=== PATIENT | female | born 1985 | race Caucasian/White ===

== ENCOUNTER 2016-10-20 22:43 | Observation (INO) ==
[2016-10-20] MEDS ORDERED: Nitroglycerin 0.4 MG TAB.SUBL SL PRN (22:59)
[2016-10-20 23:03] LABS: Basophils # 0.1 K/mcL (0.0-0.2); Basophils % 0.8 %; Eosinophils # 0.3 K/mcL (0.0-0.6); Eosinophils % 2.8 %; Hematocrit 41.7 % (35.3-44.9); Hemoglobin 14.5 g/dL (11.5-15.4); Immature Granulocytes % 0.3 % (0-4); Lymphocytes # 4.4 K/mcL (0.6-4.6); Lymphocytes % 36.9 %; Mean Corpuscular HGB Conc 34.8 g/dL (31.6-35.5); Mean Corpuscular Hemoglobin 31.5 pg (28.0-33.3); Mean Corpuscular Volume 90.5 fL (83.0-100.0); Mean Platelet Volume 9.8 fL (9.4-12.4); Monocytes # 0.8 K/mcL (0.0-1.3); Monocytes % 6.4 %; Neutrophils # 6.3 K/mcL (1.6-8.9); Platelet Count 283 K/mcL (140-400); Red Blood Count 4.61 M/mcL (3.82-4.97); Red Cell Distribution Width 12.5 % (11.5-14.5); Segmented Neutrophils % 52.8 %
[2016-10-20 23:10] LABS: Prothrombin Time 10.3 Seconds (9.4-12.1)
[2016-10-20 23:12] LABS: Activated Partial Thrombo Time 26.5 Seconds (26.0-36.0)
[2016-10-20 23:16] LABS: BUN/Creatinine Ratio 10 (6-26); Blood Urea Nitrogen 12 mg/dL (7-20); Calcium 9.6 mg/dL (8.6-10.8); Carbon Dioxide 21 mEq/L (19-29); Chloride 107 mEq/L (98-109); Glucose 234 mg/dL (70-99); Osmolality,Calculated 293 (280-300); Potassium 3.6 mEq/L (3.5-4.5); Sodium 138 mEq/L (136-145); eGFR For African Americans > 60 (> 60); eGFR For Non-African Americans 56 (> 60)
[2016-10-20 23:19] LABS: D-Dimer < 215 ng/mLFEU (0-500)
--- NOTE | 2016-10-20 23:51 | Emergency Department Note ---
Disposition Clinical Impression: Chest pain Qualifiers: Chest pain type: unspecified Qualified Code(s): R07.9 - Chest pain, unspecified Disposition: Admitted As Inpatient Condition: Fair Time of Disposition: 02:30 Chest Pain HPI - General Chief Complaint: ED Chest Pain Stated Complaint: CP Time Seen by Provider: 10/20/16 22:55 Source: patient, EMS Limitations: other Vital Signs Reviewed: Yes Nursing Notes Reviewed: Yes - History of Present Illness HPI Narrative: Patient is a 31-year-old female who presents to [facility] ED with a chief complaint of central chest pain. States the pain is a 10 out of 10 pressure that radiates into her right arm. States she feels nauseous. No vomiting. Chest pain started approximately 50 minutes prior to arrival. Past medical history significant for CAD with [address] 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 He has also seen Dr. Polk. Most recent stent was placed in Jun [address] Polk. No recent upper respiratory type symptoms. No abdominal pain. No problems with urination or bowel movements. Patient states she was told her cardiac disease came from her diabetes. Pt complaint: chest pain Onset (ago): minute(s) Duration: constant Onset: during rest Pain Location: substernal Severity: severe Severity scale (1-10): 10 Quality: aching, heaviness Pain Radiation: RUE Improves with: nothing Worsens with: nothing Associated symptoms: Reports: nausea. Denies: vomiting, dyspnea, fever, cough Treatments prior to arrival chest pain: aspirin (4 baby ASA) - Related Data On Oral Contraceptives: Yes (plavix) Home Medications Medication Instructions Recorded Confirmed Metformin [Glucophage] 1,000 mg PO HS 04/05/15 10/21/16 Metformin [Glucophage] 1,000 mg PO QAM 04/05/15 10/21/16 Topiramate [Topamax] 50 mg PO BID 04/05/15 10/21/16 Temazepam [Restoril] 15 mg PO HS #0 06/29/15 10/21/16 Aspirin 81 mg PO QAM 07/13/15 10/21/16 Atorvastatin [Lipitor] 80 mg PO QPM 07/13/15 10/21/16 Clopidogrel [Plavix] 75 mg PO QAM 07/13/15 10/21/16 TraZODone 25 mg PO HS 09/27/15 10/21/16 Diazepam [Valium] 5 mg PO TID 04/01/16 10/21/16 Lurasidone HCl [Latuda] 30 mg PO QPM 04/01/16 10/21/16 Liraglutide [Victoza 2-Bill] 1.2 mg SQ QAM 10/21/16 10/21/16 Previous Rx's Medication Instructions Recorded Metoprolol XL (24 HR) Succ [Toprol 12.5 mg PO DAILY #30 tab.er.24h 04/03/16 Xl] Ondansetron [Zofran] 4 mg PO Q8HR PRN #30 tablet 04/03/16 Allergies Allergy/AdvReac Type Severity Reaction Status Date / Time naproxen AdvReac Gastrointestinal Verified 05/02/16 17:04 Upset All systems ED: reviewed and negative except as stated. 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 - Social History Smoking Status: Never smoker Alcohol use: Reports: occasionally Drug use: Reports: none Physical Exam - General Limitations: other General appearance: alert, anxious - Head Head exam: atraumatic, normocephalic, normal inspection - Eye Eye exam: Present: normal appearance, PERRL, EOMI - ENT ENT exam: normal exam, normal oropharynx, mucous membranes moist - Neck Neck exam: Present: normal inspection, full ROM, trachea midline - Chest Chest inspection: Present: normal inspection, symmetric chest wall rise - Respiratory Respiratory exam: Present: normal lung sounds bilaterally - Cardiovascular Cardiovascular exam: Present: regular rate, normal rhythm, normal heart sounds - Abdominal Exam Abdominal exam: Present: soft, Non-Tender. Absent: tenderness, distention, guarding, rebound, rigidity - Extremities Exam Extremities exam: Present: normal inspection, full ROM. Absent: tenderness, pedal edema - Back Exam Back exam: Present: normal inspection, full ROM. Absent: tenderness - Neurological Exam Neurological exam: Present: alert, oriented X3 - Psychiatric Psychiatric exam: Present: normal affect, normal mood - Skin Skin exam: Present: warm, dry, intact, normal color Course Course Narrative: Patient seen and examined. Chest pain with history of ACS. Due to her history of ACS with stents, persistent chest pain despite nitroglycerin and morphine, we will admit for further observation. I spoke with hospitalist Dr. Craig who accept patient for admission. Vital Signs Temperature 97.8 F 10/20/16 22:44 Pulse Rate 94 10/20/16 22:44 Respiratory Rate 22 10/20/16 22:44 Blood Pressure 0/0 10/20/16 22:44 O2 Sat by Pulse Oximetry 98 10/20/16 22:44 Temperature 97.5 F L 10/21/16 06:43 Pulse Rate 74 10/21/16 06:43 Respiratory Rate 16 10/21/16 06:43 Blood Pressure 100/69 10/21/16 06:43 O2 Sat by Pulse Oximetry 97 10/21/16 06:43 Oxygen Delivery Oxygen Delivery Room Air Chest Pain - Medical Records Medical records reviewed: Yes I reviewed the patient's medical records. - Lab Data Lab results reviewed: Yes I reviewed the patient's lab results. Result diagrams: 10/21/16 01:43 10/21/16 01:43 Lab Results 10/20/16 10/20/16 10/20/16 Range/Units 22:53 22:53 22:53 WBC 12.0 H (4.3-11.1) K/mcL RBC 4.61 (3.82-4.97) M/mcL Hgb 14.5 (11.5-15.4) g/dL Hct 41.7 (35.3-44.9) % MCV 90.5 (83.0-100.0) fL MCH 31.5 (28.0-33.3) pg MCHC 34.8 (31.6-35.5) g/dL RDW 12.5 (11.5-14.5) % Plt Count 283 (140-400) K/mcL MPV 9.8 (9.4-12.4) fL Immature Gran % 0.3 (0-4) % Seg Neutrophils % 52.8 % Lymphocytes % 36.9 % Monocytes % 6.4 % Eosinophils % 2.8 % Basophils % 0.8 % Neutrophils # 6.3 (1.6-8.9) K/mcL Lymphocytes # 4.4 (0.6-4.6) K/mcL Monocytes # 0.8 (0.0-1.3) K/mcL Eosinophils # 0.3 (0.0-0.6) K/mcL Basophils # 0.1 (0.0-0.2) K/mcL PT 10.3 (9.4-12.1) Seconds INR 1.0 APTT 26.5 (26.0-36.0) Seconds D-Dimer < 215 (0-500) ng/mLFEU Sodium 138 (136-145) mEq/L Potassium 3.6 (3.5-4.5) mEq/L Chloride 107 (98-109) mEq/L Carbon Dioxide 21 (19-29) mEq/L BUN 12 (7-20) mg/dL Creatinine 1.15 H (0.57-1.11) mg/dL Est GFR ( Amer) > 60 (> 60) Est GFR (Non-Af Amer) 56 L (> 60) BUN/Creatinine Ratio 10 (6-26) Glucose 234 H (70-99) mg/dL Calculated Osmolality 293 (280-300) Calcium 9.6 (8.6-10.8) mg/dL Troponin I (0-0.03) ng/mL 10/20/16 Range/Units 22:53 WBC (4.3-11.1) K/mcL RBC (3.82-4.97) M/mcL Hgb (11.5-15.4) g/dL Hct (35.3-44.9) % MCV (83.0-100.0) fL MCH (28.0-33.3) pg MCHC (31.6-35.5) g/dL RDW (11.5-14.5) % Plt Count (140-400) K/mcL MPV (9.4-12.4) fL Immature Gran % (0-4) % Seg Neutrophils % % Lymphocytes % % Monocytes % % Eosinophils % % Basophils % % Neutrophils # (1.6-8.9) K/mcL Lymphocytes # (0.6-4.6) K/mcL Monocytes # (0.0-1.3) K/mcL Eosinophils # (0.0-0.6) K/mcL Basophils # (0.0-0.2) K/mcL PT (9.4-12.1) Seconds INR APTT (26.0-36.0) Seconds D-Dimer (0-500) ng/mLFEU Sodium (136-145) mEq/L Potassium (3.5-4.5) mEq/L Chloride (98-109) mEq/L Carbon Dioxide (19-29) mEq/L BUN (7-20) mg/dL Creatinine (0.57-1.11) mg/dL Est GFR ( Amer) (> 60) Est GFR (Non-Af Amer) (> 60) BUN/Creatinine Ratio (6-26) Glucose (70-99) mg/dL Calculated Osmolality (280-300) Calcium (8.6-10.8) mg/dL Troponin I 0.01 (0-0.03) ng/mL - Radiology Data Radiology results reviewed: Yes I reviewed the patient's radiology results. Chest X-Ray 10/20/16 22:57 IMPRESSION: No acute process. D/ / Estevan Hemphill MD / Estevan Hemphill MD Interpreting Provider: Estevan Hemphill MD - EKG Data EKG attestation: Yes I reviewed and interpreted this EKG. EKG shows normal: sinus rhythm Rate: normal Q waves: II, III, aVF When compared to previous EKG there are: no significant changes Interpretation: no acute changes Heart Score - Score History: Moderately Suspicious EKG: Normal Age: Less than 45 Risk Factors: Equal/Greater than 3 risk factor or history of atherosclerotic disease Troponin: Less than normal limit HEART Score Total: 3 Attestation Statement - Attestation Attestation: I, Murali Sellers MD, personally performed a history and physical exam of the patient and discussed their management with the resident. I reviewed the resident's note and agree with the documented findings, medical decision making , and plan of care. 31-year-old female presents to the emergency department with a complaint of severe chest pain which started in the right chest and radiated down the right arm then moved on to the left breast and then through to the back. Patient has a prior history of coronary artery disease with [place] and coronary artery stents. On examination patient is a well-developed obese female in no acute distress but appears to be in moderate discomfort. She is alert and oriented 3. There is no cyanosis or diaphoresis. Chest is nontender to palpation. Breath sounds are clear and equal bilaterally. Heart regular rate and rhythm. Nontender with normal bowel sounds. No acute changes on EKG. Chest x-ray negative. Labs reviewed. Troponin normal. The hospitalist, Dr. Craig, was consulted and accepted admission of the patient.
[2016-10-20] MEDS ORDERED: Ondansetron 4 MG/2 ML VIAL IVP ONE (23:52)
[2016-10-20] MEDS ORDERED: *HR* Morphine 2 MG/ML SYRINGE IVP ONE (23:52)
--- NOTE | 2016-10-21 01:20 | Internal Med History&Physical ---
Date of Encounter: 10/21/16 Time of Encounter: 01:14 Assessment and Plan (1) Chest pain Current visit: No Status: Acute Right-sided chest pain did not improve with nitrates in patient with History of coronary artery disease status post drug-eluting stent last year, currently taking both aspirin and Plavix. 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 U-Toxicology requested Will request a consultation with cardiology for assistance. Discussed with the patient. She expressed understanding. Qualifiers: Chest pain type: other chest pain Qualified Code(s): R07.89 - Other chest pain; R07.8 - Other chest pain (2) CAD (coronary artery disease) Current visit: No Status: Chronic Qualifiers: Coronary Disease-Associated Artery/Lesion type: [place] artery [place] vs. transplanted heart: [place] heart Associated angina: without angina Qualified Code(s): I25.10 - Atherosclerotic heart disease of [place] coronary artery without angina pectoris (3) Anxiety and depression Current visit: No Status: Chronic (4) DVT prophylaxis Current visit: No Status: Acute Heparin (5) Diabetes Current visit: No Status: Chronic Patient currently on metformin and Victoza. We will hold both medications for now. Check A1c levels. Monitor fingerstick. Insulin sliding scale. 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 Gamboa is a 31 year old female with past medical history of coronary artery disease status post drug-eluting stent in March 2016 ([facility] follow up with [facility] in [place], she has been seen by multiple cardiologists, including here by Dr. Polk in the past). Type 2 diabetes, obesity, anxiety depression, bipolar disorder, hypertension, fatty liver disease. She takes both aspirin and Plavix on a regular basis. The patient used to be a smoker, she quit last year. She presented to the emergency department complaining of chest pain which is located in the right side, pressure-like. Patient states the pain started around 4 PM however it was mild, intermittent. At around 10 PM pain was 10 out of 10, pressure-like, right-sided, radiating to the right upper extremity, associated with shortness of breath. Patient was playing cards with her friends, she took the dose of aspirin at home, a her friend called the squad and she was transported to our emergency department. Upon arrival to the ED her blood pressure was 118/87, heart rate was 94, temperature was 97.8, oxygen saturation was 98%. Initial WBC hemoglobin of 14.5, platelet count 283, WBC count 12.0. Sodium 138, potassium 3.6, chloride 107, bicarbonate 21, WN pleasant, creatinine 1.15, glucose 254. Troponin was 0.01. Chest x-ray did not reveal acute process. In the emergency department she received a dose of nitroglycerin sublingual which did not relieve the pain and gave her headache along with a dose of IV morphine 4 mg. EKG did not reveal acute changes, the patient was admitted for further management and workup. Past Med Surg Social Fam HX - Past Medical History Medical history: CHF, coronary artery disease, diabetes, GERD, hyperlipidemia, hypertension, kidney stones, migraine, myocardial infarction Psychiatric history: anxiety, ADHD, bipolar, depression - Past Surgical History Surgical History: angioplasty/stent - Social History Smoking Status: Never smoker Smokeless Tobacco Status: No Alcohol use: occasionally Drug use: none - Family History Father Living Status: Still Living Hx Family Cardiac Disorders: Yes (HTN) Hx Family Respiratory Disorders: No Hx Family Cancer: No Hx Family GI Disorders: No Hx Family Endocrine Disorder: Yes (Dm) Hx Family Neuromuscular Disorders: No Hx Family Neurologic Disorders: No Hx Family HEENT Disorders: No Hx Family Autoimmune Disorders: No Grandmother Adopted: No Family Member Ethnicity: Non- Living Status: Hx Family Cardiac Disorders: Yes (CHF) Hx Family Respiratory Disorders: No Hx Family Cancer: No Hx Family GI Disorders: No Hx Family Endocrine Disorder: No Hx Family Neuromuscular Disorders: No Hx Family Neurologic Disorders: No Hx Family HEENT Disorders: No Hx Family Autoimmune Disorders: No Mother Family Member Ethnicity: Non- Living Status: Still Living Hx Family Cardiac Disorders: No Hx Family Respiratory Disorders: No Hx Family Cancer: No Hx Family GI Disorders: No Hx Family Endocrine Disorder: No Hx Family Neuromuscular Disorders: No Hx Family Neurologic Disorders: No Hx Family HEENT Disorders: No Hx Family Autoimmune Disorders: No Internal Medicine - H&P: Meds Duloxetine [Cymbalta] 20 mg PO DAILY 04/05/15 [History] Metformin [Glucophage] 1,000 mg PO QAM 04/05/15 [History] Metformin [Glucophage] 500 mg PO HS 04/05/15 [History] Topiramate [Topamax] 50 mg PO BID 04/05/15 [History] Temazepam [Restoril] 15 mg PO HS #0 06/29/15 [History] Aspirin 81 mg PO QAM 07/13/15 [History] Atorvastatin [Lipitor] 80 mg PO QPM 07/13/15 [History] Clopidogrel [Plavix] 75 mg PO QAM 07/13/15 [History] TraZODone 25 mg PO HS 09/27/15 [History] Diazepam [Valium] 5 mg PO BID 04/01/16 [History] Lurasidone HCl [Latuda] 40 mg PO QPM 04/01/16 [History] Mexiletine [Mexitil] 200 mg PO BID 04/01/16 [History] Metoprolol XL (24 HR) Succ [Toprol Xl] 12.5 mg PO DAILY #30 tab.er.24h 04/03/16 [Rx] Ondansetron [Zofran] 4 mg PO Q8HR PRN #30 tablet 04/03/16 [Rx] Nitroglycerin 0.5 inch TP Q12H PRN 10 Days 05/05/16 [Rx] Benzonatate [Tessalon] 200 mg PO TID PRN #30 capsule 08/05/16 [Rx] Cephalexin [Keflex] 500 mg PO QID #40 capsule 08/05/16 [Rx] GuaiFENesin ER [Mucinex] 1,200 mg PO BID #20 tbbp.12hr 08/05/16 [Rx] Azithromycin [Zithromax] 250 mg PO DAILY #6 tablet 08/08/16 [Rx] GuaiFENesin/Codeine [Robitussin w/Codeine] 10 ml PO Q6HR PRN #120 liquid [Rx] PredniSONE 60 mg PO ONCE #5 tablet 08/08/16 [Rx] Allergies naproxen Adverse Reaction (Verified 05/02/16 17:04) Gastrointestinal Upset All Systems PM: A 10-system review of systems was performed and is negative for pertinent findings except as documented above in the HPI. - Constitutional Constitutional: no chills, no fever(s), no night sweats - EENT Eyes: no change in vision, no discharge, no pain, no photophobia Ears: no ear discharge, no ear pain, no tinnitus Nose, mouth and throat: no dysphagia, no nasal discharge, no neck pain, no sore throat - Cardiovascular Cardiovascular ROS IM: no chest pain, no diaphoresis, no dyspnea, no lightheadedness, no palpitations, no syncope - Respiratory Respiratory: no cough, no dyspnea, no wheezing, no excessive phlegm production - Gastrointestinal Gastrointestinal: no abdominal pain, no diarrhea, no hematemesis, no hematochezia, no melena, no nausea, no vomiting - Genitourinary Genitourinary: no change in urinary stream, no dysuria, no flank pain, no hematuria - Musculoskeletal Musculoskeletal ROS IM: no numbness, no tingling - Integumentary Integumentary IM: no rash, no unusual bruising - Neurological Neurological ROS: no confusion, no convulsions, no focal weakness, no numbness, no tingling, no tremor(s) - Hematologic/Lymphatic Hematologic/Lymphatic: no easy bruising - Constitutional Vitals: Temp Pulse Resp BP Pulse Ox 97.8 F 96 18 111/83 96 10/20/16 22:44 10/20/16 23:33 10/21/16 00:41 10/21/16 00:41 10/20/16 23:33 General appearance: Present: cooperative, A&O X 3, pleasant, obese - Head Head exam: Present: atraumatic, normocephalic - Eye Eye exam: Present: PERRL, conjuntiva pink, sclera anicteric Pupils: Present: PERRL - Neck Neck exam general surgery: Present: supple, trachea midline. Absent: lymphadenopathy - Respiratory Respiratory exam: Present: CTAB. Absent: accessory muscle use, rales, rhonchi, wheezes - Cardiovascular Cardiovascular exam: Present: RRR, +S1, +S2. Absent: diastolic murmur, gallop, rubs, systolic murmur - GI/Abdominal GI/Abdominal exam: Present: normal bowel sounds, soft, no peritoneal signs. Absent: distended, tenderness - Extremities Exam Extremities exam: Present: warm, radial pulses palpable and symetrical. Absent : calf tenderness, cyanotic, pedal edema - Neurological Exam Neurological exam: Present: CN II-XII intact, oriented X3, no focal deficits. Absent: pronater drift, facial droop, speech deficit - Skin Skin exam: Present: dry, intact Internal Med - H&P Results - Labs CBC & Chem 7: 10/20/16 22:53 10/20/16 22:53
[2016-10-21] MEDS ORDERED: *HR* Dextrose 50 % in Water (Syg) 50 ML SYRINGE IVP PRN (01:28)
[2016-10-21] MEDS ORDERED: Naloxone 0.4 MG/ML INJ IVP PRN (01:28)
[2016-10-21] MEDS ORDERED: Acetaminophen 325 MG TABLET PO PRN (01:28)
[2016-10-21] MEDS ORDERED: D5% in Water 1,000 ML IVC PRN (01:28)
[2016-10-21] MEDS ORDERED: Nitroglycerin 0.4 MG TAB.SUBL SL PRN (01:28)
[2016-10-21] MEDS ORDERED: *HR* Morphine 2 MG/ML SYRINGE IVP PRN (01:28)
[2016-10-21] MEDS ORDERED: Dextrose Gel 15 GM PO PRN ×2 (01:28)
[2016-10-21 01:57] LABS: Basophils # 0.1 K/mcL (0.0-0.2); Basophils % 0.6 %; Eosinophils # 0.3 K/mcL (0.0-0.6); Eosinophils % 2.5 %; Hematocrit 40.3 % (35.3-44.9); Hemoglobin 13.9 g/dL (11.5-15.4); Immature Granulocytes % 0.2 % (0-4); Lymphocytes # 4.8 K/mcL (0.6-4.6); Lymphocytes % 42.5 %; Mean Corpuscular HGB Conc 34.5 g/dL (31.6-35.5); Mean Corpuscular Hemoglobin 31.5 pg (28.0-33.3); Mean Corpuscular Volume 91.4 fL (83.0-100.0); Monocytes # 0.7 K/mcL (0.0-1.3); Monocytes % 5.8 %; Neutrophils # 5.5 K/mcL (1.6-8.9); Platelet Count 265 K/mcL (140-400); Red Blood Count 4.41 M/mcL (3.82-4.97); Red Cell Distribution Width 12.7 % (11.5-14.5); Segmented Neutrophils % 48.4 %
[2016-10-21 02:13] LABS: BUN/Creatinine Ratio 11 (6-26); Blood Urea Nitrogen 13 mg/dL (7-20); Calcium 9.4 mg/dL (8.6-10.8); Carbon Dioxide 24 mEq/L (19-29); Chloride 107 mEq/L (98-109); Chol/HDL Ratio 2.6 (0-4.9); Cholesterol 84 mg/dL (< 200); Glucose 224 mg/dL (70-99); HDL Cholesterol 32 mg/dL (40-59); LDL Cholesterol,Calculated 21 mg/dL (0-99); Magnesium 1.8 mg/dL (1.6-2.6); Osmolality,Calculated 295 (280-300); Potassium 3.7 mEq/L (3.5-4.5); Sodium 139 mEq/L (136-145); Triglycerides 155 mg/dL (< 150); eGFR For African Americans > 60 (> 60); eGFR For Non-African Americans 56 (> 60)
[2016-10-21] MEDS: *HR* HYDROcodone/Acet 5/325 mg TABLET PO PRN ×2 (02:45→08:13)
[2016-10-21 02:50] LABS: Hemoglobin A1C 7.6 %
[2016-10-21] MEDS: Ondansetron 4 MG/2 ML VIAL IVP PRN ×2 (06:07→11:05)
[2016-10-21 07:04] LABS: Amphetamine Screen,Urine Negative ng/mL (Cutoff=1000); Barbiturate Screen,Urine Negative ng/mL (Cutoff=200); Benzodiazepines Screen,Urine Positive ng/mL (Cutoff=200); Cannabinoid Screen,Urine Negative ng/mL (Cutoff = 50); Cocaine Screen,Urine Negative ng/mL (Cutoff= 300); Opiate Screen,Urine Positive ng/mL (Cutoff=300); Phencyclidine Screen,Urine Negative ng/mL (Cutoff=25)
[2016-10-21] MEDS ORDERED: Aspirin 81 MG TAB.CHEW PO SCH (09:00)
--- NOTE | 2016-10-21 09:13 | Cardiology Consult Note ---
<Nick August - Last Filed: 10/21/16 10:58> Date of Encounter: 10/21/16 Time of Encounter: 09:30 Assessment and Plan (1) Chest pain Status: Acute Per Cardiology: Trops negative x 3. Atypical CP that occurred at rest. Currently chest pain- free. ECG comparable to baseline ECG. Qualifiers: Chest pain type: other chest pain Qualified Code(s): R07.89 - Other chest pain; R07.8 - Other chest pain (2) CAD (coronary artery disease) Status: Chronic Per Cardiology: Hx of CAD. Patient with inferior STEMI June 2015 at that time underwent drug -eluting stent placement to proximal RCA 100% stenosis. Patient had subsequent repeat heart catheterization September 2015 for recurrent chest pain admissions which showed patent stent and distal RCA 80% stenosis with FFR 0.85 and 0.84. Patient again had a third heart catheterization April 2016 and underwent drug- eluting stent placement to right PDA 70-80% stenosis with patent proximal RCA stent. Patient had otherwise nonobstructive CAD with mid LAD 20%, mid circumflex 20%, and 20% in-stent restenosis of proximal RCA. On aspirin, Plavix , statin. I'll discuss with patient regarding outpatient follow-up with her primary rn telephone triage versus further ischemic evaluation. At this point patient' s agreeable for follow-up in outpatient setting. Discussed with primary service. Anticipate discharge home today. Will discuss with Dr. Vela. Cardiology will sign off, re-consult as needed, patient desires to follow-up with her primary rn telephone triage. Qualifiers: Coronary Disease-Associated Artery/Lesion type: [place] artery [place] vs. transplanted heart: [place] heart Associated angina: without angina Qualified Code(s): I25.10 - Atherosclerotic heart disease of [place] coronary artery without angina pectoris Discussion w patient/family: The assessment and plan as outlined above was discussed with the patient who expressed understanding and agreement. All questions were answered. Thank you for involving us in the care of your patient. Please call with any questions. History of Present Illness Consult date: 10/21/16 Requesting physician: Yovani Dick Consult reason: CP Chief complaint: Right sided CP History of present illness: Ms. Gamboa is a 31 year old female with a relevant past medical history of diabetes mellitus type 2, hypertension, hyperlipidemia, past history of nicotine abuse-- reports quit at time of her [place] June 2015, history of inferior STEMI with CAD, and anxiety. Cardiology consult today for chest pain evaluation. Patient reports since her last catheterization and stenting in April 2016 she has "felt great". She reports yesterday throughout the day showed intermittent right upper chest wall stabbing sensations that lasted for a few seconds and subsided. Yesterday evening while playing cards with friends she developed the same right-sided chest discomfort and left-sided breast area discomfort with radiation to her back the laceration about 30 minutes that she describes as a dull aching sensation. She denies any other accompanying symptoms. She reports the time of her heart attack symptoms were diaphoresis, nausea, and jaw pain with left arm pain. She also complains of right-sided arm numbness. Symptoms relieved with morphine and Percocet. Reports follows with rn telephone triage in [place]. Past Med Surg Social Fam HX - Past Medical History Attestation: Yes The following information was validated with the patient. Source: patient, old records reviewed Medical history: CHF, coronary artery disease, diabetes, GERD, hyperlipidemia, hypertension, kidney stones, migraine, myocardial infarction Psychiatric history: anxiety, ADHD, bipolar, depression - Past Surgical History Surgical History: angioplasty/stent - Social History Smoking Status: Never smoker Smokeless Tobacco Status: No Alcohol use: occasionally Drug use: none - Family History Father Living Status: Still Living Hx Family Cardiac Disorders: Yes (HTN) Hx Family Respiratory Disorders: No Hx Family Cancer: No Hx Family GI Disorders: No Hx Family Endocrine Disorder: Yes (Dm) Hx Family Neuromuscular Disorders: No Hx Family Neurologic Disorders: No Hx Family HEENT Disorders: No Hx Family Autoimmune Disorders: No Grandmother Adopted: No Family Member Ethnicity: Non- Living Status: Hx Family Cardiac Disorders: Yes (CHF) Hx Family Respiratory Disorders: No Hx Family Cancer: No Hx Family GI Disorders: No Hx Family Endocrine Disorder: No Hx Family Neuromuscular Disorders: No Hx Family Neurologic Disorders: No Hx Family HEENT Disorders: No Hx Family Autoimmune Disorders: No Mother Family Member Ethnicity: Non- Living Status: Still Living Hx Family Cardiac Disorders: No Hx Family Respiratory Disorders: No Hx Family Cancer: No Hx Family GI Disorders: No Hx Family Endocrine Disorder: No Hx Family Neuromuscular Disorders: No Hx Family Neurologic Disorders: No Hx Family HEENT Disorders: No Hx Family Autoimmune Disorders: No Medications and Allergies Metformin [Glucophage] 1,000 mg PO BID 04/05/15 [History] Topiramate [Topamax] 50 mg PO BID 04/05/15 [History] Temazepam [Restoril] 15 mg PO HS #0 06/29/15 [History] Aspirin 81 mg PO QAM 07/13/15 [History] Atorvastatin [Lipitor] 80 mg PO QPM 07/13/15 [History] Clopidogrel [Plavix] 75 mg PO QAM 07/13/15 [History] TraZODone 25 - 50 mg PO HS PRN 09/27/15 [History] Diazepam [Valium] 5 mg PO TID 04/01/16 [History] Lurasidone HCl [Latuda] 30 mg PO QPM 04/01/16 [History] Ondansetron [Zofran] 4 mg PO Q8HR PRN #30 tablet 04/03/16 [Rx] Liraglutide [Victoza 2-Bill] 1.2 mg SQ QAM 10/21/16 [History] Metoprolol XL (24 HR) Succ [Toprol Xl] 50 mg PO DAILY 10/21/16 [History] Allergies naproxen Adverse Reaction (Verified 05/02/16 17:04) Gastrointestinal Upset All Systems Review: A 10-system review of systems was performed and is negative for pertinent findings except as documented above in the HPI. - Cardiovascular Cardiovascular: as per HPI, chest pain at rest Physical Examination Vital Signs, Last 4 Hours Temp Pulse Resp BP Pulse Ox 10/21/16 06:43 97.5 F L 74 16 100/69 97 General: Conversant, No Apparent Distress HEENT: Atraumatic, Normocephaly, Mucus Membranes Moist Neck: No JVD, Normal carotid pulses Cardiac: Reg Rate and Rhythm, Normal S1 and S2, No Murmur Lungs: Normal Breath Sounds, No Wheeze, Rales, Rhonchi Neuro: Alert and responsive, No focal deficits noted Abdomen: Soft, Non-Tender Skin: No rashes noted on visualized skin Musculoskeletal: No Chest Wall Tenderness Extremities: No Clubbing, No Cyanosis, No Edema, Normal Pulses Results 10/21/16 01:43 10/21/16 01:43 Lab Results Laboratory Tests 10/20/16 10/21/16 10/21/16 22:53 01:43 01:43 INR 1.0 D-Dimer < 215 Creatinine 1.15 H Est GFR (Non-Af Amer) 56 L Glucose 224 H Hemoglobin A1c 7.6 H Urine Opiates Screen U Benzodiazepines Scrn 10/21/16 06:48 INR D-Dimer Creatinine Est GFR (Non-Af Amer) Glucose Hemoglobin A1c Urine Opiates Screen Positive H U Benzodiazepines Scrn Positive H ITS Impressions Chest X-Ray 10/20/16 22:57 IMPRESSION: No acute process. D/ / Estevan Hemphill MD / Estevan Hemphill MD Interpreting Provider: Estevan Hemphill MD Active Medications Acetaminophen (Tylenol) 650 mg PO Q6HR PRN PRN Reason: Mild Pain (1-3) Stop: 04/22/17 01:29 Acetaminophen/Hydrocodone Bitart ([place] 5-325 Mg) 1 tab PO Q4HR PRN PRN Reason: Moderate Pain (4-6) Stop: 04/22/17 01:29 Last Admin: 10/21/16 08:13 Dose: 1 tab Aspirin (Aspirin) 81 mg PO DAILY GINGER Stop: 04/22/17 09:01 Last Admin: 10/21/16 08:13 Dose: 81 mg Atorvastatin Calcium (Lipitor) 80 mg PO HS GINGER Stop: 04/22/17 21:01 Clopidogrel Bisulfate (Plavix) 75 mg PO DAILY [facility] Stop: 04/22/17 09:01 Last Admin: 10/21/16 08:14 Dose: 75 mg Dextrose/Water (Dextrose 50% (Syg)) 25 ml IVP AD PRN PRN Reason: Hypoglycemia Stop: 04/22/17 01:29 Glucagon (Glucagen) 1 mg IM ONCE PRN PRN Reason: Hypoglycemia Stop: 04/22/17 01:29 Glucose (Gluctose) 15 gm PO ONCE PRN PRN Reason: Hypoglycemia Stop: 04/22/17 01:29 Glucose (Gluctose) 30 gm PO ONCE PRN PRN Reason: Hypoglycemia Stop: 04/22/17 01:29 Dextrose (Dextrose 5%) 1,000 mls @ 100 mls/hr IVC .Q10H PRN PRN Reason: HYPOGLYCEMIA Stop: 04/22/17 01:29 Morphine Sulfate (Morphine Sulfate) 2 mg IVP Q4HR PRN PRN Reason: Severe Pain (7-10) Stop: 04/22/17 01:29 Last Admin: 10/21/16 05:39 Dose: 2 mg Naloxone HCl (Narcan) 0.4 mg IVP Q2MIN PRN PRN Reason: Opioid Reversal Stop: 04/22/17 01:29 Nitroglycerin (Nitroglycerin) 0.4 mg SL Q5MIN PRN PRN Reason: Chest Pain Stop: 04/21/17 23:00 Last Admin: 10/20/16 23:06 Dose: 0.4 mg Nitroglycerin (Nitroglycerin) 0.4 mg SL Q5MIN PRN PRN Reason: Chest Pain Stop: 04/22/17 01:29 Ondansetron HCl (Zofran) 4 mg IVP Q8HR PRN PRN Reason: Nausea And Vomiting Stop: 04/22/17 01:29 Last Admin: 10/21/16 06:07 Dose: 4 mg - Imaging and Cardiology Echo: report reviewed Cardiac cath: report reviewed - EKG Interpretation EKG results cardiology: personally reviewed (Comparable to baseline ECG), normal ECG, sinus rhythm Consult Discharge Plan - Plan Instructions: Myocardial Infarction (DC), Chest Pain (DC) Additional Instructions: Please follow up with your primary care provider in the next week or so for a follow up visit after your admission. Please follow up with your primary rn telephone triage for a follow up or for any other concerns. Return to the ED for any other problems or concerns or if your pain returns or changes. Referrals: Glory Funes CNP [Primary Care Provider] - <Kristi Vela - Last Filed: 10/21/16 13:54> Date of Encounter: 10/21/16 Assessment and Plan Discussion w patient/family: The assessment and plan as outlined above was discussed with the patient and/or family members who expressed understanding and agreement. All questions were answered. Thank you for involving us in the care of your patient. Please call with any questions. History of Present Illness History of present illness: Ms. Gamboa is a 31 year old female All Systems Review: A 10-system review of systems was performed and is negative for pertinent findings except as documented above in the HPI. Physical Examination Vital Signs, Last 4 Hours Temp Pulse Resp BP Pulse Ox 10/21/16 11:41 97.5 F L 63 16 110/73 96 Results 10/21/16 01:43 10/21/16 01:43 Lab Results 10/21/16 10/21/16 10/21/16 01:43 01:43 01:43 WBC 11.4 H Hgb 13.9 Hct 40.3 Plt Count 265 Sodium 139 Potassium 3.7 Chloride 107 Carbon Dioxide 24 BUN 13 Creatinine 1.15 H Glucose 224 H Calcium 9.4 Magnesium 1.8 Troponin I 0.01 10/21/16 07:58 WBC Hgb Hct Plt Count Sodium Potassium Chloride Carbon Dioxide BUN Creatinine Glucose Calcium Magnesium Troponin I 0.01 - Attending Attestation Patient was discharge prior to me being able to see her. I did review the case with Nick August CNP and reviewed the note. She presented with atypical chest pain, negative troponins and no new ECG changes. We do not recommend further workup at this time. Continue medical therapy. She will follow up with her primary rn telephone triage as an outpatient.
[2016-10-21] MEDS ORDERED: Ibuprofen 600 MG TABLET PO ONE (10:44)
[2016-10-21 11:46] VITALS: BP 110/73
--- NOTE | 2016-10-21 12:28 | Discharge Summary ---
Date of Encounter: 10/21/16 Time of Encounter: 09:15 - Discharge Diagnosis (1) Chest pain Priority: Primary Status: Chronic Comments: Pt reports onset of atypical chest pain last night at 2200 while she was playing cards with her friends. She states that she has sharp R upper chest pain with radiation of dull pain into R arm, and sharp L ant chest pain, under breast, with radiation of dull pain straight through to her back. She denies any recent illness or exposures or new cough, rhinorrhea, fever. Pt states that pain is constant and is relieved by pain medication. She states that nothing makes the pain worse, it is constant. She also denies vomiting, however, reports some nausea and diaphoresis with chest pain while in the ED. The pain is not reproduceable with movement, inspiration, or palpation. EKG was NSR and her trops are negative x 3. She rates the pain 8/10. Pt has a long history of chest pain starting in June of 2015 when she had an NH. She has had several heart caths and DELFINO placement x 2, most recently in April of 2016. Cardiology assessed the pt today and she declined an echo today. Pt has a intermediate project manager in [place]. Qualifiers: Chest pain type: other chest pain Qualified Code(s): R07.89 - Other chest pain; R07.8 - Other chest pain (2) CAD (coronary artery disease) Priority: Secondary Status: Chronic Comments: Pt has had several heart caths and DELFINO placed X2. Pt states that her last stress test and cath were in Apr, 2016. She is on ASA, Plavix, and a statin, which she will continue after discharge. Pt has a intermediate project manager in [place] with whom she may follow up for further evaluation. Qualifiers: Coronary Disease-Associated Artery/Lesion type: [place] artery [place] vs. transplanted heart: [place] heart Associated angina: without angina Qualified Code(s): I25.10 - Atherosclerotic heart disease of [place] coronary artery without angina pectoris (3) Diabetes Priority: Secondary Status: Chronic Comments: A1c is 7.6% today and she has been hyperglycemic since admission. She states that he glucose has been well controlled at home. Continue home medications. Follow up with PCP as needed. Qualifiers: Diabetes mellitus type: type 2 Diabetes mellitus complication status: with unspecified complications Diabetes mellitus senior living insulin use: without intermediate project manager use Qualified Code(s): E11.8 - Type 2 diabetes mellitus with unspecified complications (4) Hypertension Priority: Secondary Status: Chronic Comments: Pt reports HTN since age 11. She takes a BB which she will continue at home after discharge. She has been normotensive. Qualifiers: Hypertension type: essential hypertension Qualified Code(s): I10 - Essential (primary) hypertension (5) DVT prophylaxis Priority: Secondary Status: Acute Comments: Pt is already on ASA and Plavix and is ambulatory, does not require additional pharmacological anticoagulation therapy. - Discharge Medications Home Medications: Metformin [Glucophage] 1,000 mg PO HS 04/05/15 [History] Metformin [Glucophage] 1,000 mg PO QAM 04/05/15 [History] Topiramate [Topamax] 50 mg PO BID 04/05/15 [History] Temazepam [Restoril] 15 mg PO HS #0 06/29/15 [History] Aspirin 81 mg PO QAM 07/13/15 [History] Atorvastatin [Lipitor] 80 mg PO QPM 07/13/15 [History] Clopidogrel [Plavix] 75 mg PO QAM 07/13/15 [History] TraZODone 25 mg PO HS 09/27/15 [History] Diazepam [Valium] 5 mg PO TID 04/01/16 [History] Lurasidone HCl [Latuda] 30 mg PO QPM 04/01/16 [History] Metoprolol XL (24 HR) Succ [Toprol Xl] 12.5 mg PO DAILY #30 tab.er.24h 04/03/16 [Rx] Ondansetron [Zofran] 4 mg PO Q8HR PRN #30 tablet 04/03/16 [Rx] Liraglutide [Victoza 2-Bill] 1.2 mg SQ QAM 10/21/16 [History] Allergies/Adverse Reactions: Allergies naproxen Adverse Reaction (Verified 05/02/16 17:04) Gastrointestinal Upset Procedures/tests Complete & Pending: Procedures Performed prior 72 hours Category Date Time Status ECG 12 lead ECG [ECG] Routine Y 10/22/16 07:00 Ordered ECG 12 lead ECG [ECG] Stat Y 10/21/16 01:29 Ordered Date of admission: 10/21/16 00:07 Primary care physician: Glory Funes CNP Consults: 10/21/16 01:29 Consult to Nurse Navigator [CONS] Routine Comment: 10/21/16 07:00 Consult to Cardiology [CONS] Routine Comment: Consulting Provider: Deborah Gonzales Reason for Consult: right sided chest pain. h/o CAD S/P DELFINO R PDA 03/2016 Call Completed: No Discharging clinician: Lynnette Cazares Anticipated date of discharge: 10/21/16 - Patient Status Disposition: Home, Self-Care Condition: Good Functional capacity at discharge: independent ambulation Overall status at discharge: patient is progressing back to baseline - Discharge Instructions Follow Up With: Glory Funes CNP [Primary Care Provider] - Additional Instructions: Please follow up with your primary care provider in the next week or so for a follow up visit after your admission. Please follow up with your primary intermediate project manager for a follow up or for any other concerns. Return to the ED for any other problems or concerns or if your pain returns or changes. - Diet and Activity Activity: resume usual activities as tolerated Diet: advance to your usual diet Hospital course: Ms. Gamboa is a 31 year old female with a lengthy history of hypertension since age 11, diabetes, NH in 2014, and multiple cardiac catheters and drug-eluting stents. Patient had a heart catheter in September and April 2016. She had stent placement both times. She reports uncontrolled diabetes and hypertension are what caused her NH initially. She began having chest pain about 4:00 yesterday afternoon, it became worse at 10 PM last night while she was playing cards with her friends. She came to the emergency department by squad and was admitted for evaluation. Her troponins were negative 3, her EKG was normal sinus, and she was seen by cardiology this morning. He did discuss an echocardiogram today , but she declined. She describes constant 8 out of 10 right upper chest pain with radiation of dull pain down her right arm, and sharp chest pain on her left side under her left breast with radiation of dull pain straight through to her back. She states that nothing makes it worse, pain medication makes it better. She states that neither of her parents have any cardiac history nor does she have siblings with cardiac history. She does not smoke and has never smoked. Her continued risk factors are hypertension diabetes and obesity. She is already on a statin, beta phyllis, aspirin, and Plavix, which she will continue at home. She is remaining normal sinus rhythm throughout her visit. She is stable for discharge at this time. - Time Spent with Patient Total time spent providing and/or coordinating discharge services: Less than 30 minutes - Constitutional Vitals: Temp Pulse Resp BP Pulse Ox 97.5 F L 63 16 110/73 96 10/21/16 11:41 10/21/16 11:41 10/21/16 11:41 10/21/16 11:41 10/21/16 11:41 General appearance: Present: cooperative, A&O X 3, pleasant, obese - Head Head exam: Present: normal inspection - Eye Eye exam: Present: normal appearance, conjuntiva pink - ENT ENT exam: Present: mucous membranes moist, normal exam, normal external ear exam - Neck Neck exam general surgery: Present: normal inspection. Absent: lymphadenopathy , tenderness - Respiratory Respiratory exam: Present: CTAB. Absent: rales, respiratory distress, rhonchi, wheezes - Cardiovascular Cardiovascular exam: Present: RRR, +S1, +S2. Absent: diastolic murmur, systolic murmur - GI/Abdominal GI/Abdominal exam: Present: distended, hyperactive bowel sounds, soft. Absent: tenderness - Extremities Exam Extremities exam: Present: normal capillary refill, normal inspection, warm, radial pulses palpable and symetrical. Absent: mottling, pedal edema, tenderness - Neurological Exam Neurological exam: Present: alert, oriented X3, no focal deficits, strengths equal and symetr throughout
--- NOTE | 2016-10-22 10:53 | Electrocardiograph Report ---
[address] [place], [place] [address] Test Date: 2016-10-20 Pat Name: Deb Gamboa Department: 104 Room: 3B38 Gender: F [employer] Customer Service: ROSAS : 1985 Requested By: Cecily Prieto Order Number: [id number] Reading MD: Barrie Polk MD Measurements Intervals Accident Rate: 93 P: 24 IA: 152 QRS: -15 QRSD: 101 T: -20 QT: 334 QTc: 385 Interpretive Statements SINUS RHYTHM WITH SINUS ARRHYTHMIA LOW QRS VOLTAGE IN PRECORDIAL LEADS INFERIOR MYOCARDIAL INFARCTION, OF INDETERMINATE AGE ANTEROLATERAL MYOCARDIAL INFARCTION, OF INDETERMINATE AGE Electronically Signed On 10-22-2016 10:51:03 EDT by Barrie Polk MD
--- NOTE | 2016-10-22 13:47 | Electrocardiograph Report ---
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
== END 2016-10-21 13:30 | disposition home or self-care (01) ==
LOC: EMEROO 22:43 → 3BNU 22:43
PROVIDERS: ADMIT Internal Medicine; ATTEND Registered Nurse

== ENCOUNTER 2017-01-11 19:08 | Observation (INO) ==
--- NOTE | 2017-01-11 19:37 | Emergency Department Note ---
Disposition Clinical Impression: Chest pain Qualifiers: Chest pain type: unspecified Qualified Code(s): R07.9 - Chest pain, unspecified Disposition: Admitted As Inpatient Condition: Good Referrals: NO,PCP [Non-Partnered Physician] - Forms: ED Satisfaction Letter Chest Pain HPI - General Chief Complaint: ED Chest Pain Stated Complaint: CP Time Seen by Provider: 01/11/17 19:16 Source: patient Mode of arrival: EMS Limitations: no limitations Vital Signs Reviewed: Yes Nursing Notes Reviewed: Yes - History of Present Illness HPI Narrative: 31-year-old female history of CAD with 2 cardiac stents, hypertension, hyperlipidemia, diabetes who presents to the ER via EMS due to chest pain. Patient reports symptoms began around 5:40 PM today. She states she was sitting down whatever she had left-sided chest pain with radiation into her arm as well as nausea. She took aspirin prior to arrival as well as 3 sublingual nitroglycerin without any improvement of her symptoms. She states that she has had 5 heart catheterizations in the past most recently 6 months ago. She states that they told her she is having heart attacks because of her diabetes. She currently states that her pain is still there. She feels nauseated but no vomiting. No recent illnesses. No other complaints. 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 Denies: vomiting, diaphoresis, dyspnea Treatments prior to arrival chest pain: aspirin, nitroglycerin - Related Data Home Medications Medication Instructions Recorded Confirmed Topiramate [Topamax] 50 mg PO BID 04/05/15 01/11/17 Temazepam [Restoril] 15 mg PO HS #0 06/29/15 01/11/17 Aspirin 81 mg PO QAM 07/13/15 01/11/17 Atorvastatin [Lipitor] 80 mg PO QPM 07/13/15 01/11/17 Clopidogrel [Plavix] 75 mg PO QAM 07/13/15 01/11/17 traZODone [TraZODone] 50 mg PO HS PRN 09/27/15 01/11/17 Lurasidone HCl [Latuda] 30 mg PO QPM 04/01/16 01/11/17 diazePAM [Valium] 5 mg PO TID 04/01/16 01/11/17 Liraglutide [Victoza 2-Bill] 1.2 mg SQ QAM 10/21/16 01/11/17 Metoprolol XL (24 HR) Succ [Toprol 12.5 mg PO BID 10/21/16 01/11/17 Xl] Diltiazem CD (24hr) [Cardizem CD] 180 mg PO DAILY 01/11/17 01/11/17 Metformin HCl [Metformin HCl ER] 1,000 mg PO BID 01/11/17 01/11/17 Allergies Allergy/AdvReac Type Severity Reaction Status Date / Time naproxen AdvReac Gastrointestinal Verified 05/02/16 17:04 Upset All systems ED: reviewed and negative except as stated. Constitutional: Denies: fever Cardiovascular: Reports: chest pain Respiratory: Denies: cough, dyspnea Gastrointestinal: Reports: nausea. Denies: abdominal pain, vomiting, diarrhea Musculoskeletal: Denies: neck pain Chest Pain PMH - Past Medical History Medical history: Reports: CHF, coronary artery disease, diabetes, GERD, hyperlipidemia, hypertension, kidney stones, migraine, myocardial infarction Surgical history: Reports: angioplasty/stent Psychiatric history: Reports: anxiety, ADHD, bipolar, depression METAL CASTER history: Reports: non-contributory - Social History Smoking Status: Never smoker Alcohol use: Reports: occasionally Drug use: Reports: none Physical Exam - General Limitations: no limitations General appearance: alert, in no apparent distress - Head Head exam: atraumatic, normocephalic, normal inspection - Eye Eye exam: Present: normal appearance, EOMI - ENT ENT exam: normal exam - Neck Neck exam: Present: normal inspection - Chest Chest inspection: Present: normal inspection, symmetric chest wall rise. Absent : tenderness - Respiratory Respiratory exam: Present: normal lung sounds bilaterally - Cardiovascular Cardiovascular exam: Present: regular rate, normal rhythm, normal heart sounds - Abdominal Exam Abdominal exam: Present: soft, Non-Tender. Absent: tenderness - Extremities Exam Extremities exam: Present: normal inspection, full ROM - Expanded Upper Extremity Exam Shoulder exam: Present: normal inspection, full ROM Arm exam: Present: normal inspection, full ROM Elbow exam: Present: normal inspection, full ROM Forearm/Wrist exam: Present: normal inspection, full ROM Hand exam: Present: normal inspection, full ROM - Expanded Lower Extremity Exam Hip/Pelvis exam: Present: normal inspection, full ROM Upper leg exam: Present: normal inspection, full ROM Knee exam: Present: normal inspection, full ROM Lower leg exam: Present: normal inspection, full ROM Ankle exam: Present: normal inspection, full ROM Foot/toe exam: Present: normal inspection, full ROM - Neurological Exam Neurological exam: Present: alert - Psychiatric Psychiatric exam: Present: normal affect, normal mood - Skin Skin exam: Present: warm, dry, intact, normal color Course Course Narrative: Patient seen and examined at time of arrival. Vitals reviewed. We will get an EKG, chest x-ray as well as labs including troponin. Patient continues to have persistence of her pain despite sublingual nitroglycerin. We will start a nitroglycerin drip. I will also review her previous admissions. - Reevaluation(s) Reevaluation #1: Discussed results of imaging and lab work with the patient. She states she still having pain and will get some morphine. Patient agreeable with getting admitted to the hospital - Consultations Consultation #1: I spoke with the on-call shop and alteration tailor Dr. Mittal at the request of the hospitalist. Discussed patient's history EKG troponin and interventions today. He is agreeable with admission, repeat EKGs and troponins. Vital Signs Temperature 98.4 F 01/11/17 19:16 Pulse Rate 84 01/11/17 19:16 Respiratory Rate 16 01/11/17 19:16 Blood Pressure 114/85 01/11/17 19:16 O2 Sat by Pulse Oximetry 98 01/11/17 19:16 Temperature 98.4 F 01/11/17 19:16 Pulse Rate 70 01/11/17 22:12 Respiratory Rate 16 01/11/17 22:12 Blood Pressure 124/89 01/11/17 22:12 O2 Sat by Pulse Oximetry 98 01/11/17 22:12 Oxygen Delivery Oxygen Delivery Room Air Chest Pain - MDM Narrative Medical decision making narrative: 31-year-old female history of CAD with 2 stents who presents to the ER with a chief complaint of chest pain. Started around 540 today. Left-sided with radiation into her arm. Has felt nauseated as well. Her EKG is nonischemic. First troponin is negative. Chest x-ray unremarkable. Patient given nitroglycerin and morphine here. She will be admitted to the hospitalist service for further management. - Lab Data Lab results reviewed: Yes I reviewed the patient's lab results. Result diagrams: 01/11/17 19:34 01/11/17 19:34 Lab Results 01/11/17 01/11/17 01/11/17 Range/Units 19:34 19:34 19:34 WBC 14.1 H (4.3-11.1) K/mcL RBC 4.82 (3.82-4.97) M/mcL Hgb 15.1 (11.5-15.4) g/dL Hct 43.5 (35.3-44.9) % MCV 90.2 (83.0-100.0) fL MCH 31.3 (28.0-33.3) pg MCHC 34.7 (31.6-35.5) g/dL RDW 12.8 (11.5-14.5) % Plt Count 271 (140-400) K/mcL MPV 9.8 (9.4-12.4) fL Immature Gran % 0.2 (0-4) % Seg Neutrophils % 63.9 % Lymphocytes % 28.1 % Monocytes % 3.9 % Eosinophils % 3.3 % Basophils % 0.6 % Neutrophils # 9.0 H (1.6-8.9) K/mcL Lymphocytes # 4.0 (0.6-4.6) K/mcL Monocytes # 0.6 (0.0-1.3) K/mcL Eosinophils # 0.5 (0.0-0.6) K/mcL Basophils # 0.1 (0.0-0.2) K/mcL PT 10.4 (9.4-12.1) Seconds INR 1.0 APTT 29.1 (26.0-36.0) Seconds Sodium 138 (136-145) mEq/L Potassium 3.7 (3.5-4.5) mEq/L Chloride 111 H (98-109) mEq/L Carbon Dioxide 16 L (19-29) mEq/L BUN 6 L (7-20) mg/dL Creatinine 0.67 (0.57-1.11) mg/dL Est GFR ( Amer) > 60 (> 60) Est GFR (Non-Af Amer) > 60 (> 60) BUN/Creatinine Ratio 9 (6-26) Glucose 132 H (70-99) mg/dL Calculated Osmolality 285 (280-300) Calcium 9.3 (8.6-10.8) mg/dL Troponin I (0-0.03) ng/mL 01/11/17 Range/Units 19:34 WBC (4.3-11.1) K/mcL RBC (3.82-4.97) M/mcL Hgb (11.5-15.4) g/dL Hct (35.3-44.9) % MCV (83.0-100.0) fL MCH (28.0-33.3) pg MCHC (31.6-35.5) g/dL RDW (11.5-14.5) % Plt Count (140-400) K/mcL MPV (9.4-12.4) fL Immature Gran % (0-4) % Seg Neutrophils % % Lymphocytes % % Monocytes % % Eosinophils % % Basophils % % Neutrophils # (1.6-8.9) K/mcL Lymphocytes # (0.6-4.6) K/mcL Monocytes # (0.0-1.3) K/mcL Eosinophils # (0.0-0.6) K/mcL Basophils # (0.0-0.2) K/mcL PT (9.4-12.1) Seconds INR APTT (26.0-36.0) Seconds Sodium (136-145) mEq/L Potassium (3.5-4.5) mEq/L Chloride (98-109) mEq/L Carbon Dioxide (19-29) mEq/L BUN (7-20) mg/dL Creatinine (0.57-1.11) mg/dL Est GFR ( Amer) (> 60) Est GFR (Non-Af Amer) (> 60) BUN/Creatinine Ratio (6-26) Glucose (70-99) mg/dL Calculated Osmolality (280-300) Calcium (8.6-10.8) mg/dL Troponin I 0.01 (0-0.03) ng/mL - Radiology Data Radiology results reviewed: Yes I reviewed the patient's radiology results. Chest X-Ray 01/11/17 19:16 IMPRESSION: No acute cardiopulmonary abnormality D/ / García Mckeon / García Mckeon Interpreting Provider: García Mckeon - EKG Data EKG attestation: Yes I reviewed and interpreted this EKG. EKG results narrative: EKG demonstrates sinus rhythm with a rate of 82 bpm. Normal axis. KS interval 152 QRS duration 94 QTc 403 T-wave inversion in lead 3. No ST elevations or depressions. No acute ischemic findings. Changes from previous EKG include T- wave inversion in lead 3. Heart Score - Score History: Moderately Suspicious EKG: Normal Age: Less than 45 Risk Factors: Equal/Greater than 3 risk factor or history of atherosclerotic disease Troponin: Less than normal limit HEART Score Total: 3 S.B.A.R. - S.B.A.R. Situation: Demographics, MOA Background: Presenting Complaint, Relevant PMH, Meds, & Allergies Assessment: Vital Signs, Course and respsone to treatment, Exam Concerns, Patient/Family Expectation, Pertinant Lab Results, Outstanding Labs Recommendation: Barrier(s) to disposition, Recommendation based on pending studies, treatments, or consults S.B.A.R. Report Given to: Dr. Dudley WalshBEmmaANgoc Repor Time: 22:15 (Request I consulted the shop and alteration tailor) Attestation Statement - Attestation Attestation: I examined this patient and my medical decision-making was reviewed with the MANUAL PLATE FILLER/PA/Advanced Practice Nurse/Resident Physician. I agree with the documented findings, disposition and treatment plan as described except to the extent set forth below. Patiently waiting a chest pain. Left-sided on her arm. Patient states she has a history 2 cardiac stents. Multiple admissions for the same. States she tried her home nitroglycerin with no relief. Patient calm cooperative in no distress on evaluation. Plan. Cardiac workup. No changes on EKG.
[2017-01-11 19:43] LABS: Basophils # 0.1 K/mcL (0.0-0.2); Basophils % 0.6 %; Eosinophils # 0.5 K/mcL (0.0-0.6); Eosinophils % 3.3 %; Hematocrit 43.5 % (35.3-44.9); Hemoglobin 15.1 g/dL (11.5-15.4); Immature Granulocytes % 0.2 % (0-4); Lymphocytes % 28.1 %; Mean Corpuscular HGB Conc 34.7 g/dL (31.6-35.5); Mean Corpuscular Hemoglobin 31.3 pg (28.0-33.3); Mean Corpuscular Volume 90.2 fL (83.0-100.0); Mean Platelet Volume 9.8 fL (9.4-12.4); Monocytes # 0.6 K/mcL (0.0-1.3); Monocytes % 3.9 %; Platelet Count 271 K/mcL (140-400); Red Blood Count 4.82 M/mcL (3.82-4.97); Red Cell Distribution Width 12.8 % (11.5-14.5); Segmented Neutrophils % 63.9 %
[2017-01-11] MEDS ORDERED: Nitroglycerin 25 MG/250 ML INFUS..BTL IVC SCH (19:45)
[2017-01-11 19:46] LABS: Prothrombin Time 10.4 Seconds (9.4-12.1)
[2017-01-11 19:49] LABS: Activated Partial Thrombo Time 29.1 Seconds (26.0-36.0)
[2017-01-11 19:54] LABS: BUN/Creatinine Ratio 9 (6-26); Blood Urea Nitrogen 6 mg/dL (7-20); Calcium 9.3 mg/dL (8.6-10.8); Carbon Dioxide 16 mEq/L (19-29); Chloride 111 mEq/L (98-109); Glucose 132 mg/dL (70-99); Osmolality,Calculated 285 (280-300); Potassium 3.7 mEq/L (3.5-4.5); Sodium 138 mEq/L (136-145); eGFR For African Americans > 60 (> 60); eGFR For Non-African Americans > 60 (> 60)
[2017-01-11] MEDS ORDERED: *HR* Morphine 2 MG/ML SYRINGE IVP ONE (21:04)
[2017-01-11] MEDS ORDERED: Acetaminophen 325 MG TABLET PO PRN (22:40)
[2017-01-11] MEDS ORDERED: Ondansetron 4 MG/2 ML VIAL IVP PRN (22:40)
[2017-01-11] MEDS ORDERED: *HR* Morphine 2 MG/ML SYRINGE IVP PRN (22:40)
[2017-01-11] MEDS ORDERED: Naloxone 0.4 MG/ML INJ IVP PRN (22:40)
[2017-01-11] MEDS ORDERED: traZODone 50 MG TABLET PO PRN (22:53)
--- NOTE | 2017-01-11 23:18 | Internal Med History&Physical ---
Date of Encounter: 01/11/17 Time of Encounter: 23:15 Assessment and Plan (1) Chest pain Current visit: No Status: Chronic We will rule out ACS, history of coronary artery disease status post stents Continue aspirin, Plavix and statin Troponin negative, will trend troponins EKG normal sinus rhythm, repeat EKG in a.m. IV morphine as needed for pain, continue all home medications Cardiology consult Qualifiers: Chest pain type: other chest pain Qualified Code(s): R07.89 - Other chest pain; R07.8 - Other chest pain (2) CAD (coronary artery disease) Current visit: No Status: Chronic Status post left heart catheter with stents Continue aspirin and statin and Plavix Qualifiers: Coronary Disease-Associated Artery/Lesion type: [place] artery [place] vs. transplanted heart: [place] heart Associated angina: without angina Qualified Code(s): I25.10 - Atherosclerotic heart disease of [place] coronary artery without angina pectoris (3) Hypertension Current visit: No Status: Chronic Controlled, continue home medications, monitor Qualifiers: Hypertension type: essential hypertension Qualified Code(s): I10 - Essential (primary) hypertension (4) Diabetes Current visit: No Status: Chronic Type 2 diabetes, hyperglycemia, [id number] Insulin sliding scale, glucose checks Qualifiers: Diabetes mellitus type: type 2 Diabetes mellitus complication status: with unspecified complications Diabetes mellitus mcc insulin use: without long term care social worker use Qualified Code(s): E11.8 - Type 2 diabetes mellitus with unspecified complications (5) Tobacco use Current visit: No Status: Chronic Counseled about cessation, smokes about half pack cigarettes a day, nicotine patch Internal Medicine - H&P: HPI Admitted From: Emergency Dept History of present illness: Ms. Mccoy is a 31 year old female with past medical history of hyperlipidemia, hypertension, diabetes, coronary artery disease status post stents, CHF, depression, anxiety and ADHD. She presents to the ED with complaints of chest pain that started about 1 day ago. Pain was initially on the left side of chest and is now on the right side of chest radiating to right arm. Patient states it is a adult pressure type of pain. Rates it about 5 out of 10 in intensity. No aggravating factors. Alleviated with pain medications. Patient states symptoms got worse this evening and decided to come to the ED. No other associated symptoms. Patient denies palpitations denies shortness of breath denies lightheadedness or dizziness. No nausea or vomiting. Patient has had heart stents in the past and is on aspirin and Plavix and statin. Patient did take an aspirin and also 3 sublingual nitroglycerin before she came to the ED today. On examination patient is awake and alert. Not in any distress. Able to provide all history. Her mother is at bedside. Patient states she currently has right-sided pain of her chest radiating to the right on left- sided chest pain. initially the workup revealed negative troponin and ekg is normal sinus rhythm. ed physician has discussed with the fishing tool supervisor, was advised she will troponin and repeat ekg. Patient and her mother about explained about her condition and plan of care. They understood and agreed. No unanswered questions. CODE STATUS full code Past Med Surg Social Fam HX - Past Medical History Medical history: CHF, coronary artery disease, diabetes, GERD, hyperlipidemia, hypertension, kidney stones, migraine, myocardial infarction Psychiatric history: anxiety, ADHD, bipolar, depression - Past Surgical History Surgical History: angioplasty/stent - Social History Smoking Status: Never smoker Smokeless Tobacco Status: No Alcohol use: occasionally Drug use: none - Family History Father Living Status: Still Living Hx Family Cardiac Disorders: Yes (HTN) Hx Family Respiratory Disorders: No Hx Family Cancer: No Hx Family GI Disorders: No Hx Family Endocrine Disorder: Yes (Dm) Hx Family Neuromuscular Disorders: No Hx Family Neurologic Disorders: No Hx Family HEENT Disorders: No Hx Family Autoimmune Disorders: No Grandmother Adopted: No Family Member Ethnicity: Non- Living Status: Hx Family Cardiac Disorders: Yes (CHF) Hx Family Respiratory Disorders: No Hx Family Cancer: No Hx Family GI Disorders: No Hx Family Endocrine Disorder: No Hx Family Neuromuscular Disorders: No Hx Family Neurologic Disorders: No Hx Family HEENT Disorders: No Hx Family Autoimmune Disorders: No Mother Family Member Ethnicity: Non- Living Status: Still Living Hx Family Cardiac Disorders: No Hx Family Respiratory Disorders: No Hx Family Cancer: No Hx Family GI Disorders: No Hx Family Endocrine Disorder: No Hx Family Neuromuscular Disorders: No Hx Family Neurologic Disorders: No Hx Family HEENT Disorders: No Hx Family Autoimmune Disorders: No Internal Medicine - H&P: Meds Topiramate [Topamax] 50 mg PO BID 04/05/15 [History] Temazepam [Restoril] 15 mg PO HS #0 06/29/15 [History] Aspirin 81 mg PO QAM 12/22/15 [History] Atorvastatin [Lipitor] 80 mg PO QPM 07/13/15 [History] Clopidogrel [Plavix] 75 mg PO QAM 07/13/15 [History] traZODone [TraZODone] 50 mg PO HS PRN 09/27/15 [History] Lurasidone HCl [Latuda] 30 mg PO QPM 04/01/16 [History] diazePAM [Valium] 5 mg PO TID 04/01/16 [History] Liraglutide [Victoza 2-Bill] 1.2 mg SQ QAM 10/21/16 [History] Metoprolol XL (24 HR) Succ [Toprol Xl] 12.5 mg PO BID 10/21/16 [History] Diltiazem CD (24hr) [Cardizem CD] 180 mg PO DAILY 01/11/17 [History] Metformin HCl [Metformin HCl ER] 1,000 mg PO BID 01/11/17 [History] Allergies naproxen Adverse Reaction (Verified 05/02/16 17:04) Gastrointestinal Upset All Systems PM: A 10-system review of systems was performed and is negative for pertinent findings except as documented above in the HPI. - Constitutional Constitutional: as per HPI, weakness - Cardiovascular Cardiovascular ROS IM: chest pain, no diaphoresis, no dyspnea, no dyspnea on exertion, no lightheadedness, no orthopnea - Respiratory Respiratory: no cough, no dyspnea, no dyspnea on exertion, no wheezing - Gastrointestinal Gastrointestinal: nausea, no abdominal pain, no cramping, no diarrhea, no vomiting - Neurological Neurological ROS: no abnormal gait, no abnormal speech, no dizziness, no focal weakness, no loss of vision - Constitutional Vitals: Temp Pulse Resp BP Pulse Ox 98.4 F 70 16 111/82 98 01/11/17 19:16 01/11/17 22:12 01/11/17 22:47 01/11/17 22:47 01/11/17 22:12 General appearance: Present: A&O X 3, no acute distress, answers questions appropriately - Head Head exam: Present: atraumatic - Neck Neck exam general surgery: Present: supple - Respiratory Respiratory exam: Present: CTAB. Absent: rales, rhonchi, wheezes - Cardiovascular Cardiovascular exam: Present: RRR, +S1, +S2 - GI/Abdominal GI/Abdominal exam: Present: soft. Absent: distended, guarding, tenderness - Extremities Exam Extremities exam: Present: radial pulses palpable and symetrical. Absent: cyanotic, pedal edema - Neurological Exam Neurological exam: Present: alert, oriented X3, no focal deficits Internal Med - H&P Results - Labs CBC & Chem 7: 01/11/17 19:34 01/11/17 19:34
[2017-01-11] MEDS ORDERED: *HR* Dextrose 50 % in Water (Syg) 50 ML SYRINGE IVP PRN (23:52)
[2017-01-11] MEDS ORDERED: Dextrose Gel 15 GM PO PRN ×2 (23:52)
[2017-01-11] MEDS ORDERED: D5% in Water 1,000 ML IVC PRN (23:52)
[2017-01-11] MEDS: Aspirin 81 MG TAB.CHEW PO SCH (23:55)
[2017-01-12] MEDS: Insulin LISPRO 300 UNITS/3 ML VIAL SQ SCH ×3 (00:19→11:43)
[2017-01-12] MEDS ORDERED: *HR* OxyCODONE/APAP 5/325 TABLET PO ONE (00:25)
[2017-01-12 02:18] LABS: Hematocrit 40.4 % (35.3-44.9); Hemoglobin 13.7 g/dL (11.5-15.4); Mean Corpuscular HGB Conc 33.9 g/dL (31.6-35.5); Mean Corpuscular Hemoglobin 31.1 pg (28.0-33.3); Mean Corpuscular Volume 91.6 fL (83.0-100.0); Mean Platelet Volume 10.1 fL (9.4-12.4); Platelet Count 236 K/mcL (140-400); Red Blood Count 4.41 M/mcL (3.82-4.97); Red Cell Distribution Width 12.9 % (11.5-14.5)
[2017-01-12 02:33] LABS: BUN/Creatinine Ratio 9 (6-26); Blood Urea Nitrogen 6 mg/dL (7-20); Calcium 8.7 mg/dL (8.6-10.8); Carbon Dioxide 16 mEq/L (19-29); Chloride 112 mEq/L (98-109); Glucose 116 mg/dL (70-99); Osmolality,Calculated 285 (280-300); Potassium 3.5 mEq/L (3.5-4.5); Sodium 138 mEq/L (136-145); eGFR For African Americans > 60 (> 60); eGFR For Non-African Americans > 60 (> 60)
[2017-01-12] MEDS ORDERED: Topiramate 25 MG TABLET PO SCH (09:00)
[2017-01-12] MEDS ORDERED: Famotidine 20 MG TABLET PO SCH (09:00)
[2017-01-12] MEDS ORDERED: Diltiazem CD (24hr) 180 MG CAPSULE PO SCH (09:00)
[2017-01-12] MEDS ORDERED: Metoprolol XL (24 HR) Succ 25 MG TAB.ER.24H PO SCH (09:00)
[2017-01-12] MEDS ORDERED: Nicotine 21 MG PATCH.TD24 TD SCH (09:00)
[2017-01-12] MEDS ORDERED: (Liraglutide [Victoza 2-Pak] 1.2 MG) SQ SCH (09:00)
[2017-01-12] MEDS: Aspirin 81 MG TAB.CHEW PO SCH (09:36)
--- NOTE | 2017-01-12 09:50 | Cardiology Consult Note ---
<Nick August - Last Filed: 01/12/17 10:15> Date of Encounter: 01/12/17 Time of Encounter: 09:50 Assessment and Plan (1) Chest pain Current Visit: Yes Status: Acute Per Cardiology: Atypical chest pain occurring at rest. Troponins negative 3. ECG comparable to baseline. I had a lengthy discussion with patient regarding further ischemic evaluation, however patient prefers to continue to monitor and observe. I suggested limited echo, however patient declined at this time. We discussed the addition of long-acting nitrate, however patient also declined at this time. Of note, having no relief with SL nitroglycerin pills. Needs refills for NTG. Recommend evaluate non-cardiac causes. Cardiology will sign off, reconsult as needed, follow-up scheduled. Discussed and reviewed with Dr. Vela. Patient verbalized understanding and agreed with plan. Qualifiers: Chest pain type: other chest pain Qualified Code(s): R07.89 - Other chest pain; R07.8 - Other chest pain (2) CAD (coronary artery disease) Current Visit: No Status: Chronic Per Cardiology: Known history of CAD with inferior STEMI June 2015 with drug-eluting stent to proximal RCA 100% stenosis. Repeat heart catheterization September 2015 for recurrent chest pain admissions showed patent stent and distal RCA 80% lesion with FFR 0.85 and 0.84. Third heart catheterization April 2016 with drug- eluting stent to right PDA 70-80% lesion with patent proximal RCA stent, otherwise nonobstructive CAD with mid LAD 20%, mid circumflex complex 20%, and 20% in-stent restenosis of proximal RCA. Remains on aspirin, Plavix, statin, beta phyllis. Qualifiers: Coronary Disease-Associated Artery/Lesion type: [place] artery [place] vs. transplanted heart: [place] heart Associated angina: without angina Qualified Code(s): I25.10 - Atherosclerotic heart disease of [place] coronary artery without angina pectoris Discussion w patient/family: The assessment and plan as outlined above was discussed with the patient who expressed understanding and agreement. All questions were answered. Thank you for involving us in the care of your patient. Please call with any questions. History of Present Illness Consult date: 01/12/17 Consult reason: CP Chief complaint: CP History of present illness: Ms. Mccoy is a 31 year old female with a relevant past medical history diabetes mellitus type 2, hypertension, hyperlipidemia, past history of nicotine abuse-- quit smoking June 2015, history of STEMI in June 2015, CAD, and anxiety. Cardiology consult for chest pain evaluation. Patient reports she never followed up with cardiology after last hospitalization October 2016. She reports she continued to remain chest pain-free up until yesterday evening. She reports while laying in bed she developed right sided chest aching that was continuous with no other accompanying symptoms. She reports eventually developed left-sided discomfort as well. She reports taking 3 nitroglycerin glycerin pills with no relief. She denied any short of breath, nausea, palpitations. She reports compliance with medications. She denies any active bleeding or blood loss. Reports currently experiencing right-sided aching and left shoulder discomfort about a 7 out of 10. Past Med Surg Social Fam HX - Past Medical History Attestation: Yes The following information was validated with the patient. Source: patient, old records reviewed Medical history: CHF, coronary artery disease, diabetes, GERD, hyperlipidemia, hypertension, kidney stones, migraine, myocardial infarction Psychiatric history: anxiety, ADHD, bipolar, depression - Past Surgical History Surgical History: angioplasty/stent - Social History Smoking Status: Never smoker Packs per day: 0.5 Smokeless Tobacco Status: No Alcohol use: occasionally Drug use: none - Family History Father Living Status: Still Living Hx Family Cardiac Disorders: Yes (HTN) Hx Family Respiratory Disorders: No Hx Family Cancer: No Hx Family GI Disorders: No Hx Family Endocrine Disorder: Yes (Dm) Hx Family Neuromuscular Disorders: No Hx Family Neurologic Disorders: No Hx Family HEENT Disorders: No Hx Family Autoimmune Disorders: No Grandmother Adopted: No Family Member Ethnicity: Non- Living Status: Hx Family Cardiac Disorders: Yes (CHF) Hx Family Respiratory Disorders: No Hx Family Cancer: No Hx Family GI Disorders: No Hx Family Endocrine Disorder: No Hx Family Neuromuscular Disorders: No Hx Family Neurologic Disorders: No Hx Family HEENT Disorders: No Hx Family Autoimmune Disorders: No Mother Family Member Ethnicity: Non- Living Status: Still Living Hx Family Cardiac Disorders: No Hx Family Respiratory Disorders: No Hx Family Cancer: No Hx Family GI Disorders: No Hx Family Endocrine Disorder: No Hx Family Neuromuscular Disorders: No Hx Family Neurologic Disorders: No Hx Family HEENT Disorders: No Hx Family Autoimmune Disorders: No Medications and Allergies Topiramate [Topamax] 50 mg PO BID 04/05/15 [History] Temazepam [Restoril] 15 mg PO HS #0 06/29/15 [History] Aspirin 81 mg PO QAM 07/13/15 [History] Atorvastatin [Lipitor] 80 mg PO QPM 07/13/15 [History] Clopidogrel [Plavix] 75 mg PO QAM 07/13/15 [History] traZODone [TraZODone] 50 mg PO HS PRN 09/27/15 [History] Lurasidone HCl [Latuda] 30 mg PO QPM 04/01/16 [History] diazePAM [Valium] 5 mg PO TID 04/01/16 [History] Liraglutide [Victoza 2-Bill] 1.2 mg SQ QAM 10/21/16 [History] Metoprolol XL (24 HR) Succ [Toprol Xl] 12.5 mg PO BID 10/21/16 [History] Diltiazem CD (24hr) [Cardizem CD] 180 mg PO DAILY 01/11/17 [History] Metformin HCl [Metformin HCl ER] 1,000 mg PO BID 01/11/17 [History] Allergies naproxen Adverse Reaction (Verified 05/02/16 17:04) Gastrointestinal Upset All Systems Review: A 10-system review of systems was performed and is negative for pertinent findings except as documented above in the HPI. - Cardiovascular Cardiovascular: as per HPI, chest pain at rest Physical Examination Vital Signs, Last 4 Hours Temp Pulse Resp BP Pulse Ox 01/12/17 07:40 97.6 F 58 16 93/62 95 General: Conversant, No Apparent Distress HEENT: Atraumatic, Normocephaly, Mucus Membranes Moist Neck: No JVD, Normal carotid pulses Cardiac: Reg Rate and Rhythm, Normal S1 and S2, No Murmur Lungs: Normal Breath Sounds, No Wheeze, Rales, Rhonchi Neuro: Alert and responsive, No focal deficits noted Abdomen: Soft, Non-Tender Skin: No rashes noted on visualized skin Musculoskeletal: No Chest Wall Tenderness, Other (Right-sided chest pain and left shoulder pain unchanged with position changes, deep respiration, or palpation) Extremities: No Clubbing, No Cyanosis, No Edema, Normal Pulses Results 01/12/17 01:37 01/12/17 01:37 Lab Results Laboratory Tests 01/11/17 01/11/17 01/12/17 19:34 19:34 01:37 INR 1.0 Troponin I 0.01 0.02 01/12/17 08:24 INR Troponin I 0.00 ITS Impressions Chest X-Ray 01/11/17 19:16 IMPRESSION: No acute cardiopulmonary abnormality D/ / García Mckeon / García Mckeon Interpreting Provider: García Mckeon Active Medications Acetaminophen (Tylenol) 650 mg PO Q6HR PRN PRN Reason: Mild Pain (1-3) Stop: 07/13/17 22:41 Last Admin: 01/12/17 09:42 Dose: 650 mg Aspirin (Aspirin) 81 mg PO QAM ON LICENSE OF [facility] Stop: 07/13/17 23:01 Last Admin: 01/12/17 09:36 Dose: 81 mg Atorvastatin Calcium (Lipitor) 80 mg PO QPM ON LICENSE OF [facility] Stop: 07/13/17 23:01 Last Admin: 01/11/17 23:55 Dose: 80 mg Clopidogrel Bisulfate (Plavix) 75 mg PO QAM ON LICENSE OF [facility] Stop: 07/14/17 09:01 Last Admin: 01/12/17 09:36 Dose: 75 mg Dextrose/Water (Dextrose 50% (Syg)) 25 ml IVP AD PRN PRN Reason: Hypoglycemia Stop: 07/13/17 23:53 Diltiazem HCl (Cardizem Cd) 180 mg PO DAILY ON LICENSE OF [facility] Stop: 07/14/17 09:01 Last Admin: 01/12/17 09:36 Dose: 180 mg Famotidine (Pepcid) 20 mg PO BID ON LICENSE OF [facility] Stop: 07/14/17 09:01 Last Admin: 01/12/17 09:36 Dose: 20 mg Glucagon (Glucagen) 1 mg IM ONCE PRN PRN Reason: Hypoglycemia Stop: 07/13/17 23:53 Glucose (Gluctose) 15 gm PO ONCE PRN PRN Reason: Hypoglycemia Stop: 07/13/17 23:53 Glucose (Gluctose) 30 gm PO ONCE PRN PRN Reason: Hypoglycemia Stop: 07/13/17 23:53 Dextrose (Dextrose 5%) 1,000 mls @ 100 mls/hr IVC .Q10H PRN PRN Reason: HYPOGLYCEMIA Stop: 07/13/17 23:53 Insulin Human Lispro (Humalog) 0 units SQ Q6HR GINGER PRN Reason: Protocol Stop: 07/14/17 00:01 Last Admin: 01/12/17 06:09 Dose: Not Given Lurasidone HCl (Latuda) 30 mg PO QPM GINGER Stop: 07/14/17 18:01 Metoprolol Succinate (Toprol Xl) 12.5 mg PO BID GINGER Stop: 07/14/17 09:01 Last Admin: 01/12/17 09:36 Dose: 12.5 mg Naloxone HCl (Narcan) 0.4 mg IVP Q2MIN PRN PRN Reason: Opioid Reversal Stop: 07/13/17 22:41 Nicotine (Nicoderm) 21 mg TD DAILY GINGER PRN Reason: Protocol Stop: 07/14/17 09:01 Last Admin: 01/12/17 09:37 Dose: Not Given Ondansetron HCl (Zofran) 4 mg IVP Q8HR PRN PRN Reason: Nausea And Vomiting Stop: 07/13/17 22:41 Last Admin: 01/12/17 00:38 Dose: 4 mg Pharmacy Profile Note (Patient Taking Own Medication) 1.2 each SQ QAM GINGER Stop: 07/14/17 09:01 Last Admin: 01/12/17 09:37 Dose: Not Given Topiramate (Topamax) 50 mg PO BID GINGER Stop: 07/14/17 09:01 Last Admin: 01/12/17 09:36 Dose: 50 mg Trazodone HCl (Trazodone) 50 mg PO HS PRN PRN Reason: Sleep Stop: 07/13/17 22:54 - Imaging and Cardiology Chest Xray: report reviewed Cardiac cath: report reviewed - EKG Interpretation EKG results cardiology: personally reviewed (Comparable to previous ECG, sinus bradycardia 50's), normal ECG, sinus rhythm Consult Discharge Plan - Plan Referrals: Glory Funes, SUSTAINABLE COMMUNITIES DESIGNER [Primary Care Provider] - <Kristi Vela - Last Filed: 01/12/17 10:53> Date of Encounter: 01/12/17 Assessment and Plan Discussion w patient/family: The assessment and plan as outlined above was discussed with the patient and/or family members who expressed understanding and agreement. All questions were answered. Thank you for involving us in the care of your patient. Please call with any questions. History of Present Illness History of present illness: Ms. cMcoy is a 31 year old female All Systems Review: A 10-system review of systems was performed and is negative for pertinent findings except as documented above in the HPI. Physical Examination Vital Signs, Last 4 Hours Temp Pulse Resp BP Pulse Ox 01/12/17 07:40 97.6 F 58 16 93/62 95 Results 01/12/17 01:37 01/12/17 01:37 Lab Results 01/12/17 01/12/17 01/12/17 01:37 01:37 01:37 WBC 14.3 H Hgb 13.7 Hct 40.4 Plt Count 236 Sodium 138 Potassium 3.5 Chloride 112 H Carbon Dioxide 16 L BUN 6 L Creatinine 0.66 Glucose 116 H Calcium 8.7 Troponin I 0.02 01/12/17 08:24 WBC Hgb Hct Plt Count Sodium Potassium Chloride Carbon Dioxide BUN Creatinine Glucose Calcium Troponin I 0.00 - Attending Attestation I examined this patient and my medical decision-making was reviewed with the MANAGER [employer]/PA/Advanced Practice Nurse/Resident Physician. I agree with the documented findings, disposition and treatment plan. Ms. Mccoy presents with atypical chest pain, negative troponins and no concerning ECG findings. Recommend workup for non-cardiac chest pain. Will continue cardiac medications. Strongly encouraged Cardiology follow up. Will sign off. Please call with questions.
[2017-01-12 11:11] VITALS: BP 99/67
--- NOTE | 2017-01-12 15:34 | Electrocardiograph Report ---
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
--- NOTE | 2017-01-12 15:44 | Electrocardiograph Report ---
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
--- NOTE | 2017-01-12 16:12 | Internal Med Progress Note ---
Date of Encounter: 01/12/17 Time of Encounter: 09:15 - Assessment and plan (1) Chest pain Status: Acute Assessment and plan: Patient with lengthy cardiac history. She is status post IL with coronary artery disease and stents. She does take aspirin, Plavix, and statin. She was seen by cardiology and she declined to have a nitrate and to have a limited echo. Her troponins were negative. EKG was normal sinus rhythm. Chest x-ray was negative. Cardiology has signed off. She will be following up outpatient in the office for further evaluation. Patient still reported chest pain when I was assessing her. She said that it was right-sided chest pain with radiation to her right shoulder. At this time she denied shortness of breath, nausea, vomiting, diaphoresis, or shortness of breath. She did request morphine and Phenergan prior to discharge. Qualifiers: Chest pain type: unspecified Qualified Code(s): R07.9 - Chest pain, unspecified (2) CAD (coronary artery disease) Status: Chronic Assessment and plan: Patient has known history of IL with stents and coronary artery disease. She had STEMI in June 2015 with drug-eluting stent placement to RCA due to 100% stenosis. She had a repeat heart catheter in September,, another heart catheter in April, with another drug-eluting stent placement to right PDA. She remains on aspirin, Plavix, statin, beta phyllis. Qualifiers: Coronary Disease-Associated Artery/Lesion type: [place] artery [place] vs. transplanted heart: [place] heart Associated angina: without angina Qualified Code(s): I25.10 - Atherosclerotic heart disease of [place] coronary artery without angina pectoris (3) Hypertension Status: Chronic Assessment and plan: Controlled, continue home medication. Continue to monitor labs. Qualifiers: Hypertension type: essential hypertension Qualified Code(s): I10 - Essential (primary) hypertension (4) Diabetes Status: Chronic Assessment and plan: Continue home medications at home. Qualifiers: Diabetes mellitus type: type 2 Diabetes mellitus complication status: with unspecified complications Diabetes mellitus chcf insulin use: without chcf use Qualified Code(s): E11.8 - Type 2 diabetes mellitus with unspecified complications - Time Spent With Patient less than 15 minutes - Subjective Interval history: Short seen and assessed at about 9:30 AM. She reports atypical chest pain recurring at rest. Her troponins were negative times. EKG was unchanged from baseline. She has recently stented and is status post IL. Continue aspirin, Plavix, statin at home. Patient was last seen by cardiology in October. She has had 3 LHC, she also follows with cardiology in [place]. Patient was reporting chest pain that was continuing, she requested pain medication and Phenergan prior to being discharged. I told her I would be more than willing to give her Tylenol and Zofran. She said while my nurse that I have morphine ordered. I told her that since she was not having cardiac chest pain, morphine was not an appropriate treatment. Cardiology suggested a limited echo, however patient declined at this time. She also declined adding Imdur to her medication regimen. I told patient that cardiology had signed off and that they would be calling her for an appointment outpatient. We did discuss smoking cessation. Patient's physical exam was unremarkable. I was notified by primary nurse later that patient was leaving AMA because her paperwork was not ready immediately. - Constitutional Vitals: Temp Pulse Resp BP Pulse Ox 97.9 F 98 16 99/67 95 01/12/17 11:10 01/12/17 11:10 01/12/17 11:10 01/12/17 11:10 01/12/17 11:10 General appearance: Present: A&O X 3, pleasant, no acute distress, answers questions appropriately - Head Head exam: Present: normal inspection - Eye Eye exam: Present: normal appearance, conjuntiva pink - ENT ENT exam: Present: mucous membranes moist, normal exam - Respiratory Respiratory exam: Present: CTAB. Absent: chest wall tenderness, decreased breath sounds, rales, respiratory distress, rhonchi, wheezes - Cardiovascular Cardiovascular exam: Present: RRR, +S1, +S2. Absent: diastolic murmur, systolic murmur - GI/Abdominal GI/Abdominal exam: Present: normal bowel sounds, soft. Absent: distended, hepatomegaly, tenderness - Extremities Exam Extremities exam: Present: normal capillary refill, warm, radial pulses palpable and symetrical. Absent: tenderness - Neurological Exam Neurological exam: Present: alert, oriented X3, no focal deficits. Absent: facial droop, speech deficit - Skin Skin exam: Present: dry, normal color, warm. Absent: rash Internal Medicine: Result - Labs CBC & Chem 7: 01/12/17 01:37 01/12/17 01:37 Labs: Short CBC 01/12/17 Range/Units 01:37 WBC 14.3 H (4.3-11.1) K/mcL Hgb 13.7 (11.5-15.4) g/dL Hct 40.4 (35.3-44.9) % Plt Count 236 (140-400) K/mcL BMP 01/12/17 01:37 Sodium 138 Potassium 3.5 Chloride 112 H Carbon Dioxide 16 L BUN 6 L Creatinine 0.66 Glucose 116 H Calcium 8.7 Cardiac Enzymes 01/12/17 01/12/17 Range/Units 01:37 08:24 Troponin I 0.02 0.00 (0-0.03) ng/mL - ABG Interpretation ABG results: PT/INR, D-dimer PT 10.4 Seconds (9.4-12.1) 01/11/17 19:34 Consult Discharge Plan - Plan Instructions: Chest Pain (DC) Referrals: Glory Funes, DIET THERAPIST [Primary Care Provider] -
[2017-01-12] MEDS ORDERED: Lurasidone 20 MG TABLET PO SCH (18:00)
== END 2017-01-12 13:30 | disposition left against medical advice (07) ==
LOC: EMEROO 19:08 → 3BNU 19:08
PROVIDERS: ADMIT Family Medicine; ATTEND Nurse Practitioner Family

== ENCOUNTER 2017-05-24 18:22 | Observation (INO) ==
[2017-05-24] MEDS ORDERED: 0.9 % Sodium Chloride 1,000 ML IVC ONE (18:39)
[2017-05-24] MEDS ORDERED: Metoclopramide 10 MG/2 ML VIAL IVP ONE (18:39)
[2017-05-24 19:10] LABS: Basophils # 0.1 K/mcL (0.0-0.2); Basophils % 0.7 %; Eosinophils # 0.7 K/mcL (0.0-0.6); Eosinophils % 3.8 %; Hematocrit 41.2 % (35.3-44.9); Hemoglobin 14.1 g/dL (11.5-15.4); Immature Granulocytes % 0.4 % (0-4); Lymphocytes # 5.2 K/mcL (0.6-4.6); Mean Corpuscular HGB Conc 34.2 g/dL (31.6-35.5); Mean Corpuscular Hemoglobin 31.4 pg (28.0-33.3); Mean Corpuscular Volume 91.8 fL (83.0-100.0); Mean Platelet Volume 9.7 fL (9.4-12.4); Monocytes # 0.8 K/mcL (0.0-1.3); Monocytes % 3.9 %; Neutrophils # 12.5 K/mcL (1.6-8.9); Platelet Count 319 K/mcL (140-400); Red Blood Count 4.49 M/mcL (3.82-4.97); Red Cell Distribution Width 12.8 % (11.5-14.5); Segmented Neutrophils % 64.2 %
[2017-05-24 19:21] LABS: BUN/Creatinine Ratio 11 (6-26); Blood Urea Nitrogen 8 mg/dL (7-20); Carbon Dioxide 23 mEq/L (19-29); Chloride 107 mEq/L (98-109); Glucose 96 mg/dL (70-99); Osmolality,Calculated 288 (280-300); Potassium 3.7 mEq/L (3.5-4.5); Sodium 140 mEq/L (136-145); eGFR For African Americans > 60 (> 60); eGFR For Non-African Americans > 60 (> 60)
[2017-05-24] MEDS ORDERED: Nitroglycerin 25 MG/250 ML INFUS..BTL IVC SCH (20:00)
[2017-05-24] MEDS ORDERED: Metoclopramide 10 MG/2 ML VIAL IVP STA (20:05)
--- NOTE | 2017-05-24 20:31 | Emergency Department Note ---
Disposition Clinical Impression: Chest pain Qualifiers: Chest pain type: other chest pain Qualified Code(s): R07.9 - Chest pain, unspecified Disposition: Admitted As Inpatient Condition: Fair Time of Disposition: 21:09 Chest Pain HPI - General Chief Complaint: ED Chest Pain Time Seen by Provider: 05/24/17 18:34 Source: patient Limitations: no limitations Vital Signs Reviewed: Yes Nursing Notes Reviewed: Yes - History of Present Illness HPI Narrative: Patient is a 31-year-old female who presents to [facility] ED with a chief complaint of central chest pain that radiates into the right shoulder and right arm. States onset was approximately one hour prior to arrival. States it has been constant and not exacerbated or relieved by anything. Admits to some nausea and breaking out in a sweat at the time. States she took 3 sublingual nitroglycerin without much improvement. Squad gave her full dose aspirin upon transfer. Patient still having some persistent chest pain at this time. Past medical history significant for coronary artery disease for which she has 2 stents. Pt complaint: chest pain Onset (ago): hour(s) Duration: constant Pain Location: substernal Severity: moderate Severity scale (1-10): 6 Quality: heaviness Pain Radiation: RUE Improves with: nothing Worsens with: nothing Associated symptoms: Reports: nausea, diaphoresis. Denies: vomiting, dyspnea, fever, cough Treatments prior to arrival chest pain: aspirin, nitroglycerin - Related Data Home Medications Medication Instructions Recorded Confirmed Topiramate [Topamax] 25 mg PO BID 04/05/15 05/24/17 Temazepam [Restoril] 15 mg PO HS #0 06/29/15 05/24/17 Atorvastatin [Lipitor] 40 mg PO QPM 07/13/15 05/24/17 Clopidogrel [Plavix] 75 mg PO QAM 07/13/15 05/24/17 traZODone [TraZODone] 50 mg PO HS PRN 09/27/15 05/24/17 diazePAM [Valium] 5 mg PO TID 04/01/16 05/24/17 Liraglutide [Victoza 2-Bill] 1.2 mg SQ QAM 10/21/16 05/24/17 Metoprolol XL (24 HR) Succ [Toprol 12.5 mg PO BID 10/21/16 05/24/17 Xl] Diltiazem CD (24hr) [Cardizem CD] 180 mg PO DAILY 01/11/17 05/24/17 Aspirin Enteric Coated [Aspirin EC] 81 mg PO DAILY 05/24/17 05/24/17 Butalb/Acetaminophen/Caffeine 1 each PO BID PRN 05/24/17 05/24/17 [Fioricet 50-300-40 mg Capsule] Diclofenac Sodium [Voltaren] 1 appl TP QID PRN 05/24/17 05/24/17 Lurasidone [Latuda] 40 mg PO QPM 05/24/17 05/24/17 Ondansetron HCl [Zofran] 4 mg PO Q8H PRN 05/24/17 05/24/17 metFORMIN [Glucophage] 1,000 mg PO QAM 05/24/17 05/24/17 metFORMIN [Glucophage] 500 mg PO QPM 05/24/17 05/24/17 Previous Rx's Medication Instructions Recorded Nitroglycerin 0.4 mg SL Q5MIN PRN #30 tab.subl 05/26/17 Allergies Allergy/AdvReac Type Severity Reaction Status Date / Time naproxen AdvReac Gastrointestinal Verified 05/02/16 17:04 Upset All systems ED: reviewed and negative except as stated. Chest Pain PMH - Past Medical History Medical history: Reports: CHF, coronary artery disease, diabetes, GERD, hyperlipidemia, hypertension, kidney stones, migraine, myocardial infarction Surgical history: Reports: angioplasty/stent Psychiatric history: Reports: anxiety, ADHD, bipolar, depression [employer] history: Reports: non-contributory - Social History Smoking Status: Current every day smoker Alcohol use: Reports: occasionally Drug use: Reports: none Physical Exam - General Limitations: no limitations General appearance: alert - Head Head exam: atraumatic, normocephalic, normal inspection - Eye Eye exam: Present: normal appearance, EOMI - ENT ENT exam: normal exam, normal oropharynx, mucous membranes moist - Neck Neck exam: Present: normal inspection, full ROM, trachea midline - Chest Chest inspection: Present: normal inspection, symmetric chest wall rise - Respiratory Respiratory exam: Present: normal lung sounds bilaterally - Cardiovascular Cardiovascular exam: Present: regular rate, normal rhythm, normal heart sounds - Abdominal Exam Abdominal exam: Present: soft, Non-Tender. Absent: tenderness, distention, guarding, rebound, rigidity - Extremities Exam Extremities exam: Present: normal inspection, full ROM. Absent: tenderness, pedal edema - Back Exam Back exam: Present: normal inspection, full ROM. Absent: tenderness - Neurological Exam Neurological exam: Present: alert, oriented X3 - Psychiatric Psychiatric exam: Present: normal affect, normal mood - Skin Skin exam: Present: warm, dry, intact, normal color Course Course Narrative: Patient seen and examined. Chest pain with history of prior CAD and 2 stents. We will do cardiopulmonary workup. - Reevaluation(s) Reevaluation #1: Patient having persistent chest pain. Patient placed on a nitroglycerin drip. We will go ahead and admit for chest pain, ACS workup. Lab work otherwise unremarkable. She does have leukocytosis though she has had this many times in the past. Discussed with hospitalist Dr. Gilmore who has accepted patient for admission. Time: 21:08 Vital Signs Temperature 98.2 F 05/24/17 18:25 Pulse Rate 85 05/24/17 18:25 Respiratory Rate 12 05/24/17 18:25 Blood Pressure 110/78 05/24/17 18:25 O2 Sat by Pulse Oximetry 98 05/24/17 18:25 Temperature 98.3 F 05/26/17 11:02 Pulse Rate 60 05/26/17 11:02 Respiratory Rate 12 05/26/17 11:02 Blood Pressure 87/55 05/26/17 11:02 O2 Sat by Pulse Oximetry 97 05/26/17 11:02 Oxygen Delivery Oxygen Delivery Room Air Chest Pain - Medical Records Medical records reviewed: Yes I reviewed the patient's medical records. - Lab Data Lab results reviewed: Yes I reviewed the patient's lab results. Result diagrams: 05/26/17 05:55 05/26/17 05:55 Lab Results 05/24/17 05/24/17 05/24/17 Range/Units 19:01 19:01 19:01 WBC 19.4 H (4.3-11.1) K/mcL RBC 4.49 (3.82-4.97) M/mcL Hgb 14.1 (11.5-15.4) g/dL Hct 41.2 (35.3-44.9) % MCV 91.8 (83.0-100.0) fL MCH 31.4 (28.0-33.3) pg MCHC 34.2 (31.6-35.5) g/dL RDW 12.8 (11.5-14.5) % Plt Count 319 (140-400) K/mcL MPV 9.7 (9.4-12.4) fL Immature Gran % 0.4 (0-4) % Seg Neutrophils % 64.2 % Lymphocytes % 27.0 % Monocytes % 3.9 % Eosinophils % 3.8 % Basophils % 0.7 % Neutrophils # 12.5 H (1.6-8.9) K/mcL Lymphocytes # 5.2 H (0.6-4.6) K/mcL Monocytes # 0.8 (0.0-1.3) K/mcL Eosinophils # 0.7 H (0.0-0.6) K/mcL Basophils # 0.1 (0.0-0.2) K/mcL Sodium 140 (136-145) mEq/L Potassium 3.7 (3.5-4.5) mEq/L Chloride 107 (98-109) mEq/L Carbon Dioxide 23 (19-29) mEq/L BUN 8 (7-20) mg/dL Creatinine 0.70 (0.57-1.11) mg/dL Est GFR ( Amer) > 60 (> 60) Est GFR (Non-Af Amer) > 60 (> 60) BUN/Creatinine Ratio 11 (6-26) Glucose 96 (70-99) mg/dL Calculated Osmolality 288 (280-300) Calcium 10.0 (8.6-10.8) mg/dL Troponin I 0.00 (0-0.03) ng/mL - Radiology Data Radiology results reviewed: Yes I reviewed the patient's radiology results. Chest X-Ray 05/24/17 18:36 IMPRESSION: No acute cardiopulmonary disease. D/ / Andrew Nolen MD / Andrew Nolen MD Interpreting Provider: Andrew Nolen MD - EKG Data EKG attestation: Yes I reviewed and interpreted this EKG. EKG results narrative: EKG done at 1903 shows normal sinus rhythm with a rate of [address] elevation or depression. Normal axis. Prominent Q waves in leads 3 and aVF. Also inverted T waves. Findings appear unchanged from prior EKG done 2016. Heart Score - Score History: Moderately Suspicious EKG: Non Specific repolarisation Disturbance Age: Less than 45 Risk Factors: Equal/Greater than 3 risk factor or history of atherosclerotic disease Troponin: Less than normal limit HEART Score Total: 4
--- NOTE | 2017-05-24 20:46 | Emergency Department Note ---
START Narrative - START START: I examined this patient and my medical decision-making was reviewed with the Resident Physician. I agree with the documented findings, disposition and treatment plan as described except to the extent set forth below. Patient immediately had chest pain. Left-sided chest pressure rated to the right shoulder and arm. Patient has a history of coronary disease with last stents placed in September. She states she got some relief with the nitroglycerin that she took a home. Examination she is in no acute distress. Lungs clear. Heart regular. Plan. Cardiac workup is unremarkable. EKG is unchanged. Patient currently on a nitroglycerin drip. Will admit. 30 minutes of critical care exclusive of separately normal procedures.
[2017-05-24] MEDS: *HR* Morphine 2 MG/ML SYRINGE IVP PRN (22:53)
[2017-05-24] MEDS: Nicotine 21 MG PATCH.TD24 TD SCH (23:45)
[2017-05-24] MEDS: Topiramate 25 MG TABLET PO SCH (23:45)
[2017-05-24] MEDS ORDERED: Naloxone 0.4 MG/ML INJ IVP PRN (23:51)
--- NOTE | 2017-05-24 23:51 | Internal Med History&Physical ---
Date of Encounter: 05/25/17 Time of Encounter: 11:00 Assessment and Plan (1) Chest pain Current visit: Yes Status: Acute Pt. presents with acute chest pain that began today at 5:30 sharp and stabbing in the central chest and radiating to the right neck and shoulder. Pt. describes as constant w/no alleviating or aggravating factors. Took 3 doses of nitroglycerin w/minimal change. Pt. reports chest pain, nausea, SOB, and diaphoresis. Pt. reports hx of previous FL in 2015 w/stent placement x2. Nitro drip started in ED and will be continued. Continuous cardiac telemetry. Initial troponin 0.00. Will trend x2. Echocardiogram ordered. Cardiology consult ordered. Will continue patient's Plavix, Cardizem, metoprolol, aspirin therapy, and Lipitor. Pt. is at high risk for further cardiac event based on current sx, hx, and risk factors. Inpatient. Qualifiers: Chest pain type: other chest pain Qualified Code(s): R07.9 - Chest pain, unspecified (2) Leukocytosis Current visit: Yes Status: Acute Acute leukocytosis with WBC of 19.4. Unknown source. Blood cultures x2. Sputum culture. U/A w/reflex culture ordered. IVPB ceftriaxone 2,000 mg daily for infection coverage. Will adjust abx coverage based on culture results. Patient does not currently meet sepsis criteria. Monitor f/u labs. Qualifiers: Leukocytosis type: unspecified Qualified Code(s): D72.829 - Elevated white blood cell count, unspecified (3) Tobacco abuse Current visit: Yes Status: Acute Hx of chronic tobacco abuse. Pt. reports smoking 10 cigarettes daily. Pt. does not express interest in quitting at the present time. Nicotine patch 21 mg ordered. (4) GERD (gastroesophageal reflux disease) Current visit: Yes Status: Chronic Pt. presents w/chronic GERD. IVP Zofran Q6 PRN. IVP Protonix 40 mg daily. Qualifiers: Esophagitis presence: esophagitis presence not specified Qualified Code(s) : K21.9 - Gastro-esophageal reflux disease without esophagitis (5) Hx of migraines Current visit: Yes Status: Chronic Hx of chronic migraines. Continue Fioricet and Topamax. (6) Anxiety and depression Current visit: Yes Status: Chronic Hx of chronic anxiety and depression. Continue pts. Latuda, Valium, and trazodone. (7) CAD (coronary artery disease) Current visit: Yes Status: Chronic Hx of CAD and previous FL in 2015 w/stent placement x2. Continuous cardiac telemetry. Initial troponin 0.00. Will trend 2. Continue patient's metoprolol, Cardizem, Lipitor, Plavix, and aspirin therapy. Qualifiers: Coronary Disease-Associated Artery/Lesion type: [place] artery [place] vs. transplanted heart: [place] heart Associated angina: angina presence unspecified Qualified Code(s): I25.10 - Atherosclerotic heart disease of [place] coronary artery without angina pectoris (8) Diabetes Current visit: Yes Status: Chronic Hx of chronic diabetes controlled with Glucophage and Victoza. Will hold patient 's meds and administer low-dose correction insulin sliding scale and hypoglycemia protocol. BG checks ACHS. A1c drawn by PCP 2 weeks ago and pt. reports it is 6.5. ADA/cardiac diet. Qualifiers: Diabetes mellitus type: type 2 Diabetes mellitus complication status: with unspecified complications Diabetes mellitus intermediate insulin use: without intermediate use Qualified Code(s): E11.8 - Type 2 diabetes mellitus with unspecified complications (9) HTN (hypertension) Current visit: Yes Status: Chronic Hx of chronic HTN. Monitor pt. and VS. continue patient's metoprolol and Cardizem. Qualifiers: Hypertension type: essential hypertension Qualified Code(s): I10 - Essential (primary) hypertension (10) HLD (hyperlipidemia) Current visit: Yes Status: Chronic Hx of chronic HLD. Lipid panel was drawn 2 weeks ago by PCP. Continue Lipitor. Qualifiers: Hyperlipidemia type: pure hypercholesterolemia Qualified Code(s): E78.00 - Pure hypercholesterolemia, unspecified; E78.0 - Pure hypercholesterolemia (11) DVT prophylaxis Current visit: Yes Status: Acute Lovenox 40 mg SQ 0600 for DVT prophylaxis. Internal Medicine - H&P: HPI Chief complaint: Chest pain Admitted From: Emergency Dept Plans for Post Hospital Care: Home History of present illness: Ms. Mccoy is a 31 year old female with medical hx of CHF, CAD, diabetes controlled with oral anti-hyperglycemics and Tosa, GERD, HLD, HTN, kidney stones , migraines, previous myocardial infarction in 2014 with stent placement 2 presents from the ED with chief complaint of chest pain that began today at 5: 30 sharp and stabbing in the central chest and radiating to the right neck and shoulder. Pt. describes as constant w/no alleviating or aggravating factors. Took 3 doses of nitroglycerin w/minimal change. Pt. reports chest pain, nausea, SOB, and diaphoresis but denies recent illness, fever, chills, vomiting, changes in vision, unusual bleeding, lightheadedness, dizziness, abdominal pain , diarrhea, constipation, pre-syncope, or syncope. Past Med Surg Social Fam HX - Past Medical History Source: patient, old records reviewed, obtained from family Medical history: CHF, coronary artery disease, diabetes, GERD, hyperlipidemia, hypertension, kidney stones, migraine, myocardial infarction (2014 w/placement of stents x2) Psychiatric history: anxiety, ADHD, bipolar, depression - Past Surgical History Surgical History: angioplasty/stent (x2) - Social History Smoking Status: Current every day smoker Packs per day: 10 cigarettes per day Smokeless Tobacco Status: No Alcohol use: occasionally Drug use: none Occupational status: employed Current living situation: Home, With Family Activity Level: Independent ambulation Recent Out of Country Travel Within the Last 8 Weeks: No Exposure or Possible Exposure to Illness During Travel: No - Family History Father Race: Family Member Ethnicity: Non- Living Status: Still Living Hx Family Medical Disorders: No Grandmother Adopted: No Race: Family Member Ethnicity: Non- Living Status: Hx Family Cardiac Disorders: Yes (CHF) Hx Family Respiratory Disorders: No Hx Family Cancer: No Hx Family GI Disorders: No Hx Family Endocrine Disorder: No Hx Family Neuromuscular Disorders: No Hx Family Neurologic Disorders: No Hx Family HEENT Disorders: No Hx Family Autoimmune Disorders: No Mother Race: Family Member Ethnicity: Non- Living Status: Still Living Hx Family Medical Disorders: No Brother Race: Family Member Ethnicity: Non- Living Status: Still Living Hx Family Medical Disorders: No Internal Medicine - H&P: Meds Topiramate [Topamax] 25 mg PO BID 04/05/15 [History] Temazepam [Restoril] 15 mg PO HS #0 06/29/15 [History] Atorvastatin [Lipitor] 40 mg PO QPM 07/13/15 [History] Clopidogrel [Plavix] 75 mg PO QAM 07/13/15 [History] traZODone [TraZODone] 50 mg PO HS PRN 09/27/15 [History] diazePAM [Valium] 5 mg PO TID 04/01/16 [History] Liraglutide [Victoza 2-Bill] 1.2 mg SQ QAM 10/21/16 [History] Metoprolol XL (24 HR) Succ [Toprol Xl] 12.5 mg PO BID 10/21/16 [History] Diltiazem CD (24hr) [Cardizem CD] 180 mg PO DAILY 01/11/17 [History] Aspirin Enteric Coated [Aspirin EC] 81 mg PO DAILY 05/24/17 [History] Butalb/Acetaminophen/Caffeine [Fioricet 50-300-40 mg Capsule] 1 each PO BID PRN 05/24/17 [History] Diclofenac Sodium [Voltaren] 1 appl TP QID PRN 05/24/17 [History] Lurasidone [Latuda] 40 mg PO QPM 05/24/17 [History] Ondansetron HCl [Zofran] 4 mg PO Q8H PRN 05/24/17 [History] metFORMIN [Glucophage] 1,000 mg PO QAM 05/24/17 [History] metFORMIN [Glucophage] 500 mg PO QPM 05/24/17 [History] 3 Allergy/AdvReac Type Severity Reaction Status Date / Time naproxen AdvReac Gastrointestinal Verified 05/02/16 17:04 Upset All Systems PM: A 10-system review of systems was performed and is negative for pertinent findings except as documented above in the HPI. - Constitutional Constitutional: no chills, no fever(s), no night sweats - EENT Eyes: no change in vision, no discharge, no pain, no photophobia Ears: no ear discharge, no ear pain, no tinnitus Nose, mouth and throat: no dysphagia, no nasal discharge, no neck pain, no sore throat - Breasts Breasts: as per HPI - Cardiovascular Cardiovascular ROS IM: as per HPI, chest pain, diaphoresis, dyspnea, dyspnea on exertion - Respiratory Respiratory: as per HPI, cough, dyspnea, dyspnea on exertion - Gastrointestinal Gastrointestinal: no abdominal pain, no diarrhea, no hematemesis, no hematochezia, no melena, no nausea, no vomiting - Genitourinary Genitourinary: no change in urinary stream, no dysuria, no flank pain, no hematuria Menstruation: as per HPI - Musculoskeletal Musculoskeletal ROS IM: no numbness, no tingling - Integumentary Integumentary IM: no rash, no unusual bruising - Neurological Neurological ROS: no confusion, no convulsions, no focal weakness, no numbness, no tingling, no tremor(s) - Psychiatric Psychiatric: as per HPI - Endocrine Endocrine IM: as per HPI - Hematologic/Lymphatic Hematologic/Lymphatic: no easy bruising - Allergic/Immunologic Allergic/Immunologic: as per HPI - Constitutional Vitals: Temp Pulse Resp BP Pulse Ox 97.7 F 83 16 107/72 94 05/24/17 22:36 05/24/17 22:36 05/24/17 22:36 05/24/17 22:36 05/24/17 22:36 General appearance: Present: cooperative, mild distress, A&O X 3, pleasant, obese, answers questions appropriately - Head Head exam: Present: atraumatic, normocephalic - Eye Eye exam: Present: PERRL, conjuntiva pink, sclera anicteric Pupils: Present: PERRL - ENT ENT exam: Present: normal exam, normal external ear exam - Neck Neck exam general surgery: Present: normal inspection, supple, trachea midline. Absent: lymphadenopathy - Respiratory Respiratory exam: Present: wheezes (Right upper lobe). Absent: accessory muscle use, rales, rhonchi - Cardiovascular Cardiovascular exam: Present: RRR, +S1, +S2. Absent: diastolic murmur, gallop, rubs, systolic murmur - GI/Abdominal GI/Abdominal exam: Present: normal bowel sounds, soft, no peritoneal signs. Absent: distended, tenderness - Rectal Rectal exam: Present: deferred - Additional comments: exam deferred. - Extremities Exam Extremities exam: Present: warm, radial pulses palpable and symmetrical. Absent : calf tenderness, cyanotic, pedal edema - Back Exam Back exam: Present: normal inspection - Neurological Exam Neurological exam: Present: CN II-XII intact, oriented X3, no focal deficits. Absent: pronater drift, facial droop, speech deficit - Psychiatric Psychiatric exam: Present: normal affect, normal mood - Skin Skin exam: Present: dry, intact Internal Med - H&P Results - Labs CBC & Chem 7: 05/24/17 19:01 05/24/17 19:01 - EKG Data EKG shows normal: sinus rhythm - EKG Data Prior EKG available for review: yes EKG comments: 05/25/17 01:01 EKG dated 01/12/17 shows sinus bradycardia with low QRS voltage in precordial leads. Inferior myocardial infarction of indeterminate age. EKG dated 05/24/17 shows sinus rhythm with occasional ventricular premature complexes, low QRS voltage in precordial leads, minimal voltage criteria for LVH (consider normal variant), possible anterior myocardial infarction of indeterminate age, inferior myocardial infarction of indeterminate age. - Diagnostic Studies Chest x-ray Additional comments: Impressions Chest X-Ray 05/24/17 18:36 IMPRESSION: No acute cardiopulmonary disease. D/ / Andrew Nolen MD / Andrew Nolen MD Interpreting Provider: Andrew Nolen MD
[2017-05-24] MEDS ORDERED: traZODone 50 MG TABLET PO PRN (23:57)
[2017-05-25] MEDS ORDERED: D5% in Water 1,000 ML IVC PRN (00:04)
[2017-05-25] MEDS ORDERED: *HR* Dextrose 50 % in Water (Syg) 50 ML SYRINGE IVP PRN (00:04)
[2017-05-25] MEDS ORDERED: Dextrose Gel 15 GM PO PRN ×2 (00:04)
[2017-05-25 01:30] LABS: Basophils # 0.1 K/mcL (0.0-0.2); Basophils % 0.6 %; Eosinophils # 0.7 K/mcL (0.0-0.6); Eosinophils % 5.1 %; Hematocrit 36.4 % (35.3-44.9); Hemoglobin 12.7 g/dL (11.5-15.4); Immature Granulocytes % 0.3 % (0-4); Lymphocytes # 5.5 K/mcL (0.6-4.6); Lymphocytes % 39.1 %; Mean Corpuscular HGB Conc 34.9 g/dL (31.6-35.5); Mean Corpuscular Hemoglobin 32.2 pg (28.0-33.3); Mean Corpuscular Volume 92.2 fL (83.0-100.0); Mean Platelet Volume 9.7 fL (9.4-12.4); Monocytes # 0.6 K/mcL (0.0-1.3); Neutrophils # 7.2 K/mcL (1.6-8.9); Nucleated Red Blood Cells 0.1 /100 WBC (0); Platelet Count 270 K/mcL (140-400); Red Blood Count 3.95 M/mcL (3.82-4.97); Red Cell Distribution Width 12.9 % (11.5-14.5); Segmented Neutrophils % 50.9 %
[2017-05-25 01:34] LABS: Prothrombin Time 10.5 Seconds (9.4-12.1)
[2017-05-25 01:37] LABS: Activated Partial Thrombo Time 26.9 Seconds (26.0-36.0)
[2017-05-25 01:42] LABS: Alanine Aminotransferase 15 Units/L (0-55); Albumin 3.4 g/dL (3.5-5.0); Albumin/Globulin Ratio 1.7 (1.1-2.2); Alkaline Phosphatase 82 Units/L (38-126); Aspartate Amino Transferase 12 Units/L (5-34); BUN/Creatinine Ratio 10 (6-26); Bilirubin,Total 0.4 mg/dL (0.2-1.2); Blood Urea Nitrogen 7 mg/dL (7-20); Calcium 8.9 mg/dL (8.6-10.8); Carbon Dioxide 21 mEq/L (19-29); Chloride 108 mEq/L (98-109); Glucose 149 mg/dL (70-99); Magnesium 1.5 mg/dL (1.6-2.6); Osmolality,Calculated 287 (280-300); Potassium 3.3 mEq/L (3.5-4.5); Sodium 138 mEq/L (136-145); Total Protein 5.4 g/dL (6.0-8.3); eGFR For African Americans > 60 (> 60); eGFR For Non-African Americans > 60 (> 60)
[2017-05-25] MEDS: Pantoprazole 40 MG VIAL IVP SCH ×2 (02:40→06:29)
[2017-05-25] MEDS: cefTRIAXone 2,000 MG in Water for inj. (sterile) 20 ML IVP SCH (02:49)
[2017-05-25] MEDS ORDERED: Nitroglycerin 0.4 MG TAB.SUBL SL PRN (03:18)
[2017-05-25] MEDS ORDERED: 0.9 % Sodium Chloride 1,000 ML ONE (03:23)
[2017-05-25] MEDS: 0.9 % Sodium Chloride 1,000 ML IVC SCH ×2 (03:30→20:09)
[2017-05-25] MEDS: *HR* Enoxaparin 40 MG/0.4 ML SYRINGE SQ SCH (06:28)
[2017-05-25] MEDS: Nicotine 21 MG PATCH.TD24 TD SCH (07:52)
[2017-05-25] MEDS: Diltiazem CD (24hr) 180 MG CAPSULE PO SCH (07:53)
[2017-05-25] MEDS: Topiramate 25 MG TABLET PO SCH ×2 (07:53→20:02)
[2017-05-25] MEDS: Metoprolol XL (24 HR) Succ 25 MG TAB.ER.24H PO SCH ×2 (07:54→20:03)
[2017-05-25] MEDS: Insulin LISPRO 300 UNITS/3 ML VIAL SQ SCH ×3 (07:55→16:51)
[2017-05-25] MEDS: diazePAM 5 MG TABLET PO SCH ×3 (07:55→20:02)
[2017-05-25] MEDS: Aspirin Enteric Coated 81 MG Tablet PO SCH (07:55)
[2017-05-25] MEDS: *HR* Morphine 2 MG/ML SYRINGE IVP PRN ×2 (07:55→21:20)
[2017-05-25] MEDS ORDERED: Topiramate 25 MG TABLET PO SCH (09:00)
--- NOTE | 2017-05-25 11:31 | Cardiology Consult Note ---
Date of Encounter: 05/25/17 Time of Encounter: 11:29 Assessment and Plan (1) Chest pain Current Visit: Yes Status: Acute Sx's similar to previous [facility] chest pain and patient also has associated symtpoms of radation of pain to right chest, and diaphoresis. Hx of 2 previous stents last in 2015 DELFINO to PDA. Patient has risks of T2DM, HTN, HLD, and current smoker. EKG shows no ischemia. CXR shows no cardiomegaly. Echo LVEF 55%, and normal wall motion. - will undergo nuclear stress test. - NPO - continue home tropolol XL, dilt 180, plavix 75, ASA81, an atrovastatin 40 - test is pending Qualifiers: Chest pain type: other chest pain Qualified Code(s): R07.9 - Chest pain, unspecified Discussion w patient/family: The assessment and plan as outlined above was discussed with the patient and/or family members who expressed understanding and agreement. All questions were answered. Thank you for involving us in the care of your patient. Please call with any questions. History of Present Illness Consult date: 05/25/17 Requesting physician: Agus Negron Consult reason: cardiac hx Chief complaint: Severe chest pain History of present illness: Ms. Mccoy is a 31 year old female [facility], Stent placement in 2014, and DELFINO to PDA in 04/2016, T2DM HTN, HLD, anxiety , and current 1/2 pack day smoking presented to ED with Severe Chest pain. Chest pain is at rest and described as sharp and non-localized that radiates to her right side of her chest pain. She states this chest pain when it started was identical to her previous [facility]. She took 3 nitro at time of onset w/o response. She has associated shortness of breath, sweating, and nausea. denies orthopnea, PND or positional change of pain. Patient states she is diligent in taking her home medications. She recently started abx for an increase in WBC, but unknown source of infection. Patient goes to [facility] for PCOS. Patient is actively trying to get . LMP 05/09/2017. Past Med Surg Social Fam HX - Past Medical History Medical history: CHF, coronary artery disease, diabetes, GERD, hyperlipidemia, hypertension, kidney stones, migraine, myocardial infarction (2014 w/placement of stents x2) Psychiatric history: anxiety, ADHD, bipolar, depression - Past Surgical History Surgical History: angioplasty/stent (x2) - Social History Smoking Status: Current every day smoker Packs per day: 10 cigarettes per day Smokeless Tobacco Status: No Alcohol use: occasionally Drug use: none - Family History Brother Race: Family Member Ethnicity: Non- Living Status: Still Living Hx Family Medical Disorders: No Father Race: Family Member Ethnicity: Non- Living Status: Still Living Hx Family Cardiac Disorders: Yes (HTN) Hx Family Respiratory Disorders: No Hx Family Cancer: No Hx Family GI Disorders: No Hx Family Endocrine Disorder: Yes (Dm) Hx Family Neuromuscular Disorders: No Hx Family Neurologic Disorders: No Hx Family HEENT Disorders: No Hx Family Autoimmune Disorders: No Hx Family Medical Disorders: No Grandmother Adopted: No Race: Family Member Ethnicity: Non- Living Status: Hx Family Cardiac Disorders: Yes (CHF) Hx Family Respiratory Disorders: No Hx Family Cancer: No Hx Family GI Disorders: No Hx Family Endocrine Disorder: No Hx Family Neuromuscular Disorders: No Hx Family Neurologic Disorders: No Hx Family HEENT Disorders: No Hx Family Autoimmune Disorders: No Mother Race: Family Member Ethnicity: Non- Living Status: Still Living Hx Family Cardiac Disorders: No Hx Family Respiratory Disorders: No Hx Family Cancer: No Hx Family GI Disorders: No Hx Family Endocrine Disorder: No Hx Family Neuromuscular Disorders: No Hx Family Neurologic Disorders: No Hx Family HEENT Disorders: No Hx Family Autoimmune Disorders: No Hx Family Medical Disorders: No Medications and Allergies Topiramate [Topamax] 25 mg PO BID 04/05/15 [History] Temazepam [Restoril] 15 mg PO HS #0 06/29/15 [History] Atorvastatin [Lipitor] 40 mg PO QPM 07/13/15 [History] Clopidogrel [Plavix] 75 mg PO QAM 07/13/15 [History] traZODone [TraZODone] 50 mg PO HS PRN 09/27/15 [History] diazePAM [Valium] 5 mg PO TID 04/01/16 [History] Liraglutide [Victoza 2-Blil] 1.2 mg SQ QAM 10/21/16 [History] Metoprolol XL (24 HR) Succ [Toprol Xl] 12.5 mg PO BID 10/21/16 [History] Diltiazem CD (24hr) [Cardizem CD] 180 mg PO DAILY 01/11/17 [History] Aspirin Enteric Coated [Aspirin EC] 81 mg PO DAILY 05/24/17 [History] Butalb/Acetaminophen/Caffeine [Fioricet 50-300-40 mg Capsule] 1 each PO BID PRN 05/24/17 [History] Diclofenac Sodium [Voltaren] 1 appl TP QID PRN 05/24/17 [History] Lurasidone [Latuda] 40 mg PO QPM 05/24/17 [History] Ondansetron HCl [Zofran] 4 mg PO Q8H PRN 05/24/17 [History] metFORMIN [Glucophage] 1,000 mg PO QAM 05/24/17 [History] metFORMIN [Glucophage] 500 mg PO QPM 05/24/17 [History] 3 Allergy/AdvReac Type Severity Reaction Status Date / Time naproxen AdvReac Gastrointestinal Verified 05/02/16 17:04 Upset All Systems Review: A 10-system review of systems was performed and is negative for pertinent findings except as documented above in the HPI. - Constitutional Constitutional: fatigue, no fever(s), no frequent falls - EENT Eyes: no blurred vision, no loss of vision - Cardiovascular Cardiovascular: as per HPI - Respiratory Respiratory: dyspnea, no cough, no hemoptysis, no wheezing - Gastrointestinal Gastrointestinal: nausea, no abdominal pain, no coffee ground emesis, no constipation, no diarrhea, no dysphagia, no hematemesis, no hematochezia, no melena - Integumentary Integumentary: no erythema, no rash - Neurological Neurological: no abnormal speech, no dizziness, no focal weakness, no loss of vision, no memory loss, no numbness, no tingling - Psychiatric Psychiatric: anxiety, no depression, no hallucinations, no panic attacks Physical Examination Vital Signs, Last 4 Hours Temp Pulse Resp BP Pulse Ox 05/25/17 11:19 97.5 F L 79 15 103/71 98 General: Conversant, No Apparent Distress HEENT: Atraumatic, Normocephaly, Mucus Membranes Moist Neck: No JVD, Normal carotid pulses Cardiac: Reg Rate and Rhythm, Normal S1 and S2, No Murmur Lungs: Normal Breath Sounds, No Wheeze, Rales, Rhonchi Neuro: Alert and responsive, No focal deficits noted Abdomen: Soft, Non-Tender Skin: No rashes noted on visualized skin Musculoskeletal: No Chest Wall Tenderness Extremities: No Clubbing, No Cyanosis, No Edema, Normal Pulses Results 05/25/17 01:20 05/25/17 01:20 Lab Results 05/25/17 05/25/17 05/25/17 01:20 01:20 01:20 WBC 14.1 H Hgb 12.7 Hct 36.4 Plt Count 270 INR 1.0 APTT 26.9 Sodium Potassium Chloride Carbon Dioxide BUN Creatinine Glucose Calcium Magnesium Total Bilirubin AST ALT Alkaline Phosphatase Troponin I 0.00 05/25/17 05/25/17 01:20 07:29 WBC Hgb Hct Plt Count INR APTT Sodium 138 Potassium 3.3 L Chloride 108 Carbon Dioxide 21 BUN 7 Creatinine 0.67 Glucose 149 H Calcium 8.9 Magnesium 1.5 L Total Bilirubin 0.4 AST 12 ALT 15 Alkaline Phosphatase 82 Troponin I 0.01 Consult Discharge Plan - Plan Referrals: Glory Funes, ROBERT [Primary Care Provider] -
[2017-05-25 12:06] LABS: Bilirubin,Urine Negative (Negative); Blood,Urine Negative (Negative); Clarity,Urine Cloudy (Clear); Color,Urine Yellow (Yellow); Glucose,Urine (UA) Normal (Normal); Ketones,Urine Negative (Negative); Leukocyte Esterase,Urine Negative (Negative); Nitrite,Urine Negative (Negative); Protein,Urine Negative (Neg-Trace); Specific Gravity,Urine 1.011 (1.010-1.025); Urobilinogen,Urine Normal (Normal)
[2017-05-25 12:07] LABS: Bacteria,Urine None Seen per hpf (None-Few); Hyaline Casts,Urine None Seen per lpf (None-Few); RBC,Urine 0-3 per hpf (0-3); Squamous Epithelial Cell,Urine Many per lpf (None-Few); WBC,Urine 0-3 per hpf (0-3)
[2017-05-25] MEDS: Acetaminophen/Butalbital/CaffeineTABLET PO PRN ×2 (12:28→20:09)
[2017-05-25] MEDS: Ondansetron 4 MG/2 ML VIAL IVP PRN ×2 (12:29→20:39)
[2017-05-25] MEDS: Magnesium Oxide 400 MG TABLET PO SCH ×2 (12:29→20:02)
--- NOTE | 2017-05-25 16:08 | Internal Med Progress Note ---
Addendum entered and electronically signed by Bairon Sumner DO 05/25/17 16: 48: Not LHC - nucelar stress test Original Note: <Bairon Sumner - Last Filed: 05/25/17 16:44> Date of Encounter: 05/25/17 Time of Encounter: 16:05 - Assessment and plan (1) Chest pain Current Visit: No Status: Acute Assessment and plan: Presented with stabbing central chest pain associated with nausea and diaphoresis Hx CAD with 2 stents in the past Denies chest pain at this time Became hypotensive with nitro drip - switched to nitro sublingual PRN Echo: LVEF 55%, normal diastolic function Troponins negative x3. 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 transplanted heart: [place] heart Associated angina: angina presence unspecified Qualified Code(s): I25.10 - Atherosclerotic heart disease of [place] coronary artery without angina pectoris (3) Leukocytosis Current Visit: Yes Status: Acute Assessment and plan: Pt had been on Amoxicillin for 2 weeks after elevated WBC and some sinus symptoms WBC of 19.4 with unknown source - Blood, sputum, and urine cultures pending Afebrile, normotensive - no cough, diarrhea, or other symptoms concerning for infection CXR shows no acute abnormality UA shows no signs of infection Discontinue ceftriaxone as infection is unlikely - continue to follow cultures Obtain peripheral smear Qualifiers: Leukocytosis type: unspecified Qualified Code(s): D72.829 - Elevated white blood cell count, unspecified (4) Diabetes Current Visit: Yes Status: Chronic Assessment and plan: Hold home meds. Low-dose SSI Qualifiers: Diabetes mellitus type: type 2 Diabetes mellitus complication status: with unspecified complications Diabetes mellitus long-term insulin use: without long-term use Qualified Code(s): E11.8 - Type 2 diabetes mellitus with unspecified complications (5) Tobacco abuse Current Visit: Yes Status: Acute Assessment and plan: Had quit previously. Recently started smoking again. Pt encouraged to quit. Nicotine patch (6) Hypertension Current Visit: No Status: Chronic Assessment and plan: Normotensive. Continue meds. Qualifiers: Hypertension type: essential hypertension Qualified Code(s): I10 - Essential (primary) hypertension (7) HLD (hyperlipidemia) Current Visit: Yes Status: Chronic Assessment and plan: Continue statin Qualifiers: Hyperlipidemia type: pure hypercholesterolemia Qualified Code(s): E78.00 - Pure hypercholesterolemia, unspecified (8) DVT prophylaxis Current Visit: Yes Status: Acute Assessment and plan: Lovenox - Subjective Interval history: Pt doing well with no complaints. Reports she was having some chest pain and headache overnight, but that has resolved. Her pain was associated with nausea and diaphoresis. Denies syncope, light-headedness, dyspnea, diarrhea, constipation, dysuria, or leg pain/edema. - Constitutional Vitals: Temp Pulse Resp BP Pulse Ox 98.0 F 71 15 102/68 97 05/25/17 15:44 05/25/17 15:44 05/25/17 15:44 05/25/17 15:44 05/25/17 15:44 General appearance: Present: cooperative, A&O X 3, pleasant, no acute distress, obese, answers questions appropriately - Head Head exam: Present: atraumatic, normocephalic - Eye Eye exam: Present: conjuntiva pink, sclera anicteric - Neck Neck exam general surgery: Present: supple, trachea midline. Absent: lymphadenopathy - Respiratory Respiratory exam: Present: wheezes. Absent: accessory muscle use, rales, rhonchi - Cardiovascular Cardiovascular exam: Present: RRR, +S1, +S2. Absent: diastolic murmur, systolic murmur - GI/Abdominal GI/Abdominal exam: Present: normal bowel sounds, soft, no peritoneal signs. Absent: distended, tenderness - Extremities Exam Extremities exam: Present: warm, radial pulses palpable and symmetrical. Absent : calf tenderness, cyanotic, pedal edema - Neurological Exam Neurological exam: Present: CN II-XII intact, oriented X3, no focal deficits. Absent: facial droop, speech deficit - Skin Skin exam: Present: dry, intact Internal Medicine: Result - Labs CBC & Chem 7: 05/25/17 01:20 05/25/17 01:20 Labs: Short CBC 05/25/17 Range/Units 01:20 WBC 14.1 H (4.3-11.1) K/mcL Hgb 12.7 (11.5-15.4) g/dL Hct 36.4 (35.3-44.9) % Plt Count 270 (140-400) K/mcL Neutrophils # 7.2 (1.6-8.9) K/mcL BMP 05/25/17 01:20 Sodium 138 Potassium 3.3 L Chloride 108 Carbon Dioxide 21 BUN 7 Creatinine 0.67 Glucose 149 H Calcium 8.9 Cardiac Enzymes 05/25/17 05/25/17 Range/Units 01:20 07:29 Troponin I 0.00 0.01 (0-0.03) ng/mL Liver Function 05/25/17 Range/Units 01:20 Total Bilirubin 0.4 (0.2-1.2) mg/dL AST 12 (5-34) Units/L ALT 15 (0-55) Units/L Alkaline Phosphatase 82 (38-126) Units/L Albumin 3.4 L (3.5-5.0) g/dL Urine 05/25/17 Range/Units 11:35 Urine Color Yellow (Yellow) Urine Clarity Cloudy A (Clear) Urine pH 6.0 (5.0-8.0) pH Units Ur Specific [place] 1.011 (1.010-1.025) Urine Protein Negative (Neg-Trace) mg/dL Urine Glucose (UA) Normal (Normal) mg/dL - ABG Interpretation ABG results: PT/INR, D-dimer PT 10.5 Seconds (9.4-12.1) 05/25/17 01:20 - Impressions Impressions Echocardiogram 05/25/17 00:05 Impressions: LVEF 55%. Normal diastolic function of the left ventricle. Normal right ventricular structure and function. Mild tricuspid regurgitation. No pulmonary hypertension. Left Ventricular Wall Motion: Rest Echo Findings All wall segments showed normal motion. Findings: Study Quality * Technically adequate exam. ECG Findings * Sinus rhythm with BBB. Left Ventricle * LVEF 55%. * Normal LV chamber size, wall thickness and function. * Normal left ventricular diastolic function. Right Ventricle * Normal right ventricular structure and function. Left Atrium * Normal left atrial size. Right Atrium * Normal right atrial size. Aortic Valve * No aortic regurgitation. * Trileaflet aortic valve. * Normal aortic valve structure. * No aortic stenosis. Mitral Valve * Normal mitral valve structure. * No mitral stenosis. * No mitral regurgitation. Tricuspid Valve * Normal tricuspid valve structure. * Mild tricuspid regurgitation. * Estimated RA pressure is 3 mmHg. * Estimated RVSP is 27 mmHg. * No pulmonary hypertension. Pulmonary Artery * Pulmonary artery not well visualized. Pulmonic Valve * Pulmonic valve is not well visualized. * No pulmonic stenosis. * No pulmonic regurgitation. Aorta * Normally sized aortic root. Pericardium * There is no pericardial effusion present. Interatrial Septum * No evidence of PFO by color Doppler. IVC * Normal IVC dimensions and inspiratory collapse. Consult Discharge Plan - Plan Instructions: Myocardial Infarction (DC), Chest Pain (DC), Diabetes Mellitus Type 2 in Adults (DC), Chronic Hypertension (DC), Cigarette Smoking and Your Health, [place] (GEN) Referrals: Glory Funes CNP [Primary Care Provider] - <Fernando Morales - Last Filed: 05/25/17 18:08> Date of Encounter: 05/25/17 - Assessment and plan (1) Chest pain Current Visit: Yes Status: Acute Qualifiers: Chest pain type: other chest pain Qualified Code(s): R07.9 - Chest pain, unspecified (2) Leukocytosis Current Visit: Yes Status: Acute Qualifiers: Leukocytosis type: unspecified Qualified Code(s): D72.829 - Elevated white blood cell count, unspecified (3) CAD (coronary artery disease) Current Visit: Yes Status: Chronic Qualifiers: Coronary Disease-Associated Artery/Lesion type: [place] artery [place] vs. transplanted heart: [place] heart Associated angina: angina presence unspecified Qualified Code(s): I25.10 - Atherosclerotic heart disease of [place] coronary artery without angina pectoris (4) Diabetes Current Visit: Yes Status: Chronic Qualifiers: Diabetes mellitus type: type 2 Diabetes mellitus complication status: with circulatory complication Diabetes mellitus complication detail: with other circulatory complications Diabetes mellitus long-term insulin use: without supervisor intermediates use Qualified Code(s): E11.59 - Type 2 diabetes mellitus with other circulatory complications (5) Tobacco use Current Visit: No Status: Chronic (6) Hypertension Current Visit: No Status: Chronic Qualifiers: Hypertension type: essential hypertension Qualified Code(s): I10 - Essential (primary) hypertension (7) HLD (hyperlipidemia) Current Visit: Yes Status: Chronic Qualifiers: Hyperlipidemia type: mixed hyperlipidemia Qualified Code(s): E78.2 - Mixed hyperlipidemia (8) GERD (gastroesophageal reflux disease) Current Visit: Yes Status: Chronic Qualifiers: Esophagitis presence: esophagitis presence not specified Qualified Code(s) : K21.9 - Gastro-esophageal reflux disease without esophagitis - Constitutional Vitals: Temp Pulse Resp BP Pulse Ox 98.0 F 71 15 102/68 97 05/25/17 15:44 05/25/17 15:44 05/25/17 15:44 05/25/17 15:44 05/25/17 15:44 Internal Medicine: Result - Labs CBC & Chem 7: 05/25/17 01:20 05/25/17 01:20 Labs: Short CBC 05/25/17 Range/Units 01:20 WBC 14.1 H (4.3-11.1) K/mcL Hgb 12.7 (11.5-15.4) g/dL Hct 36.4 (35.3-44.9) % Plt Count 270 (140-400) K/mcL Neutrophils # 7.2 (1.6-8.9) K/mcL BMP 05/25/17 01:20 Sodium 138 Potassium 3.3 L Chloride 108 Carbon Dioxide 21 BUN 7 Creatinine 0.67 Glucose 149 H Calcium 8.9 Cardiac Enzymes 05/25/17 05/25/17 Range/Units 01:20 07:29 Troponin I 0.00 0.01 (0-0.03) ng/mL Liver Function 05/25/17 Range/Units 01:20 Total Bilirubin 0.4 (0.2-1.2) mg/dL AST 12 (5-34) Units/L ALT 15 (0-55) Units/L Alkaline Phosphatase 82 (38-126) Units/L Albumin 3.4 L (3.5-5.0) g/dL Urine 05/25/17 Range/Units 11:35 Urine Color Yellow (Yellow) Urine Clarity Cloudy A (Clear) Urine pH 6.0 (5.0-8.0) pH Units Ur Specific [place] 1.011 (1.010-1.025) Urine Protein Negative (Neg-Trace) mg/dL Urine Glucose (UA) Normal (Normal) mg/dL - ABG Interpretation ABG results: PT/INR, D-dimer PT 10.5 Seconds (9.4-12.1) 05/25/17 01:20 - Impressions Impressions Echocardiogram 05/25/17 00:05 Impressions: LVEF 55%. Normal diastolic function of the left ventricle. Normal right ventricular structure and function. Mild tricuspid regurgitation. No pulmonary hypertension. Left Ventricular Wall Motion: Rest Echo Findings All wall segments showed normal motion. Findings: Study Quality * Technically adequate exam. ECG Findings * Sinus rhythm with BBB. Left Ventricle * LVEF 55%. * Normal LV chamber size, wall thickness and function. * Normal left ventricular diastolic function. Right Ventricle * Normal right ventricular structure and function. Left Atrium * Normal left atrial size. Right Atrium * Normal right atrial size. Aortic Valve * No aortic regurgitation. * Trileaflet aortic valve. * Normal aortic valve structure. * No aortic stenosis. Mitral Valve * Normal mitral valve structure. * No mitral stenosis. * No mitral regurgitation. Tricuspid Valve * Normal tricuspid valve structure. * Mild tricuspid regurgitation. * Estimated RA pressure is 3 mmHg. * Estimated RVSP is 27 mmHg. * No pulmonary hypertension. Pulmonary Artery * Pulmonary artery not well visualized. Pulmonic Valve * Pulmonic valve is not well visualized. * No pulmonic stenosis. * No pulmonic regurgitation. Aorta * Normally sized aortic root. Pericardium * There is no pericardial effusion present. Interatrial Septum * No evidence of PFO by color Doppler. IVC * Normal IVC dimensions and inspiratory collapse. - Attending Attestation I examined this patient and my medical decision-making was reviewed with the Resident Physician on 05/25/17. I agree with the documented findings, disposition and treatment plan as described except to the extent set forth below. Ms Mccoy is currently hospitalized for chest pain. She has significant hx of cardiac disease. Ms Mccoy feels OK at this time. No further CP. No SOB. No fever or chills. Exam Alert. Comfortable Mucus membranes dry Heart reg No wheeze I/P 1. Chest pain - stress test tomorrow 2. CAD s/p stent Further diagnoses and plan as above.
[2017-05-25] MEDS ORDERED: Insulin LISPRO 300 UNITS/3 ML VIAL SQ SCH (21:00)
[2017-05-25] MEDS ORDERED: Temazepam 15 MG CAPSULE PO SCH (21:00)
[2017-05-25] MEDS: *HR* HYDROcodone/Acet 5/325 mg TABLET PO PRN (23:47)
[2017-05-26] MEDS: *HR* Morphine 2 MG/ML SYRINGE IVP PRN ×2 (00:46→09:29)
[2017-05-26] MEDS: cefTRIAXone 2,000 MG in Water for inj. (sterile) 20 ML IVP SCH (00:48)
[2017-05-26] MEDS: *HR* HYDROcodone/Acet 5/325 mg TABLET PO PRN ×2 (04:19→11:35)
[2017-05-26] MEDS: Ondansetron 4 MG/2 ML VIAL IVP PRN (05:24)
[2017-05-26] MEDS: *HR* Enoxaparin 40 MG/0.4 ML SYRINGE SQ SCH (05:25)
[2017-05-26] MEDS: Pantoprazole 40 MG VIAL IVP SCH (05:29)
[2017-05-26 06:25] LABS: Basophils # 0.1 K/mcL (0.0-0.2); Basophils % 0.7 %; Eosinophils # 0.6 K/mcL (0.0-0.6); Eosinophils % 5.1 %; Hematocrit 35.2 % (35.3-44.9); Hemoglobin 11.9 g/dL (11.5-15.4); Immature Granulocytes % 0.4 % (0-4); Lymphocytes # 4.7 K/mcL (0.6-4.6); Mean Corpuscular HGB Conc 33.8 g/dL (31.6-35.5); Mean Corpuscular Hemoglobin 31.4 pg (28.0-33.3); Mean Corpuscular Volume 92.9 fL (83.0-100.0); Monocytes # 0.6 K/mcL (0.0-1.3); Monocytes % 4.6 %; Neutrophils # 6.3 K/mcL (1.6-8.9); Platelet Count 255 K/mcL (140-400); Red Blood Count 3.79 M/mcL (3.82-4.97); Red Cell Distribution Width 12.8 % (11.5-14.5); Segmented Neutrophils % 51.2 %
[2017-05-26 06:37] LABS: Alanine Aminotransferase 17 Units/L (0-55); Albumin 3.1 g/dL (3.5-5.0); Albumin/Globulin Ratio 1.3 (1.1-2.2); Alkaline Phosphatase 72 Units/L (38-126); Aspartate Amino Transferase 13 Units/L (5-34); BUN/Creatinine Ratio 11 (6-26); Bilirubin,Total 0.7 mg/dL (0.2-1.2); Blood Urea Nitrogen 8 mg/dL (7-20); Calcium 8.3 mg/dL (8.6-10.8); Carbon Dioxide 21 mEq/L (19-29); Chloride 111 mEq/L (98-109); Globulin 2.3 g/dL (2.4-3.5); Glucose 105 mg/dL (70-99); Osmolality,Calculated 289 (280-300); Potassium 3.8 mEq/L (3.5-4.5); Sodium 140 mEq/L (136-145); Total Protein 5.4 g/dL (6.0-8.3); eGFR For African Americans > 60 (> 60); eGFR For Non-African Americans > 60 (> 60)
[2017-05-26] MEDS: Insulin LISPRO 300 UNITS/3 ML VIAL SQ SCH ×2 (09:04→11:36)
--- NOTE | 2017-05-26 09:19 | Cardiology Progress Note ---
Date of Encounter: 05/26/17 Time of Encounter: 09:15 Assessment and Plan (1) Chest pain Current Visit: No Status: Chronic Chest discomfort upon arrival. Symptoms improved since admission. ECGs demonstrate sinus rhythm, no acute changes. Troponins negative. TTE demonstrates normal LV function. Plan was to perform a Lexiscan nuclear stress test. Unfortunately, stress test had to be canceled secondary to caffeine containing Fioricet. Findings since admission discussed with patient. I asked patient to consider staying for inpatient stress test tomorrow, but she declined. She would like to go home with outpatient follow-up. No further inpatient cardiology recommendations. Please schedule for cardiology follow-up in one to 2 weeks. Qualifiers: Chest pain type: other chest pain Qualified Code(s): R07.89 - Other chest pain; R07.8 - Other chest pain (2) CAD (coronary artery disease) Current Visit: Yes Status: Chronic [place] CAD, prior ND, prior PCI to the RCA and RPDA. Recommend continue aspirin, statin, Plavix, beta phyllis therapy. Risk factor modification was emphasized, especially complete tobacco cessation. Patient to follow-up as outpatient. Qualifiers: Coronary Disease-Associated Artery/Lesion type: [place] artery [place] vs. transplanted heart: [place] heart Associated angina: angina presence unspecified Qualified Code(s): I25.10 - Atherosclerotic heart disease of [place] coronary artery without angina pectoris Discussion w patient/family: The assessment and plan as outlined above was discussed with the patient and/or family members who expressed understanding and agreement. All questions were answered. Thank you for involving us in the care of your patient. Please call with any questions. Subjective Principal diagnosis: Chest discomfort Interval history: Overall, patient feels better from a cardiovascular standpoint. Denies any further chest pain since admission. Reports development of a migraine overnight. She was given Fioricet, which contains caffeine. Stress test subsequent canceled due to caffeine. Objective Vital Signs, Last 4 Hours Temp Pulse Resp BP Pulse Ox 05/26/17 07:11 90/60 05/26/17 06:53 98.1 F 55 18 88/57 97 General: Conversant, No Apparent Distress HEENT: Atraumatic, Normocephaly, Mucus Membranes Moist Neck: No JVD, Normal carotid pulses Cardiac: Reg Rate and Rhythm, Normal S1 and S2, No Murmur Lungs: Normal Breath Sounds, No Wheeze, Rales, Rhonchi Neuro: Alert and responsive, No focal deficits noted, Other Abdomen: Soft, Non-Tender, Other (Obese) Skin: No rashes noted on visualized skin Musculoskeletal: No Chest Wall Tenderness Extremities: No Clubbing, No Cyanosis, No Edema Results 05/26/17 05:55 05/26/17 05:55 Lab Results 05/26/17 05/26/17 05:55 05:55 WBC 12.3 H Hgb 11.9 Hct 35.2 L Plt Count 255 Sodium 140 Potassium 3.8 Chloride 111 H Carbon Dioxide 21 BUN 8 Creatinine 0.70 Glucose 105 H Calcium 8.3 L Total Bilirubin 0.7 AST 13 ALT 17 Alkaline Phosphatase 72 - Imaging and Cardiology Echo: report reviewed Cardiac cath: report reviewed - EKG Interpretation EKG results cardiology: personally reviewed Consult Discharge Plan - Plan Instructions: Myocardial Infarction (DC), Chest Pain (DC), Diabetes Mellitus Type 2 in Adults (DC), Chronic Hypertension (DC), Cigarette Smoking and Your Health, [employer] Supervisor (GEN) Referrals: Glory Funes ARCHEOLOGY PROFESSOR [Primary Care Provider] -
[2017-05-26] MEDS: 0.9 % Sodium Chloride 1,000 ML IVC SCH (09:29)
[2017-05-26] MEDS: Topiramate 25 MG TABLET PO SCH (09:30)
[2017-05-26] MEDS: diazePAM 5 MG TABLET PO SCH (09:30)
[2017-05-26] MEDS: Aspirin Enteric Coated 81 MG Tablet PO SCH (09:30)
[2017-05-26] MEDS: Metoprolol XL (24 HR) Succ 25 MG TAB.ER.24H PO SCH (09:30)
[2017-05-26] MEDS: Magnesium Oxide 400 MG TABLET PO SCH (09:30)
[2017-05-26] MEDS: Nicotine 21 MG PATCH.TD24 TD SCH (09:31)
[2017-05-26] MEDS: Diltiazem CD (24hr) 180 MG CAPSULE PO SCH (09:31)
--- NOTE | 2017-05-26 10:53 | Discharge Summary ---
<Feliberto Khan - Last Filed: 05/26/17 13:48> Date of Encounter: 05/26/17 Time of Encounter: 10:00 - Discharge Diagnosis (1) Chest pain Priority: Primary Status: Acute Qualifiers: Chest pain type: other chest pain Qualified Code(s): R07.89 - Other chest pain; R07.8 - Other chest pain (2) Leukocytosis Priority: Secondary Status: Acute Qualifiers: Leukocytosis type: unspecified Qualified Code(s): D72.829 - Elevated white blood cell count, unspecified (3) CAD (coronary artery disease) Priority: Secondary Status: Chronic Qualifiers: Coronary Disease-Associated Artery/Lesion type: [place] artery [place] vs. transplanted heart: [place] heart Associated angina: angina presence unspecified Qualified Code(s): I25.10 - Atherosclerotic heart disease of [place] coronary artery without angina pectoris (4) Diabetes mellitus Priority: Secondary Status: Chronic Qualifiers: Diabetes mellitus type: type 2 Diabetes mellitus complication status: with circulatory complication Diabetes mellitus complication detail: with other circulatory complications Diabetes mellitus shelter insulin use: without termite control technician use Qualified Code(s): E11.59 - Type 2 diabetes mellitus with other circulatory complications (5) HLD (hyperlipidemia) Priority: Secondary Status: Chronic Qualifiers: Hyperlipidemia type: mixed hyperlipidemia Qualified Code(s): E78.2 - Mixed hyperlipidemia (6) Hypertension Priority: Secondary Status: Chronic Qualifiers: Hypertension type: essential hypertension Qualified Code(s): I10 - Essential (primary) hypertension (7) Tobacco use Priority: Secondary Status: Chronic - Discharge Medications Prescriptions: Nitroglycerin 0.4 mg SL Q5MIN PRN #30 tab.subl PRN Reason: Chest Pain Home Medications: Topiramate [Topamax] 25 mg PO BID 04/05/15 [History] Temazepam [Restoril] 15 mg PO HS #0 06/29/15 [History] Atorvastatin [Lipitor] 40 mg PO QPM 07/13/15 [History] Clopidogrel [Plavix] 75 mg PO QAM 07/13/15 [History] traZODone [TraZODone] 50 mg PO HS PRN 09/27/15 [History] diazePAM [Valium] 5 mg PO TID 04/01/16 [History] Liraglutide [Victoza 2-Bill] 1.2 mg SQ QAM 10/21/16 [History] Metoprolol XL (24 HR) Succ [Toprol Xl] 12.5 mg PO BID 10/21/16 [History] Diltiazem CD (24hr) [Cardizem CD] 180 mg PO DAILY 01/11/17 [History] Aspirin Enteric Coated [Aspirin EC] 81 mg PO DAILY 05/24/17 [History] Butalb/Acetaminophen/Caffeine [Fioricet 50-300-40 mg Capsule] 1 each PO BID PRN 05/24/17 [History] Diclofenac Sodium [Voltaren] 1 appl TP QID PRN 05/24/17 [History] Lurasidone [Latuda] 40 mg PO QPM 05/24/17 [History] Ondansetron HCl [Zofran] 4 mg PO Q8H PRN 05/24/17 [History] metFORMIN [Glucophage] 1,000 mg PO QAM 05/24/17 [History] metFORMIN [Glucophage] 500 mg PO QPM 05/24/17 [History] Nitroglycerin 0.4 mg SL Q5MIN PRN #30 tab.subl 05/26/17 [Rx] Allergies/Adverse Reactions: 3 Allergy/AdvReac Type Severity Reaction Status Date / Time naproxen AdvReac Gastrointestinal Verified 05/02/16 17:04 Upset Procedures/tests Complete & Pending: Procedures Performed prior 72 hours Category Date Time Status NM joy perf SPECT multi [NM] Routine Exams 05/27/17 07:00 Ordered EV echocardiogram Routine Y 05/25/17 00:05 Completed SP pharm nuclear stress Routine Y 05/27/17 07:00 Ordered Date of admission: 05/24/17 21:08 Primary care physician: Glory Funes CNP Consults: 05/25/17 00:44 Consult to Cardiology [CONS] Routine Comment: Consulting Provider: [facility] Reason for Consult: Patient has hx of WI in 2015 w/stents x2. CP today that was sharp and stabbing to central chest then radiated to right neck, arm, and shoulder. Risk factors include CHF, CAD, diabetes, HLD, HTN, and previous WI. Initial troponin 0.00. Echocardiogram ordered. Pt. also has leukocytosis of unknown source. Ceftriaxone 2, 000 mg daily. Call Completed: No Discharging clinician: Feliberto Khan Anticipated date of discharge: 05/26/17 - Patient Status Disposition: Home, Self-Care Condition: Fair Functional capacity at discharge: independent ambulation Overall status at discharge: patient is progressing back to baseline - Discharge Instructions Instructions: Myocardial Infarction (DC), Chest Pain (DC), Diabetes Mellitus Type 2 in Adults (DC), Chronic Hypertension (DC), Cigarette Smoking and Your Health, [employer] (GEN) Follow Up With: Glory Funes CNP [Primary Care Provider] - (Within a week) [facility] [Provider Group] (Within 1-2 weeks) Additional Instructions: Please follow up with [facility]ology within 1-2 weeks. Please follow up with your primary care provider within a week regarding your hospitalization, elevated white blood cells count and your plan to get & referral to OBGYN. You can use prescribed sublingual nitroglycerin as needed for chest pain. Please try to cut down or even quit smoking as you can. - Diet and Activity Activity: increase activity as tolerated Diet: diabetic diet, low fat, low cholesterol, low salt diet Hospital course: Ms. Mccoy is a 31 year old female with PMH of diabetes, hypertension, hyperlipidemia and CAD with history of prior inferior [place] s/p 2 stents with latest in 2015 (DELFINO to PDA). Patient presented to ED with complaint of chest pain. Initial troponin at 0.00 but WBC 19.4 was noted. EKGs showed sinus thythm without significant ischemic change. Nitroglycerin drip was started in ED and patient was admitted on 05/24/17 for chest pain work-up. Serial troponin remains negative (0.00, 0.00, 0.01). Echocardiogram on 05/25/17 found LVEF 55% with normal LV diastolic function. Cardiology was consulted and recommended nuclear stress test for further work-up. Planned stress test on 05/26/17 was cancelled due to Fiorciet use, which contains caffeine. Dr. Moya discussed the situation with patient and patient would like to go home with outpatient follow- up. Patient was also noted to have chronic leukocytosis prior to admission. Given no signs or symptoms suggestive infection, peripheral blood smear was collected and pathology result is pending. Patient is not on control and reports she is trying to get . HCG checked is negative. On the day of discharge, patient is chest pain-free and remains hemodynamicaly stable. Patient will be discharged home with continuation of her home medications. Patient will need follow-up with cardiology within 1-2 weeks and her PCP within a week. Patient is also instructed to talk with her PCP regarding her plan to get and referral to OBGYN. Patient shows her understanding and agreement with the discharge plan. All questions were answered. Time spent discussing smoking cessation with patient: 3 to 10 minutes - Time Spent with Patient Total time spent providing and/or coordinating discharge services: Greater than 30 minutes (49 minutes) - Constitutional Vitals: Temp Pulse Resp BP Pulse Ox 98.1 F 55 18 90/60 97 05/26/17 06:53 05/26/17 06:53 05/26/17 06:53 05/26/17 07:11 05/26/17 06:53 General appearance: Present: cooperative, A&O X 3, pleasant, no acute distress, obese, answers questions appropriately - Head Head exam: Present: atraumatic, normocephalic - Eye Eye exam: Present: EOMI, conjuntiva pink, sclera anicteric - Neck Neck exam general surgery: Present: supple, trachea midline. Absent: lymphadenopathy - Respiratory Respiratory exam: Present: CTAB. Absent: accessory muscle use, rales, rhonchi, wheezes - Cardiovascular Cardiovascular exam: Present: RRR, +S1, +S2. Absent: diastolic murmur, gallop, rubs, systolic murmur - GI/Abdominal GI/Abdominal exam: Present: normal bowel sounds, soft, no peritoneal signs. Absent: distended, tenderness - Extremities Exam Extremities exam: Present: warm. Absent: calf tenderness, cyanotic, pedal edema - Neurological Exam Neurological exam: Present: oriented X3, no focal deficits. Absent: facial droop, speech deficit - Skin Skin exam: Present: dry, intact, warm <Fernando Morales - Last Filed: 05/26/17 14:57> Date of Encounter: 05/26/17 - Discharge Diagnosis (1) GERD (gastroesophageal reflux disease) Priority: Secondary Status: Chronic Qualifiers: Esophagitis presence: esophagitis presence not specified Qualified Code(s) : K21.9 - Gastro-esophageal reflux disease without esophagitis (2) Chest pain Priority: Primary Status: Acute Qualifiers: Chest pain type: other chest pain Qualified Code(s): R07.9 - Chest pain, unspecified (3) Leukocytosis Status: Acute Qualifiers: Leukocytosis type: unspecified Qualified Code(s): D72.829 - Elevated white blood cell count, unspecified (4) CAD (coronary artery disease) Status: Chronic Qualifiers: Coronary Disease-Associated Artery/Lesion type: [place] artery [place] vs. transplanted heart: [place] heart Associated angina: without angina Qualified Code(s): I25.10 - Atherosclerotic heart disease of [place] coronary artery without angina pectoris (5) Diabetes Priority: Secondary Status: Chronic Qualifiers: Diabetes mellitus type: type 2 Diabetes mellitus complication status: with circulatory complication Diabetes mellitus complication detail: with other circulatory complications Diabetes mellitus termite control technician insulin use: without shelter use Qualified Code(s): E11.59 - Type 2 diabetes mellitus with other circulatory complications (6) Tobacco use Status: Chronic (7) Hypertension Status: Chronic Qualifiers: Hypertension type: essential hypertension Qualified Code(s): I10 - Essential (primary) hypertension (8) HLD (hyperlipidemia) Status: Chronic Qualifiers: Hyperlipidemia type: mixed hyperlipidemia Qualified Code(s): E78.2 - Mixed hyperlipidemia Procedures/tests Complete & Pending: Procedures Performed prior 72 hours Category Date Time Status EV echocardiogram Routine Y 05/25/17 00:05 Completed Date of admission: 05/24/17 21:08 Primary care physician: Glory Funes CNP Consults: 05/25/17 00:44 Consult to Cardiology [CONS] Routine Comment: Consulting Provider: [facility] Reason for Consult: Patient has hx of WI in 2014 w/stents x2. CP today that was sharp and stabbing to central chest then radiated to right neck, arm, and shoulder. Risk factors include CHF, CAD, diabetes, HLD, HTN, and previous WI. Initial troponin 0.00. Echocardiogram ordered. Pt. also has leukocytosis of unknown source. Ceftriaxone 2, 000 mg daily. Call Completed: No Hospital course: Ms. Mccoy is a 31 year old female - Time Spent with Patient Total time spent providing and/or coordinating discharge services: 37min - Constitutional Vitals: Temp Pulse Resp BP Pulse Ox 98.3 F 60 12 87/55 97 05/26/17 11:02 05/26/17 11:02 05/26/17 11:02 05/26/17 11:02 05/26/17 11:02 - Attending Attestation I examined this patient and my medical decision-making was reviewed with the Resident Physician on 05/26/17. I agree with the documented findings, disposition and treatment plan as described except to the extent set forth below. Ms Mccoy has been admitted for acute chest pain. She has been seen by cardiology due to her prior hx of WI and stents. At this time she is afebrile with stable vitals and felt ready for discharge home. She is now pain free. She was requiring oxygen but did not at the time of discharge. Exam Alert. Comfortable Mucus membranes dry Heart reg No wheeze No edema Plan D/C home today Follow up with PCP and cardiology. Blood pressure has been fluctuating during admission but she was ambulating with difficulty or symptoms. Encouraged PO fluids.
--- NOTE | 2017-05-26 10:58 | Electrocardiograph Report ---
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
[2017-05-26 11:04] VITALS: BP 87/55
[2017-05-26] MEDS: Acetaminophen/Butalbital/CaffeineTABLET PO PRN (13:37)
== END 2017-05-26 14:47 | disposition home or self-care (01) ==
LOC: EMEROO 18:22 → 2NENU 18:22
PROVIDERS: ADMIT Internal Medicine; ATTEND Internal Medicine

== ENCOUNTER 2017-06-08 20:22 | Observation (INO) ==
--- NOTE | 2017-06-08 20:34 | Emergency Department Note ---
Disposition Clinical Impression: Chest pain Qualifiers: Chest pain type: unspecified Qualified Code(s): R07.9 - Chest pain, unspecified Disposition: Admitted As Inpatient Condition: Undetermined Time of Disposition: 21:46 Chest Pain HPI - General Chief Complaint: ED Chest Pain Stated Complaint: Chest Pain Time Seen by Provider: 06/08/17 20:25 Source: patient Mode of arrival: EMS Limitations: no limitations Vital Signs Reviewed: Yes Nursing Notes Reviewed: Yes - History of Present Illness HPI Narrative: 31-year-old female with history of hypertension, hyperlipidemia, diabetes, smoking, previous UT with 2 cardiac stents, arrives [facility] emergency department complaining of bilateral chest pain that started roughly 7 PM this evening. The patient states she has associated shortness of breath with this without any nausea, vomiting, radiation to the neck or head. The patient took 3 nitroglycerin without relief. She took 8 baby aspirin prior to arrival. EMS placed a left 18-gauge IV. Patient denies any other complaints at this time. The patient states this feels slightly different than her previous UT. Patient denies any other complaints at this time is resting comfortably in the room. Pt complaint: chest pain Onset (ago): hour(s) (1.5) Duration: constant Onset: during rest Pain Location: substernal, left chest, right chest Severity: mild Severity scale (1-10): 2 Quality: tightness, aching Pain Radiation: none Improves with: nothing Worsens with: nothing Associated symptoms: Reports: dyspnea Treatments prior to arrival chest pain: aspirin, nitroglycerin (x3) - Related Data On Oral Contraceptives: No Home Medications Medication Instructions Recorded Confirmed Topiramate [Topamax] 25 mg PO BID 04/05/15 06/08/17 Temazepam [Restoril] 15 mg PO HS #0 06/29/15 06/08/17 Atorvastatin [Lipitor] 40 mg PO QPM 07/13/15 06/08/17 Clopidogrel [Plavix] 75 mg PO QAM 07/13/15 06/08/17 traZODone [TraZODone] 50 mg PO HS PRN 09/27/15 06/08/17 diazePAM [Valium] 5 mg PO QID 04/01/16 06/08/17 Liraglutide [Victoza 2-Bill] 1.2 mg SQ QAM 10/21/16 06/08/17 Metoprolol XL (24 HR) Succ [Toprol 12.5 mg PO BID 10/21/16 06/08/17 Xl] Diltiazem CD (24hr) [Cardizem CD] 180 mg PO DAILY 01/11/17 06/08/17 Aspirin Enteric Coated [Aspirin EC] 81 mg PO DAILY 05/24/17 06/08/17 Butalb/Acetaminophen/Caffeine 1 each PO BID PRN 05/24/17 06/08/17 [Fioricet 50-300-40 mg Capsule] Diclofenac Sodium [Voltaren] 1 appl TP QID PRN 05/24/17 06/08/17 Lurasidone [Latuda] 40 mg PO QPM 05/24/17 06/08/17 Ondansetron HCl [Zofran] 4 mg PO Q8H PRN 05/24/17 06/08/17 metFORMIN [Glucophage] 1,000 mg PO QAM 05/24/17 06/08/17 metFORMIN [Glucophage] 500 mg PO QPM 05/24/17 06/08/17 Previous Rx's Medication Instructions Recorded Nitroglycerin 0.4 mg SL Q5MIN PRN #30 tab.subl 05/26/17 Allergies Allergy/AdvReac Type Severity Reaction Status Date / Time naproxen AdvReac Gastrointestinal Verified 06/08/17 20:23 Upset All systems ED: reviewed and negative except as stated. Constitutional: Denies: fever, chills, weakness ENT ED: Denies: congestion Cardiovascular: Reports: chest pain, dyspnea on exertion. Denies: edema Respiratory: Reports: dyspnea. Denies: cough, wheezes Gastrointestinal: Denies: abdominal pain, nausea, vomiting, diarrhea Musculoskeletal: Denies: back pain Neurological: Denies: headache, confusion Chest Pain PMH - Past Medical History Medical history: Reports: CHF, coronary artery disease, diabetes, GERD, hyperlipidemia, hypertension, kidney stones, migraine, myocardial infarction Surgical history: Reports: angioplasty/stent Psychiatric history: Reports: anxiety, ADHD, bipolar, depression [employer] history: Reports: non-contributory - Social History Smoking Status: Current every day smoker Alcohol use: Reports: occasionally Drug use: Reports: none Physical Exam - General Limitations: no limitations General appearance: alert, in no apparent distress - Head Head exam: atraumatic, normocephalic, normal inspection - Eye Eye exam: Present: normal appearance, PERRL, EOMI - ENT ENT exam: normal exam, normal oropharynx, mucous membranes moist - Neck Neck exam: Present: normal inspection, full ROM, trachea midline - Chest Chest inspection: Present: normal inspection, symmetric chest wall rise - Respiratory Respiratory exam: Present: normal lung sounds bilaterally - Cardiovascular Cardiovascular exam: Present: regular rate, normal rhythm, normal heart sounds - Abdominal Exam Abdominal exam: Present: soft, Non-Tender. Absent: tenderness, distention, guarding, rebound, rigidity - Extremities Exam Extremities exam: Present: normal inspection, full ROM. Absent: tenderness, pedal edema Course Vital Signs Temperature 98.1 F 06/08/17 20:24 Pulse Rate 80 06/08/17 20:24 Respiratory Rate 20 06/08/17 20:24 Blood Pressure 126/87 06/08/17 20:24 O2 Sat by Pulse Oximetry 97 06/08/17 20:24 Temperature 97.5 F L 06/10/17 03:04 Pulse Rate 65 06/10/17 03:04 Respiratory Rate 17 06/10/17 03:04 Blood Pressure 99/67 06/10/17 03:04 O2 Sat by Pulse Oximetry 93 06/10/17 03:04 Oxygen Delivery Oxygen Delivery Room Air Chest Pain - MDM Narrative Medical decision making narrative: Patient's workup here in the emergency department demonstrates no acute process. Given the patient's extensive history of cardiac disease and the fact that she recently did not undergo a nuclear stress test, I am concerned about ACS with this patient. The patient is resting comfortably at this time after having a couple intermittent episodes of chest pain in the emergency department. Her troponin is negative, chest x-ray stable and her labs are otherwise normal. We will admit the patient to the hospitalist service, accepted by Dr. Saenz. - Medical Records Medical records reviewed: Yes I reviewed the patient's medical records. - Lab Data Lab results reviewed: Yes I reviewed the patient's lab results. Result diagrams: 06/09/17 18:30 06/09/17 05:51 Lab Results 06/08/17 06/08/17 06/08/17 Range/Units 00:00 20:35 20:35 WBC (4.3-11.1) K/mcL RBC (3.82-4.97) M/mcL Hgb (11.5-15.4) g/dL Hct (35.3-44.9) % MCV (83.0-100.0) fL MCH (28.0-33.3) pg MCHC (31.6-35.5) g/dL RDW (11.5-14.5) % Plt Count (140-400) K/mcL MPV (9.4-12.4) fL Immature Gran % (0-4) % Seg Neutrophils % % Lymphocytes % % Monocytes % % Eosinophils % % Basophils % % Neutrophils # (1.6-8.9) K/mcL Lymphocytes # (0.6-4.6) K/mcL Monocytes # (0.0-1.3) K/mcL Eosinophils # (0.0-0.6) K/mcL Basophils # (0.0-0.2) K/mcL Sodium (136-145) mEq/L Potassium (3.5-4.5) mEq/L Chloride (98-109) mEq/L Carbon Dioxide (19-29) mEq/L BUN (7-20) mg/dL Creatinine (0.57-1.11) mg/dL Est GFR ( Amer) (> 60) Est GFR (Non-Af Amer) (> 60) BUN/Creatinine Ratio (6-26) Glucose (70-99) mg/dL Calculated Osmolality (280-300) Calcium (8.6-10.8) mg/dL Troponin I 0.00 (0-0.03) ng/mL Urine Color Yellow (Yellow) Urine Clarity Cloudy A (Clear) Urine pH 6.5 (5.0-8.0) pH Units Ur Specific [place] 1.024 (1.010-1.025) Urine Protein Negative (Neg-Trace) mg/dL Urine Glucose (UA) Normal (Normal) mg/dL Urine Ketones Negative (Negative) mg/dL Urine Blood Negative (Negative) Urine Nitrite Negative (Negative) Urine Bilirubin Negative (Negative) Urine Urobilinogen Normal (Normal) mg/dL Ur Leukocyte Esterase Negative (Negative) Urine Microscopic RBC 0-3 (0-3) per hpf Urine Microscopic WBC 5-15 H (0-3) per hpf Ur Squamous Epith Cells Many H (None-Few) per lpf Urine Bacteria Many H (None-Few) per hpf Hyaline Casts Few (None-Few) per lpf Ur Culture Indicated? NO (NO) Urine Test Negative (Negative) 06/08/17 06/08/17 06/08/17 Range/Units 20:43 20:43 20:43 WBC 17.8 H (4.3-11.1) K/mcL RBC 4.82 (3.82-4.97) M/mcL Hgb 15.0 (11.5-15.4) g/dL Hct 44.9 (35.3-44.9) % MCV 93.2 (83.0-100.0) fL MCH 31.1 (28.0-33.3) pg MCHC 33.4 (31.6-35.5) g/dL RDW 13.2 (11.5-14.5) % Plt Count 347 (140-400) K/mcL MPV 9.7 (9.4-12.4) fL Immature Gran % 0.4 (0-4) % Seg Neutrophils % 60.4 % Lymphocytes % 30.6 % Monocytes % 4.6 % Eosinophils % 3.4 % Basophils % 0.6 % Neutrophils # 10.8 H (1.6-8.9) K/mcL Lymphocytes # 5.4 H (0.6-4.6) K/mcL Monocytes # 0.8 (0.0-1.3) K/mcL Eosinophils # 0.6 (0.0-0.6) K/mcL Basophils # 0.1 (0.0-0.2) K/mcL Sodium 141 (136-145) mEq/L Potassium 3.6 (3.5-4.5) mEq/L Chloride 108 (98-109) mEq/L Carbon Dioxide 22 (19-29) mEq/L BUN 10 (7-20) mg/dL Creatinine 0.79 (0.57-1.11) mg/dL Est GFR ( Amer) > 60 (> 60) Est GFR (Non-Af Amer) > 60 (> 60) BUN/Creatinine Ratio 13 (6-26) Glucose 129 H (70-99) mg/dL Calculated Osmolality 293 (280-300) Calcium 10.0 (8.6-10.8) mg/dL Troponin I 0.00 (0-0.03) ng/mL Urine Color (Yellow) Urine Clarity (Clear) Urine pH (5.0-8.0) pH Units Ur Specific [place] (1.010-1.025) Urine Protein (Neg-Trace) mg/dL Urine Glucose (UA) (Normal) mg/dL Urine Ketones (Negative) mg/dL Urine Blood (Negative) Urine Nitrite (Negative) Urine Bilirubin (Negative) Urine Urobilinogen (Normal) mg/dL Ur Leukocyte Esterase (Negative) Urine Microscopic RBC (0-3) per hpf Urine Microscopic WBC (0-3) per hpf Ur Squamous Epith Cells (None-Few) per lpf Urine Bacteria (None-Few) per hpf Hyaline Casts (None-Few) per lpf Ur Culture Indicated? (NO) Urine Test (Negative) - Radiology Data Radiology results reviewed: Yes I reviewed the patient's radiology results. - EKG Data EKG attestation: Yes I reviewed and interpreted this EKG. EKG results narrative: 81 bpm. [place] interval 147 ms. QTC 395 ms. Normal sinus rhythm. He was elevation or ST depression noted. EKG similar appearance to EKG from 2016. No acute changes noted. EKG #2 at 2115: Heart rate 79 bpm. [place] interval 160 ms. QTC 377 ms. Normal sinus rhythm. NO Elevation or ST depression noted. EKG identical to EKG performed at 2027. Heart Score - Score History: Moderately Suspicious EKG: Non Specific repolarisation Disturbance Age: Less than 45 Risk Factors: Equal/Greater than 3 risk factor or history of atherosclerotic disease Troponin: Less than normal limit HEART Score Total: 4 Attestation Statement - Attestation Attestation: I examined this patient and my medical decision-making was reviewed with the Resident Physician. I agree with the documented findings, disposition and treatment plan as described except to the extent set forth below. Patient bleeding of any chest pain. Sharp stabbing substernal. Started at 7 PM when she was sitting in a car. Still present. Patient has a history of having 2 cardiac stents placed in the past. Recent admission for the same but they were unable to stress test secondary to taking a Fioricet. She refused to stay any longer. She has not followed up for outpatient stress test. On examination she is in no acute distress. Her lungs are clear. Plan. Cardiac workup is unremarkable. She has had EKGs 2 that are unchanged from her baseline EKG. She has been given aspirin prior to arrival. Nitroglycerin did not affect the pain. Better with Fentanyl. Admitted to medicine.
[2017-06-08 20:57] LABS: Basophils # 0.1 K/mcL (0.0-0.2); Basophils % 0.6 %; Eosinophils # 0.6 K/mcL (0.0-0.6); Eosinophils % 3.4 %; Hematocrit 44.9 % (35.3-44.9); Immature Granulocytes % 0.4 % (0-4); Lymphocytes # 5.4 K/mcL (0.6-4.6); Lymphocytes % 30.6 %; Mean Corpuscular HGB Conc 33.4 g/dL (31.6-35.5); Mean Corpuscular Hemoglobin 31.1 pg (28.0-33.3); Mean Corpuscular Volume 93.2 fL (83.0-100.0); Mean Platelet Volume 9.7 fL (9.4-12.4); Monocytes # 0.8 K/mcL (0.0-1.3); Monocytes % 4.6 %; Neutrophils # 10.8 K/mcL (1.6-8.9); Platelet Count 347 K/mcL (140-400); Red Blood Count 4.82 M/mcL (3.82-4.97); Red Cell Distribution Width 13.2 % (11.5-14.5); Segmented Neutrophils % 60.4 %
[2017-06-08 20:59] LABS: Bilirubin,Urine Negative (Negative); Blood,Urine Negative (Negative); Clarity,Urine Cloudy (Clear); Color,Urine Yellow (Yellow); Glucose,Urine (UA) Normal (Normal); Ketones,Urine Negative (Negative); Leukocyte Esterase,Urine Negative (Negative); Nitrite,Urine Negative (Negative); PH,Urine 6.5 pH Units (5.0-8.0); Protein,Urine Negative (Neg-Trace); Specific Gravity,Urine 1.024 (1.010-1.025); Urobilinogen,Urine Normal (Normal)
[2017-06-08] MEDS ORDERED: *HR* FentaNYL (PF) 100 MCG/2 ML VIAL IVP ONE (21:07)
[2017-06-08 21:09] LABS: BUN/Creatinine Ratio 13 (6-26); Blood Urea Nitrogen 10 mg/dL (7-20); Carbon Dioxide 22 mEq/L (19-29); Chloride 108 mEq/L (98-109); Glucose 129 mg/dL (70-99); Osmolality,Calculated 293 (280-300); Potassium 3.6 mEq/L (3.5-4.5); Sodium 141 mEq/L (136-145); eGFR For African Americans > 60 (> 60); eGFR For Non-African Americans > 60 (> 60)
[2017-06-08 21:22] LABS: Bacteria,Urine Many per hpf (None-Few); Hyaline Casts,Urine Few per lpf (None-Few); RBC,Urine 0-3 per hpf (0-3); Squamous Epithelial Cell,Urine Many per lpf (None-Few)
[2017-06-08] MEDS ORDERED: *HR* Morphine 2 MG/ML SYRINGE IVP ONE (22:55)
[2017-06-08] MEDS ORDERED: Nitroglycerin 0.4 MG TAB.SUBL SL PRN (22:57)
[2017-06-08] MEDS ORDERED: Naloxone 0.4 MG/ML INJ IVP PRN (22:59)
[2017-06-08] MEDS ORDERED: Ondansetron 4 MG/2 ML VIAL IVP PRN (22:59)
[2017-06-08] MEDS ORDERED: D5% in Water 1,000 ML IVC PRN (23:06)
[2017-06-08] MEDS ORDERED: Dextrose Gel 15 GM PO PRN ×2 (23:06)
[2017-06-08] MEDS ORDERED: *HR* Dextrose 50 % in Water (Syg) 50 ML SYRINGE IVP PRN (23:06)
[2017-06-08] MEDS ORDERED: traZODone 50 MG TABLET PO PRN (23:10)
[2017-06-08] MEDS: Topiramate 25 MG TABLET PO SCH (23:54)
[2017-06-08] MEDS: Metoprolol XL (24 HR) Succ 25 MG TAB.ER.24H PO SCH (23:54)
[2017-06-08] MEDS: diazePAM 5 MG TABLET PO SCH (23:55)
[2017-06-08] MEDS: Temazepam 15 MG CAPSULE PO SCH (23:55)
--- NOTE | 2017-06-09 04:52 | Internal Med History&Physical ---
Date of Encounter: 06/09/17 Time of Encounter: 00:15 Assessment and Plan (1) Tobacco use Current visit: No Status: Chronic Smoking cessation education. May place a nicotine patch after stress test. (2) CAD (coronary artery disease) Current visit: No Status: Chronic Patient has history of CAD S/P stent. Continue home medication aspirin, Plavix , beta phyllis, and statin Qualifiers: Coronary Disease-Associated Artery/Lesion type: [place] artery [place] vs. transplanted heart: apache heart Associated angina: without angina Qualified Code(s): I25.10 - Atherosclerotic heart disease of [place] coronary artery without angina pectoris (3) Chest pain Current visit: No Status: Chronic Patient has chest pain. History of diabetes and hypertension and CAD. Need to rule out ACS - Continuous cardiac monitoring - 3 sets of troponin - Stress test in a.m. if troponin negative and patient has no chest pain. Qualifiers: Chest pain type: other chest pain Qualified Code(s): R07.89 - Other chest pain; R07.8 - Other chest pain (4) DVT prophylaxis Current visit: No Status: Acute Patient is young and ambulating well (5) Hypertension Current visit: No Status: Chronic Continue home medications. Qualifiers: Hypertension type: essential hypertension Qualified Code(s): I10 - Essential (primary) hypertension (6) Diabetes Current visit: No Status: Chronic Place patient on sliding scale coverage Qualifiers: Diabetes mellitus type: type 2 Diabetes mellitus complication status: with circulatory complication Diabetes mellitus complication detail: with other circulatory complications Diabetes mellitus fdc insulin use: without fdc use Qualified Code(s): E11.59 - Type 2 diabetes mellitus with other circulatory complications Internal Medicine - H&P: HPI Chief complaint: Chest pain Admitted From: Home Plans for Post Hospital Care: Home History of present illness: Ms. Mccoy is a 31 year old female with a history of CAD S/P stent, hypertension , presented to ER for chest pain. Patient said the pain started about 7 PM, located on the left chest, radiated to right chest and right arm. The pain is constant and lasted 3 hours and improved after treatment in the ER. When I saw patient, she is pain-free. Patient said the pain is a sharp, with shortness of breath and nausea. The patient denies vomiting or diaphoresis. She has no fever. Past Med Surg Social Fam HX - Past Medical History Medical history: CHF, coronary artery disease, diabetes, GERD, hyperlipidemia, hypertension, kidney stones, migraine, myocardial infarction Psychiatric history: anxiety, ADHD, bipolar, depression - Past Surgical History Surgical History: angioplasty/stent - Social History Smoking Status: Current every day smoker Packs per day: 1 Smokeless Tobacco Status: No Alcohol use: occasionally Drug use: none - Family History Brother Family Member Ethnicity: Non- Living Status: Still Living Father Family Member Ethnicity: Non- Living Status: Still Living Hx Family Cardiac Disorders: Yes (HTN) Hx Family Respiratory Disorders: No Hx Family Cancer: No Hx Family GI Disorders: No Hx Family Endocrine Disorder: Yes (Dm) Hx Family Neuromuscular Disorders: No Hx Family Neurologic Disorders: No Hx Family HEENT Disorders: No Hx Family Autoimmune Disorders: No Grandmother Adopted: No Family Member Ethnicity: Non- Living Status: Hx Family Cardiac Disorders: Yes (CHF) Hx Family Respiratory Disorders: No Hx Family Cancer: No Hx Family GI Disorders: No Hx Family Endocrine Disorder: No Hx Family Neuromuscular Disorders: No Hx Family Neurologic Disorders: No Hx Family HEENT Disorders: No Hx Family Autoimmune Disorders: No Mother Family Member Ethnicity: Non- Living Status: Still Living Hx Family Cardiac Disorders: No Hx Family Respiratory Disorders: No Hx Family Cancer: No Hx Family GI Disorders: No Hx Family Endocrine Disorder: No Hx Family Neuromuscular Disorders: No Hx Family Neurologic Disorders: No Hx Family HEENT Disorders: No Hx Family Autoimmune Disorders: No Internal Medicine - H&P: Meds Topiramate [Topamax] 25 mg PO BID 04/05/15 [History] Temazepam [Restoril] 15 mg PO HS #0 06/29/15 [History] Atorvastatin [Lipitor] 40 mg PO QPM 07/13/15 [History] Clopidogrel [Plavix] 75 mg PO QAM 07/13/15 [History] traZODone [TraZODone] 50 mg PO HS PRN 09/27/15 [History] diazePAM [Valium] 5 mg PO QID 04/01/16 [History] Liraglutide [Victoza 2-Bill] 1.2 mg SQ QAM 10/21/16 [History] Metoprolol XL (24 HR) Succ [Toprol Xl] 12.5 mg PO BID 10/21/16 [History] Diltiazem CD (24hr) [Cardizem CD] 180 mg PO DAILY 01/11/17 [History] Aspirin Enteric Coated [Aspirin EC] 81 mg PO DAILY 05/24/17 [History] Butalb/Acetaminophen/Caffeine [Fioricet 50-300-40 mg Capsule] 1 each PO BID PRN 05/24/17 [History] Diclofenac Sodium [Voltaren] 1 appl TP QID PRN 05/24/17 [History] Lurasidone [Latuda] 40 mg PO QPM 05/24/17 [History] Ondansetron HCl [Zofran] 4 mg PO Q8H PRN 05/24/17 [History] metFORMIN [Glucophage] 1,000 mg PO QAM 05/24/17 [History] metFORMIN [Glucophage] 500 mg PO QPM 05/24/17 [History] Nitroglycerin 0.4 mg SL Q5MIN PRN #30 tab.subl 05/26/17 [Rx] 3 Allergy/AdvReac Type Severity Reaction Status Date / Time naproxen AdvReac Gastrointestinal Verified 06/08/17 20:23 Upset All Systems PM: A 10-system review of systems was performed and is negative for pertinent findings except as documented above in the HPI. - Constitutional Vitals: Temp Pulse Resp BP Pulse Ox 98.0 F 79 16 99/65 93 06/09/17 03:29 06/09/17 03:29 06/09/17 03:29 06/09/17 03:29 06/09/17 03:29 General appearance: Present: A&O X 3, no acute distress, answers questions appropriately - Head Head exam: Present: atraumatic, normocephalic - Eye Eye exam: Present: PERRL, conjuntiva pink, sclera anicteric Pupils: Present: PERRL - Neck Neck exam general surgery: Present: supple, trachea midline. Absent: lymphadenopathy - Respiratory Respiratory exam: Present: CTAB. Absent: accessory muscle use, rales, rhonchi, wheezes - Cardiovascular Cardiovascular exam: Present: RRR, +S1, +S2. Absent: diastolic murmur, gallop, rubs, systolic murmur - GI/Abdominal GI/Abdominal exam: Present: normal bowel sounds, soft, no peritoneal signs. Absent: distended, tenderness - Extremities Exam Extremities exam: Present: warm, radial pulses palpable and symmetrical. Absent : calf tenderness, cyanotic, pedal edema - Neurological Exam Neurological exam: Present: CN II-XII intact, oriented X3, no focal deficits. Absent: pronater drift, facial droop, speech deficit - Skin Skin exam: Present: dry, intact Internal Med - H&P Results - Labs CBC & Chem 7: 06/08/17 20:43 06/08/17 20:43
[2017-06-09 06:26] LABS: Basophils # 0.1 K/mcL (0.0-0.2); Basophils % 0.7 %; Eosinophils # 0.5 K/mcL (0.0-0.6); Eosinophils % 3.7 %; Hematocrit 37.2 % (35.3-44.9); Immature Granulocytes % 0.4 % (0-4); Lymphocytes # 5.2 K/mcL (0.6-4.6); Mean Corpuscular HGB Conc 33.9 g/dL (31.6-35.5); Mean Corpuscular Hemoglobin 31.6 pg (28.0-33.3); Mean Corpuscular Volume 93.2 fL (83.0-100.0); Mean Platelet Volume 9.8 fL (9.4-12.4); Monocytes # 0.7 K/mcL (0.0-1.3); Monocytes % 5.4 %; Neutrophils # 6.7 K/mcL (1.6-8.9); Platelet Count 292 K/mcL (140-400); Red Blood Count 3.99 M/mcL (3.82-4.97); Red Cell Distribution Width 13.2 % (11.5-14.5); Segmented Neutrophils % 50.8 %
[2017-06-09 06:27] LABS: Hemoglobin 12.6 g/dL (11.5-15.4)
[2017-06-09 06:38] LABS: BUN/Creatinine Ratio 14 (6-26); Blood Urea Nitrogen 9 mg/dL (7-20); Calcium 8.7 mg/dL (8.6-10.8); Carbon Dioxide 20 mEq/L (19-29); Chloride 112 mEq/L (98-109); Glucose 121 mg/dL (70-99); Magnesium 1.7 mg/dL (1.6-2.6); Osmolality,Calculated 288 (280-300); Potassium 3.6 mEq/L (3.5-4.5); Sodium 139 mEq/L (136-145); eGFR For African Americans > 60 (> 60); eGFR For Non-African Americans > 60 (> 60)
[2017-06-09] MEDS ORDERED: Regadenoson 0.4 MG/5 ML SYRINGE IVP ONE (06:38)
[2017-06-09] MEDS: Insulin LISPRO 300 UNITS/3 ML VIAL SQ SCH ×4 (09:42→20:08)
[2017-06-09] MEDS: diazePAM 5 MG TABLET PO SCH ×4 (09:45→20:13)
[2017-06-09] MEDS: Topiramate 25 MG TABLET PO SCH ×2 (09:45→20:13)
[2017-06-09] MEDS: Aspirin Enteric Coated 81 MG Tablet PO SCH (09:45)
[2017-06-09] MEDS: Diltiazem CD (24hr) 180 MG CAPSULE PO SCH (09:45)
[2017-06-09] MEDS: *HR* Morphine 2 MG/ML SYRINGE IVP PRN ×2 (09:45→14:13)
[2017-06-09] MEDS: Metoprolol XL (24 HR) Succ 25 MG TAB.ER.24H PO SCH ×2 (09:46→20:13)
[2017-06-09] MEDS: Acetaminophen 325 MG TABLET PO PRN (12:24)
[2017-06-09] MEDS ORDERED: *HR* Morphine 2 MG/ML SYRINGE IVP PRN (17:47)
[2017-06-09] MEDS ORDERED: Heparin 25,000 UNIT/500 ML D5W 25,000 UNIT/500 ML MLS IVC SCH ×2 (18:00→18:15)
[2017-06-09] MEDS ORDERED: *HR* Heparin 5,000 UNIT/ML VIAL IVP PRN ×2 (18:08)
[2017-06-09] MEDS ORDERED: *HR* Heparin 5,000 UNIT/ML VIAL IVP ONE (18:08)
[2017-06-09 19:01] LABS: Hematocrit 37.7 % (35.3-44.9); Hemoglobin 12.7 g/dL (11.5-15.4); Immature Platelets 2.4 % (1.1-6.1); Mean Corpuscular HGB Conc 33.7 g/dL (31.6-35.5); Mean Corpuscular Hemoglobin 31.4 pg (28.0-33.3); Mean Corpuscular Volume 93.3 fL (83.0-100.0); Mean Platelet Volume 9.9 fL (9.4-12.4); Red Blood Count 4.04 M/mcL (3.82-4.97); Red Cell Distribution Width 13.3 % (11.5-14.5)
[2017-06-09 19:10] LABS: Prothrombin Time 11.1 Seconds (9.4-12.1)
[2017-06-09 19:12] LABS: Activated Partial Thrombo Time 25.2 Seconds (26.0-36.0)
[2017-06-09] MEDS: Ibuprofen 400 MG TABLET PO SCH (20:13)
[2017-06-09] MEDS: Temazepam 15 MG CAPSULE PO SCH (20:13)
[2017-06-10 04:05] LABS: Hematocrit 38.1 % (35.3-44.9); Hemoglobin 12.8 g/dL (11.5-15.4); Mean Corpuscular HGB Conc 33.6 g/dL (31.6-35.5); Mean Corpuscular Hemoglobin 31.4 pg (28.0-33.3); Mean Corpuscular Volume 93.4 fL (83.0-100.0); Mean Platelet Volume 10.1 fL (9.4-12.4); Platelet Count 277 K/mcL (140-400); Red Blood Count 4.08 M/mcL (3.82-4.97); Red Cell Distribution Width 13.3 % (11.5-14.5)
[2017-06-10 04:22] LABS: BUN/Creatinine Ratio 19 (6-26); Blood Urea Nitrogen 14 mg/dL (7-20); Calcium 8.6 mg/dL (8.6-10.8); Carbon Dioxide 20 mEq/L (19-29); Chloride 111 mEq/L (98-109); Glucose 115 mg/dL (70-99); Osmolality,Calculated 287 (280-300); Potassium 3.9 mEq/L (3.5-4.5); Sodium 138 mEq/L (136-145); eGFR For African Americans > 60 (> 60); eGFR For Non-African Americans > 60 (> 60)
[2017-06-10] MEDS: Acetaminophen 325 MG TABLET PO PRN (06:22)
[2017-06-10] MEDS: Insulin LISPRO 300 UNITS/3 ML VIAL SQ SCH ×4 (08:07→20:23)
[2017-06-10] MEDS: Metoprolol XL (24 HR) Succ 25 MG TAB.ER.24H PO SCH ×2 (08:16→20:47)
[2017-06-10] MEDS: Topiramate 25 MG TABLET PO SCH ×2 (08:16→20:46)
[2017-06-10] MEDS: Aspirin Enteric Coated 81 MG Tablet PO SCH (08:16)
[2017-06-10] MEDS: Diltiazem CD (24hr) 180 MG CAPSULE PO SCH (08:16)
[2017-06-10] MEDS: Ibuprofen 400 MG TABLET PO SCH ×2 (08:16→20:46)
[2017-06-10] MEDS: diazePAM 5 MG TABLET PO SCH ×4 (08:16→20:46)
--- NOTE | 2017-06-10 11:25 | Internal Med Progress Note ---
Date of Encounter: 06/13/17 Time of Encounter: 11:22 - Assessment and plan (1) CAD (coronary artery disease) Status: Chronic Qualifiers: Coronary Disease-Associated Artery/Lesion type: [place] artery [place] vs. transplanted heart: [place] heart Associated angina: without angina Qualified Code(s): I25.10 - Atherosclerotic heart disease of [place] coronary artery without angina pectoris (2) Leukocytosis Status: Acute Qualifiers: Leukocytosis type: unspecified Qualified Code(s): D72.829 - Elevated white blood cell count, unspecified (3) Anxiety and depression Status: Chronic - Constitutional Vitals: Temp Pulse Resp BP Pulse Ox 97.7 F 71 17 99/66 93 06/10/17 07:36 06/10/17 07:36 06/10/17 07:36 06/10/17 07:36 06/10/17 08:20 General appearance: Present: A&O X 3, no acute distress, answers questions appropriately Internal Medicine: Result - Labs CBC & Chem 7: 06/11/17 04:39 06/11/17 04:39 Labs: Short CBC 06/09/17 06/10/17 Range/Units 18:30 03:05 WBC 16.2 H 14.2 H (4.3-11.1) K/mcL Hgb 12.7 12.8 (11.5-15.4) g/dL Hct 37.7 38.1 (35.3-44.9) % Plt Count 304 277 (140-400) K/mcL BMP 06/10/17 03:05 Sodium 138 Potassium 3.9 Chloride 111 H Carbon Dioxide 20 BUN 14 Creatinine 0.72 Glucose 115 H Calcium 8.6 - ABG Interpretation ABG results: PT/INR, D-dimer PT 11.1 Seconds (9.4-12.1) 06/09/17 18:30 Consult Discharge Plan - Plan Instructions: Coronary Artery Disease (DC), Chest Pain (DC), Generalized Anxiety Disorder (DC) Referrals: Glory Funes CNP [Primary Care Provider] - 06/13/17 1:30 pm
--- NOTE | 2017-06-10 12:24 | Cardiology Consult Note ---
<Reddy Busch R - Last Filed: 06/10/17 12:44> Date of Encounter: 06/10/17 Time of Encounter: 12:22 Assessment and Plan (1) Chest pain Current Visit: No Status: Chronic Atypical chest pain that has been constant since Sunday evening only relieved by IV morphine. Not worsened by exertion, no improvement with nitro. Stress test completed yesterday negative for ischemia. Evidence of prior infarct , which is known. Continue ASA, Plavix, Statin, BB. Known CAD hx s/p PCI. Pt unfortunately continues to smoke. Echo 05/25 EF preserved without significant findings. Troponins negative. EKG with no ischemic changes. BP will not allow addition of Imdur or medication adjustments. Do not anticipate any further cardiac testing. Anticipate sign off once seen and evaluated by Dr. Vela. Qualifiers: Chest pain type: other chest pain Qualified Code(s): R07.89 - Other chest pain; R07.8 - Other chest pain (2) CAD (coronary artery disease) Current Visit: No Status: Chronic Known history of CAD with inferior STEMI June 2015 with drug-eluting stent to proximal RCA 100% stenosis. Repeat heart catheterization September 2015 for recurrent chest pain admissions showed patent stent and distal RCA 80% lesion with FFR 0.85 and 0.84. Third heart catheterization April 2016 with drug- eluting stent to right PDA 70-80% lesion with patent proximal RCA stent, otherwise nonobstructive CAD with mid LAD 20%, mid circumflex complex 20%, and 20% in-stent restenosis of proximal RCA. Remains on aspirin, Plavix, statin, beta phyllis. Lifestyle modification recommended. Qualifiers: Coronary Disease-Associated Artery/Lesion type: [place] artery [place] vs. transplanted heart: [place] heart Associated angina: without angina Qualified Code(s): I25.10 - Atherosclerotic heart disease of [place] coronary artery without angina pectoris Discussion w patient/family: The assessment and plan as outlined above was discussed with the patient and/or family members who expressed understanding and agreement. All questions were answered. Thank you for involving us in the care of your patient. Please call with any questions. I will discuss all the above with Dr. Vela and make changes as necessary. History of Present Illness Consult date: 06/10/17 Requesting physician: Briana Mills Consult reason: chest pain Chief complaint: chest pain History of present illness: Ms. Mccoy is a 31 year old female with a relevant past medical history of diabetes mellitus type 2, hypertension, hyperlipidemia, past history of nicotine abuse-- quit smoking June 2015, history of STEMI in June 2015, CAD, and anxiety. Pt presented to ED for chest pain, states it started about 7 PM, located on the left chest, radiated to right chest and right arm. The pain has been constant, only improving with IV morphine. Pt rates current chest pain 9/10, reports nitro does not help. She has had recently hospitalizations for chest pain, declined testing. However, this admission she underwent a pharmacologic nuclear stress test yesterday revealed prior infarct, which is known. Negative for ischemia, gated EF 70%. Consulted due to pt continuing to have chest pain, described as constant since Sunday. Past Med Surg Social Fam HX - Past Medical History Medical history: CHF, coronary artery disease, diabetes, GERD, hyperlipidemia, hypertension, kidney stones, migraine, myocardial infarction Psychiatric history: anxiety, ADHD, bipolar, depression - Past Surgical History Surgical History: angioplasty/stent - Social History Smoking Status: Current every day smoker Packs per day: 1 Smokeless Tobacco Status: No Alcohol use: occasionally Drug use: none - Family History Brother Family Member Ethnicity: Non- Living Status: Still Living Father Family Member Ethnicity: Non- Living Status: Still Living Hx Family Cardiac Disorders: Yes (HTN) Hx Family Respiratory Disorders: No Hx Family Cancer: No Hx Family GI Disorders: No Hx Family Endocrine Disorder: Yes (Dm) Hx Family Neuromuscular Disorders: No Hx Family Neurologic Disorders: No Hx Family HEENT Disorders: No Hx Family Autoimmune Disorders: No Grandmother Adopted: No Family Member Ethnicity: Non- Living Status: Hx Family Cardiac Disorders: Yes (CHF) Hx Family Respiratory Disorders: No Hx Family Cancer: No Hx Family GI Disorders: No Hx Family Endocrine Disorder: No Hx Family Neuromuscular Disorders: No Hx Family Neurologic Disorders: No Hx Family HEENT Disorders: No Hx Family Autoimmune Disorders: No Mother Family Member Ethnicity: Non- Living Status: Still Living Hx Family Cardiac Disorders: No Hx Family Respiratory Disorders: No Hx Family Cancer: No Hx Family GI Disorders: No Hx Family Endocrine Disorder: No Hx Family Neuromuscular Disorders: No Hx Family Neurologic Disorders: No Hx Family HEENT Disorders: No Hx Family Autoimmune Disorders: No Medications and Allergies Topiramate [Topamax] 25 mg PO BID 04/05/15 [History] Temazepam [Restoril] 15 mg PO HS #0 06/29/15 [History] Atorvastatin [Lipitor] 40 mg PO QPM 07/13/15 [History] Clopidogrel [Plavix] 75 mg PO QAM 07/13/15 [History] traZODone [TraZODone] 50 mg PO HS PRN 09/27/15 [History] diazePAM [Valium] 5 mg PO QID 04/01/16 [History] Liraglutide [Victoza 2-Bill] 1.2 mg SQ QAM 10/21/16 [History] Metoprolol XL (24 HR) Succ [Toprol Xl] 12.5 mg PO BID 10/21/16 [History] Diltiazem CD (24hr) [Cardizem CD] 180 mg PO DAILY 01/11/17 [History] Aspirin Enteric Coated [Aspirin EC] 81 mg PO DAILY 05/24/17 [History] Butalb/Acetaminophen/Caffeine [Fioricet 50-300-40 mg Capsule] 1 each PO BID PRN 05/24/17 [History] Diclofenac Sodium [Voltaren] 1 appl TP QID PRN 05/24/17 [History] Lurasidone [Latuda] 40 mg PO QPM 05/24/17 [History] Ondansetron HCl [Zofran] 4 mg PO Q8H PRN 05/24/17 [History] metFORMIN [Glucophage] 1,000 mg PO QAM 05/24/17 [History] metFORMIN [Glucophage] 500 mg PO QPM 05/24/17 [History] Nitroglycerin 0.4 mg SL Q5MIN PRN #30 tab.subl 05/26/17 [Rx] 3 Allergy/AdvReac Type Severity Reaction Status Date / Time naproxen AdvReac Gastrointestinal Verified 06/08/17 20:23 Upset All Systems Review: A 10-system review of systems was performed and is negative for pertinent findings except as documented above in the HPI. - Cardiovascular Cardiovascular: as per HPI, chest pain at rest, chest pain with exertion, dyspnea on exertion, radiating jaw, neck or arm pain - Gastrointestinal Gastrointestinal: nausea Physical Examination Vital Signs, Last 4 Hours Temp Pulse Resp BP Pulse Ox 06/10/17 11:34 97.6 F 65 16 106/72 96 Vital Signs Temp Pulse Resp BP Pulse Ox 06/10/17 11:34 97.6 F 65 16 106/72 96 06/10/17 08:20 93 06/10/17 07:36 97.7 F 71 17 99/66 93 06/10/17 03:04 97.5 F L 65 17 99/67 93 06/09/17 23:17 97.8 F 72 18 111/74 96 06/09/17 18:47 97.9 F 68 17 102/68 95 06/09/17 15:01 97.5 F L 61 17 98/61 93 Intake and Output 06/09/17 06/10/17 06/10/17 23:59 07:59 15:59 Intake Total 120 / 120 Balance 120 / 120 Intake: Oral 120 / 120 Other: Meal Dinner Breakfast Percent of Meal Consumed 100% 50% Weight 94.665 kg Blood Glucose* 152 133 191 Patient Weight 06/10/17 23:59 Weight 94.665 kg General: Conversant, No Apparent Distress HEENT: Atraumatic, Normocephaly, Mucus Membranes Moist Neck: No JVD, Normal carotid pulses Cardiac: Reg Rate and Rhythm Lungs: Normal Breath Sounds, No Wheeze, Rales, Rhonchi Neuro: Alert and responsive, No focal deficits noted Abdomen: Soft, Non-Tender Skin: No rashes noted on visualized skin Musculoskeletal: No Chest Wall Tenderness Extremities: No Clubbing, No Cyanosis, No Edema, Normal Pulses Results 06/10/17 03:05 06/10/17 03:05 Lab Results 06/09/17 06/09/17 06/10/17 18:30 18:30 03:05 WBC 16.2 H 14.2 H Hgb 12.7 12.8 Hct 37.7 38.1 Plt Count 304 277 INR 1.0 APTT 25.2 L Sodium Potassium Chloride Carbon Dioxide BUN Creatinine Glucose Calcium 06/10/17 03:05 WBC Hgb Hct Plt Count INR APTT Sodium 138 Potassium 3.9 Chloride 111 H Carbon Dioxide 20 BUN 14 Creatinine 0.72 Glucose 115 H Calcium 8.6 Short CBC 06/10/17 06/09/17 Range/Units 03:05 18:30 WBC 14.2 H 16.2 H (4.3-11.1) K/mcL Hgb 12.8 12.7 (11.5-15.4) g/dL Hct 38.1 37.7 (35.3-44.9) % Plt Count 277 304 (140-400) K/mcL BMP 06/10/17 Range/Units 03:05 Sodium 138 (136-145) mEq/L Potassium 3.9 (3.5-4.5) mEq/L Chloride 111 H (98-109) mEq/L Carbon Dioxide 20 (19-29) mEq/L BUN 14 (7-20) mg/dL Creatinine 0.72 (0.57-1.11) mg/dL Glucose 115 H (70-99) mg/dL Calcium 8.6 (8.6-10.8) mg/dL Active Medications Acetaminophen (Tylenol) 650 mg PO Q6HR PRN PRN Reason: Mild Pain (1-3) Stop: 12/08/17 23:00 Last Admin: 06/10/17 06:22 Dose: 650 mg Aspirin (Aspirin Ec) 81 mg PO DAILY [facility] Stop: 12/09/17 09:01 Last Admin: 06/10/17 08:16 Dose: 81 mg Atorvastatin Calcium (Lipitor) 40 mg PO QPM [facility]ING[facility] Stop: 12/09/17 18:01 Last Admin: 06/09/17 16:43 Dose: 40 mg Clopidogrel Bisulfate (Plavix) 75 mg PO QAM [facility] Stop: 12/09/17 09:01 Last Admin: 06/10/17 08:16 Dose: 75 mg Dextrose/Water (Dextrose 50% (Syg)) 25 ml IVP AD PRN PRN Reason: Hypoglycemia Stop: 12/08/17 23:07 Diazepam (Valium) 5 mg PO QID [facility] Stop: 12/08/17 23:46 Last Admin: 06/10/17 12:22 Dose: 5 mg Diltiazem HCl (Cardizem Cd) 180 mg PO DAILY [facility] Stop: 12/09/17 09:01 Last Admin: 06/10/17 08:16 Dose: 180 mg Glucagon (Glucagen) 1 mg IM ONCE PRN PRN Reason: Hypoglycemia Stop: 12/08/17 23:07 Glucose (Gluctose) 15 gm PO ONCE PRN PRN Reason: Hypoglycemia Stop: 12/08/17 23:07 Glucose (Gluctose) 30 gm PO ONCE PRN PRN Reason: Hypoglycemia Stop: 12/08/17 23:07 Dextrose (Dextrose 5%) 1,000 mls @ 100 mls/hr IVC .Q10H PRN PRN Reason: HYPOGLYCEMIA Stop: 12/08/17 23:07 Ibuprofen (Motrin) 400 mg PO BID [facility] Stop: 12/09/17 21:01 Last Admin: 06/10/17 08:16 Dose: 400 mg Insulin Human Lispro (Humalog) 0 units SQ TIDAC GINGER PRN Reason: Protocol Stop: 12/09/17 07:31 Last Admin: 06/10/17 12:21 Dose: 4 units Insulin Human Lispro (Humalog) 0 units SQ HS [facility] PRN Reason: Protocol Stop: 12/09/17 21:01 Last Admin: 06/09/17 20:08 Dose: Not Given Metoprolol Succinate (Toprol Xl) 12.5 mg PO BID [facility] Stop: 12/08/17 23:46 Last Admin: 06/10/17 08:16 Dose: 12.5 mg Morphine Sulfate (Morphine Sulfate) 2 mg IVP Q3HR PRN PRN Reason: Severe Pain (7-10) Stop: 12/08/17 23:00 Last Admin: 06/09/17 20:13 Dose: 2 mg Naloxone HCl (Narcan) 0.4 mg IVP Q2MIN PRN PRN Reason: Opioid Reversal Stop: 12/08/17 23:00 Nitroglycerin (Nitroglycerin) 0.4 mg SL Q5MIN PRN PRN Reason: Chest Pain Stop: 12/08/17 22:58 Last Admin: 06/08/17 23:11 Dose: 0.4 mg Omeprazole (Prilosec) 20 mg PO BIDAC [facility] PRN Reason: Protocol Stop: 12/10/17 07:31 Last Admin: 06/10/17 06:10 Dose: 20 mg Ondansetron HCl (Zofran) 4 mg IVP Q8HR PRN PRN Reason: Nausea And Vomiting Stop: 12/08/17 23:00 Last Admin: 06/09/17 12:24 Dose: 4 mg Temazepam (Restoril) 15 mg PO HS [facility] PRN Reason: Protocol Stop: 12/08/17 23:46 Last Admin: 06/09/17 20:13 Dose: 15 mg Topiramate (Topamax) 25 mg PO BID [facility] Stop: 12/08/17 23:46 Last Admin: 06/10/17 08:16 Dose: 25 mg Trazodone HCl (Trazodone) 50 mg PO HS PRN PRN Reason: Sleep Stop: 12/08/17 23:11 - Imaging and Cardiology Stress Test: report reviewed Echo: report reviewed Cardiac cath: report reviewed - EKG Interpretation EKG results cardiology: personally reviewed (SR, no change from baseline), other (12 hr tele AVG HR 64, SR, no significant pauses or arrhythmias.) Consult Discharge Plan - Plan Referrals: Glory Funes CNP [Primary Care Provider] - <Kristi Vela - Last Filed: 06/10/17 14:05> Date of Encounter: 06/10/17 - Attending Attestation I have personally performed a face to face evaluation on this patient. I have reviewed and agree with the care plan with TEAM DRIVER: Ms. Mccoy is a pleasant 31 year old female presenting with chest pain. She has a known history of CAD, prior inferior myocardial infarction and PCI x2. LHC performed in 2015 resulted in a stent to the RPDA. LV function remains normal. Workup this hospitalization includes negative troponins, no ECG changes and a stress test that was negative for ischemia. Unfortunately, she continues to have recurrent chest pain resulting in repeat hospitalizations. At the bedside, patient reports 9 out of 10 chest pain but appears comfortable and in no acute distress. She reports that only pain medicine and takes her symptoms away. She also does not feel her anxiety is well controlled. Her cardiac workup has been negative. Her symptoms do not appear to be related to a cardiac cause. We do strongly recommend smoking cessation. We will add low-dose Imdur to her medication regimen. Recommend outpatient cardiology follow-up. We will sign off. Please call with questions. Assessment and Plan Discussion w patient/family: The assessment and plan as outlined above was discussed with the patient and/or family members who expressed understanding and agreement. All questions were answered. Thank you for involving us in the care of your patient. Please call with any questions. History of Present Illness History of present illness: Ms. Mccoy is a 31 year old female All Systems Review: A 10-system review of systems was performed and is negative for pertinent findings except as documented above in the HPI. Physical Examination Vital Signs, Last 4 Hours Temp Pulse Resp BP Pulse Ox 06/10/17 11:34 97.6 F 65 16 106/72 96 Results 06/10/17 03:05 06/10/17 03:05 Lab Results 06/09/17 06/09/17 06/10/17 18:30 18:30 03:05 WBC 16.2 H 14.2 H Hgb 12.7 12.8 Hct 37.7 38.1 Plt Count 304 277 INR 1.0 APTT 25.2 L Sodium Potassium Chloride Carbon Dioxide BUN Creatinine Glucose Calcium 06/10/17 03:05 WBC Hgb Hct Plt Count INR APTT Sodium 138 Potassium 3.9 Chloride 111 H Carbon Dioxide 20 BUN 14 Creatinine 0.72 Glucose 115 H Calcium 8.6
[2017-06-10] MEDS: Isosorbide MONOnitrate (24 HR) 30 MG TAB.ER.24H PO SCH (14:19)
--- NOTE | 2017-06-10 15:47 | Internal Med Progress Note ---
Date of Encounter: 06/10/17 Time of Encounter: 08:30 - Assessment and plan (1) CAD (coronary artery disease) Current Visit: No Status: Chronic Assessment and plan: Deb Mccoy is a 31-year-old female with past medical history CAD, diabetes and hypertension who presented to [facility] on 06/09/2017 with complaints of chest pain. She was placed in observation status for ACS rule out. 1. Atypical chest pain: Presented with left upper and right lower chest pain that has been constant since 06/10. Not relieved with nitroglycerin. Only relieved with IV morphine. 06/10/17 stress test with evidence of prior infarct but negative for ischemia. Evaluated by cardiology who does not suspect cardiac etiology. Concern for possible malingering component as chest pain is only relieved with IV morphine. Anxiety could be contributing. Stop IV morphine. Trial NSAIDs. 2. CAD: hx STEMI 06/2015 and 2 DELFINO. 06/09/17 stress test negative for ischemia. Continue ASA, Plavix, statin, BB. 3. Anxiety: per hx. continue home Valium 4. DVT prophylaxis: Lovenox Qualifiers: Coronary Disease-Associated Artery/Lesion type: [place] artery [place] vs. transplanted heart: [place] heart Associated angina: without angina Qualified Code(s): I25.10 - Atherosclerotic heart disease of [place] coronary artery without angina pectoris (2) Leukocytosis Current Visit: No Status: Acute Qualifiers: Leukocytosis type: unspecified Qualified Code(s): D72.829 - Elevated white blood cell count, unspecified (3) Anxiety and depression Current Visit: No Status: Chronic - Subjective Interval history: Seen and examined at bedside. Patient still complaining of left upper chest pain and right lower chest pain. Pain described as sharp. Rates 9/10. When necessary morphine helps pain and nothing makes worse. No shortness of breath. - Constitutional Vitals: Temp Pulse Resp BP Pulse Ox 97.7 F 67 16 103/67 95 06/10/17 15:29 06/10/17 15:29 06/10/17 15:29 06/10/17 15:29 06/10/17 15:29 General appearance: Present: A&O X 3, no acute distress, answers questions appropriately - Head Head exam: Present: atraumatic, normocephalic - Eye Eye exam: Present: PERRL, conjuntiva pink, sclera anicteric Pupils: Present: PERRL - Neck Neck exam general surgery: Present: supple, trachea midline. Absent: lymphadenopathy - Respiratory Respiratory exam: Present: CTAB. Absent: accessory muscle use, rales, rhonchi, wheezes - Cardiovascular Cardiovascular exam: Present: RRR, +S1, +S2. Absent: diastolic murmur, gallop, rubs, systolic murmur - GI/Abdominal GI/Abdominal exam: Present: normal bowel sounds, soft, no peritoneal signs. Absent: distended, tenderness - Extremities Exam Extremities exam: Present: warm, radial pulses palpable and symmetrical. Absent : calf tenderness, cyanotic, pedal edema - Neurological Exam Neurological exam: Present: CN II-XII intact, oriented X3, no focal deficits. Absent: pronater drift, facial droop, speech deficit - Skin Skin exam: Present: dry, intact Internal Medicine: Result - Labs CBC & Chem 7: 06/10/17 03:05 06/10/17 03:05 Labs: Short CBC 06/09/17 06/10/17 Range/Units 18:30 03:05 WBC 16.2 H 14.2 H (4.3-11.1) K/mcL Hgb 12.7 12.8 (11.5-15.4) g/dL Hct 37.7 38.1 (35.3-44.9) % Plt Count 304 277 (140-400) K/mcL [facility] 06/10/17 03:05 Sodium 138 Potassium 3.9 Chloride 111 H Carbon Dioxide 20 BUN 14 Creatinine 0.72 Glucose 115 H Calcium 8.6 - ABG Interpretation ABG results: PT/INR, D-dimer PT 11.1 Seconds (9.4-12.1) 06/09/17 18:30 Consult Discharge Plan - Plan Referrals: Gloyr Funes, [employer] SUPER[employer]OR [Primary Care Provider] -
[2017-06-10] MEDS: *HR* Enoxaparin 40 MG/0.4 ML SYRINGE SQ SCH (16:57)
--- NOTE | 2017-06-10 19:36 | Electrocardiograph Report ---
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
--- NOTE | 2017-06-10 19:37 | Electrocardiograph Report ---
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
[2017-06-10] MEDS: Temazepam 15 MG CAPSULE PO SCH (20:46)
[2017-06-11 05:22] LABS: Hematocrit 37.8 % (35.3-44.9); Hemoglobin 12.8 g/dL (11.5-15.4); Mean Corpuscular HGB Conc 33.9 g/dL (31.6-35.5); Mean Corpuscular Hemoglobin 31.6 pg (28.0-33.3); Mean Corpuscular Volume 93.3 fL (83.0-100.0); Mean Platelet Volume 9.9 fL (9.4-12.4); Platelet Count 300 K/mcL (140-400); Red Blood Count 4.05 M/mcL (3.82-4.97); Red Cell Distribution Width 13.2 % (11.5-14.5)
[2017-06-11 05:34] LABS: BUN/Creatinine Ratio 19 (6-26); Blood Urea Nitrogen 13 mg/dL (7-20); Calcium 8.4 mg/dL (8.6-10.8); Carbon Dioxide 19 mEq/L (19-29); Chloride 112 mEq/L (98-109); Glucose 122 mg/dL (70-99); Osmolality,Calculated 289 (280-300); Potassium 3.7 mEq/L (3.5-4.5); Sodium 139 mEq/L (136-145); eGFR For African Americans > 60 (> 60); eGFR For Non-African Americans > 60 (> 60)
[2017-06-11] MEDS: *HR* Enoxaparin 40 MG/0.4 ML SYRINGE SQ SCH (05:39)
[2017-06-11 07:52] VITALS: BP 101/65
[2017-06-11] MEDS: Insulin LISPRO 300 UNITS/3 ML VIAL SQ SCH (08:36)
[2017-06-11] MEDS: Isosorbide MONOnitrate (24 HR) 30 MG TAB.ER.24H PO SCH (08:38)
[2017-06-11] MEDS: Aspirin Enteric Coated 81 MG Tablet PO SCH (08:38)
[2017-06-11] MEDS: Ibuprofen 400 MG TABLET PO SCH (08:39)
[2017-06-11] MEDS: Topiramate 25 MG TABLET PO SCH (08:40)
[2017-06-11] MEDS: diazePAM 5 MG TABLET PO SCH (08:40)
--- NOTE | 2017-06-11 11:12 | Discharge Summary ---
Date of Encounter: 06/11/17 Time of Encounter: 11:01 - Discharge Diagnosis (1) CAD (coronary artery disease) Priority: Primary Status: Chronic Comments: Deb Mccoy is a 31-year-old female with past medical history CAD, diabetes and hypertension who presented to [facility] on 06/09/2017 with complaints of chest pain. She was placed in observation status for ACS rule out. 1. Atypical chest pain: presented with constant left upper and right lower chest pain for 2 days prior to arrival. Not relieved with nitroglycerin. stress test with evidence of prior infarct but negative for ischemia. Evaluated by Cardiology who did not suspect cardiac etiology. Concern for possible malingering component as chest pain was only relieved with IV morphine. Anxiety could be contributing. Chest pain resolved at time of discharge. Follow-up with Cardiology as previously planned 2. CAD: known CAD with inferior STEMI 06/2015 with stents. Stress test this admission negative for ischemia. Cont ASA, Plavix, statin, BB 3. Anxiety: per hx. continue home Valium 4. Leukocyosis: WBC 17K on arrival. Secondary to right sacroiliac joint steroid injection. Afebrile, UA unremarkable, CXR non-acute. No evidence of infection. WBC 13K at discharge 5. Diabetes: per hx. Cont home medication regimen Qualifiers: Coronary Disease-Associated Artery/Lesion type: [place] artery [place] vs. transplanted heart: [place] heart Associated angina: without angina Qualified Code(s): I25.10 - Atherosclerotic heart disease of [place] coronary artery without angina pectoris (2) Anxiety and depression Priority: Primary Status: Chronic (3) Leukocytosis Priority: Primary Status: Acute Qualifiers: Leukocytosis type: unspecified Qualified Code(s): D72.829 - Elevated white blood cell count, unspecified - Discharge Medications Home Medications: Topiramate [Topamax] 25 mg PO BID 04/05/15 [History] Temazepam [Restoril] 15 mg PO HS #0 06/29/15 [History] Atorvastatin [Lipitor] 40 mg PO QPM 07/13/15 [History] Clopidogrel [Plavix] 75 mg PO QAM 07/13/15 [History] traZODone [TraZODone] 50 mg PO HS PRN 09/27/15 [History] diazePAM [Valium] 5 mg PO QID 04/01/16 [History] Liraglutide [Victoza 2-Bill] 1.2 mg SQ QAM 10/21/16 [History] Metoprolol XL (24 HR) Succ [Toprol Xl] 12.5 mg PO BID 10/21/16 [History] Diltiazem CD (24hr) [Cardizem CD] 180 mg PO DAILY 01/11/17 [History] Aspirin Enteric Coated [Aspirin EC] 81 mg PO DAILY 05/24/17 [History] Butalb/Acetaminophen/Caffeine [Fioricet 50-300-40 mg Capsule] 1 each PO BID PRN 05/24/17 [History] Diclofenac Sodium [Voltaren] 1 appl TP QID PRN 05/24/17 [History] Lurasidone [Latuda] 40 mg PO QPM 05/24/17 [History] Ondansetron HCl [Zofran] 4 mg PO Q8H PRN 05/24/17 [History] metFORMIN [Glucophage] 1,000 mg PO QAM 05/24/17 [History] metFORMIN [Glucophage] 500 mg PO QPM 05/24/17 [History] Nitroglycerin 0.4 mg SL Q5MIN PRN #30 tab.subl 05/26/17 [Rx] Allergies/Adverse Reactions: 3 Allergy/AdvReac Type Severity Reaction Status Date / Time naproxen AdvReac Gastrointestinal Verified 06/08/17 20:23 Upset Procedures/tests Complete & Pending: Procedures Performed prior 72 hours Category Date Time Status NM joy perf SPECT multi [NM] Routine Exams 06/08/17 23:10 Taken SP pharm nuclear stress Routine Y 06/09/17 07:45 Completed Date of admission: 06/08/17 21:51 Primary care physician: Glory Funes CNP Consults: 06/09/17 17:47 Consult to Cardiology [CONS] Routine Comment: Consulting Provider: Cardiology Janet Reason for Consult: 31 year old with previous [place] here with current chest pain Call Completed: Yes Discharging clinician: Briana Mills Anticipated date of discharge: 06/11/17 - Patient Status Disposition: Home, Self-Care Condition: Good Functional capacity at discharge: independent ambulation Overall status at discharge: patient is back to baseline - Discharge Instructions Instructions: Coronary Artery Disease (DC), Generalized Anxiety Disorder (DC) Follow Up With: Easterday,Glory L, CASH PERSON [Primary Care Provider] - - Diet and Activity Activity: increase activity as tolerated Diet: advance to your usual diet Interval History: Seen and examined at bedside, patient says she feels better and wants to go home today. No chest pain, no SOB Hospital course: Ms. Mccoy is a 31 year old female - Time Spent with Patient Total time spent providing and/or coordinating discharge services: - Constitutional Vitals: Temp Pulse Resp BP Pulse Ox 98.0 F 70 17 101/65 93 06/11/17 07:51 06/11/17 07:51 06/11/17 07:51 06/11/17 07:51 06/11/17 07:51 General appearance: Present: A&O X 3, no acute distress, answers questions appropriately - Head Head exam: Present: atraumatic, normocephalic - Eye Eye exam: Present: PERRL, conjuntiva pink, sclera anicteric Pupils: Present: PERRL - Neck Neck exam general surgery: Present: supple, trachea midline. Absent: lymphadenopathy - Respiratory Respiratory exam: Present: CTAB. Absent: accessory muscle use, rales, rhonchi, wheezes - Cardiovascular Cardiovascular exam: Present: RRR, +S1, +S2. Absent: diastolic murmur, gallop, rubs, systolic murmur - GI/Abdominal GI/Abdominal exam: Present: normal bowel sounds, soft, no peritoneal signs. Absent: distended, tenderness - Extremities Exam Extremities exam: Present: warm, radial pulses palpable and symmetrical. Absent : calf tenderness, cyanotic, pedal edema - Neurological Exam Neurological exam: Present: CN II-XII intact, oriented X3, no focal deficits. Absent: pronater drift, facial droop, speech deficit - Skin Skin exam: Present: dry, intact
== END 2017-06-11 12:30 | disposition home or self-care (01) ==
LOC: EMEROO 20:22 → 3BNU 20:22
PROVIDERS: ADMIT Internal Medicine; ATTEND Registered Nurse

== ENCOUNTER 2017-07-10 10:15 | Inpatient (IN) ==
[2017-07-10] MEDS ORDERED: Ipratropium/Albuterol Neb 3 ML IH ONE (10:27)
--- NOTE | 2017-07-10 10:29 | Emergency Department Note ---
Disposition Time of Disposition: 11:26 <Blaine Scott - Last Filed: 07/10/17 11:23> <Milena Rubio - Last Filed: 07/10/17 14:25> Clinical Impression: Left lower lobe pneumonia Qualifiers: Pneumonia type: due to unspecified organism Qualified Code(s): J18.1 - Lobar pneumonia, unspecified organism Disposition: Admitted As Inpatient Condition: Fair URI/Sore Throat HPI - General Source: patient, EMS Limitations: no limitations Nursing Notes Reviewed: Yes Vital Signs Reviewed: Yes - History of Present Illness Pt Subjective Complaint: fever, cough, other (Shortness of breath) Onset (ago): day(s) Duration: gradually worsening Severity: moderate Improves with: nothing Worsens with: nothing Associated symptoms: Reports: fever, chills, myalgias, cough, chest pain, shortness of breath, nausea. Denies: abdominal pain, vomiting, diarrhea Treatments prior to arrival: acetaminophen, antibiotics <Blaine Scott - Last Filed: 07/10/17 11:23> <Milena Rubio - Last Filed: 07/10/17 14:25> - General Chief Complaint: ED Shortness of Breath/Dyspnea Stated Complaint: "pneumonia" Time Seen by Provider: 07/10/17 10:17 - History of Present Illness HPI Narrative: 32-year-old female with a significant past medical history which includes CHF, MA with stents, and diabetes, presents for worsening shortness of breath, cough , and persistent chest pain. He the patient was seen at this facility on . She was diagnosed with a viral pneumonia, as she has tested positive for influenza on 07/05/17. She was discharged home on azithromycin. He she states no improvement in symptoms. She states ongoing and continuous substernal chest pressure, nonproductive cough, shortness of breath, and wheezing. She complains of being nauseated but denies any abdominal pain, vomiting, or diarrhea. She denies any hemoptysis. She states a fever up to 103 degrees Fahrenheit at home for which she has taken Tylenol and ibuprofen for, the most recent of which was just this morning prior to calling EMS. (Blaine Scott) - Related Data Home Medications Medication Instructions Recorded Confirmed Topiramate [Topamax] 25 mg PO BID 04/05/15 07/10/17 Temazepam [Restoril] 15 mg PO HS #0 06/29/15 07/10/17 Atorvastatin [Lipitor] 40 mg PO QPM 07/13/15 07/10/17 Clopidogrel [Plavix] 75 mg PO QAM 07/13/15 07/10/17 traZODone [TraZODone] 50 mg PO HS PRN 09/27/15 07/10/17 diazePAM [Valium] 5 mg PO QID 04/01/16 07/10/17 Liraglutide [Victoza 2-Bill] 1.2 mg SQ QAM 10/21/16 07/10/17 Metoprolol XL (24 HR) Succ [Toprol 12.5 mg PO BID 10/21/16 07/10/17 Xl] Diltiazem CD (24hr) [Cardizem CD] 180 mg PO DAILY 01/11/17 07/10/17 Aspirin Enteric Coated [Aspirin EC] 81 mg PO DAILY 05/24/17 07/10/17 Diclofenac Sodium [Voltaren] 1 appl TP QID PRN 05/24/17 07/10/17 Lurasidone [Latuda] 40 mg PO QPM 05/24/17 07/10/17 Ondansetron HCl [Zofran] 4 mg PO Q8H PRN 05/24/17 07/10/17 metFORMIN [Glucophage] 1,000 mg PO QAM 05/24/17 07/10/17 metFORMIN [Glucophage] 500 mg PO QPM 05/24/17 07/10/17 Doxycycline Hyclate [Vibramycin] 100 mg PO BID 07/10/17 07/10/17 FLUoxetine HCl [PROzac] 10 mg PO DAILY 07/10/17 07/10/17 Sertraline [Zoloft] 50 mg PO DAILY 07/10/17 07/10/17 Previous Rx's Medication Instructions Recorded Albuterol Sulfate [Albuterol 4 puff IH Q4HR #1 hfa.aer.ad 07/07/17 Inhaler] Allergies Allergy/AdvReac Type Severity Reaction Status Date / Time naproxen AdvReac Gastrointestinal Verified 06/08/17 20:23 Upset All systems ED: reviewed and negative except as stated. Constitutional: Reports: as per HPI, fever. Denies: chills, weakness, weight change Eyes: Denies: eye pain, eye discharge, vision change ENT ED: Denies: ear pain, throat pain, dental pain, hearing loss, epistaxis, congestion, dysphagia Cardiovascular: Reports: as per HPI, chest pain. Denies: palpitations, dyspnea on exertion, edema, syncope Respiratory: Reports: as per HPI, cough, dyspnea, wheezes. Denies: hemoptysis, stridor Gastrointestinal: Reports: as per HPI, nausea. Denies: abdominal pain, vomiting , diarrhea, constipation, hematemesis, melena, hematochezia Genitourinary: Denies: dysuria, frequency, hematuria, discharge Musculoskeletal: Denies: back pain, neck pain, arthralgia, myalgia Integumentary: Denies: rash, abrasion, lesions Neurological: Denies: headache, weakness, numbness, paresthesias, confusion, abnormal gait, vertigo Psychiatric: Denies: anxiety, depression, suicidal thoughts, homicidal thoughts , auditory hallucinations, visual hallucinations Endocrine: Denies: fatigue Hematological/Lymphatic: Denies: easy bleeding, easy bruising Allergic/Immunologic: Denies: facial swelling, urticaria <Blaine Scott R - Last Filed: 07/10/17 11:23> URI PMH - Past Medical History Medical history: Reports: CHF, coronary artery disease, diabetes, GERD, hyperlipidemia, hypertension, kidney stones, migraine, myocardial infarction Surgical history: Reports: angioplasty/stent Psychiatric history: Reports: anxiety, ADHD, bipolar, depression 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 Absent: nystagmus - ENT ENT exam: mucous membranes moist - Neck Neck exam: Present: normal inspection, full ROM, trachea midline. Absent: lymphadenopathy - Chest Chest inspection: Present: normal inspection, symmetric chest wall rise - Respiratory Respiratory exam: Present: wheezes (Bilateral inspiratory and expiratory wheezes noted). Absent: respiratory distress, stridor, accessory muscle use, prolonged expiratory phase - Expanded Respiratory Exam Location: rhonchi: Left, Right, Upper, Lower - Cardiovascular Cardiovascular exam: Present: normal rhythm, tachycardia, normal heart sounds - Abdominal Exam Abdominal exam: Present: soft, Non-Tender, normal bowel sounds - Extremities Exam Extremities exam: Present: normal inspection, full ROM. Absent: tenderness, pedal edema - Neurological Exam Neurological exam: Present: alert, oriented X3 - Psychiatric Psychiatric exam: Present: normal affect, normal mood - Skin Skin exam: Present: warm, dry, intact, normal color. Absent: rash <Blaine Scott R - Last Filed: 07/10/17 11:23> Course <Blaine Scott R - Last Filed: 07/10/17 11:23> <Milena Rubio - Last Filed: 07/10/17 14:25> Course Narrative: I have discussed this patient's case with Dr. Scott. Dr. Rubio has had a face-to- face evaluation with the patient and agrees with admission to the hospital service for further treatment of a presumed healthcare associated pneumonia. The patient will had been admitted in the month of May. She was discharged home on azithromycin which will not cover against healthcare associated pneumonia on its own. This coupled with the patient's worsening in symptoms. We will admit to the hospitalist service after initiating IV antibiotics here in the emergency department. The patient is agreeable to this plan. She has had delta change in her white blood cell count from her visit 3 days ago. Her lactate was slightly elevated at 2.3. I will administer 1 L of IV fluid cautiously due to her history of congestive heart failure even though her BNP is within normal limits today. 1120: I have spoken with Dr. Denny, hospitalist non destructive testing inspector who has accepted the patient for admission to his service. (Blaine Scott R) Vital Signs Temperature 97.5 F L 07/10/17 10:16 Pulse Rate 93 07/10/17 10:16 Respiratory Rate 16 07/10/17 10:16 Blood Pressure 120/80 07/10/17 10:16 O2 Sat by Pulse Oximetry 92 07/10/17 10:16 Temperature 98.0 F 07/10/17 13:54 Pulse Rate 86 07/10/17 13:54 Respiratory Rate 16 07/10/17 12:22 Blood Pressure 106/67 07/10/17 13:54 O2 Sat by Pulse Oximetry 96 07/10/17 13:54 Oxygen Delivery Oxygen Delivery Nasal Cannula Upper Respiratory Infection - Medical Records Medical records reviewed: Yes I reviewed the patient's medical records. - Lab Data Lab results reviewed: Yes I reviewed the patient's lab results. Result diagrams: 07/10/17 10:49 07/10/17 10:49 - Radiology Data Radiology results reviewed: Yes I reviewed the patient's radiology results. - EKG Data EKG attestation: Yes I reviewed and interpreted this EKG. <Blaine Scott R - Last Filed: 07/10/17 11:23> - Lab Data Result diagrams: 07/10/17 10:49 07/10/17 10:49 <Milena Rubio - Last Filed: 07/10/17 14:25> - Lab Data Lab results narrative: Laboratory Last Values WBC 16.9 K/mcL (4.3-11.1) H D 07/10/17 10:49 RBC 4.11 M/mcL (3.82-4.97) 07/10/17 10:49 Hgb 12.7 g/dL (11.5-15.4) 07/10/17 10:49 Hct 37.6 % (35.3-44.9) 07/10/17 10:49 MCV 91.5 fL (83.0-100.0) 07/10/17 10:49 MCH 30.9 pg (28.0-33.3) 07/10/17 10:49 MCHC 33.8 g/dL (31.6-35.5) 07/10/17 10:49 RDW 13.2 % (11.5-14.5) 07/10/17 10:49 Plt Count 297 K/mcL (140-400) 07/10/17 10:49 MPV 9.5 fL (9.4-12.4) 07/10/17 10:49 Immature Gran % 0.7 % (0-4) 07/10/17 10:49 Seg Neutrophils % 81.2 % 07/10/17 10:49 Lymphocytes % 14.1 % 07/10/17 10:49 Monocytes % 3.1 % 07/10/17 10:49 Eosinophils % 0.7 % 07/10/17 10:49 Basophils % 0.2 % 07/10/17 10:49 Neutrophils # 13.7 K/mcL (1.6-8.9) H 07/10/17 10:49 Lymphocytes # 2.4 K/mcL (0.6-4.6) 07/10/17 10:49 Monocytes # 0.5 K/mcL (0.0-1.3) 07/10/17 10:49 Eosinophils # 0.1 K/mcL (0.0-0.6) 07/10/17 10:49 Basophils # 0.0 K/mcL (0.0-0.2) 07/10/17 10:49 Nucleated RBCs/100 WBC 0.1 /100 WBC (0) H 07/10/17 10:49 Sodium 138 mEq/L (136-145) 07/10/17 10:49 Potassium 3.5 mEq/L (3.5-5.1) 07/10/17 10:49 Chloride 107 mEq/L (98-107) 07/10/17 10:49 Carbon Dioxide 22 mEq/L (23-29) L 07/10/17 10:49 BUN 10 mg/dL (6-20) 07/10/17 10:49 Creatinine 0.61 mg/dL (0.60-1.20) 07/10/17 10:49 Est GFR ( Amer) > 60 (> 60) 07/10/17 10:49 Est GFR (Non-Af Amer) > 60 (> 60) 07/10/17 10:49 BUN/Creatinine Ratio 16 (6-26) 07/10/17 10:49 Glucose 234 mg/dL (70-105) H 07/10/17 10:49 Calculated Osmolality 293 (280-300) 07/10/17 10:49 Lactic Acid 2.4 mmol/L (0.5-2.2) H 07/10/17 10:49 Calcium 8.7 mg/dL (8.6-10.3) 07/10/17 10:49 Troponin I < 0.03 ng/mL (< 0.04) 07/10/17 10:49 B-Natriuretic Peptide 64 pg/mL (Less than 100) 07/10/17 10:49 (Blaine Scott) Lab Results 07/10/17 07/10/17 07/10/17 Range/Units 10:49 10:49 10:49 WBC 16.9 H D (4.3-11.1) K/mcL RBC 4.11 (3.82-4.97) M/mcL Hgb 12.7 (11.5-15.4) g/dL Hct 37.6 (35.3-44.9) % MCV 91.5 (83.0-100.0) fL MCH 30.9 (28.0-33.3) pg MCHC 33.8 (31.6-35.5) g/dL RDW 13.2 (11.5-14.5) % Plt Count 297 (140-400) K/mcL MPV 9.5 (9.4-12.4) fL Immature Gran % 0.7 (0-4) % Seg Neutrophils % 81.2 % Lymphocytes % 14.1 % Monocytes % 3.1 % Eosinophils % 0.7 % Basophils % 0.2 % Neutrophils # 13.7 H (1.6-8.9) K/mcL Lymphocytes # 2.4 (0.6-4.6) K/mcL Monocytes # 0.5 (0.0-1.3) K/mcL Eosinophils # 0.1 (0.0-0.6) K/mcL Basophils # 0.0 (0.0-0.2) K/mcL Nucleated RBCs/100 WBC 0.1 H (0) /100 WBC Sodium 138 (136-145) mEq/L Potassium 3.5 (3.5-5.1) mEq/L Chloride 107 (98-107) mEq/L Carbon Dioxide 22 L (23-29) mEq/L BUN 10 (6-20) mg/dL Creatinine 0.61 (0.60-1.20) mg/dL Est GFR ( Amer) > 60 (> 60) Est GFR (Non-Af Amer) > 60 (> 60) BUN/Creatinine Ratio 16 (6-26) Glucose 234 H (70-105) mg/dL Calculated Osmolality 293 (280-300) Lactic Acid 2.4 H (0.5-2.2) mmol/L Calcium 8.7 (8.6-10.3) mg/dL Troponin I (< 0.04) ng/mL B-Natriuretic Peptide (Less than 100) pg/mL 07/10/17 07/10/17 Range/Units 10:49 10:49 WBC (4.3-11.1) K/mcL RBC (3.82-4.97) M/mcL Hgb (11.5-15.4) g/dL Hct (35.3-44.9) % MCV (83.0-100.0) fL MCH (28.0-33.3) pg MCHC (31.6-35.5) g/dL RDW (11.5-14.5) % Plt Count (140-400) K/mcL MPV (9.4-12.4) fL Immature Gran % (0-4) % Seg Neutrophils % % Lymphocytes % % Monocytes % % Eosinophils % % Basophils % % Neutrophils # (1.6-8.9) K/mcL Lymphocytes # (0.6-4.6) K/mcL Monocytes # (0.0-1.3) K/mcL Eosinophils # (0.0-0.6) K/mcL Basophils # (0.0-0.2) K/mcL Nucleated RBCs/100 WBC (0) /100 WBC Sodium (136-145) mEq/L Potassium (3.5-5.1) mEq/L Chloride (98-107) mEq/L Carbon Dioxide (23-29) mEq/L BUN (6-20) mg/dL Creatinine (0.60-1.20) mg/dL Est GFR ( Amer) (> 60) Est GFR (Non-Af Amer) (> 60) BUN/Creatinine Ratio (6-26) Glucose (70-105) mg/dL Calculated Osmolality (280-300) Lactic Acid (0.5-2.2) mmol/L Calcium (8.6-10.3) mg/dL Troponin I < 0.03 (< 0.04) ng/mL B-Natriuretic Peptide 64 (Less than 100) pg/mL - Radiology Data Chest X-Ray 07/10/17 10:27 IMPRESSION: Low lung volumes. Slightly increased linear opacities in left lung base, likely atelectasis. Questionable trace left pleural effusion. . Recommend dedicated two view chest x-ray for further evaluation. D/ / Cherry Leo MD / Cherry Leo MD Interpreting Provider: Cherry Leo MD (Blaine Scott) - EKG Data EKG results narrative: EKG reviewed by Dr. Mckenna Schroeder as well. EKG shows a sinus rhythm with probable anterior MA of indeterminate age as well as an inferior MA of indeterminate age at a ventricular rate of 87 beats per minute. OR interval 157 , QRS duration 92, QT/QTC intervals are 357/401. No ST elevation. No significant changes when compared to an EKG dated from 07/07/17. (Blaine Scott) Attestation Statement <Blaine Scott - Last Filed: 07/10/17 11:23> <Milena Rubio - Last Filed: 07/10/17 14:25> - Attestation Attestation: I examined this patient and my medical decision-making was reviewed with the Resident Physician. I agree with the documented findings, disposition and treatment plan as described except to the extent set forth below. Patient to the ED with a chief complaint of fever. Cough. Not feeling well. Patient recently seen and diagnosed with pneumonia and placed on antibiotic. States she is getting worse. On examination she has diffuse expiratory wheezing and rhonchi. She is in no acute respiratory distress. Plan. Patient getting worse. She is on antibiotics. She has had 2 hospital admissions in the past 3 months. She would meet criteria for hospital acquired pneumonia. Antibiotics started and admitted to medicine. 35 minutes of critical care exclusive of separately billable procedures. (SeeMilena)
[2017-07-10 11:01] LABS: Basophils % 0.2 %; Eosinophils # 0.1 K/mcL (0.0-0.6); Eosinophils % 0.7 %; Hematocrit 37.6 % (35.3-44.9); Hemoglobin 12.7 g/dL (11.5-15.4); Immature Granulocytes % 0.7 % (0-4); Lymphocytes # 2.4 K/mcL (0.6-4.6); Lymphocytes % 14.1 %; Mean Corpuscular HGB Conc 33.8 g/dL (31.6-35.5); Mean Corpuscular Hemoglobin 30.9 pg (28.0-33.3); Mean Corpuscular Volume 91.5 fL (83.0-100.0); Mean Platelet Volume 9.5 fL (9.4-12.4); Monocytes # 0.5 K/mcL (0.0-1.3); Monocytes % 3.1 %; Neutrophils # 13.7 K/mcL (1.6-8.9); Nucleated Red Blood Cells 0.1 /100 WBC (0); Platelet Count 297 K/mcL (140-400); Red Blood Count 4.11 M/mcL (3.82-4.97); Red Cell Distribution Width 13.2 % (11.5-14.5); Segmented Neutrophils % 81.2 %
[2017-07-10 11:11] LABS: BUN/Creatinine Ratio 16 (6-26); Blood Urea Nitrogen 10 mg/dL (6-20); Calcium 8.7 mg/dL (8.6-10.3); Carbon Dioxide 22 mEq/L (23-29); Chloride 107 mEq/L (98-107); Glucose 234 mg/dL (70-105); Osmolality,Calculated 293 (280-300); Potassium 3.5 mEq/L (3.5-5.1); Sodium 138 mEq/L (136-145); eGFR For African Americans > 60 (> 60); eGFR For Non-African Americans > 60 (> 60)
[2017-07-10] MEDS ORDERED: 0.9 % Sodium Chloride 1,000 ML IVC ONE (11:20)
[2017-07-10] MEDS ORDERED: Vancomycin 1,000 MG in D5% in Water 250 ML IVPB ONE (11:21)
[2017-07-10] MEDS ORDERED: Levofloxacin 750 MG/150 ML 750 MG/150 ML BAG IVPB ONE (11:21)
[2017-07-10] MEDS ORDERED: Piperacillin/Tazobactam 3.375 GM in Water for inj. (sterile) 20 ML IVP ONE (11:22)
[2017-07-10] MEDS ORDERED: traZODone 50 MG TABLET PO PRN (12:59)
[2017-07-10] MEDS ORDERED: (Diclofenac Sodium [Voltaren] 1 APPL) TP PRN (12:59)
[2017-07-10] MEDS ORDERED: diazePAM 5 MG TABLET PO SCH (13:00)
[2017-07-10] MEDS ORDERED: Naloxone 0.4 MG/ML INJ IVP PRN (13:40)
[2017-07-10] MEDS ORDERED: *HR* Morphine 2 MG/ML SYRINGE IVP PRN (13:40)
[2017-07-10] MEDS ORDERED: Acetaminophen 325 MG TABLET PO PRN (13:40)
[2017-07-10] MEDS ORDERED: *HR* Dextrose 50 % in Water (Syg) 50 ML SYRINGE IVP PRN (13:51)
[2017-07-10] MEDS ORDERED: D5% in Water 1,000 ML IVC PRN (13:51)
[2017-07-10] MEDS ORDERED: Dextrose Gel 15 GM PO PRN ×2 (13:51)
--- NOTE | 2017-07-10 14:30 | Event Note ---
Date of Encounter: 07/10/17 Time of Encounter: 14:27 32/female Multiple comorbid conditions as mentioned in the history and physical. Was recently evaluated by primary care physician. Noted patient has a upper respiratory tract symptoms which progressively worsened. Patient was given trial of oral antibiotics a few days ago by emergency room from this hospital. Patient came again today with the similar symptoms with worsening shortness of breath/cough with a mucopurulent expectoration. On examination. Patient has bilateral wheezing/crepitations. Assessment/plan. Radiological examination/clinical findings are consistent with the possibility of a pneumonia. Plan: Admit as inpatient. Intravenous antibiotics. Smoking cessation discussed at length. Proper control of blood sugar. I examined this patient in unit 3B along with HEAVY [employer]MENT REPAIRER Dr Goldsmith.
--- NOTE | 2017-07-10 14:30 | Internal Med History&Physical ---
<Agus Negron - Last Filed: 07/10/17 15:03> Date of Encounter: 07/10/17 Time of Encounter: 13:00 Assessment and Plan (1) Pneumonia Status: Acute Acute pneumonia. Pt. reports being dx on 07/07/17 w/pneumonia in [facility] ED. Pt. discharged on PO azithromycin. Pt. reports being compliant in taking abx but feeling much worse w/cough with yellow/green sputum production, SOB, dyspnea, and weakness. WBC 16.2 on admission. Pt. does not currently meet sepsis criteria but will be monitored closely. IVPB levaquin, vancomycin and Zosyn administered in the ED. We will continue IVPB Levaquin 750 mg daily, Zosyn 3.375 gm every 8, and vancomycin with pharmacy dosing for infection coverage. Blood cultures 2. Timed lactic acid. Sputum culture. Legionella antigen and strep pneumoniae antigen ordered. Tessalon 100 mg TID for cough. Supplemental O2 w/titration and SpO2 monitoring. DuoNebs Q4 scheduled. Will adjust abx coverage based on culture results. Oncology hematology consult ordered due to patient's history of chronic leukocytosis since 2013. I appreciate the consult. Patient discussed with Dr. Denny agrees with plan of care. Patient is at high risk for further morbidity and sepsis based on unresolved pneumonia, recurrent symptoms, respiratory distress, and history. Inpatient. Qualifiers: Pneumonia type: due to unspecified organism Laterality: left Lung location: lower lobe of lung Qualified Code(s): J18.1 - Lobar pneumonia, unspecified organism (2) Flu Status: Acute Pt. reports she tested positive for flu on 07/05/17 per nasal swab but was not given Tamiflu. Respiratory infection panel ordered. (3) Tobacco abuse counseling Status: Acute Pt. has hx of chronic tobacco abuse smoking 1/2 PPD. Pt. counseled >10 minutes regarding importance of smoking cessation on health, current respiratory distress, and cardiac hx as well as quitting methods. 14 mg nicotine patch ordered. (4) Anxiety and depression Status: Chronic Hx of chronic anxiety and depression. Continue patient's Valium, Prozac, Latuda , and Zoloft. (5) CAD (coronary artery disease) Status: Chronic Hx of chronic CAD. Pt. has cardiac hx w/angioplasty/stent placement x2. We will continue patient's aspirin therapy, Plavix, Lipitor, Cardizem, metoprolol. Continuous cardiac telemetry. Qualifiers: Coronary Disease-Associated Artery/Lesion type: [place] artery [place] vs. transplanted heart: [place] heart Associated angina: without angina Qualified Code(s): I25.10 - Atherosclerotic heart disease of [place] coronary artery without angina pectoris (6) Diabetes Status: Chronic Hx of chronic DM controlled w/oral antihyperglycemic medications in a.m. insulin. Will hold patient's oral medications and administer low-dose correction insulin sliding scale and hypoglycemic protocol. A1c and a.m. labs. BG checks before meals and at bedtime. 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 Pt. reports smoking 1/2 PPD. Pt. counseled extensively on smoking cessation. 14 mg nicotine patch ordered. (8) GERD (gastroesophageal reflux disease) Status: Chronic Hx of chronic GERD. IVP Zofran 4 mg Q6 PRN for N/V. IVP Protonix 40 mg daily. Qualifiers: Esophagitis presence: esophagitis presence not specified Qualified Code(s) : K21.9 - Gastro-esophageal reflux disease without esophagitis (9) HLD (hyperlipidemia) Status: Chronic Hx of HLD. Lipid panel in a.m. labs. Continue patient's Lipitor. Qualifiers: Hyperlipidemia type: mixed hyperlipidemia Qualified Code(s): E78.2 - Mixed hyperlipidemia (10) HTN (hypertension) Status: Chronic Hx of chronic HTN. Monitor pt. and VS. continue patient's metoprolol and Cardizem. Qualifiers: Hypertension type: essential hypertension Qualified Code(s): I10 - Essential (primary) hypertension (11) DVT prophylaxis Status: Acute Lovenox 40 mg 0600 SQ for DVT prophylaxis. Monitor pt. for signs of bleeding. Internal Medicine - H&P: HPI Chief complaint: SOB/Dyspnea Admitted From: Emergency Dept Plans for Post Hospital Care: Home History of present illness: Ms. Mccoy is a 32 year old female with medical hx of CHF, CAD, diabetes with oral and insulin control, GERD, HLD, HTN, kidney stones, migraine, and previous myocardial infarction with history of angioplasty/stent 2 presents from the ED with chief complaint of shortness of breath and dyspnea that began 2 weeks ago. Patient reports her symptoms became worse last and she came to [facility] ED and was diagnosed with pneumonia and discharged on by mouth azithromycin and steroids. Patient states she was also dx w/flu on 07/05. Patient reports she became much worse and came back to ED today. Patient reports shortness of breath, dyspnea, cough w/yellow/green sputum, nausea, fever of 103F @ home, and weakness but denies vomiting, chills, chest pain, palpitations, changes in vision, headache, abdominal pain, numbness, tingling, dizziness, lightheadedness , pre-syncope, or syncope. Past Med Surg Social Fam HX - Past Medical History Source: patient, old records reviewed Medical history: CHF, coronary artery disease, diabetes, GERD, hyperlipidemia, hypertension, kidney stones, migraine, myocardial infarction Psychiatric history: anxiety, bipolar, depression - Past Surgical History Surgical History: angioplasty/stent (x2) - Social History Smoking Status: Current every day smoker Packs per day: 1/2 PPD Smokeless Tobacco Status: No Alcohol use: none Drug use: none Occupational status: employed Current living situation: Home, With Family Activity Level: Independent ambulation Recent Out of Country Travel Within the Last 8 Weeks: No Exposure or Possible Exposure to Illness During Travel: No - Family History Brother Race: Family Member Ethnicity: Non- Living Status: Still Living Hx Family Medical Disorders: No Father Race: Family Member Ethnicity: Non- Living Status: Still Living Hx Family Cardiac Disorders: Yes (HTN) Hx Family Endocrine Disorder: Yes (DM) Grandmother Adopted: No Race: Family Member Ethnicity: Non- Living Status: Hx Family Cardiac Disorders: Yes (CHF) Mother Race: Family Member Ethnicity: Non- Living Status: Still Living Hx Family Medical Disorders: No Internal Medicine - H&P: Meds Topiramate [Topamax] 25 mg PO BID 04/05/15 [History] Temazepam [Restoril] 15 mg PO HS #0 06/29/15 [History] Atorvastatin [Lipitor] 40 mg PO QPM 07/13/15 [History] Clopidogrel [Plavix] 75 mg PO QAM 07/13/15 [History] traZODone [TraZODone] 50 mg PO HS PRN 09/27/15 [History] diazePAM [Valium] 5 mg PO QID 04/01/16 [History] Liraglutide [Victoza 2-Bill] 1.2 mg SQ QAM 10/21/16 [History] Metoprolol XL (24 HR) Succ [Toprol Xl] 12.5 mg PO BID 10/21/16 [History] Diltiazem CD (24hr) [Cardizem CD] 180 mg PO DAILY 01/11/17 [History] Aspirin Enteric Coated [Aspirin EC] 81 mg PO DAILY 05/24/17 [History] Diclofenac Sodium [Voltaren] 1 appl TP QID PRN 05/24/17 [History] Lurasidone [Latuda] 40 mg PO QPM 05/24/17 [History] Ondansetron HCl [Zofran] 4 mg PO Q8H PRN 05/24/17 [History] metFORMIN [Glucophage] 1,000 mg PO QAM 05/24/17 [History] metFORMIN [Glucophage] 500 mg PO QPM 05/24/17 [History] Albuterol Sulfate [Albuterol Inhaler] 4 puff IH Q4HR #1 hfa.aer.ad 07/07/17 [Rx] FLUoxetine HCl [Prozac] 10 mg PO DAILY 07/10/17 [History] Sertraline [Zoloft] 50 mg PO DAILY 07/10/17 [History] Doxycycline Hyclate [Vibramycin] 100 mg PO BID #7 capsule 07/13/17 [Rx] predniSONE [PredniSONE] 40 mg PO DAILY #3 tablet 07/13/17 [Rx] 3 Allergy/AdvReac Type Severity Reaction Status Date / Time naproxen AdvReac Gastrointestinal Verified 06/08/17 20:23 Upset All Systems PM: A 10-system review of systems was performed and is negative for pertinent findings except as documented above in the HPI. - Constitutional Constitutional: as per HPI, fever(s), weakness, no chills, no night sweats - EENT Eyes: no change in vision, no discharge, no pain, no photophobia Ears: no ear discharge, no ear pain, no tinnitus Nose, mouth and throat: no dysphagia, no nasal discharge, no neck pain, no sore throat - Breasts Breasts: as per HPI - Cardiovascular Cardiovascular ROS IM: as per HPI, dyspnea, dyspnea on exertion, no chest pain, no diaphoresis, no lightheadedness, no palpitations, no syncope - Respiratory Respiratory: as per HPI, cough, dyspnea, dyspnea on exertion, change in phlegm color - Gastrointestinal Gastrointestinal: no abdominal pain, no diarrhea, no hematemesis, no hematochezia, no melena, no nausea, no vomiting - Genitourinary Genitourinary: no change in urinary stream, no dysuria, no flank pain, no hematuria Menstruation: as per HPI - Musculoskeletal Musculoskeletal ROS IM: no numbness, no tingling - Integumentary Integumentary IM: no rash, no unusual bruising - Neurological Neurological ROS: no confusion, no convulsions, no focal weakness, no numbness, no tingling, no tremor(s) - Psychiatric Psychiatric: as per HPI - Endocrine Endocrine IM: as per HPI - Hematologic/Lymphatic Hematologic/Lymphatic: no easy bruising - Allergic/Immunologic Allergic/Immunologic: as per HPI - Constitutional Vitals: Temp Pulse Resp BP Pulse Ox 98.0 F 86 16 106/67 96 07/10/17 13:54 07/10/17 13:54 07/10/17 12:22 07/10/17 13:54 07/10/17 13:54 General appearance: Present: cooperative, mild distress, A&O X 3, pleasant, obese, answers questions appropriately - Head Head exam: Present: atraumatic, normal inspection, normocephalic - Eye Eye exam: Present: PERRL, conjuntiva pink, sclera anicteric Pupils: Present: PERRL - ENT ENT exam: Present: normal exam, normal external ear exam - Neck Neck exam general surgery: Present: normal inspection, supple, trachea midline. Absent: lymphadenopathy - Respiratory Respiratory exam: Present: accessory muscle use, wheezes - Cardiovascular Cardiovascular exam: Present: RRR, +S1, +S2. Absent: diastolic murmur, gallop, rubs, systolic murmur - GI/Abdominal GI/Abdominal exam: Present: normal bowel sounds, soft, no peritoneal signs. Absent: distended, tenderness - Rectal Rectal exam: Present: deferred - Additional comments: exam deferred. - Extremities Exam Extremities exam: Present: warm, radial pulses palpable and symmetrical. Absent : calf tenderness, cyanotic, pedal edema - Back Exam Back exam: Present: normal inspection - Neurological Exam Neurological exam: Present: CN II-XII intact, oriented X3, no focal deficits. Absent: pronater drift, facial droop, speech deficit - Psychiatric Psychiatric exam: Present: normal affect, normal mood - Skin Skin exam: Present: dry, intact Internal Med - H&P Results - Labs CBC & Chem 7: 07/10/17 10:49 07/10/17 10:49 - EKG Data EKG shows normal: sinus rhythm - EKG Data Prior EKG available for review: yes When compared to previous EKG: there is no significant change Interpretation IM: suggestive of ischemia EKG comments: 07/10/17 14:38 EKG dated 07/07/17 shows sinus rhythm with low QRS voltage in precordial leads, possible anterior myocardial infarction of indeterminate age, and inferior myocardial infarction of indeterminate age. EKG dated 07/10/17 shows sinus rhythm with a QRS voltage in precordial leads, probable anterior myocardial infarction of indeterminate age, and inferior myocardial infarction of indeterminate age. - Diagnostic Studies Chest x-ray Additional comments: Impressions Chest X-Ray 07/10/17 10:27 IMPRESSION: Low lung volumes. Slightly increased linear opacities in left lung base, likely atelectasis. Questionable trace left pleural effusion. . Recommend dedicated two view chest x-ray for further evaluation. D/ / Cherry Leo MD / Cherry Leo MD Interpreting Provider: Cherry Leo MD <Avi Denny P - Last Filed: 07/16/17 17:45> Date of Encounter: 07/16/17 Internal Medicine - H&P: HPI History of present illness: Ms. Mccoy is a 32 year old female All Systems PM: A 10-system review of systems was performed and is negative for pertinent findings except as documented above in the HPI. - Constitutional Vitals: Temp Pulse Resp BP Pulse Ox 98.7 F 62 20 122/82 94 07/13/17 07:15 07/13/17 07:15 07/13/17 07:49 07/13/17 07:15 07/13/17 07:49 Internal Med - H&P Results - Labs CBC & Chem 7: 07/13/17 04:17 07/13/17 04:17 - Impressions ITS Impressions Chest CT 07/11/17 17:49 IMPRESSION: 1. Left lower lobe mucus plugging with dense airspace consolidation within the left lower lobe. This most likely represents either pneumonia or aspiration. Clinical correlation is advised. 2. Scattered nonspecific ground-glass and nodular opacities throughout both lungs, with a left upper lobe predominance, the largest measuring 7 mm within the left upper lobe. While these likely reflect the continuum of multifocal pneumonia, or possibly infectious or inflammatory bronchiolitis, intrapulmonary malignancy is not entirely excluded. Therefore, suggest appropriate clinical treatment, and short-term chest CT follow-up in 6-8 weeks, to ensure resolution of these nodular and ground-glass opacities. 3. Mild left hilar lymphadenopathy, new from prior exam, most likely benign and reactive in etiology given the patient's left lower lobe airspace disease. However, this should also be followed to ensure stability or resolution. 4. Left adrenal adenoma. D/ / 07/11/2017 22:06:52 Tenzin Hanson MD / Jenn Rosales Interpreting Provider: Tenzin Hanson MD - Attending Attestation I examined this patient and my medical decision-making was reviewed with the Resident Physician/HOTEL SERVICES SALES REPRESENTATIVE. I agree with the documented findings, disposition and treatment plan as described except to the extent set forth below. agree with HOTEL SERVICES SALES REPRESENTATIVE evaluation
[2017-07-10] MEDS ORDERED: Vancomycin 1,250 MG in D5% in Water 250 ML IVPB SCH ×2 (15:00→16:00)
[2017-07-10] MEDS: Ipratropium/Albuterol Neb 3 ML IH SCH ×2 (15:27→19:42)
[2017-07-10] MEDS ORDERED: diazePAM 5 MG TABLET PO PRN (15:32)
[2017-07-10] MEDS: Nicotine 14 MG PATCH.TD24 TD SCH (15:42)
[2017-07-10] MEDS: Pantoprazole 40 MG VIAL IVP SCH (15:42)
[2017-07-10] MEDS ORDERED: Piperacillin/Tazobactam 3.375 GM in D5% in Water (Mini-Bag+) 100 ML IVPB SCH (16:00)
--- NOTE | 2017-07-10 16:49 | Oncology Inp Consult Note ---
<Taty Green L - Last Filed: 07/10/17 17:23> Date of Encounter: 07/10/17 Time of Encounter: 15:30 Assessment and Plan (1) Leukocytosis Status: Acute Assessment and plan: Neutrophil predominant leukocytosis, mildly elevated but chronic in nature dating back to lab work which begins in 2013. No anemia or basophilia. Appears to be reactive in nature at this time. Further work up to include peripheral smear, ESR and CRP to assess cell morphology and inflammatory status. Current smoker which could contribute to neutrophilia. She denies recent unintended weight loss, fatigue or appetite changes. Qualifiers: Leukocytosis type: unspecified Qualified Code(s): D72.829 - Elevated white blood cell count, unspecified - Data of Consult Patient: new to practice Requesting Physician: Briana Mills CNP Primary Care Provider: Glory Funes CNP - Consult Narrative Reason for consult: Leukocytosis, Neutrophilia History of present illness: Ms. Mccoy is a 32 year old female with medical history significant for CHF, CAD , diabetes, GERD, HLD, HTN, kidney stones, migraine, previous ME with history of angioplasty/stent placement 2. Patient presented to the ER with chief complaint of worsening shortness of breath, cough, weakness and fever of up to 103F. This is following presentation to the ER the previous week where she was diagnosed with pneumonia and discharged home on PO azithromycin and steroids. During her current admission it was noted that the patient has chronically elevated white blood cell and neutrophil counts, oncology has been consulted for further workup related to her leukocytosis and neutrophilia. Past Med Surg Social Fam HX - Past Medical History Medical history: CHF, coronary artery disease, diabetes, GERD, hyperlipidemia, hypertension, kidney stones, migraine, myocardial infarction Psychiatric history: anxiety, bipolar, depression - Past Surgical History Surgical History: angioplasty/stent (x2) - Social History Smoking Status: Current every day smoker Packs per day: 1/2 PPD Smokeless Tobacco Status: No Alcohol use: none Drug use: none - Family History Brother Race: Family Member Ethnicity: Non- Living Status: Still Living Hx Family Medical Disorders: No Father Race: Family Member Ethnicity: Non- Living Status: Still Living Hx Family Cardiac Disorders: Yes (HTN) Hx Family Respiratory Disorders: No Hx Family Cancer: No Hx Family GI Disorders: No Hx Family Endocrine Disorder: Yes (DM) Hx Family Neuromuscular Disorders: No Hx Family Neurologic Disorders: No Hx Family HEENT Disorders: No Hx Family Autoimmune Disorders: No Grandmother Adopted: No Race: Family Member Ethnicity: Non- Living Status: Hx Family Cardiac Disorders: Yes (CHF) Hx Family Respiratory Disorders: No Hx Family Cancer: No Hx Family GI Disorders: No Hx Family Endocrine Disorder: No Hx Family Neuromuscular Disorders: No Hx Family Neurologic Disorders: No Hx Family HEENT Disorders: No Hx Family Autoimmune Disorders: No Mother Race: Family Member Ethnicity: Non- Living Status: Still Living Hx Family Cardiac Disorders: No Hx Family Respiratory Disorders: No Hx Family Cancer: No Hx Family GI Disorders: No Hx Family Endocrine Disorder: No Hx Family Neuromuscular Disorders: No Hx Family Neurologic Disorders: No Hx Family HEENT Disorders: No Hx Family Autoimmune Disorders: No Hx Family Medical Disorders: No Medications and Allergies Topiramate [Topamax] 25 mg PO BID 04/05/15 [History] Temazepam [Restoril] 15 mg PO HS #0 06/29/15 [History] Atorvastatin [Lipitor] 40 mg PO QPM 07/13/15 [History] Clopidogrel [Plavix] 75 mg PO QAM 07/13/15 [History] traZODone [TraZODone] 50 mg PO HS PRN 09/27/15 [History] diazePAM [Valium] 5 mg PO QID 04/01/16 [History] Liraglutide [Victoza 2-Bill] 1.2 mg SQ QAM 10/21/16 [History] Metoprolol XL (24 HR) Succ [Toprol Xl] 12.5 mg PO BID 10/21/16 [History] Diltiazem CD (24hr) [Cardizem CD] 180 mg PO DAILY 01/11/17 [History] Aspirin Enteric Coated [Aspirin EC] 81 mg PO DAILY 05/24/17 [History] Diclofenac Sodium [Voltaren] 1 appl TP QID PRN 05/24/17 [History] Lurasidone [Latuda] 40 mg PO QPM 05/24/17 [History] Ondansetron HCl [Zofran] 4 mg PO Q8H PRN 05/24/17 [History] metFORMIN [Glucophage] 1,000 mg PO QAM 05/24/17 [History] metFORMIN [Glucophage] 500 mg PO QPM 05/24/17 [History] Albuterol Sulfate [Albuterol Inhaler] 4 puff IH Q4HR #1 hfa.aer.ad 07/07/17 [Rx] Doxycycline Hyclate [Vibramycin] 100 mg PO BID 07/10/17 [History] FLUoxetine HCl [PROzac] 10 mg PO DAILY 07/10/17 [History] Sertraline [Zoloft] 50 mg PO DAILY 07/10/17 [History] 3 Allergy/AdvReac Type Severity Reaction Status Date / Time naproxen AdvReac Gastrointestinal Verified 06/08/17 20:23 Upset Constitutional: Present: fatigue, fever(s), malaise Eyes: Absent: change in vision Cardiovascular: Absent: chest pain, edema Respiratory: Present: cough, dyspnea, wheezing Gastrointestinal: Absent: abdominal pain, change in bowel habits Genitourinary: Absent: dysuria Musculoskeletal: Present: muscle weakness Integumentary: Absent: rash Neurological: Absent: abnormal gait Hematologic/Lymphatic: Present: lymphadenopathy Additional comments: reports submandibular lymphadenopathy noted with current respiratory infection Oncology - Exam - Constitutional Vitals: Temp Pulse Resp BP Pulse Ox 97.8 F 91 18 102/65 94 07/10/17 15:24 07/10/17 15:24 07/10/17 15:31 07/10/17 15:24 07/10/17 15:31 General appearance: cooperative - Head Head exam: Present: normal inspection - Eye Eye exam: Present: PERRL - ENT ENT exam: Present: mucous membranes moist - Neck Neck exam: Present: tenderness. Absent: lymphadenopathy - Respiratory Respiratory exam: Present: rhonchi, wheezes - Cardiovascular Cardiovascular exam: Present: RRR - GI/Abdominal GI/Abdominal exam: Present: normal bowel sounds, soft. Absent: mass, tenderness - Extremities Exam Extremities exam: Absent: calf tenderness, pedal edema - Neurological Exam Neurological exam: Present: alert, oriented X3, strengths equal and symetr throughout. Absent: speech deficit - Psychiatric Psychiatric exam: Present: normal affect - Skin Skin exam: Present: normal color Consult Discharge Plan - Plan Referrals: Glory Funes CNP [Primary Care Provider] - 07/27/17 8:30 am <David Whaley - Last Filed: 07/11/17 09:56> Date of Encounter: 07/11/17 - Data of Consult Requesting Physician: Briana Mills CNP Primary Care Provider: Glory Funes CNP - Consult Narrative History of present illness: Ms. Mccoy is a 32 year old female Oncology - Exam - Constitutional Vitals: Temp Pulse Resp BP Pulse Ox 98.1 F 71 16 106/72 95 07/11/17 07:06 07/11/17 07:06 07/11/17 07:42 07/11/17 07:06 07/11/17 07:42 Oncology - Results Labs: Short CBC 07/11/17 Range/Units 03:29 WBC 17.6 H (4.3-11.1) K/mcL Hgb 11.8 (11.5-15.4) g/dL Hct 34.6 L (35.3-44.9) % Plt Count 282 (140-400) K/mcL Neutrophils # 11.1 H (1.6-8.9) K/mcL BMP 07/11/17 03:29 Sodium 138 Potassium 3.1 L Chloride 109 H Carbon Dioxide 22 L BUN 8 Creatinine 0.52 L Glucose 169 H Calcium 8.4 L Liver Function 07/11/17 Range/Units 03:29 Total Bilirubin 0.4 (0.3-1.0) mg/dL AST 9 L (13-39) Units/L ALT 16 (7-52) Units/L Alkaline Phosphatase 69 (34-104) Units/L Albumin 3.4 L (3.5-5.7) g/dL - Attending Attestation I examined this patient and my medical decision-making was reviewed with the Advanced Practice Nurse. I agree with the documented findings, disposition and treatment plan as described except to the extent set forth below. I met with Ms. hWitten today. I have reviewed her labs. I agree with Ms. green's assessment. She clinically has a reactive leukocytosis. There are 3 contributing factors: Active infection, tobacco abuse as well as morbid obesity causing inflammation. There are no immature cellular forms I can recognize on her smear. In addition, her counts have an stable for nearly 3 years making underlying bone marrow malignancy highly unlikely. We will continue to follow her during her hospital stay. No further testing is indicated at this juncture.
[2017-07-10] MEDS: Insulin LISPRO 300 UNITS/3 ML VIAL SQ SCH ×2 (17:33→20:51)
[2017-07-10] MEDS: *HR* HYDROcodone/Acet 5/325 mg TABLET PO PRN (19:28)
[2017-07-10] MEDS: Benzonatate 100 MG CAPSULE PO PRN (19:29)
[2017-07-10] MEDS: Piperacillin/Tazobactam 3.375 GM/200 ML BAG IVPB SCH (21:08)
[2017-07-10] MEDS: Topiramate 25 MG TABLET PO SCH (21:08)
[2017-07-10] MEDS: Metoprolol XL (24 HR) Succ 25 MG TAB.ER.24H PO SCH (21:08)
[2017-07-10] MEDS: Temazepam 15 MG CAPSULE PO SCH (21:09)
[2017-07-10] MEDS: *HR* Promethazine 25 MG/ML VIAL IVP PRN (21:13)
[2017-07-11] MEDS: Vancomycin 1,250 MG in D5% in Water 250 ML IVPB SCH ×2 (03:43→17:09)
[2017-07-11] MEDS: Ipratropium/Albuterol Neb 3 ML IH SCH ×7 (04:26→23:33)
[2017-07-11 04:33] LABS: Basophils % 0.2 %; Eosinophils # 0.2 K/mcL (0.0-0.6); Eosinophils % 1.1 %; Hematocrit 34.6 % (35.3-44.9); Hemoglobin 11.8 g/dL (11.5-15.4); Immature Granulocytes % 0.5 % (0-4); Lymphocytes # 5.6 K/mcL (0.6-4.6); Lymphocytes % 31.5 %; Mean Corpuscular HGB Conc 34.1 g/dL (31.6-35.5); Mean Corpuscular Hemoglobin 31.2 pg (28.0-33.3); Mean Corpuscular Volume 91.5 fL (83.0-100.0); Mean Platelet Volume 9.7 fL (9.4-12.4); Monocytes # 0.7 K/mcL (0.0-1.3); Neutrophils # 11.1 K/mcL (1.6-8.9); Platelet Count 282 K/mcL (140-400); Red Blood Count 3.78 M/mcL (3.82-4.97); Red Cell Distribution Width 13.2 % (11.5-14.5); Segmented Neutrophils % 62.7 %
[2017-07-11 04:44] LABS: Hemoglobin A1C 6.3 %
[2017-07-11] MEDS: Piperacillin/Tazobactam 3.375 GM/200 ML BAG IVPB SCH ×3 (05:08→20:23)
[2017-07-11 05:09] LABS: Alanine Aminotransferase 16 Units/L (7-52); Albumin 3.4 g/dL (3.5-5.7); Albumin/Globulin Ratio 1.8 (1.1-2.2); Alkaline Phosphatase 69 Units/L (34-104); Aspartate Amino Transferase 9 Units/L (13-39); BUN/Creatinine Ratio 15 (6-26); Bilirubin,Total 0.4 mg/dL (0.3-1.0); Blood Urea Nitrogen 8 mg/dL (6-20); Calcium 8.4 mg/dL (8.6-10.3); Carbon Dioxide 22 mEq/L (23-29); Chloride 109 mEq/L (98-107); Chol/HDL Ratio 3.2 (0-4.9); Cholesterol 98 mg/dL (< 200); Globulin 1.9 g/dL (2.4-3.5); Glucose 169 mg/dL (70-105); HDL Cholesterol 31 mg/dL (40-59); LDL Cholesterol,Calculated 39 mg/dL (0-99); Magnesium 1.6 mg/dL (1.6-2.6); Osmolality,Calculated 288 (280-300); Potassium 3.1 mEq/L (3.5-5.1); Sodium 138 mEq/L (136-145); Total Protein 5.3 g/dL (6.4-8.9); Triglycerides 140 mg/dL (< 150); eGFR For African Americans > 60 (> 60); eGFR For Non-African Americans > 60 (> 60)
[2017-07-11] MEDS: *HR* Enoxaparin 40 MG/0.4 ML SYRINGE SQ SCH (05:09)
[2017-07-11] MEDS: Pantoprazole 40 MG VIAL IVP SCH (08:30)
[2017-07-11] MEDS: Aspirin Enteric Coated 81 MG Tablet PO SCH (08:31)
[2017-07-11] MEDS: Topiramate 25 MG TABLET PO SCH ×2 (08:31→20:24)
[2017-07-11] MEDS: Metoprolol XL (24 HR) Succ 25 MG TAB.ER.24H PO SCH ×2 (08:31→20:24)
[2017-07-11] MEDS: Diltiazem CD (24hr) 180 MG CAPSULE PO SCH (08:31)
[2017-07-11] MEDS: FLUoxetine HCl 10 MG CAPSULE PO SCH (08:31)
[2017-07-11] MEDS: Nicotine 14 MG PATCH.TD24 TD SCH (08:31)
[2017-07-11] MEDS: Insulin LISPRO 300 UNITS/3 ML VIAL SQ SCH ×4 (08:33→20:23)
[2017-07-11] MEDS: *HR* HYDROcodone/Acet 5/325 mg TABLET PO PRN ×3 (08:33→20:37)
[2017-07-11 10:13] LABS: Adenovirus Not Detected (Not Detect); Bordetella Pertussis Not Detected (Not Detect); Chlamydophila pneumoniae Not Detected (Not Detect); Coronavirus 229E Not Detected (Not Detect); Coronavirus HKU1 Not Detected (Not Detect); Coronavirus NL63 Not Detected (Not Detect); Coronavirus OC43 Not Detected (Not Detect); Human Metapneumovirus Not Detected (Not Detect); Human Rhinovirus/Enterovirus ***DETECTED*** (Not Detect); Influenza A Subtype 2009 H1 Not Detected (Not Detect); Influenza A Untypeable Not Detected (Not Detect); Influenza B Not Detected (Not Detect); Mycoplasma pneumoniae Not Detected (Not Detect); Parainfluenza Virus 1 Not Detected (Not Detect); Parainfluenza Virus 2 Not Detected (Not Detect); Parainfluenza Virus 3 Not Detected (Not Detect); Parainfluenza Virus 4 Not Detected (Not Detect); Respiratory Syncytial Virus Not Detected (Not Detect)
[2017-07-11] MEDS: Levofloxacin 750 MG/150 ML 750 MG/150 ML BAG IVPB SCH (11:18)
[2017-07-11] MEDS: Benzonatate 100 MG CAPSULE PO PRN ×3 (15:06→23:56)
[2017-07-11] MEDS: *HR* Promethazine 25 MG/ML VIAL IVP PRN ×2 (16:05→23:56)
--- NOTE | 2017-07-11 17:40 | Internal Med Progress Note ---
Date of Encounter: 07/11/17 Time of Encounter: 17:31 - Assessment and plan (1) Community acquired bacterial pneumonia Current Visit: Yes Status: Acute Assessment and plan: Was treated with 2 rounds of ATB in steroids outpatient. Presented with persistent weakness, malaise, productive cough and shortness of breath. CXR with increase opacity of left lung base and questionable left pleural effusion. Urinary antigens negative. Respiratory PCR positive for rhinovirus. CBC 17 K however she was on outpatient steroids. Lactic acid peaked at 2.9. Afebrile , no tachycardia. Hemodynamically stable. Continue IV Levaquin, vanco, Zosyn, breathing treatments. Start IV fluids. Monitor repeat lactic acid. Chest CT pending for further characterization of pneumonia and possible pleural effusion. Cont IV ATBs for 48 hours or until blood cultures return negative. De -escalate as cultures finalize and/or clinically improves (2) Leukocytosis Current Visit: Yes Status: Acute Assessment and plan: [place] and 2013. Evaluated by oncology who noted neutrophil predominant leukocytosis that appears to be reactive in nature. Current smoker which could be contributing to neutrophilia. Peripheral smear, ESR, CRP pending. Oncology following. Qualifiers: Leukocytosis type: unspecified Qualified Code(s): D72.829 - Elevated white blood cell count, unspecified (3) CAD (coronary artery disease) Current Visit: Yes Status: Chronic Assessment and plan: Known history of CAD and prior ND. Asymptomatic, denies chest pain. Continue home ASA Plavix BB, statin. Qualifiers: Coronary Disease-Associated Artery/Lesion type: [place] artery [place] vs. transplanted heart: [place] heart Associated angina: without angina Qualified Code(s): I25.10 - Atherosclerotic heart disease of [place] coronary artery without angina pectoris (4) Hypokalemia Current Visit: Yes Status: Acute Assessment and plan: K 3.1; replaced. Monitor repeat K and Mg level. (5) DVT prophylaxis Current Visit: Yes Status: Acute Assessment and plan: lovenox - Subjective Interval history: Seen and examined at bedside. Patient is known from previous admission. She tells me she was treated with 2 rounds of outpatient antibiotic and steroids for upper respiratory infection. Continue to have weakness malaise and shortness of breath so she came to the emergency room. No chest pain, has some shortness of breath and productive cough. Feels as if she is wheezing. - Constitutional Vitals: Temp Pulse Resp BP Pulse Ox 97.8 F 84 16 108/73 94 07/11/17 15:04 07/11/17 15:04 07/11/17 15:04 07/11/17 15:04 07/11/17 15:04 General appearance: Present: cooperative, A&O X 3, pleasant, obese, answers questions appropriately - Head Head exam: Present: atraumatic, normocephalic - Eye Eye exam: Present: PERRL, conjuntiva pink, sclera anicteric Pupils: Present: PERRL - Neck Neck exam general surgery: Present: supple, trachea midline. Absent: lymphadenopathy - Respiratory Respiratory exam: Present: rhonchi, wheezes. Absent: accessory muscle use, rales - Cardiovascular Cardiovascular exam: Present: RRR, +S1, +S2. Absent: diastolic murmur, gallop, rubs, systolic murmur - GI/Abdominal GI/Abdominal exam: Present: normal bowel sounds, soft, no peritoneal signs. Absent: distended, tenderness - Extremities Exam Extremities exam: Present: warm, radial pulses palpable and symmetrical. Absent : calf tenderness, cyanotic, pedal edema - Neurological Exam Neurological exam: Present: CN II-XII intact, oriented X3, no focal deficits. Absent: pronater drift, facial droop, speech deficit - Skin Skin exam: Present: dry, intact Internal Medicine: Result - Labs CBC & Chem 7: 07/11/17 03:29 07/11/17 03:29 Labs: Short CBC 07/11/17 Range/Units 03:29 WBC 17.6 H (4.3-11.1) K/mcL Hgb 11.8 (11.5-15.4) g/dL Hct 34.6 L (35.3-44.9) % Plt Count 282 (140-400) K/mcL Neutrophils # 11.1 H (1.6-8.9) K/mcL BMP 07/11/17 03:29 Sodium 138 Potassium 3.1 L Chloride 109 H Carbon Dioxide 22 L BUN 8 Creatinine 0.52 L Glucose 169 H Calcium 8.4 L Liver Function 07/11/17 Range/Units 03:29 Total Bilirubin 0.4 (0.3-1.0) mg/dL AST 9 L (13-39) Units/L ALT 16 (7-52) Units/L Alkaline Phosphatase 69 (34-104) Units/L Albumin 3.4 L (3.5-5.7) g/dL Consult Discharge Plan - Plan Referrals: Glory Funes CNP [Primary Care Provider] - 07/27/17 8:30 am
--- NOTE | 2017-07-11 18:36 | Electrocardiograph Report ---
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
[2017-07-11] MEDS: 0.9 % Sodium Chloride 1,000 ML IVC SCH (18:41)
[2017-07-11] MEDS: Temazepam 15 MG CAPSULE PO SCH (20:24)
--- NOTE | 2017-07-11 21:18 | Oncology Inp Progress Note ---
Date of Encounter: 07/12/17 Time of Encounter: 12:30 (1) Leukocytosis Current Visit: Yes Status: Acute Assessment and plan: Neutrophil predominant leukocytosis, mildly elevated but chronic in nature dating back to lab work which begins in 2013. No anemia or basophilia. Appears to be reactive in nature at this time. Contributing factors can include active infection, tobacco abuse and morbid obesity causing inflammatory response. ESR and CRP normal. Peripheral smear essentially confirms reactive process with no immature cellular forms. In addition, her counts have an stable for nearly 3 years making underlying bone marrow malignancy highly unlikely. WBC counts slightly increased since admission which could be secondary to current infectious process. Oncology will plan to follow up with patient as outpatient to continue to monitor WBC trends once infectious process resolved. I explained the above laboratory findings with Ms. Mccoy along with our plan to continue to monitor laboratory trend, no further testing needed at this time, patient understands and agrees with plan. She will be given a follow up appointment date/time with Dr. Whaley along with order for repeat CBC as outpatient. Oncology will sign off at this time, will be happy to see patient with any changes or further questions if needed during hospital stay. Qualifiers: Leukocytosis type: unspecified Qualified Code(s): D72.829 - Elevated white blood cell count, unspecified Oncology: Subj Interval history: Reports breathing symptoms are beginning to slightly improve although SOB, wheezing and cough persists. Denies pain at this time. Appetite and energy improving. Afebrile, non toxic. - Constitutional Vitals: Vital Signs Temp Pulse Resp BP Pulse Ox 07/11/17 20:21 14 94 07/11/17 15:04 97.8 F 84 16 108/73 94 07/11/17 11:15 16 95 07/11/17 10:48 98.5 F 75 16 97/62 92 07/11/17 07:42 16 95 07/11/17 07:06 98.1 F 71 16 106/72 94 07/11/17 04:27 16 96 07/11/17 03:07 98.0 F 73 15 105/68 94 07/10/17 23:59 15 95 07/10/17 22:45 98.5 F 82 16 107/72 92 Intake and Output 07/11/17 07/11/17 07/11/17 07:59 15:59 23:59 Intake Total 450 / 450 1010 / 1010 200 / 200 Output Total 500 / 500 Balance 450 / 450 510 / 510 200 / 200 Intake: IV Fluids 450 / 450 200 / 200 200 / 200 Zosyn Premix 3.375 GM/200 ML 3. 200 / 200 200 / 200 200 / 200 375 gm In 200 ml @ 50 mls/hr IVPB Q8H [facility] Rx#:[id number] Vancocin 1,250 MG In Dextrose 5 250 / 250 % 250 ML @ 166.67 mls/hr IVPB Q12H [facility] Rx#:[id number] Oral 810 / 810 Output: Urine 500 / 500 Other: Meal Lunch Percent of Meal Consumed 100% Weight 91.626 kg Blood Glucose* 142 185 238 Patient Weight 07/11/17 23:59 Weight 91.626 kg General appearance: cooperative, no acute distress - Head Head exam: Present: normal inspection - Eye Eye exam: Present: PERRL - ENT ENT exam: Present: mucous membranes moist - Neck Neck exam: Absent: lymphadenopathy - Respiratory Respiratory exam: Present: rhonchi, wheezes. Absent: respiratory distress, tachypnea - Cardiovascular Cardiovascular exam: Present: RRR - GI/Abdominal GI/Abdominal exam: Present: normal bowel sounds, soft. Absent: tenderness - Extremities Exam Extremities exam: Absent: pedal edema, tenderness - Neurological Exam Neurological exam: Present: alert, oriented X3, strengths equal and symetr throughout - Psychiatric Psychiatric exam: Present: flat affect - Skin Skin exam: Present: normal color Oncology: Obj Data - Labs CBC & Chem 7: 07/12/17 03:52 07/12/17 03:52 Consult Discharge Plan - Plan Referrals: Glory Funes CNP [Primary Care Provider] - 07/27/17 8:30 am
[2017-07-12 04:00] LABS: Basophils # 0.1 K/mcL (0.0-0.2); Basophils % 0.4 %; Eosinophils # 0.6 K/mcL (0.0-0.6); Eosinophils % 3.4 %; Hematocrit 33.3 % (35.3-44.9); Hemoglobin 11.3 g/dL (11.5-15.4); Immature Granulocytes % 0.5 % (0-4); Immature Platelets 2.1 % (1.1-6.1); Lymphocytes # 5.3 K/mcL (0.6-4.6); Lymphocytes % 31.3 %; Mean Corpuscular HGB Conc 33.9 g/dL (31.6-35.5); Mean Corpuscular Hemoglobin 31.1 pg (28.0-33.3); Mean Corpuscular Volume 91.7 fL (83.0-100.0); Mean Platelet Volume 9.3 fL (9.4-12.4); Monocytes # 0.7 K/mcL (0.0-1.3); Neutrophils # 10.2 K/mcL (1.6-8.9); Platelet Count 296 K/mcL (140-400); Red Blood Count 3.63 M/mcL (3.82-4.97); Red Cell Distribution Width 13.3 % (11.5-14.5); Segmented Neutrophils % 60.4 %
[2017-07-12 04:23] LABS: Alanine Aminotransferase 17 Units/L (7-52); Albumin 3.1 g/dL (3.5-5.7); Albumin/Globulin Ratio 1.7 (1.1-2.2); Alkaline Phosphatase 63 Units/L (34-104); Aspartate Amino Transferase 9 Units/L (13-39); BUN/Creatinine Ratio 14 (6-26); Bilirubin,Total 0.3 mg/dL (0.3-1.0); Blood Urea Nitrogen 8 mg/dL (6-20); Calcium 8.1 mg/dL (8.6-10.3); Carbon Dioxide 22 mEq/L (23-29); Chloride 112 mEq/L (98-107); Globulin 1.8 g/dL (2.4-3.5); Glucose 131 mg/dL (70-105); Osmolality,Calculated 296 (280-300); Potassium 3.3 mEq/L (3.5-5.1); Sodium 143 mEq/L (136-145); Total Protein 4.9 g/dL (6.4-8.9); eGFR For African Americans > 60 (> 60); eGFR For Non-African Americans > 60 (> 60)
[2017-07-12] MEDS: Ipratropium/Albuterol Neb 3 ML IH SCH ×6 (04:36→23:04)
[2017-07-12] MEDS: 0.9 % Sodium Chloride 1,000 ML IVC SCH (05:17)
[2017-07-12] MEDS: Vancomycin 1,250 MG in D5% in Water 250 ML IVPB SCH ×2 (05:17→15:50)
[2017-07-12] MEDS: Piperacillin/Tazobactam 3.375 GM/200 ML BAG IVPB SCH ×2 (05:18→12:26)
[2017-07-12] MEDS: *HR* Enoxaparin 40 MG/0.4 ML SYRINGE SQ SCH (05:18)
[2017-07-12] MEDS: *HR* HYDROcodone/Acet 5/325 mg TABLET PO PRN ×3 (05:26→17:31)
[2017-07-12] MEDS: *HR* Promethazine 25 MG/ML VIAL IVP PRN ×3 (05:27→20:29)
[2017-07-12] MEDS: Insulin LISPRO 300 UNITS/3 ML VIAL SQ SCH ×4 (08:26→20:29)
[2017-07-12] MEDS: FLUoxetine HCl 10 MG CAPSULE PO SCH (08:31)
[2017-07-12] MEDS: Metoprolol XL (24 HR) Succ 25 MG TAB.ER.24H PO SCH ×2 (08:32→20:29)
[2017-07-12] MEDS: Diltiazem CD (24hr) 180 MG CAPSULE PO SCH (08:32)
[2017-07-12] MEDS: Aspirin Enteric Coated 81 MG Tablet PO SCH (08:32)
[2017-07-12] MEDS: Topiramate 25 MG TABLET PO SCH ×2 (08:32→20:29)
[2017-07-12] MEDS: Nicotine 14 MG PATCH.TD24 TD SCH (08:32)
[2017-07-12] MEDS: Pantoprazole 40 MG VIAL IVP SCH (08:32)
[2017-07-12] MEDS: Levofloxacin 750 MG/150 ML 750 MG/150 ML BAG IVPB SCH (10:16)
[2017-07-12] MEDS ORDERED: Aminoglycoside Consult 1 EACH MC ONE (11:06)
[2017-07-12] MEDS ORDERED: Vancomycin 1,250 MG in D5% in Water 250 ML IVPB SCH (16:00)
--- NOTE | 2017-07-12 16:21 | Internal Med Progress Note ---
Date of Encounter: 07/12/17 Time of Encounter: 15:20 - Assessment and plan (1) Acute respiratory distress Current Visit: Yes Status: Acute Assessment and plan: Likely secondary to atypical viral PNA Serologies positive for Enter/Rhino virus Clinically improving Given smoking history and signs of inflammation on CT chest, will add Prednisone 40mg PO qd de-escalate to Doxycycline 100mg IV q12 and d/c broad spectrum abx O2 supplementation as needed preliminary blood cultures report No growth will continue to closely monitor (2) Viral pneumonia Current Visit: No Status: Acute Assessment and plan: as listed above (3) Hypokalemia Current Visit: Yes Status: Acute Assessment and plan: K supplemented continue to monitor electrolytes and replace as needed (4) Tobacco use Current Visit: No Status: Chronic Assessment and plan: extensive smoking cessation counseling provided nicotine supplementation provided (5) Hypertension Current Visit: No Status: Chronic Assessment and plan: BP within acceptable range continue home meds Qualifiers: Hypertension type: essential hypertension Qualified Code(s): I10 - Essential (primary) hypertension (6) Diabetes mellitus Current Visit: No Status: Chronic Assessment and plan: BG within acceptable range continue sliding scale insulin algorithm monitor FS and BG ADA diet Qualifiers: Diabetes mellitus type: type 2 Diabetes mellitus complication status: with circulatory complication Diabetes mellitus complication detail: with other circulatory complications Diabetes mellitus terminal press operator insulin use: without terminal press operator use Qualified Code(s): E11.59 - Type 2 diabetes mellitus with other circulatory complications (7) Obesity (BMI 30-39.9) Current Visit: Yes Status: Chronic (8) DVT prophylaxis Current Visit: Yes Status: Acute Assessment and plan: Lovenox SQ - Subjective Interval history: Patient seen and examined at bedside. Resting in bed and reports of feeling better compared to previous day. CT chest reviewed, serologies positive for entero/rhino virus and CT findings consistent with atypical viral pneumonia Pt also reports of smoking 1/2-1ppd for the last 18 years, given concern for inflammation on CT findings which is likely contributing to patient's respiratory distress, will start her on Prednisone 40mg PO qd. - Constitutional Vitals: Temp Pulse Resp BP Pulse Ox 98.3 F 75 19 114/78 94 07/12/17 15:05 07/12/17 15:05 07/12/17 15:05 07/12/17 15:05 07/12/17 15:05 General appearance: Present: cooperative, A&O X 3, pleasant, no acute distress, obese, answers questions appropriately - Head Head exam: Present: atraumatic, normocephalic - Eye Eye exam: Present: conjuntiva pink, sclera anicteric - Respiratory Respiratory exam: Absent: respiratory distress, wheezes (coarse breath sounds in b/l upper lobes, equal air entry bilaterally ) - Cardiovascular Cardiovascular exam: Present: RRR, +S1, +S2. Absent: diastolic murmur, gallop, rubs, systolic murmur - GI/Abdominal GI/Abdominal exam: Present: normal bowel sounds, soft, no peritoneal signs. Absent: distended, tenderness - Extremities Exam Extremities exam: Present: warm, radial pulses palpable and symmetrical. Absent : calf tenderness, pedal edema, tenderness - Neurological Exam Neurological exam: Present: alert, oriented X3 - Psychiatric Psychiatric exam: Present: normal affect, normal mood Internal Medicine: Result - Labs CBC & Chem 7: 07/12/17 03:52 07/12/17 03:52 Labs: Short CBC 07/12/17 Range/Units 03:52 WBC 16.9 H (4.3-11.1) K/mcL Hgb 11.3 L (11.5-15.4) g/dL Hct 33.3 L (35.3-44.9) % Plt Count 296 (140-400) K/mcL Neutrophils # 10.2 H (1.6-8.9) K/mcL BMP 07/12/17 03:52 Sodium 143 Potassium 3.3 L Chloride 112 H Carbon Dioxide 22 L BUN 8 Creatinine 0.57 L Glucose 131 H Calcium 8.1 L Liver Function 07/12/17 Range/Units 03:52 Total Bilirubin 0.3 (0.3-1.0) mg/dL AST 9 L (13-39) Units/L ALT 17 (7-52) Units/L Alkaline Phosphatase 63 (34-104) Units/L Albumin 3.1 L (3.5-5.7) g/dL - Impressions Impressions Chest CT 07/11/17 17:49 IMPRESSION: 1. Left lower lobe mucus plugging with dense airspace consolidation within the left lower lobe. This most likely represents either pneumonia or aspiration. Clinical correlation is advised. 2. Scattered nonspecific ground-glass and nodular opacities throughout both lungs, with a left upper lobe predominance, the largest measuring 7 mm within the left upper lobe. While these likely reflect the continuum of multifocal pneumonia, or possibly infectious or inflammatory bronchiolitis, intrapulmonary malignancy is not entirely excluded. Therefore, suggest appropriate clinical treatment, and short-term chest CT follow-up in 6-8 weeks, to ensure resolution of these nodular and ground-glass opacities. 3. Mild left hilar lymphadenopathy, new from prior exam, most likely benign and reactive in etiology given the patient's left lower lobe airspace disease. However, this should also be followed to ensure stability or resolution. 4. Left adrenal adenoma. D/ / 07/11/2017 22:06:52 Tenzin Hanson MD / Jenn Rosales Interpreting Provider: Tenzin Hanson MD Consult Discharge Plan - Plan Referrals: Glory Funes CNP [Primary Care Provider] - 07/27/17 8:30 am
--- NOTE | 2017-07-12 17:06 | Oncology Inp Progress Note ---
Date of Encounter: 07/12/17 Time of Encounter: 14:00 (1) Leukocytosis Current Visit: Yes Status: Acute Assessment and plan: Neutrophil predominant leukocytosis, mildly elevated but chronic in nature dating back to lab work which begins in 2013. No anemia or basophilia. Appears to be reactive in nature at this time. Contributing factors can include active infection, tobacco abuse and morbid obesity causing inflammatory response. ESR and CRP normal. Peripheral smear essentially confirms reactive process with no immature cellular forms. In addition, her counts have an stable for nearly 3 years making underlying bone marrow malignancy highly unlikely. WBC counts slightly increased since admission which could be secondary to current infectious process. Oncology will plan to follow up with patient as outpatient to continue to monitor WBC trends once infectious process resolved. I discussed the blood smear results with the patient today and reiterated summary of lab results which at this time are not concerning for bone marrow malignancy, however, continued monitoring is needed. CT chest reveals Scattered nonspecific ground-glass and nodular opacities throughout both lungs and mild left hilar lymphadenopathy, Dr. Whaley would recommend repeat CT imaging in 2-3 months time, likely representing infectious/ inflammatory process but will need continued monitored for stability and resolution. She was given a follow up appointment date/time with Dr. Whaley along with order for repeat CBC as outpatient. Oncology will sign off at this time, will be happy to see patient with any changes or further questions if needed during hospital stay. Qualifiers: Leukocytosis type: unspecified Qualified Code(s): D72.829 - Elevated white blood cell count, unspecified Oncology: Subj Interval history: Patient reports that she continue to slowly regain strength. Appetite improving. Respiratory status remains the same, reports no improvement in SOB or cough at this time. Denies pain. - Constitutional Vitals: Vital Signs Temp Pulse Resp BP Pulse Ox 07/12/17 16:19 19 94 07/12/17 15:05 98.3 F 75 19 114/78 94 07/12/17 12:00 17 95 07/12/17 11:02 97.4 F L 75 17 106/73 95 07/12/17 10:11 93 07/12/17 07:42 97.8 F 77 18 114/72 93 07/12/17 04:36 14 95 07/12/17 03:19 98.2 F 68 14 120/74 94 07/11/17 23:31 14 94 07/11/17 23:02 97.9 F 76 16 108/76 94 07/11/17 20:21 14 94 Intake and Output 07/12/17 07/12/17 07/12/17 07:59 15:59 23:59 Intake Total 1200 / 1200 1550 / 1550 1000 / 1000 Balance 1200 / 1200 1550 / 1550 1000 / 1000 Intake: IV Fluids 1200 / 1200 950 / 950 1000 / 1000 0.9 % Sodium Chloride 1,000 ML 1000 / 1000 1000 / 1000 @ 100 mls/hr IVC .Q10H [facility] Rx#: [id number] Levaquin Premix 750mg/150 mL 300 / 300 750 mg In 150 ml @ 100 mls/hr IVPB Q24H [facility] Rx#:[id number] Zosyn Premix 3.375 GM/200 ML 3. 200 / 200 400 / 400 375 gm In 200 ml @ 50 mls/hr IVPB Q8H [facility] Rx#:[id number] Vancocin 1,250 MG In Dextrose 5 250 / 250 % 250 ML @ 166.67 mls/hr IVPB Q12H [facility] Rx#:[id number] Oral 600 / 600 Other: Meal Lunch Percent of Meal Consumed 100% # Voids 2 Weight 92.6 kg Blood Glucose* 139 178 Patient Weight 07/12/17 23:59 Weight 92.6 kg General appearance: cooperative, no acute distress, obese, no febrile - Head Head exam: Present: normal inspection - Respiratory Respiratory exam: Present: rhonchi, wheezes - Cardiovascular Cardiovascular exam: Present: RRR - Skin Skin exam: Present: normal color Oncology: Obj Data - Labs CBC & Chem 7: 07/13/17 04:17 07/13/17 04:17 Labs: - Impressions CT/CT chest wo con IMPRESSION: 1. Left lower lobe mucus plugging with dense airspace consolidation within the left lower lobe. This most likely represents either pneumonia or aspiration. Clinical correlation is advised. 2. Scattered nonspecific ground-glass and nodular opacities throughout both lungs, with a left upper lobe predominance, the largest measuring 7 mm within the left upper lobe. While these likely reflect the continuum of multifocal pneumonia, or possibly infectious or inflammatory bronchiolitis, intrapulmonary malignancy is not entirely excluded. Therefore, suggest appropriate clinical treatment, and short-term chest CT follow-up in 6-8 weeks, to ensure resolution of these nodular and ground-glass opacities. 3. Mild left hilar lymphadenopathy, new from prior exam, most likely benign and reactive in etiology given the patient's left lower lobe airspace disease. However, this should also be followed to ensure stability or resolution. 4. Left adrenal adenoma. D/ / 07/11/2017 22:06:52 Tenzin Hanson MD / Jenn Rosales Consult Discharge Plan - Plan Referrals: Glory Funes, ROBERT [Primary Care Provider] - 07/27/17 8:30 am
[2017-07-12] MEDS: predniSONE 20 MG TABLET PO SCH (17:23)
[2017-07-12] MEDS ORDERED: Doxycycline 100 MG in 0.9 % Sodium Chloride Mini Bag 100 ML IVPB SCH (18:00)
[2017-07-12] MEDS: Temazepam 15 MG CAPSULE PO SCH (20:29)
[2017-07-13] MEDS: Ipratropium/Albuterol Neb 3 ML IH SCH ×3 (03:29→11:21)
[2017-07-13] MEDS: *HR* HYDROcodone/Acet 5/325 mg TABLET PO PRN (04:42)
[2017-07-13 05:38] LABS: Alanine Aminotransferase 25 Units/L (7-52); Albumin 3.8 g/dL (3.5-5.7); Albumin/Globulin Ratio 1.9 (1.1-2.2); Alkaline Phosphatase 74 Units/L (34-104); Aspartate Amino Transferase 12 Units/L (13-39); BUN/Creatinine Ratio 17 (6-26); Bilirubin,Total 0.5 mg/dL (0.3-1.0); Blood Urea Nitrogen 10 mg/dL (6-20); Calcium 9.2 mg/dL (8.6-10.3); Carbon Dioxide 21 mEq/L (23-29); Chloride 107 mEq/L (98-107); Glucose 229 mg/dL (70-105); Magnesium 1.9 mg/dL (1.6-2.6); Osmolality,Calculated 284 (280-300); Phosphorous 3.3 mg/dL (2.7-4.5); Potassium 4.2 mEq/L (3.5-5.1); Sodium 134 mEq/L (136-145); Total Protein 5.8 g/dL (6.4-8.9); eGFR For African Americans > 60 (> 60); eGFR For Non-African Americans > 60 (> 60)
[2017-07-13] MEDS: *HR* Enoxaparin 40 MG/0.4 ML SYRINGE SQ SCH (05:57)
[2017-07-13] MEDS ORDERED: Doxycycline 100 MG in 0.9 % Sodium Chloride Mini Bag 100 ML IVPB SCH (06:00)
[2017-07-13 06:02] LABS: Basophils % 0.2 %; Eosinophils # 0.1 K/mcL (0.0-0.6); Eosinophils % 0.4 %; Hematocrit 37.9 % (35.3-44.9); Hemoglobin 12.8 g/dL (11.5-15.4); Immature Granulocytes % 0.8 % (0-4); Lymphocytes # 1.6 K/mcL (0.6-4.6); Lymphocytes % 9.5 %; Mean Corpuscular HGB Conc 33.8 g/dL (31.6-35.5); Mean Corpuscular Hemoglobin 31.1 pg (28.0-33.3); Mean Platelet Volume 9.9 fL (9.4-12.4); Monocytes # 0.5 K/mcL (0.0-1.3); Monocytes % 2.9 %; Neutrophils # 14.6 K/mcL (1.6-8.9); Platelet Count 368 K/mcL (140-400); Red Blood Count 4.12 M/mcL (3.82-4.97); Red Cell Distribution Width 12.9 % (11.5-14.5); Segmented Neutrophils % 86.2 %
[2017-07-13 07:19] VITALS: BP 122/82
[2017-07-13] MEDS: Nicotine 14 MG PATCH.TD24 TD SCH (08:41)
[2017-07-13] MEDS: Metoprolol XL (24 HR) Succ 25 MG TAB.ER.24H PO SCH (08:42)
[2017-07-13] MEDS: FLUoxetine HCl 10 MG CAPSULE PO SCH (08:43)
[2017-07-13] MEDS: Topiramate 25 MG TABLET PO SCH (08:43)
[2017-07-13] MEDS: Insulin LISPRO 300 UNITS/3 ML VIAL SQ SCH (08:43)
[2017-07-13] MEDS: Pantoprazole 40 MG VIAL IVP SCH (08:43)
[2017-07-13] MEDS: Diltiazem CD (24hr) 180 MG CAPSULE PO SCH (08:43)
[2017-07-13] MEDS: predniSONE 20 MG TABLET PO SCH (08:43)
[2017-07-13] MEDS: Aspirin Enteric Coated 81 MG Tablet PO SCH (08:43)
[2017-07-13] MEDS: *HR* Promethazine 25 MG/ML VIAL IVP PRN (08:46)
--- NOTE | 2017-07-13 09:24 | Discharge Summary ---
Date of Encounter: 07/13/17 Time of Encounter: 08:15 - Discharge Diagnosis (1) Acute respiratory distress Priority: Primary Status: Acute (2) Viral pneumonia Priority: Primary Status: Acute (3) Hypokalemia Priority: Secondary Status: Resolved (4) Tobacco use Priority: Secondary Status: Chronic (5) Hypertension Priority: Secondary Status: Chronic Qualifiers: Hypertension type: essential hypertension Qualified Code(s): I10 - Essential (primary) hypertension (6) Diabetes mellitus Priority: Secondary Status: Chronic Qualifiers: Diabetes mellitus type: type 2 Diabetes mellitus complication status: with circulatory complication Diabetes mellitus complication detail: with other circulatory complications Diabetes mellitus termite treater insulin use: without termite treater use Qualified Code(s): E11.59 - Type 2 diabetes mellitus with other circulatory complications (7) Obesity (BMI 30-39.9) Priority: Secondary Status: Chronic (8) DVT prophylaxis Priority: Secondary Status: Acute - Discharge Medications Prescriptions: Doxycycline Hyclate [Vibramycin] 100 mg PO BID #7 capsule predniSONE [PredniSONE] 40 mg PO DAILY #3 tablet Home Medications: Topiramate [Topamax] 25 mg PO BID 04/05/15 [History] Temazepam [Restoril] 15 mg PO HS #0 06/29/15 [History] Atorvastatin [Lipitor] 40 mg PO QPM 07/13/15 [History] Clopidogrel [Plavix] 75 mg PO QAM 07/13/15 [History] traZODone [TraZODone] 50 mg PO HS PRN 09/27/15 [History] diazePAM [Valium] 5 mg PO QID 04/01/16 [History] Liraglutide [Victoza 2-Bill] 1.2 mg SQ QAM 10/21/16 [History] Metoprolol XL (24 HR) Succ [Toprol Xl] 12.5 mg PO BID 10/21/16 [History] Diltiazem CD (24hr) [Cardizem CD] 180 mg PO DAILY 01/11/17 [History] Aspirin Enteric Coated [Aspirin EC] 81 mg PO DAILY 05/24/17 [History] Diclofenac Sodium [Voltaren] 1 appl TP QID PRN 05/24/17 [History] Lurasidone [Latuda] 40 mg PO QPM 05/24/17 [History] Ondansetron HCl [Zofran] 4 mg PO Q8H PRN 05/24/17 [History] metFORMIN [Glucophage] 1,000 mg PO QAM 05/24/17 [History] metFORMIN [Glucophage] 500 mg PO QPM 05/24/17 [History] Albuterol Sulfate [Albuterol Inhaler] 4 puff IH Q4HR #1 hfa.aer.ad 07/07/17 [Rx] FLUoxetine HCl [Prozac] 10 mg PO DAILY 07/10/17 [History] Sertraline [Zoloft] 50 mg PO DAILY 07/10/17 [History] Doxycycline Hyclate [Vibramycin] 100 mg PO BID #7 capsule 07/13/17 [Rx] predniSONE [PredniSONE] 40 mg PO DAILY #3 tablet 07/13/17 [Rx] Allergies/Adverse Reactions: 3 Allergy/AdvReac Type Severity Reaction Status Date / Time naproxen AdvReac Gastrointestinal Verified 06/08/17 20:23 Upset Procedures/tests Complete & Pending: Procedures Performed prior 72 hours Category Date Time Status CT chest wo con [CT] Routine Cat Scan 07/11/17 17:49 Completed Date of admission: 07/10/17 13:40 Primary care physician: Glory Funes CNP Consults: 07/10/17 14:09 Consult to Oncology Hematology [CONS] Routine Consulting Provider: Taty Green Reason for Consult: Patient presents with dx of pneumonia on 07/07 in ED and was discharged on PO azithromycin. Pt. reports feeling much worse. Treating w/IV Vancomycin and Zosyn. Pt. has chronically elevated WBC for the past year and denies being on long-term steroids. Leukocytosis as far back as 2013 with predominance in 2017. Call Completed: Yes Discharging clinician: Gloria Valles Anticipated date of discharge: 07/13/17 - Patient Status Disposition: Home, Self-Care Condition: Good Functional capacity at discharge: independent ambulation Overall status at discharge: patient is back to baseline - Ambulatory Orders Ambulatory Orders: Complete Blood Count [HEME] Time Frame: 3 Weeks, Facility: [facility], Location: Lab - Discharge Instructions Follow Up With: Glory Funes CNP [Primary Care Provider] - 07/27/17 8:30 am Additional Instructions: Please follow up with your primary care physician within five days after your discharge from the hospital. Please follow up with oncology within one to two weeks after your discharge from the hospital. Please obtain the prescribed lab work prior to your appointment. Please continue oral antibiotics and steroids as prescribed. Resume all other home medications as prescribed by your primary care physician. Smoking cessation is recommended - Diet and Activity Activity: increase activity as tolerated Diet: diabetic diet, low fat, low cholesterol, low salt diet Hospital course: Ms. Mccoy is a 32 year old female with PMH Of CAD, CHF, DM, HTN, HLD, obesity, and tobacco abuse who was admitted for acute respiratory distress secondary to PNA. She was started on broad spectrum IV abx as she had failed outpatient therapy. She was also noted to have persistent leukocytosis due to which oncology was consulted. Pt responded appropriately to abx therapy and serologies came positive for Rhino/Entero virus. Pt's abx were de-escalated and given history of tobacco abuse and inflammation on CT chest, Prednisone was added to her therapy. She responded appropriately to therapy and is currently saturating well on room air and reports of feeling significantly better since her hospitalization. As per oncology, no acute intervention is recommended and outpatient follow up is recommended. Pt is stable for discharge with a follow up with PCP and oncology. - Time Spent with Patient Total time spent providing and/or coordinating discharge services: Less than 30 minutes - Constitutional Vitals: Temp Pulse Resp BP Pulse Ox 98.7 F 62 20 122/82 94 07/13/17 07:15 07/13/17 07:15 07/13/17 07:49 07/13/17 07:15 07/13/17 07:49 General appearance: Present: cooperative, A&O X 3, pleasant, no acute distress, obese, answers questions appropriately - Head Head exam: Present: atraumatic, normocephalic - Eye Eye exam: Present: conjuntiva pink, sclera anicteric - Respiratory Respiratory exam: Present: CTAB. Absent: accessory muscle use, rales, rhonchi, wheezes - Cardiovascular Cardiovascular exam: Present: RRR, +S1, +S2. Absent: diastolic murmur, gallop, rubs, systolic murmur - GI/Abdominal GI/Abdominal exam: Present: normal bowel sounds, soft, no peritoneal signs. Absent: distended, tenderness - Extremities Exam Extremities exam: Present: warm, radial pulses palpable and symmetrical. Absent : calf tenderness, cyanotic, pedal edema - Neurological Exam Neurological exam: Present: alert, oriented X3
== END 2017-07-13 11:07 | disposition home or self-care (01) | DRG 139 ==
LOC: 3BNU 10:15 → EMEROO 10:15 → 3BNU 13:05 → SUATTDRO 13:40
PROVIDERS: ADMIT Internal Medicine; ATTEND Internal Medicine

== ENCOUNTER 2017-09-10 16:43 | Observation (INO) ==
--- NOTE | 2017-09-10 16:51 | Emergency Department Note ---
Disposition Clinical Impression: Chest pain Disposition: Admitted As Inpatient Condition: Good Referrals: Glory Funes POUND KEEPER [Primary Care Provider] - Forms: ED Satisfaction Letter General Adult HPI - General Chief complaint: ED Chest Pain Stated complaint: CP Time Seen by Provider: 09/10/17 16:49 - Related Data Home Medications Medication Instructions Recorded Confirmed Topiramate [Topamax] 25 mg PO BID 04/05/15 07/10/17 Temazepam [Restoril] 15 mg PO HS #0 06/29/15 07/10/17 Atorvastatin [Lipitor] 40 mg PO QPM 07/13/15 07/10/17 Clopidogrel [Plavix] 75 mg PO QAM 07/13/15 07/10/17 traZODone [TraZODone] 50 mg PO HS PRN 09/27/15 07/10/17 diazePAM [Valium] 5 mg PO QID 04/01/16 07/10/17 Liraglutide [Victoza 2-Bill] 1.2 mg SQ QAM 10/21/16 07/10/17 Metoprolol XL (24 HR) Succ [Toprol 12.5 mg PO BID 10/21/16 07/10/17 Xl] Diltiazem CD (24hr) [Cardizem CD] 180 mg PO DAILY 01/11/17 07/10/17 Aspirin Enteric Coated [Aspirin EC] 81 mg PO DAILY 05/24/17 07/10/17 Diclofenac Sodium [Voltaren] 1 appl TP QID PRN 05/24/17 07/10/17 Lurasidone [Latuda] 40 mg PO QPM 05/24/17 07/10/17 Ondansetron HCl [Zofran] 4 mg PO Q8H PRN 05/24/17 07/10/17 metFORMIN [Glucophage] 1,000 mg PO QAM 05/24/17 07/10/17 metFORMIN [Glucophage] 500 mg PO QPM 05/24/17 07/10/17 FLUoxetine HCl [Prozac] 10 mg PO DAILY 07/10/17 07/10/17 Sertraline [Zoloft] 50 mg PO DAILY 07/10/17 07/10/17 Previous Rx's Medication Instructions Recorded Albuterol Sulfate [Albuterol 4 puff IH Q4HR #1 hfa.aer.ad 07/07/17 Inhaler] Doxycycline Hyclate [Vibramycin] 100 mg PO BID #7 capsule 07/13/17 predniSONE [PredniSONE] 40 mg PO DAILY #3 tablet 07/13/17 levoFLOXacin [Levaquin] 500 mg PO DAILY #10 tablet 07/22/17 Allergies Allergy/AdvReac Type Severity Reaction Status Date / Time naproxen AdvReac Gastrointestinal Verified 06/08/17 20:23 Upset Past Medical History - Past Medical History Medical history: Reports: CHF, coronary artery disease, diabetes, GERD, hyperlipidemia, hypertension, kidney stones, migraine, myocardial infarction Surgical history: Reports: angioplasty/stent Psychiatric history: Reports: anxiety, bipolar, depression 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 - Social History Smoking Status: Current every day smoker Smokeless Tobacco Status: No Alcohol use: Reports: none Drug use: Reports: none Course Vital Signs Temperature 97.4 F L 09/10/17 16:49 Pulse Rate 99 09/10/17 16:49 Respiratory Rate 22 09/10/17 16:49 Blood Pressure 123/58 09/10/17 16:49 O2 Sat by Pulse Oximetry 95 09/10/17 16:49 Temperature 97.4 F L 09/10/17 16:49 Pulse Rate 87 09/10/17 18:23 Respiratory Rate 18 09/10/17 18:28 Blood Pressure 136/72 09/10/17 18:28 O2 Sat by Pulse Oximetry 96 09/10/17 18:23 Oxygen Delivery Oxygen Delivery Room Air Medical Decision Making - Lab Data Result diagrams: 09/10/17 17:00 09/10/17 16:59 Lab Results 09/10/17 09/10/17 09/10/17 Range/Units 16:59 16:59 16:59 WBC (4.3-11.1) K/mcL RBC (3.82-4.97) M/mcL Hgb (11.5-15.4) g/dL Hct (35.3-44.9) % MCV (83.0-100.0) fL MCH (28.0-33.3) pg MCHC (31.6-35.5) g/dL RDW (11.5-14.5) % Plt Count (140-400) K/mcL MPV (9.4-12.4) fL Immature Gran % (0-4) % Seg Neutrophils % % Lymphocytes % % Monocytes % % Eosinophils % % Basophils % % Neutrophils # (1.6-8.9) K/mcL Lymphocytes # (0.6-4.6) K/mcL Monocytes # (0.0-1.3) K/mcL Eosinophils # (0.0-0.6) K/mcL Basophils # (0.0-0.2) K/mcL PT 10.6 (9.4-12.1) Seconds INR 1.0 APTT 29.0 (26.0-36.0) Seconds Sodium 138 (136-145) mEq/L Potassium 3.7 (3.5-5.1) mEq/L Chloride 110 H (98-107) mEq/L Carbon Dioxide 19 L (23-29) mEq/L BUN 7 (6-20) mg/dL Creatinine 0.63 (0.60-1.20) mg/dL Est GFR ( Amer) > 60 (> 60) Est GFR (Non-Af Amer) > 60 (> 60) BUN/Creatinine Ratio 11 (6-26) Glucose 93 (70-105) mg/dL Calculated Osmolality 284 (280-300) Calcium 9.4 (8.6-10.3) mg/dL Troponin I (< 0.04) ng/mL B-Natriuretic Peptide 29 (Less than 100) pg/mL 09/10/17 09/10/17 Range/Units 16:59 17:00 WBC 18.4 H (4.3-11.1) K/mcL RBC 4.48 (3.82-4.97) M/mcL Hgb 13.8 (11.5-15.4) g/dL Hct 40.6 (35.3-44.9) % MCV 90.6 (83.0-100.0) fL MCH 30.8 (28.0-33.3) pg MCHC 34.0 (31.6-35.5) g/dL RDW 13.2 (11.5-14.5) % Plt Count 357 (140-400) K/mcL MPV 9.7 (9.4-12.4) fL Immature Gran % 0.3 (0-4) % Seg Neutrophils % 70.7 % Lymphocytes % 20.6 % Monocytes % 4.8 % Eosinophils % 3.0 % Basophils % 0.6 % Neutrophils # 13.0 H (1.6-8.9) K/mcL Lymphocytes # 3.8 (0.6-4.6) K/mcL Monocytes # 0.9 (0.0-1.3) K/mcL Eosinophils # 0.6 (0.0-0.6) K/mcL Basophils # 0.1 (0.0-0.2) K/mcL PT (9.4-12.1) Seconds INR APTT (26.0-36.0) Seconds Sodium (136-145) mEq/L Potassium (3.5-5.1) mEq/L Chloride (98-107) mEq/L Carbon Dioxide (23-29) mEq/L BUN (6-20) mg/dL Creatinine (0.60-1.20) mg/dL Est GFR ( Amer) (> 60) Est GFR (Non-Af Amer) (> 60) BUN/Creatinine Ratio (6-26) Glucose (70-105) mg/dL Calculated Osmolality (280-300) Calcium (8.6-10.3) mg/dL Troponin I < 0.03 (< 0.04) ng/mL B-Natriuretic Peptide (Less than 100) pg/mL Attestation Statement - Attestation Attestation: I examined this patient and my medical decision-making was reviewed with the Resident Physician. I agree with the documented findings, disposition and treatment plan as described except to the extent set forth below. [id number] time provided in conjunction with the resident physician Dr. Topete Patient arrives by EMS complaining of chest discomfort. She has a previous history of myocardial infarction with stent. She appears in no acute distress. I did review the transcribed report of her most recent cardiology consultation dated May 2017.
[2017-09-10] MEDS ORDERED: *HR* FentaNYL (PF) 100 MCG/2 ML VIAL IVP ONE (16:59)
--- NOTE | 2017-09-10 17:00 | Emergency Department Note ---
Disposition Clinical Impression: Chest pain Qualifiers: Chest pain type: unspecified Qualified Code(s): R07.9 - Chest pain, unspecified Disposition: Admitted As Inpatient Condition: Good Referrals: Glory Funes CNP [Primary Care Provider] - Forms: ED Satisfaction Letter Chest Pain HPI - General Chief Complaint: ED Chest Pain Stated Complaint: CP Time Seen by Provider: 09/10/17 16:49 Source: patient, EMS Mode of arrival: EMS Limitations: no limitations Vital Signs Reviewed: Yes Nursing Notes Reviewed: Yes - History of Present Illness HPI Narrative: 32-year-old female history of hypertension, hyperlipidemia, diabetes, CAD with stents placed in 2014 and 2016 who presents to the ER with a chief complaint of chest pain. Patient reports pain began at noon today at rest. Reports substernal chest pain with radiation into her left arm. Denies any associated symptoms. She took a total of 3 nitroglycerin prior to arrival. Reports the first to help with the third had no change. Denies any recent illness. She was seen here 3 days ago for similar complaints and had 2 negative troponins and did not want to stay. Reports that it feels worse this time. No other complaints. Pt complaint: chest pain Onset (ago): hour(s) Time: 12:00 Duration: constant Onset: during rest Pain Location: substernal Severity: moderate Severity scale (1-10): 8 Quality: heaviness Pain Radiation: LUE Improves with: nitroglycerin Worsens with: nothing Associated symptoms: Denies: nausea, vomiting, diaphoresis, dyspnea Treatments prior to arrival chest pain: aspirin, nitroglycerin - Related Data On Oral Contraceptives: No Home Medications Medication Instructions Recorded Confirmed Topiramate [Topamax] 25 mg PO BID 04/05/15 07/10/17 Temazepam [Restoril] 15 mg PO HS #0 06/29/15 07/10/17 Atorvastatin [Lipitor] 40 mg PO QPM 07/13/15 07/10/17 Clopidogrel [Plavix] 75 mg PO QAM 07/13/15 07/10/17 traZODone [TraZODone] 50 mg PO HS PRN 09/27/15 07/10/17 diazePAM [Valium] 5 mg PO QID 04/01/16 07/10/17 Liraglutide [Victoza 2-Bill] 1.2 mg SQ QAM 10/21/16 07/10/17 Metoprolol XL (24 HR) Succ [Toprol 12.5 mg PO BID 10/21/16 07/10/17 Xl] Diltiazem CD (24hr) [Cardizem CD] 180 mg PO DAILY 01/11/17 07/10/17 Aspirin Enteric Coated [Aspirin EC] 81 mg PO DAILY 05/24/17 07/10/17 Diclofenac Sodium [Voltaren] 1 appl TP QID PRN 05/24/17 07/10/17 Lurasidone [Latuda] 40 mg PO QPM 05/24/17 07/10/17 Ondansetron HCl [Zofran] 4 mg PO Q8H PRN 05/24/17 07/10/17 metFORMIN [Glucophage] 1,000 mg PO QAM 05/24/17 07/10/17 metFORMIN [Glucophage] 500 mg PO QPM 05/24/17 07/10/17 FLUoxetine HCl [Prozac] 10 mg PO DAILY 07/10/17 07/10/17 Sertraline [Zoloft] 50 mg PO DAILY 07/10/17 07/10/17 Previous Rx's Medication Instructions Recorded Albuterol Sulfate [Albuterol 4 puff IH Q4HR #1 hfa.aer.ad 07/07/17 Inhaler] Doxycycline Hyclate [Vibramycin] 100 mg PO BID #7 capsule 07/13/17 predniSONE [PredniSONE] 40 mg PO DAILY #3 tablet 07/13/17 levoFLOXacin [Levaquin] 500 mg PO DAILY #10 tablet 07/22/17 Allergies Allergy/AdvReac Type Severity Reaction Status Date / Time naproxen AdvReac Gastrointestinal Verified 06/08/17 20:23 Upset All systems ED: reviewed and negative except as stated. 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 - Social History Smoking Status: Current every day smoker Alcohol use: Reports: none Drug use: Reports: none Physical Exam - General Limitations: no limitations General appearance: alert, in no apparent distress - Head Head exam: atraumatic, normocephalic - Eye Eye exam: Present: normal appearance - ENT ENT exam: normal exam - Neck Neck exam: Present: normal inspection, full ROM - Chest Chest inspection: Present: normal inspection, symmetric chest wall rise - Respiratory Respiratory exam: Present: normal lung sounds bilaterally - Cardiovascular Cardiovascular exam: Present: regular rate, normal rhythm, normal heart sounds - Abdominal Exam Abdominal exam: Present: soft, Non-Tender. Absent: tenderness - Extremities Exam Extremities exam: Present: normal inspection, full ROM - Expanded Upper Extremity Exam Shoulder exam: Present: normal inspection, full ROM Arm exam: Present: normal inspection, full ROM Elbow exam: Present: normal inspection, full ROM Forearm/Wrist exam: Present: normal inspection, full ROM Hand exam: Present: normal inspection, full ROM - Expanded Lower Extremity Exam Hip/Pelvis exam: Present: normal inspection, full ROM Upper leg exam: Present: normal inspection, full ROM Knee exam: Present: normal inspection, full ROM Lower leg exam: Present: normal inspection, full ROM Ankle exam: Present: normal inspection, full ROM Foot/toe exam: Present: normal inspection, full ROM - Skin Skin exam: Present: warm, dry Course Course Narrative: Patient seen and examined. Vital signs reviewed. An EKG, chest x-ray as well as laboratory troponin. Patient had 3 nitroglycerin and aspirin prior to arrival. We will give dose of fentanyl here and reassess. - Reevaluation(s) Reevaluation #1: Patient feels markedly improved after fentanyl here. We will discuss with the hospitalist for admission. Vital Signs Temperature 97.4 F L 09/10/17 16:49 Pulse Rate 99 09/10/17 16:49 Respiratory Rate 22 09/10/17 16:49 Blood Pressure 123/58 09/10/17 16:49 O2 Sat by Pulse Oximetry 95 09/10/17 16:49 Temperature 97.4 F L 09/10/17 16:49 Pulse Rate 94 09/10/17 17:20 Respiratory Rate 16 09/10/17 17:20 Blood Pressure 98/74 09/10/17 17:20 O2 Sat by Pulse Oximetry 96 09/10/17 17:20 Oxygen Delivery Oxygen Delivery Room Air Chest Pain - MDM Narrative Medical decision making narrative: 32-year-old female with prior CAD who presents to the ER due to chest pain. EKG with old inferior Q waves. No ischemic findings. X-ray unremarkable. Initial troponin normal. She received aspirin and 3 nitroglycerin prior to arrival with some resolution of her pain. Pain is well controlled here with Hans. She is admitted to the hospitalist service for chest pain evaluation. - Lab Data Lab results reviewed: Yes I reviewed the patient's lab results. Result diagrams: 09/10/17 17:00 09/10/17 16:59 Lab Results 09/10/17 09/10/17 09/10/17 Range/Units 16:59 16:59 16:59 WBC (4.3-11.1) K/mcL RBC (3.82-4.97) M/mcL Hgb (11.5-15.4) g/dL Hct (35.3-44.9) % MCV (83.0-100.0) fL MCH (28.0-33.3) pg MCHC (31.6-35.5) g/dL RDW (11.5-14.5) % Plt Count (140-400) K/mcL MPV (9.4-12.4) fL Immature Gran % (0-4) % Seg Neutrophils % % Lymphocytes % % Monocytes % % Eosinophils % % Basophils % % Neutrophils # (1.6-8.9) K/mcL Lymphocytes # (0.6-4.6) K/mcL Monocytes # (0.0-1.3) K/mcL Eosinophils # (0.0-0.6) K/mcL Basophils # (0.0-0.2) K/mcL PT 10.6 (9.4-12.1) Seconds INR 1.0 APTT 29.0 (26.0-36.0) Seconds Sodium 138 (136-145) mEq/L Potassium 3.7 (3.5-5.1) mEq/L Chloride 110 H (98-107) mEq/L Carbon Dioxide 19 L (23-29) mEq/L BUN 7 (6-20) mg/dL Creatinine 0.63 (0.60-1.20) mg/dL Est GFR ( Amer) > 60 (> 60) Est GFR (Non-Af Amer) > 60 (> 60) BUN/Creatinine Ratio 11 (6-26) Glucose 93 (70-105) mg/dL Calculated Osmolality 284 (280-300) Calcium 9.4 (8.6-10.3) mg/dL Troponin I (< 0.04) ng/mL B-Natriuretic Peptide 29 (Less than 100) pg/mL 09/10/17 09/10/17 Range/Units 16:59 17:00 WBC 18.4 H (4.3-11.1) K/mcL RBC 4.48 (3.82-4.97) M/mcL Hgb 13.8 (11.5-15.4) g/dL Hct 40.6 (35.3-44.9) % MCV 90.6 (83.0-100.0) fL MCH 30.8 (28.0-33.3) pg MCHC 34.0 (31.6-35.5) g/dL RDW 13.2 (11.5-14.5) % Plt Count 357 (140-400) K/mcL MPV 9.7 (9.4-12.4) fL Immature Gran % 0.3 (0-4) % Seg Neutrophils % 70.7 % Lymphocytes % 20.6 % Monocytes % 4.8 % Eosinophils % 3.0 % Basophils % 0.6 % Neutrophils # 13.0 H (1.6-8.9) K/mcL Lymphocytes # 3.8 (0.6-4.6) K/mcL Monocytes # 0.9 (0.0-1.3) K/mcL Eosinophils # 0.6 (0.0-0.6) K/mcL Basophils # 0.1 (0.0-0.2) K/mcL PT (9.4-12.1) Seconds INR APTT (26.0-36.0) Seconds Sodium (136-145) mEq/L Potassium (3.5-5.1) mEq/L Chloride (98-107) mEq/L Carbon Dioxide (23-29) mEq/L BUN (6-20) mg/dL Creatinine (0.60-1.20) mg/dL Est GFR ( Amer) (> 60) Est GFR (Non-Af Amer) (> 60) BUN/Creatinine Ratio (6-26) Glucose (70-105) mg/dL Calculated Osmolality (280-300) Calcium (8.6-10.3) mg/dL Troponin I < 0.03 (< 0.04) ng/mL B-Natriuretic Peptide (Less than 100) pg/mL - Radiology Data Radiology results reviewed: Yes I reviewed the patient's radiology results. Chest X-Ray 09/10/17 16:50 IMPRESSION: No acute cardiopulmonary disease. D/ / Jovan Weller MD / Jovan Weller MD Interpreting Provider: Jovan Weller MD - EKG Data EKG attestation: Yes I reviewed and interpreted this EKG. EKG results narrative: EKG demonstrates sinus rhythm with rate of 91 bpm. Normal axis. Normal intervals. Poor R-wave progression. Q waves in the inferior leads. No gross ST elevations or depressions. No acute ischemic findings. Heart Score - Score History: Moderately Suspicious EKG: Normal Age: Less than 45 Risk Factors: Equal/Greater than 3 risk factor or history of atherosclerotic disease Troponin: Less than normal limit HEART Score Total: 3 S.B.A.R. - S.B.A.R. Situation: Demographics, MOA Background: Presenting Complaint, Relevant PMH, Meds, & Allergies Assessment: Vital Signs, Course and respsone to treatment, Exam Concerns, Patient/Family Expectation, Pertinant Lab Results Recommendation: Barrier(s) to disposition, Recommendation based on pending studies, treatments, or consults S.B.A.REmma Report Given to: Agus Estrada Repor Time: 17:57
[2017-09-10 17:12] LABS: Basophils # 0.1 K/mcL (0.0-0.2); Basophils % 0.6 %; Eosinophils # 0.6 K/mcL (0.0-0.6); Hematocrit 40.6 % (35.3-44.9); Hemoglobin 13.8 g/dL (11.5-15.4); Immature Granulocytes % 0.3 % (0-4); Lymphocytes # 3.8 K/mcL (0.6-4.6); Lymphocytes % 20.6 %; Mean Corpuscular Hemoglobin 30.8 pg (28.0-33.3); Mean Corpuscular Volume 90.6 fL (83.0-100.0); Mean Platelet Volume 9.7 fL (9.4-12.4); Monocytes # 0.9 K/mcL (0.0-1.3); Monocytes % 4.8 %; Platelet Count 357 K/mcL (140-400); Red Blood Count 4.48 M/mcL (3.82-4.97); Red Cell Distribution Width 13.2 % (11.5-14.5); Segmented Neutrophils % 70.7 %
[2017-09-10 17:18] LABS: Prothrombin Time 10.6 Seconds (9.4-12.1)
[2017-09-10 17:22] LABS: BUN/Creatinine Ratio 11 (6-26); Blood Urea Nitrogen 7 mg/dL (6-20); Calcium 9.4 mg/dL (8.6-10.3); Carbon Dioxide 19 mEq/L (23-29); Chloride 110 mEq/L (98-107); Glucose 93 mg/dL (70-105); Osmolality,Calculated 284 (280-300); Potassium 3.7 mEq/L (3.5-5.1); Sodium 138 mEq/L (136-145); eGFR For African Americans > 60 (> 60); eGFR For Non-African Americans > 60 (> 60)
[2017-09-10] MEDS ORDERED: Naloxone 0.4 MG/ML INJ IVP PRN (22:32)
[2017-09-10] MEDS ORDERED: Ondansetron ODT 4 MG TAB.RAPDIS PO PRN (22:33)
[2017-09-10] MEDS ORDERED: Acetaminophen/Butalbital/CaffeineTABLET PO PRN (22:33)
[2017-09-10] MEDS ORDERED: traZODone 50 MG TABLET PO SCH (22:45)
[2017-09-10] MEDS ORDERED: Temazepam 15 MG CAPSULE PO SCH (22:45)
--- NOTE | 2017-09-10 22:50 | Internal Med History&Physical ---
Date of Encounter: 09/10/17 Time of Encounter: 22:39 Assessment and Plan (1) Chest pain Current visit: No Status: Chronic 32/female Multiple comorbid issues as mentioned in the history of present illness. Admitted with chest pain. On examination: Very anxious female Has retrosternal chest pain. No third heart sound, no raised JVP Trace bilateral edema feet. The assessment: Chest pain to rule out acute coronary syndrome Elevated white blood cell count unknown etiology at this point. Plan: Admit as observation. Aspirin/beta phyllis/statin Continue Plavix DVT prophylaxis: Heparin If the serial troponin is positive then we will consult cardiology. Of note: I have examined this patient in 3B36 with ANNA Mcwilliams. Patient told me that if her troponin is positive and if she needs a cardiac catheterization she would like to do that in this hospital. Patient does not prefer to go to [place] any procedure. Qualifiers: Chest pain type: other chest pain Qualified Code(s): R07.89 - Other chest pain; R07.8 - Other chest pain (2) Diabetes Current visit: No Status: Chronic Restarted home medication. We will follow the recommendations from subcutaneous insulin order set. Qualifiers: Diabetes mellitus type: type 2 Diabetes mellitus complication status: with circulatory complication Diabetes mellitus complication detail: with other circulatory complications Diabetes mellitus buttermaker continuous churn insulin use: without buttermaker continuous churn use Qualified Code(s): E11.59 - Type 2 diabetes mellitus with other circulatory complications (3) Obesity (BMI 30-39.9) Current visit: No Status: Chronic Patient needs more diet control and exercise. (4) Anxiety and depression Current visit: No Status: Chronic She needs outpatient psychiatric evaluation (5) Hypertension Current visit: No Status: Chronic Resume home medical Qualifiers: Hypertension type: essential hypertension Qualified Code(s): I10 - Essential (primary) hypertension (6) DVT prophylaxis Current visit: No Status: Acute Heparin Medical decision making: This patient has a moderate to severe risk of worsening in spite of being on appropriate medication due to the underlying chronic comorbid conditions. Internal Medicine - H&P: HPI Chief complaint: chest pain Admitted From: Emergency Dept Plans for Post Hospital Care: Home History of present illness: Ms. Mccoy is a 32 year old female who has a background medical history of 4 diabetes, hypertension, dyslipidemia, coronary artery disease with stents placed in the year [address] Polk in this hospital. 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 Moya from this [facility]. Presently she is following with vine fruit farming supervisor from [place]. Patient has ongoing chest pain for more than 6 days. 3 days back patient was in this hospital and was evaluated by emergency department for chest pain. At that time the 2 troponins were negative and that was the reason she declined admission and left the hospital. For the past 24 hours her pain is persistently getting worse and that is the reason she decided to come to the emergency room for further evaluation. Patient's pain is retrosternal, nonradiating, localized worsens with the movement and relieved by rest. Patient was evaluated in the emergency room. Basic labs were drawn. Noted that her white count was 18,000. First troponin was negative. In view of the elevated white blood count and poor response to nitroglycerin prior to arrival was decided to hospitalize the patient. Reason for admission: Chest pain to rule out ACS in patient who has previously undergone PCI. Past Med Surg Social Fam HX - Past Medical History Medical history: CHF, coronary artery disease, diabetes, GERD, hyperlipidemia, hypertension, kidney stones, migraine, myocardial infarction Psychiatric history: anxiety, bipolar, depression - Past Surgical History Surgical History: angioplasty/stent - Social History Smoking Status: Current every day smoker Smokeless Tobacco Status: No Alcohol use: none Drug use: none - Family History Brother Family Member Ethnicity: Non- Living Status: Still Living Father Family Member Ethnicity: Non- Living Status: Still Living Hx Family Cardiac Disorders: Yes (HTN) Hx Family Respiratory Disorders: No Hx Family Cancer: No Hx Family GI Disorders: No Hx Family Endocrine Disorder: Yes (DM) Hx Family Neuromuscular Disorders: No Hx Family Neurologic Disorders: No Hx Family HEENT Disorders: No Hx Family Autoimmune Disorders: No Grandmother Adopted: No Family Member Ethnicity: Non- Living Status: Hx Family Cardiac Disorders: Yes (CHF) Hx Family Respiratory Disorders: No Hx Family Cancer: No Hx Family GI Disorders: No Hx Family Endocrine Disorder: No Hx Family Neuromuscular Disorders: No Hx Family Neurologic Disorders: No Hx Family HEENT Disorders: No Hx Family Autoimmune Disorders: No Mother Family Member Ethnicity: Non- Living Status: Still Living Hx Family Cardiac Disorders: No Hx Family Respiratory Disorders: No Hx Family Cancer: No Hx Family GI Disorders: No Hx Family Endocrine Disorder: No Hx Family Neuromuscular Disorders: No Hx Family Neurologic Disorders: No Hx Family HEENT Disorders: No Hx Family Autoimmune Disorders: No Internal Medicine - H&P: Meds Temazepam [Restoril] 15 mg PO HS #0 06/29/15 [History] Atorvastatin [Lipitor] 40 mg PO QPM 07/13/15 [History] Clopidogrel [Plavix] 75 mg PO QAM 07/13/15 [History] traZODone [TraZODone] 100 mg PO HS 09/27/15 [History] diazePAM [Valium] 5 mg PO TID 04/01/16 [History] Liraglutide [Victoza 2-Bill] 1.2 mg SQ QAM 10/21/16 [History] Metoprolol XL (24 HR) Succ [Toprol Xl] 12.5 mg PO BID 10/21/16 [History] Diltiazem CD (24hr) [Cardizem CD] 180 mg PO DAILY 01/11/17 [History] Aspirin Enteric Coated [Aspirin EC] 81 mg PO DAILY 05/24/17 [History] Lurasidone [Latuda] 40 mg PO QPM 05/24/17 [History] Ondansetron HCl [Zofran] 4 mg PO Q8H PRN 05/24/17 [History] metFORMIN [Glucophage] 1,000 mg PO BID 05/24/17 [History] Acetaminophen/Butalbital/Caffe [Fioricet] 1 each PO Q6H PRN 09/10/17 [History] Topiramate [Topiramate] 50 mg PO BID 09/10/17 [History] 3 Allergy/AdvReac Type Severity Reaction Status Date / Time naproxen AdvReac Gastrointestinal Verified 06/08/17 20:23 Upset All Systems PM: A 10-system review of systems was performed and is negative for pertinent findings except as documented above in the HPI. - Constitutional Constitutional: no chills, no fever(s), no night sweats - EENT Eyes: no change in vision, no discharge, no pain, no photophobia Ears: no ear discharge, no ear pain, no tinnitus Nose, mouth and throat: no dysphagia, no nasal discharge, no neck pain, no sore throat - Cardiovascular Cardiovascular ROS IM: chest pain, diaphoresis, lightheadedness, no dyspnea, no palpitations, no syncope - Respiratory Respiratory: no cough, no dyspnea, no wheezing, no excessive phlegm production - Gastrointestinal Gastrointestinal: no abdominal pain, no diarrhea, no hematemesis, no hematochezia, no melena, no nausea, no vomiting - Genitourinary Genitourinary: no change in urinary stream, no dysuria, no flank pain, no hematuria - Musculoskeletal Musculoskeletal ROS IM: no numbness, no tingling - Integumentary Integumentary IM: no rash, no unusual bruising - Neurological Neurological ROS: no confusion, no convulsions, no focal weakness, no numbness, no tingling, no tremor(s) - Hematologic/Lymphatic Hematologic/Lymphatic: no easy bruising - Constitutional Vitals: Temp Pulse Resp BP Pulse Ox 98.5 F 95 16 94/61 96 09/10/17 20:10 09/10/17 20:10 09/10/17 20:10 09/10/17 20:10 09/10/17 20:10 General appearance: Present: A&O X 3, pleasant, no acute distress, answers questions appropriately - Head Head exam: Present: atraumatic, normocephalic - Eye Eye exam: Present: PERRL, conjuntiva pink, sclera anicteric Pupils: Present: PERRL - Neck Neck exam general surgery: Present: supple, trachea midline. Absent: lymphadenopathy - Respiratory Respiratory exam: Present: CTAB. Absent: accessory muscle use, rales, rhonchi, wheezes - Cardiovascular Cardiovascular exam: Present: RRR, +S1, +S2. Absent: diastolic murmur, gallop, rubs, systolic murmur - GI/Abdominal GI/Abdominal exam: Present: normal bowel sounds, soft, no peritoneal signs. Absent: distended, tenderness - Extremities Exam Extremities exam: Present: warm, radial pulses palpable and symmetrical. Absent : calf tenderness, cyanotic, pedal edema - Neurological Exam Neurological exam: Present: CN II-XII intact, oriented X3, no focal deficits. Absent: pronater drift, facial droop, speech deficit - Skin Skin exam: Present: dry, intact Internal Med - H&P Results - Labs CBC & Chem 7: 09/10/17 17:00 09/10/17 16:59
[2017-09-10] MEDS ORDERED: Dextrose Gel 15 GM/37.5 ML TUBE PO PRN ×2 (23:02)
[2017-09-10] MEDS ORDERED: *HR* Dextrose 50 % in Water (Syg) 50 ML SYRINGE IVP PRN (23:02)
[2017-09-10] MEDS ORDERED: D5% in Water 1,000 ML IVC PRN (23:02)
[2017-09-10] MEDS: (Liraglutide [Victoza 2-Pak] 1.2 MG) SQ SCH (23:26)
[2017-09-10] MEDS: Aspirin Enteric Coated 81 MG Tablet PO SCH (23:30)
[2017-09-10] MEDS: levoFLOXacin 500 MG TABLET PO SCH (23:30)
[2017-09-10] MEDS: Topiramate 25 MG TABLET PO SCH (23:31)
[2017-09-10] MEDS: Metoprolol XL (24 HR) Succ 25 MG TAB.ER.24H PO SCH (23:31)
[2017-09-10] MEDS: diazePAM 5 MG TABLET PO SCH (23:31)
[2017-09-10] MEDS: Diltiazem CD (24hr) 180 MG CAPSULE PO SCH (23:31)
[2017-09-10] MEDS: *HR* Heparin 5,000 UNIT/ML VIAL SQ SCH (23:32)
[2017-09-10] MEDS: *HR* HYDROcodone/Acet 5/325 mg TABLET PO PRN (23:38)
[2017-09-11 01:34] LABS: Basophils # 0.1 K/mcL (0.0-0.2); Basophils % 0.7 %; Eosinophils # 0.7 K/mcL (0.0-0.6); Eosinophils % 4.9 %; Hematocrit 38.5 % (35.3-44.9); Immature Granulocytes % 0.1 % (0-4); Mean Corpuscular HGB Conc 33.8 g/dL (31.6-35.5); Mean Corpuscular Hemoglobin 31.2 pg (28.0-33.3); Mean Corpuscular Volume 92.3 fL (83.0-100.0); Mean Platelet Volume 10.1 fL (9.4-12.4); Monocytes # 0.6 K/mcL (0.0-1.3); Monocytes % 4.1 %; Neutrophils # 7.5 K/mcL (1.6-8.9); Platelet Count 325 K/mcL (140-400); Red Blood Count 4.17 M/mcL (3.82-4.97); Red Cell Distribution Width 13.3 % (11.5-14.5); Segmented Neutrophils % 54.2 %
[2017-09-11 01:43] LABS: Activated Partial Thrombo Time 28.3 Seconds (26.0-36.0)
[2017-09-11 01:51] LABS: Alanine Aminotransferase 17 Units/L (7-52); Albumin 3.9 g/dL (3.5-5.7); Albumin/Globulin Ratio 2.1 (1.1-2.2); Alkaline Phosphatase 78 Units/L (34-104); Aspartate Amino Transferase 12 Units/L (13-39); BUN/Creatinine Ratio 14 (6-26); Bilirubin,Total 0.4 mg/dL (0.3-1.0); Blood Urea Nitrogen 8 mg/dL (6-20); Carbon Dioxide 19 mEq/L (23-29); Chloride 112 mEq/L (98-107); Chol/HDL Ratio 3.3 (0-4.9); Cholesterol 90 mg/dL (< 200); Globulin 1.9 g/dL (2.4-3.5); Glucose 91 mg/dL (70-105); HDL Cholesterol 27 mg/dL (40-59); LDL Cholesterol,Calculated 32 mg/dL (0-99); Magnesium 1.6 mg/dL (1.6-2.6); Osmolality,Calculated 284 (280-300); Phosphorous 3.6 mg/dL (2.7-4.5); Potassium 3.4 mEq/L (3.5-5.1); Sodium 138 mEq/L (136-145); Total Protein 5.8 g/dL (6.4-8.9); Triglycerides 157 mg/dL (< 150); eGFR For African Americans > 60 (> 60); eGFR For Non-African Americans > 60 (> 60)
[2017-09-11] MEDS: *HR* Heparin 5,000 UNIT/ML VIAL SQ SCH (05:43)
[2017-09-11 09:55] LABS: Bilirubin,Urine Negative (Negative); Blood,Urine Negative (Negative); Clarity,Urine Cloudy (Clear); Color,Urine Yellow (Yellow); Glucose,Urine (UA) Normal (Normal); Ketones,Urine Negative (Negative); Leukocyte Esterase,Urine Negative (Negative); Nitrite,Urine Negative (Negative); Protein,Urine Negative (Neg-Trace); Specific Gravity,Urine 1.026 (1.010-1.025); Urobilinogen,Urine Normal (Normal)
[2017-09-11 09:58] LABS: Bacteria,Urine None Seen per hpf (None-Few); Hyaline Casts,Urine None Seen per lpf (None-Few); RBC,Urine 0-3 per hpf (0-3); Squamous Epithelial Cell,Urine Many per lpf (None-Few); WBC,Urine 0-3 per hpf (0-3)
[2017-09-11] MEDS: *HR* HYDROcodone/Acet 5/325 mg TABLET PO PRN (10:06)
[2017-09-11] MEDS: diazePAM 5 MG TABLET PO SCH (10:06)
[2017-09-11] MEDS: Insulin LISPRO 300 UNITS/3 ML VIAL SQ SCH ×2 (10:06→13:14)
[2017-09-11] MEDS: Diltiazem CD (24hr) 180 MG CAPSULE PO SCH (10:07)
[2017-09-11] MEDS: Metoprolol XL (24 HR) Succ 25 MG TAB.ER.24H PO SCH (10:07)
[2017-09-11] MEDS: Aspirin Enteric Coated 81 MG Tablet PO SCH (10:07)
[2017-09-11] MEDS: Topiramate 25 MG TABLET PO SCH (10:07)
[2017-09-11] MEDS: (Liraglutide [Victoza 2-Pak] 1.2 MG) SQ SCH (10:07)
[2017-09-11] MEDS: levoFLOXacin 500 MG TABLET PO SCH (10:07)
--- NOTE | 2017-09-11 13:32 | Discharge Summary ---
Orders not resulted at time of discharge: Pending orders 09/10/17 23:05 Culture,Blood,Additional [BC] Routine Date of Encounter: 09/11/17 Time of Encounter: 13:28 - Discharge Diagnosis (1) CAD (coronary artery disease) Priority: Primary Status: Chronic Comments: hx STEMI 06/2015 and 2 DELFINO. 06/10/17 stress test with evidence of prior infarct but negative for ischemia. 05/2017 TTE with EF percent, normal diastolic and systolic function. Serial troponin negative, EKG without acute ST changes. Chest pain resolved at time of discharge. Has follow-up with primary motor vehicle clerk in [place] on 09/12/17. Strongly encouraged to keep follow-up appointment. Cont ASA, Plavix, statin, BB Qualifiers: Coronary Disease-Associated Artery/Lesion type: [place] artery [place] vs. transplanted heart: [place] heart Associated angina: without angina Qualified Code(s): I25.10 - Atherosclerotic heart disease of [place] coronary artery without angina pectoris (2) Diabetes mellitus Priority: Secondary Status: Chronic Comments: per hx. Cont home oral hypoglycemics. 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 No anemia or basophilia. Afebrile , no tachycardia or hypotension. Low suspicion for factious source. Current smoker which could contribute to neutrophilia and/or possibly reactive. She has been evaluated by oncology in the past. No further workup indicated at this time. Qualifiers: Leukocytosis type: unspecified Qualified Code(s): D72.829 - Elevated white blood cell count, unspecified Hospital course: Ms. Mccoy is a 32 year old female - Time Spent with Patient Total time spent providing and/or coordinating discharge services: - Discharge Medications Home Medications: Temazepam [Restoril] 15 mg PO HS #0 06/29/15 [History] Atorvastatin [Lipitor] 40 mg PO QPM 07/13/15 [History] Clopidogrel [Plavix] 75 mg PO QAM 07/13/15 [History] traZODone [TraZODone] 100 mg PO HS 09/27/15 [History] diazePAM [Valium] 5 mg PO TID 04/01/16 [History] Liraglutide [Victoza 2-Bill] 1.2 mg SQ QAM 10/21/16 [History] Metoprolol XL (24 HR) Succ [Toprol Xl] 12.5 mg PO BID 10/21/16 [History] Diltiazem CD (24hr) [Cardizem CD] 180 mg PO DAILY 01/11/17 [History] Aspirin Enteric Coated [Aspirin EC] 81 mg PO DAILY 05/24/17 [History] Lurasidone [Latuda] 40 mg PO QPM 05/24/17 [History] Ondansetron HCl [Zofran] 4 mg PO Q8H PRN 05/24/17 [History] metFORMIN [Glucophage] 1,000 mg PO BID 05/24/17 [History] Acetaminophen/Butalbital/Caffe [Fioricet] 1 each PO Q6H PRN 09/10/17 [History] Topiramate 50 mg PO BID 09/10/17 [History] Allergies/Adverse Reactions: 3 Allergy/AdvReac Type Severity Reaction Status Date / Time naproxen AdvReac Gastrointestinal Verified 06/08/17 20:23 Upset Date of admission: 09/10/17 19:16 Primary care physician: Glory Funes CNP Discharging clinician: Briana Mills Anticipated date of discharge: 09/11/17 - Constitutional Vitals: Temp Pulse Resp BP Pulse Ox 98.5 F 77 14 108/73 94 09/11/17 11:11 09/11/17 11:11 09/11/17 11:11 09/11/17 11:11 09/11/17 11:11 General appearance: Present: A&O X 3, pleasant, no acute distress, answers questions appropriately - Head Head exam: Present: atraumatic, normocephalic - Eye Eye exam: Present: PERRL, conjuntiva pink, sclera anicteric Pupils: Present: PERRL - Neck Neck exam general surgery: Present: supple, trachea midline. Absent: lymphadenopathy - Respiratory Respiratory exam: Present: CTAB. Absent: accessory muscle use, rales, rhonchi, wheezes - Cardiovascular Cardiovascular exam: Present: RRR, +S1, +S2. Absent: diastolic murmur, gallop, rubs, systolic murmur - GI/Abdominal GI/Abdominal exam: Present: normal bowel sounds, soft, no peritoneal signs. Absent: distended, tenderness - Extremities Exam Extremities exam: Present: warm, radial pulses palpable and symmetrical. Absent : calf tenderness, cyanotic, pedal edema - Neurological Exam Neurological exam: Present: CN II-XII intact, oriented X3, no focal deficits. Absent: pronater drift, facial droop, speech deficit - Skin Skin exam: Present: dry, intact - Patient Status Disposition: Home, Self-Care Condition: Good Functional capacity at discharge: independent ambulation Overall status at discharge: patient is back to baseline - Discharge Instructions Instructions: Chest Pain (DC) Follow Up With: Glory Funes CNP [Primary Care Provider] - 10/01/17 8:00 am - Diet and Activity Activity: increase activity as tolerated Diet: advance to your usual diet
[2017-09-11 15:23] VITALS: BP 105/73
--- NOTE | 2017-09-13 20:41 | Electrocardiograph Report ---
[address] [place] [address] Test Date: 2017-09-10 Pat Name: Deb Mccoy Department: 102 Room: 3B36 Gender: F Collections Professional: Johana : 1985 Requested By: Meir Topete Order Number: [id number] Reading MD: Kristi Vela Measurements Intervals [place] Rate: 91 P: 15 WV: 157 QRS: -2 QRSD: 90 T: -12 QT: 333 QTc: 382 Interpretive Statements SINUS RHYTHM LOW QRS VOLTAGE IN PRECORDIAL LEADS [QRS DEFLECTION < 1.0 mV IN CHEST LEADS] ANTERIOR MYOCARDIAL INFARCTION [40+ ms Q WAVE AND/OR ST/T ABNORMALITY IN V3/V4], OF INDETERMINATE AGE INFERIOR MYOCARDIAL INFARCTION [40+ ms Q WAVE AND/OR ST/T ABNORMALITY IN II/aVF], OF INDETERMINATE AGE Electronically Signed On 09-13-2017 20:39:36 EST by Kristi Vela
== END 2017-09-11 16:53 | disposition home or self-care (01) ==
LOC: 3BNU 16:43 → EMEROO 16:43 → 3BNU 19:31
PROVIDERS: ADMIT Internal Medicine; ATTEND Registered Nurse

== ENCOUNTER 2018-03-10 12:10 | Observation (INO) ==
[2018-03-10] MEDS: Nitroglycerin 0.4 MG TAB.SUBL SL ONE ×2 (12:36→12:42)
--- NOTE | 2018-03-10 12:42 | Emergency Department Note ---
Disposition Clinical Impression: ACS (acute coronary syndrome), Obesity (BMI 30-39.9) Chest pain Qualifiers: Chest pain type: other chest pain Qualified Code(s): R07.89 - Other chest pain Disposition: Admitted As Inpatient Condition: Good Time of Disposition: 14:55 Chest Pain HPI - General Chief Complaint: ED Chest Pain Stated Complaint: Chest Pain Time Seen by Provider: 03/10/18 12:19 Source: patient Mode of arrival: EMS Limitations: no limitations Vital Signs Reviewed: Yes Nursing Notes Reviewed: Yes - History of Present Illness HPI Narrative: 32-year-old female with history 3 stents in the past presents with 3 days of chest pain. She state that it is centrally located, feels like something is sitting on her chest and stabbing it. The pain radiates up her right jaw and down her right arm. She reports associated headache, dizziness, nausea, shortness of breath. She is currently requiring oxygen and does not require it at home. he states that the pain has been constant, however it does worsen with activity. At its worst it is a 9 out of 10 and a 5 out of 10. She states this morning she took 3 nitro and the 2nd eased the pain somewhat, but otherwise nitroglycerin has not helped. She also took 3 ASA this morning. She denies any recent illness other than having diarrhea for the last 3 weeks. She states that she had a miscarriage in December and has not felt normal since. She follows with a marine mammal trainer in [place] and saw him within the last week. She notes a PMH of 3 stents and CHF. - Related Data Home Medications Medication Instructions Recorded Confirmed Temazepam [Restoril] 15 mg PO HS #0 06/29/15 03/10/18 traZODone [TraZODone] 100 mg PO HS 09/27/15 03/10/18 diazePAM [Valium] 5 mg PO TID PRN 04/01/16 03/10/18 Liraglutide [Victoza 2-Bill] 1.2 mg SQ QAM 10/21/16 03/10/18 Metoprolol XL (24 HR) Succ [Toprol 12.5 mg PO BID 10/21/16 03/10/18 Xl] Aspirin Enteric Coated [Aspirin EC] 81 mg PO DAILY 05/24/17 03/10/18 Lurasidone [Latuda] 40 mg PO QPM 05/24/17 03/10/18 Ondansetron HCl [Zofran] 4 mg PO Q8H PRN 05/24/17 03/10/18 metFORMIN [Glucophage] 1,000 mg PO BID 05/24/17 03/10/18 Topiramate 50 mg PO BID 09/10/17 03/10/18 Atorvastatin [Lipitor] 40 mg PO HS 03/10/18 03/10/18 Clopidogrel [Plavix] 75 mg PO DAILY 03/10/18 03/10/18 Diltiazem CD (24hr) [Cardizem CD] 300 mg PO DAILY 03/10/18 03/10/18 Pnv with Ca,No.72/Iron/FA [Pnv 1 tab PO DAILY 03/10/18 03/10/18 Plus Multivit Tab] Allergies Allergy/AdvReac Type Severity Reaction Status Date / Time naproxen AdvReac Gastrointestinal Verified 03/10/18 14:57 Upset Constitutional: Reports: weakness. Denies: fever, chills Eyes: Reports: vision change Cardiovascular: Reports: chest pain, dyspnea on exertion. Denies: palpitations Respiratory: Reports: dyspnea Gastrointestinal: Reports: nausea, diarrhea. Denies: abdominal pain, vomiting, constipation Genitourinary: Denies: dysuria Musculoskeletal: Reports: back pain (low thoracic) Integumentary: Denies: rash Neurological: Reports: headache, weakness, numbness, other (dizziness) Endocrine: Reports: fatigue Chest Pain PMH - Past Medical History Medical history: Reports: CHF, coronary artery disease, diabetes, GERD, hyperlipidemia, hypertension, kidney stones, migraine, myocardial infarction Surgical history: Reports: angioplasty/stent Psychiatric history: Reports: anxiety, bipolar, depression Prior Cardiac Testing/Procedures: Echocardiogram, Stenting [employer] history: Reports: non-contributory - Social History Smoking Status: Former smoker Alcohol use: Reports: none Drug use: Reports: none Physical Exam - General Limitations: no limitations General appearance: alert, in distress - Head Head exam: atraumatic, normocephalic, normal inspection - Eye Eye exam: Present: normal appearance, PERRL, EOMI - ENT ENT exam: normal exam, normal oropharynx, mucous membranes moist - Neck Neck exam: Present: normal inspection, full ROM, trachea midline. Absent: tenderness, lymphadenopathy, thyromegaly - Chest Chest inspection: Present: normal inspection, symmetric chest wall rise - Respiratory Respiratory exam: Present: normal lung sounds bilaterally. Absent: respiratory distress, wheezes, accessory muscle use - Cardiovascular Cardiovascular exam: Present: regular rate, normal rhythm, normal heart sounds - Abdominal Exam Abdominal exam: Present: soft, Non-Tender. Absent: tenderness, distention, guarding, rebound, rigidity - Extremities Exam Extremities exam: Present: normal inspection, full ROM, normal capillary refill. Absent: tenderness, pedal edema - Back Exam Back exam: Present: normal inspection, tenderness (T11) - Neurological Exam Neurological exam: Present: alert, oriented X3 - Psychiatric Psychiatric exam: Present: anxious - Skin Skin exam: Present: warm, intact, normal color, diaphoresis Course Course Narrative: 32-year-old female with history 3 stents in the past presents with 3 days of chest pain. She state that it is centrally located, feels like something is sitting on her chest and stabbing it. The pain radiates up her right jaw and down her right arm. She reports associated headache, dizziness, nausea, shortness of breath. She is currently requiring oxygen and does not require it at home. he states that the pain has been constant, however it does worsen with activity. At its worst it is a 9 out of 10 and a 5 out of 10. She states this morning she took 3 nitros and the 2nd eased the pain slightly but otherwise nitroglycerin has not helped. She also took 3 baby ASA this morning. She denies any recent illness other than having diarrhea for the last 3 weeks. She states that she had a miscarriage in December and has not felt normal since. She follows with a marine mammal trainer in [place] and saw him within the last week. She notes a PMH of 3 stents and CHF. Will do CP workup with EKG, CXR, labs. Will start with SL nitro and move to nitro gtt if no improvement in CP. Pt already took ASA. Pt agreeable to staying for care at [facility]. Pt will likely be admitted for further CP workup. - Reevaluation(s) Reevaluation #1: Pt did not tolerate nitro gtt, got huge ZAPATA. 2mg morphine given with improvement of CP. CP still present, but now improving. Will admit for ACS r/o as first troponin is negative. - Consultations Consultation #1: Discussed the case with Dr. Saenz who has accepted the pt for admission. Time: 14:53 Vital Signs Temperature 98.3 F 03/10/18 12:18 Pulse Rate 90 03/10/18 12:18 Respiratory Rate 18 03/10/18 12:18 Blood Pressure 136/96 03/10/18 12:18 O2 Sat by Pulse Oximetry 98 03/10/18 12:18 Temperature 98.3 F 03/10/18 12:18 Pulse Rate 91 03/10/18 14:11 Respiratory Rate 14 03/10/18 14:11 Blood Pressure 118/86 03/10/18 14:11 O2 Sat by Pulse Oximetry 95 03/10/18 14:11 Oxygen Delivery Oxygen Delivery Room Air Chest Pain - MDM Narrative Medical decision making narrative: 32-year-old female with history of previous stenting 3 who presents with 3 days of CP that was not relieved with nitro and ASA at home. EKG shows NSR without ST elevations or depressions. CBC, CMP, BNP, trop, CXR WNL. Pt continued to have CP after SL and IV nitro gtt was started. Stopped nitro gtt and gave 2mg morphine IV with some relief. Discussed case with hospitalist and will admit for ACS r/o. Pt stable for admission. - Medical Records Medical records reviewed: Yes I reviewed the patient's medical records. - Lab Data Lab results reviewed: Yes I reviewed the patient's lab results. Result diagrams: 03/10/18 12:48 03/10/18 12:48 Lab Results 03/10/18 03/10/18 03/10/18 Range/Units 12:48 12:48 12:48 WBC (4.3-11.1) K/mcL RBC (3.82-4.97) M/mcL Hgb (11.5-15.4) g/dL Hct (35.3-44.9) % MCV (83.0-100.0) fL MCH (28.0-33.3) pg MCHC (31.6-35.5) g/dL RDW (11.5-14.5) % Plt Count (140-400) K/mcL MPV (9.4-12.4) fL Immature Gran % (0-4) % Seg Neutrophils % % Lymphocytes % % Monocytes % % Eosinophils % % Basophils % % Neutrophils # (1.6-8.9) K/mcL Lymphocytes # (0.6-4.6) K/mcL Monocytes # (0.0-1.3) K/mcL Eosinophils # (0.0-0.6) K/mcL Basophils # (0.0-0.2) K/mcL PT 10.9 (9.4-12.1) Seconds INR 1.0 APTT 31.1 (26.0-36.0) Seconds Sodium (136-145) mEq/L Potassium (3.5-5.1) mEq/L Chloride (98-107) mEq/L Carbon Dioxide (23-29) mEq/L BUN (6-20) mg/dL Creatinine (0.60-1.20) mg/dL Est GFR ( Amer) (> 60) Est GFR (Non-Af Amer) (> 60) BUN/Creatinine Ratio (6-26) Glucose (70-105) mg/dL Calculated Osmolality (280-300) Calcium (8.6-10.3) mg/dL Total Bilirubin 0.6 (0.3-1.0) mg/dL Direct Bilirubin 0.1 (0.0-0.2) mg/dL Indirect Bilirubin 0.5 (0.0-1.2) mg/dL AST 15 (13-39) Units/L ALT 21 (7-52) Units/L Alkaline Phosphatase 86 (34-104) Units/L Troponin I (< 0.04) ng/mL B-Natriuretic Peptide 20 (Less than 100) pg/mL Serum Total Protein 6.4 (6.4-8.9) g/dL Albumin 4.2 (3.5-5.7) g/dL Globulin 2.2 L (2.4-3.5) g/dL Albumin/Globulin Ratio 1.9 (1.1-2.2) Urine Color (Yellow) Urine Clarity (Clear) Urine pH (5.0-8.0) pH Units Ur Specific [place] (1.010-1.025) Urine Protein (Neg-Trace) mg/dL Urine Glucose (UA) (Normal) mg/dL Urine Ketones (Negative) mg/dL Urine Blood (Negative) Urine Nitrite (Negative) Urine Bilirubin (Negative) Urine Urobilinogen (Normal) mg/dL Ur Leukocyte Esterase (Negative) Urine Microscopic RBC (0-3) per hpf Urine Microscopic WBC (0-3) per hpf Ur Squamous Epith Cells (None-Few) per lpf Urine Bacteria (None-Few) per hpf Hyaline Casts (None-Few) per lpf Ur Culture Indicated? (NO) 03/10/18 03/10/18 03/10/18 Range/Units 12:48 12:48 14:05 WBC 12.9 H (4.3-11.1) K/mcL RBC 4.77 (3.82-4.97) M/mcL Hgb 14.9 (11.5-15.4) g/dL Hct 42.7 (35.3-44.9) % MCV 89.5 (83.0-100.0) fL MCH 31.2 (28.0-33.3) pg MCHC 34.9 (31.6-35.5) g/dL RDW 13.3 (11.5-14.5) % Plt Count 306 (140-400) K/mcL MPV 9.5 (9.4-12.4) fL Immature Gran % 0.4 (0-4) % Seg Neutrophils % 65.8 % Lymphocytes % 24.3 % Monocytes % 4.7 % Eosinophils % 4.2 % Basophils % 0.6 % Neutrophils # 8.5 (1.6-8.9) K/mcL Lymphocytes # 3.1 (0.6-4.6) K/mcL Monocytes # 0.6 (0.0-1.3) K/mcL Eosinophils # 0.5 (0.0-0.6) K/mcL Basophils # 0.1 (0.0-0.2) K/mcL PT (9.4-12.1) Seconds INR APTT (26.0-36.0) Seconds Sodium 135 L (136-145) mEq/L Potassium 3.9 (3.5-5.1) mEq/L Chloride 106 (98-107) mEq/L Carbon Dioxide 17 L (23-29) mEq/L BUN 7 (6-20) mg/dL Creatinine 0.59 L (0.60-1.20) mg/dL Est GFR ( Amer) > 60 (> 60) Est GFR (Non-Af Amer) > 60 (> 60) BUN/Creatinine Ratio 12 (6-26) Glucose 165 H (70-105) mg/dL Calculated Osmolality 282 (280-300) Calcium 9.3 (8.6-10.3) mg/dL Total Bilirubin (0.3-1.0) mg/dL Direct Bilirubin (0.0-0.2) mg/dL Indirect Bilirubin (0.0-1.2) mg/dL AST (13-39) Units/L ALT (7-52) Units/L Alkaline Phosphatase (34-104) Units/L Troponin I < 0.03 (< 0.04) ng/mL B-Natriuretic Peptide (Less than 100) pg/mL Serum Total Protein (6.4-8.9) g/dL Albumin (3.5-5.7) g/dL Globulin (2.4-3.5) g/dL Albumin/Globulin Ratio (1.1-2.2) Urine Color Yellow (Yellow) Urine Clarity Cloudy A (Clear) Urine pH 6.0 (5.0-8.0) pH Units Ur Specific [place] 1.008 L (1.010-1.025) Urine Protein Negative (Neg-Trace) mg/dL Urine Glucose (UA) Normal (Normal) mg/dL Urine Ketones 15 H (Negative) mg/dL Urine Blood Negative (Negative) Urine Nitrite Negative (Negative) Urine Bilirubin Negative (Negative) Urine Urobilinogen Normal (Normal) mg/dL Ur Leukocyte Esterase Negative (Negative) Urine Microscopic RBC 0-3 (0-3) per hpf Urine Microscopic WBC 0-3 (0-3) per hpf Ur Squamous Epith Cells Many H (None-Few) per lpf Urine Bacteria Few (None-Few) per hpf Hyaline Casts None Seen (None-Few) per lpf Ur Culture Indicated? NO (NO) - Radiology Data Radiology results reviewed: Yes I reviewed the patient's radiology results. Chest X-Ray 03/10/18 12:21 IMPRESSION: No acute findings. D/ / Raman Lala MD / Raman Lala MD Interpreting Provider: Raman Lala MD - EKG Data EKG attestation: Yes I reviewed and interpreted this EKG. EKG results narrative: NSR without ST elevations or depressions. VR 86. Heart Score - Score History: Highly Suspicious EKG: Normal Age: Less than 45 Risk Factors: Equal/Greater than 3 risk factor or history of atherosclerotic disease Troponin: Less than normal limit HEART Score Total: 4 Attestation Statement - Attestation Attestation: Patient was seen with resident physician. I reviewed the history, physical, assessment and plan, and agree with the findings. I also personally evaluated this patient and had [id number] time with this patient. 32-year-old female with a history of cardiac disease 3 stents most recently last year presents with chest pain for 3 days. Large of the pain been continuous but has had an intermittent quality. The pressures like sensation in the middle of her chest radiating to her neck and down her right arm. She said this is similar to her past OR presentations and cardiac chest pains in the past. Patient took some nitroglycerin at home with some mild improvement but continues to have discomfort which prompted the visit. Review of systems as above remainder reviewed. Physical exam vital signs are stable. ENT is unremarkable. Heart regular rhythm and rate. Lungs clear. Abdomen soft nontender. Extremities unremarkable. Neurologically intact. Skin no obvious rashes. Psych normal. ED course. EKG shows no acute ischemic changes. Is consistent with a prior EKG. We gave her 2 nitros without significant improvement. Patient did take her aspirin this morning. I we will do a cardiac workup on the patient and have her admitted for chest pain. Patient's prior procedures were done at [facility], but she said she preferred to stay here possible. I will also start the patient on a nitro drip to try and help with her chest discomfort. Nitro drip was minimally effective. We switched to morphine, which also had minimal effectiveness. Patient had no EKG changes throughout the course of her stay. She had no runs of arrhythmia. Her troponin was negative. X-ray showed no acute abnormalities in the chest. We spoke with the hospitalist service and they agreed to accept the patient for admission. I agree with the resident physician assessment and plan.
[2018-03-10] MEDS ORDERED: GI Cocktail 40 ML EACH PO ONE (12:49)
[2018-03-10] MEDS ORDERED: Ondansetron 4 MG/2 ML VIAL IVP ONE (12:49)
[2018-03-10] MEDS ORDERED: Nitroglycerin 25 MG/250 ML INFUS..BTL IVC SCH (13:00)
[2018-03-10 13:01] LABS: Basophils # 0.1 K/mcL (0.0-0.2); Basophils % 0.6 %; Eosinophils # 0.5 K/mcL (0.0-0.6); Eosinophils % 4.2 %; Hematocrit 42.7 % (35.3-44.9); Hemoglobin 14.9 g/dL (11.5-15.4); Immature Granulocytes % 0.4 % (0-4); Lymphocytes # 3.1 K/mcL (0.6-4.6); Lymphocytes % 24.3 %; Mean Corpuscular HGB Conc 34.9 g/dL (31.6-35.5); Mean Corpuscular Hemoglobin 31.2 pg (28.0-33.3); Mean Corpuscular Volume 89.5 fL (83.0-100.0); Mean Platelet Volume 9.5 fL (9.4-12.4); Monocytes # 0.6 K/mcL (0.0-1.3); Monocytes % 4.7 %; Neutrophils # 8.5 K/mcL (1.6-8.9); Platelet Count 306 K/mcL (140-400); Red Blood Count 4.77 M/mcL (3.82-4.97); Red Cell Distribution Width 13.3 % (11.5-14.5); Segmented Neutrophils % 65.8 %
[2018-03-10 13:06] LABS: Prothrombin Time 10.9 Seconds (9.4-12.1)
[2018-03-10 13:09] LABS: Activated Partial Thrombo Time 31.1 Seconds (26.0-36.0)
[2018-03-10 13:20] LABS: Albumin 4.2 g/dL (3.5-5.7); Albumin/Globulin Ratio 1.9 (1.1-2.2); Bilirubin,Direct 0.1 mg/dL (0.0-0.2); Bilirubin,Indirect 0.5 mg/dL (0.0-1.2); Bilirubin,Total 0.6 mg/dL (0.3-1.0); Globulin 2.2 g/dL (2.4-3.5); Total Protein 6.4 g/dL (6.4-8.9)
[2018-03-10 13:23] LABS: BUN/Creatinine Ratio 12 (6-26); Blood Urea Nitrogen 7 mg/dL (6-20); Calcium 9.3 mg/dL (8.6-10.3); Carbon Dioxide 17 mEq/L (23-29); Chloride 106 mEq/L (98-107); Glucose 165 mg/dL (70-105); Osmolality,Calculated 282 (280-300); Potassium 3.9 mEq/L (3.5-5.1); Sodium 135 mEq/L (136-145); Troponin I < 0.03 ng/mL (< 0.04); eGFR For Non-African Americans > 60 (> 60)
[2018-03-10] MEDS ORDERED: *HR* Morphine 2 MG/ML SYRINGE IVP ONE ×2 (14:02→15:44)
[2018-03-10 14:21] LABS: Bilirubin,Urine Negative (Negative); Blood,Urine Negative (Negative); Clarity,Urine Cloudy (Clear); Color,Urine Yellow (Yellow); Glucose,Urine (UA) Normal (Normal); Ketones,Urine 15 mg/dL (Negative); Leukocyte Esterase,Urine Negative (Negative); Nitrite,Urine Negative (Negative); Protein,Urine Negative (Neg-Trace); Specific Gravity,Urine 1.008 (1.010-1.025); Urobilinogen,Urine Normal (Normal)
[2018-03-10 14:23] LABS: Bacteria,Urine Few per hpf (None-Few); Hyaline Casts,Urine None Seen per lpf (None-Few); RBC,Urine 0-3 per hpf (0-3); Squamous Epithelial Cell,Urine Many per lpf (None-Few); WBC,Urine 0-3 per hpf (0-3)
[2018-03-10] MEDS ORDERED: diazePAM 5 MG TABLET PO PRN (15:20)
[2018-03-10] MEDS ORDERED: *HR* Dextrose 50 % in Water (Syg) 50 ML SYRINGE IVP PRN (15:24)
[2018-03-10] MEDS ORDERED: Dextrose Gel 15 GM/37.5 ML TUBE PO PRN ×2 (15:24)
[2018-03-10] MEDS ORDERED: D5% in Water 1,000 ML IVC PRN (15:24)
[2018-03-10] MEDS ORDERED: Nitroglycerin 0.4 MG TAB.SUBL SL PRN (15:25)
[2018-03-10] MEDS ORDERED: *HR* Morphine 2 MG/ML SYRINGE ONE (15:47)
[2018-03-10] MEDS ORDERED: Naloxone 0.4 MG/ML INJ IVP PRN (16:27)
[2018-03-10] MEDS ORDERED: Acetaminophen 325 MG TABLET PO PRN (16:27)
[2018-03-10] MEDS ORDERED: *HR* HYDROcodone/Acet 5/325 mg TABLET PO PRN (16:27)
[2018-03-10] MEDS ORDERED: Pantoprazole 40 MG VIAL IVP ONE ×2 (16:41→16:45)
--- NOTE | 2018-03-10 16:47 | Internal Med History&Physical ---
<MinantoniamercedesAgus - Last Filed: 03/10/18 17:22> Date of Encounter: 03/10/18 Time of Encounter: 15:00 Internal Medicine - H&P: HPI Chief complaint: CP Admitted From: Emergency Dept Plans for Post Hospital Care: Home History of present illness: Ms. Mccoy is a 32 year old female w/PMH of CHF, CAD, diabetes controlled with insulin and oral, GERD, HLD, HTN, history of kidney stones, migraine, and previous myocardial infarction with stent placement 2 presents from the ED with chief complaint of CP for the past three days. Pt. reports sharp, stabbing pain in central chest to left breast and pressure under right breast w/ radiation to right neck, right arm, and back. Associated sx: nausea, vomiting, chills, dizziness, and SOB. Reports nitro did not help pain. States morphine helped for approx. 30 minutes. Pain now 9/10. Also reports miscarriage in December and diarrhea for the past 3-4 weeks. No alleviating or aggravating factors. Patient denies recent illness, headache, changes in vision, unusual bleeding, cough, chest congestion, abdominal pain, constipation, numbness, tingling, pre- syncope, or syncope. Past Med Surg Social Fam HX - Past Medical History Source: patient, old records reviewed Medical history: CHF, coronary artery disease, diabetes, GERD, hyperlipidemia, hypertension, kidney stones, migraine, myocardial infarction, other Additional medical history: PCOS Psychiatric history: anxiety, bipolar, depression - Past Surgical History Surgical History: angioplasty/stent (x2) Additional surgical history: cardiac stents x 2 - Social History Smoking Status: Current every day smoker Packs per day: 1 PPD Smokeless Tobacco Status: No Alcohol use: none Drug use: none Occupational status: employed Current living situation: Home, With Family Activity Level: Independent ambulation Recent Out of Country Travel Within the Last 8 Weeks: No Exposure or Possible Exposure to Illness During Travel: No - Family History Brother Race: Family Member Ethnicity: Non- Living Status: Still Living Hx Family Medical Disorders: No Father Race: Family Member Ethnicity: Non- Living Status: Still Living Hx Family Medical Disorders: No Grandmother Adopted: No Race: Family Member Ethnicity: Non- Living Status: Hx Family Cardiac Disorders: Yes (CHF) Mother Race: Family Member Ethnicity: Non- Living Status: Still Living Hx Family Medical Disorders: No Internal Medicine - H&P: Meds Temazepam [Restoril] 15 mg PO HS #0 06/29/15 [History] traZODone [TraZODone] 100 mg PO HS 09/27/15 [History] diazePAM [Valium] 5 mg PO TID PRN 04/01/16 [History] Liraglutide [Victoza 2-Bill] 1.2 mg SQ QAM 10/21/16 [History] Metoprolol XL (24 HR) Succ [Toprol Xl] 12.5 mg PO BID 10/21/16 [History] Aspirin Enteric Coated [Aspirin EC] 81 mg PO DAILY 05/24/17 [History] Lurasidone [Latuda] 40 mg PO QPM 05/24/17 [History] Ondansetron HCl [Zofran] 4 mg PO Q8H PRN 05/24/17 [History] metFORMIN [Glucophage] 1,000 mg PO BID 05/24/17 [History] Topiramate 50 mg PO BID 09/10/17 [History] Atorvastatin [Lipitor] 40 mg PO HS 03/10/18 [History] Clopidogrel [Plavix] 75 mg PO DAILY 03/10/18 [History] Diltiazem CD (24hr) [Cardizem CD] 300 mg PO DAILY 03/10/18 [History] Pnv with Ca,No.72/Iron/FA [Pnv Plus Multivit Tab] 1 tab PO DAILY [History] 3 Allergy/AdvReac Type Severity Reaction Status Date / Time naproxen AdvReac Gastrointestinal Verified 03/10/18 14:57 Upset All Systems PM: A 10-system review of systems was performed and is negative for pertinent findings except as documented above in the HPI. - Constitutional Constitutional: as per HPI, chills, fever(s), no night sweats - EENT Eyes: no change in vision, no discharge, no pain, no photophobia Ears: no ear discharge, no ear pain, no tinnitus Nose, mouth and throat: no dysphagia, no nasal discharge, no neck pain, no sore throat - Breasts Breasts: as per HPI - Cardiovascular Cardiovascular ROS IM: as per HPI, chest pain, dyspnea, dyspnea on exertion, lightheadedness, no diaphoresis, no palpitations, no syncope - Respiratory Respiratory: as per HPI, dyspnea, dyspnea on exertion, no cough, no wheezing, no excessive phlegm production - Gastrointestinal Gastrointestinal: as per HPI, diarrhea, nausea, vomiting, no abdominal pain, no hematemesis, no hematochezia, no melena - Genitourinary Genitourinary: no change in urinary stream, no dysuria, no flank pain, no hematuria Menstruation: as per HPI - Musculoskeletal Musculoskeletal ROS IM: no numbness, no tingling - Integumentary Integumentary IM: no rash, no unusual bruising - Neurological Neurological ROS: as per HPI, dizziness, no confusion, no convulsions, no focal weakness, no numbness, no tingling, no tremor(s) - Psychiatric Psychiatric: as per HPI, anxiety, depression - Endocrine Endocrine IM: as per HPI - Hematologic/Lymphatic Hematologic/Lymphatic: no easy bruising - Allergic/Immunologic Allergic/Immunologic: as per HPI - Constitutional Vitals: Temp Pulse Resp BP Pulse Ox 98.3 F 89 20 125/91 91 03/10/18 12:18 03/10/18 15:51 03/10/18 15:51 03/10/18 15:51 03/10/18 15:51 General appearance: Present: cooperative, mild distress (CP ), A&O X 3, pleasant , obese, answers questions appropriately - Head Head exam: Present: atraumatic, normocephalic - Eye Eye exam: Present: PERRL, conjuntiva pink, sclera anicteric Pupils: Present: PERRL - ENT ENT exam: Present: normal exam - Neck Neck exam general surgery: Present: normal inspection, supple, trachea midline. Absent: lymphadenopathy - Respiratory Respiratory exam: Present: CTAB. Absent: accessory muscle use, rales, rhonchi, wheezes - Cardiovascular Cardiovascular exam: Present: RRR, +S1, +S2. Absent: diastolic murmur, gallop, rubs, systolic murmur - GI/Abdominal GI/Abdominal exam: Present: normal bowel sounds, soft, no peritoneal signs. Absent: distended, tenderness - Rectal Rectal exam: Present: deferred - Additional comments: exam deferred. - Extremities Exam Extremities exam: Present: warm, radial pulses palpable and symmetrical. Absent : calf tenderness, cyanotic, pedal edema - Back Exam Back exam: Present: normal inspection - Neurological Exam Neurological exam: Present: CN II-XII intact, oriented X3, no focal deficits. Absent: pronater drift, facial droop, speech deficit - Psychiatric Psychiatric exam: Present: normal affect, normal mood - Skin Skin exam: Present: dry, intact Internal Med - H&P Results - Labs CBC & Chem 7: 03/10/18 12:48 03/10/18 12:48 - Diagnostic Studies Chest x-ray Additional comments: Impressions Chest X-Ray 03/10/18 12:21 IMPRESSION: No acute findings. D/ / Raman Lala MD / Raman Lala MD Interpreting Provider: Raman Lala MD - Assessment and plan (1) Chest pain Current Visit: Yes Status: Acute Assessment and plan: Acute CP for the past three days. Pt. reports sharp, stabbing pain in central chest to left breast and pressure under right breast w/radiation to right neck, right arm, and back. Associated sx: nausea, vomiting, chills, dizziness, and SOB. Reports nitro did not help pain. States morphine helped for approx. 30 minutes. Pain now 9/10 on exam. Echocardiogram on 05/25/17 showed LVEF of 55%, normal diastolic function of the left ventricle, normal right ventricular structure and function, mild tricuspid regurgitation, and no pulmonary hypertension. Nuclear stress test on 06/09/17 showed severe intensity perfusion defect which appeared fixed involving the inferior and inferolateral britt- findings consistent with prior infarct. No evidence of ischemia. Pharmacologic stress ECG negative for ischemia at level of heart rate achieved. Patient had chest pain/pressure prior to the stress today which persisted unchanged throughout testing. Gated EF equals 70%. Limited Echocardiogram ordered. 80 mg. Lipitor now. Aspirin. Nitro SL PRN. Will try Oxycodone SL for CP. Continuous cardiac telemetry. Initial troponin <0.03. Will trend. Cardiology consult ordered and discussed w/Dr. Echeverria and I appreciate the consult and recommendations as always. Pt. discussed w/Dr. Saenz who agrees w/plan of care. Pt. is high risk for further morbidity and cardiac event based on 3 days of CP, previous TX requiring 2 stents, hx; and risk factors of HTN, HLD, DM, CAD, CHF, current tobacco abuse, and obesity. Observation. Qualifiers: Chest pain type: other chest pain Qualified Code(s): R07.89 - Other chest pain; R07.8 - Other chest pain (2) Nausea and vomiting Current Visit: Yes Status: Acute Assessment and plan: Acute N/V w/CP sx. Non-intractable. IVP Zofran and IVP Phenergan ordered. Qualifiers: Vomiting type: unspecified Vomiting Intractability: non-intractable Qualified Code(s): R11.2 - Nausea with vomiting, unspecified (3) SOB (shortness of breath) Current Visit: Yes Status: Acute Assessment and plan: Acute SOB w/CP sx. Denies home O2 use. Supplemental O2 w/titration and SpO2 monitoring PRN. Falls/safety precautions and up with assist. (4) CAD (coronary artery disease) Current Visit: Yes Status: Chronic Assessment and plan: Hx of chronic CAD w/previous TX and stent placement x2. Continuous cardiac telemetry. Continue pts. Lipitor, Plavix, Cardizem, and metoprolol. Qualifiers: Coronary Disease-Associated Artery/Lesion type: [place] artery [place] vs. transplanted heart: [place] heart Associated angina: without angina Qualified Code(s): I25.10 - Atherosclerotic heart disease of [place] coronary artery without angina pectoris (5) Diabetes Current Visit: Yes Status: Chronic Assessment and plan: Hx of chronic DM controlled by oral anti-hyperglycemic medication and insulin. Hold PO medication and Victoza and administer low-dose correction insulin sliding scale w/hypoglycemic protocol. BG checks ACHS. A1c in a.m. labs. Qualifiers: Diabetes mellitus type: type 2 Diabetes mellitus senior care insulin use: without terminal carman use Diabetes mellitus complication status: with circulatory complication Diabetes mellitus complication detail: with other circulatory complications Qualified Code(s): E11.59 - Type 2 diabetes mellitus with other circulatory complications (6) GERD (gastroesophageal reflux disease) Current Visit: Yes Status: Chronic Assessment and plan: Hx of chronic GERD. Pt. given GI cocktail in ED which did not help sx. IVP Protonix 40 mg daily. IVP Zofran and Phenergan ordered for N/V. Qualifiers: Esophagitis presence: esophagitis presence not specified Qualified Code(s) : K21.9 - Gastro-esophageal reflux disease without esophagitis (7) HLD (hyperlipidemia) Current Visit: Yes Status: Chronic Assessment and plan: Hx of chronic HLD. Lipid panel in a.m. labs. Continue pts. Lipitor. 80 mg. dose of Lipitor NOW d/t CP. Qualifiers: Hyperlipidemia type: pure hypercholesterolemia Qualified Code(s): E78.00 - Pure hypercholesterolemia, unspecified; E78.0 - Pure hypercholesterolemia (8) HTN (hypertension) Current Visit: Yes Status: Chronic Assessment and plan: Hx of chronic HTN. Monitor pt. and VS. Continue patient's Cardizem and metoprolol. Qualifiers: Hypertension type: essential hypertension Qualified Code(s): I10 - Essential (primary) hypertension (9) Tobacco use Current Visit: Yes Status: Chronic Assessment and plan: Hx of chronic tobacco abuse. Pt. reports smoking 1 PPD currently 14 mg. nicotine patch ordered. Tobacco cessation counseling provided to pt. >10 minutes. (10) Anxiety and depression Current Visit: Yes Status: Chronic Assessment and plan: Hx of chronic anxiety and depression. Continue patient's Valium, Latuda, Restoril, and Trazodone. (11) DVT prophylaxis Current Visit: Yes Status: Acute Assessment and plan: Heparin 5,000 units SQ Q8HR for DVT prophylaxis. Monitor pt. for signs of bleeding. (12) Dizziness Current Visit: Yes Status: Acute Assessment and plan: Acute dizziness w/current CP sx. Falls/safety precautions and up with assist only. Bilateral carotid Dopplers ordered. Continuous cardiac telemetry. - Time Spent With Patient Total time spent is greater than 50% in coordination of care (as documented) at patient's floor/unit and/or counseling patient: Greater than 35 minutes <Raymon Saenz - Last Filed: 03/10/18 17:26> Date of Encounter: 03/10/18 Internal Medicine - H&P: HPI History of present illness: Ms. Mccoy is a 32 year old female All Systems PM: A 10-system review of systems was performed and is negative for pertinent findings except as documented above in the HPI. - Constitutional Vitals: Temp Pulse Resp BP Pulse Ox 98.3 F 89 20 125/91 91 03/10/18 12:18 03/10/18 15:51 03/10/18 15:51 03/10/18 15:51 03/10/18 15:51 Internal Med - H&P Results - Labs CBC & Chem 7: 03/10/18 12:48 03/10/18 12:48 - Attending Attestation I have seen and examined this patient independently. I have discussed with B[employer] DEVELOPER Mr Negron regarding the management plan. Agree with the documentation. - Assessment and plan (1) HTN (hypertension) Current Visit: Yes Status: Chronic Qualifiers: Hypertension type: essential hypertension Qualified Code(s): I10 - Essential (primary) hypertension (2) Tobacco use Current Visit: Yes Status: Chronic (3) Anxiety and depression Current Visit: Yes Status: Chronic (4) CAD (coronary artery disease) Current Visit: Yes Status: Chronic Qualifiers: Coronary Disease-Associated Artery/Lesion type: [place] artery [place] vs. transplanted heart: [place] heart Associated angina: without angina Qualified Code(s): I25.10 - Atherosclerotic heart disease of [place] coronary artery without angina pectoris (5) DVT prophylaxis Current Visit: Yes Status: Acute (6) Diabetes Current Visit: Yes Status: Chronic Qualifiers: Diabetes mellitus type: type 2 Diabetes mellitus senior care insulin use: without terminal carman use Diabetes mellitus complication status: with circulatory complication Diabetes mellitus complication detail: with other circulatory complications Qualified Code(s): E11.59 - Type 2 diabetes mellitus with other circulatory complications (7) Chest pain Current Visit: Yes Status: Acute Qualifiers: Chest pain type: other chest pain Qualified Code(s): R07.89 - Other chest pain; R07.8 - Other chest pain (8) GERD (gastroesophageal reflux disease) Current Visit: Yes Status: Chronic Qualifiers: Esophagitis presence: esophagitis presence not specified Qualified Code(s) : K21.9 - Gastro-esophageal reflux disease without esophagitis (9) HLD (hyperlipidemia) Current Visit: Yes Status: Chronic Qualifiers: Hyperlipidemia type: pure hypercholesterolemia Qualified Code(s): E78.00 - Pure hypercholesterolemia, unspecified; E78.0 - Pure hypercholesterolemia (10) Nausea and vomiting Current Visit: Yes Status: Acute Qualifiers: Vomiting type: unspecified Vomiting Intractability: non-intractable Qualified Code(s): R11.2 - Nausea with vomiting, unspecified (11) SOB (shortness of breath) Current Visit: Yes Status: Acute (12) Dizziness Current Visit: Yes Status: Acute - Time Spent With Patient Total time spent is greater than 50% in coordination of care (as documented) at patient's floor/unit and/or counseling patient:
[2018-03-10] MEDS ORDERED: *HR* Promethazine 25 MG/ML VIAL IVP PRN (17:06)
[2018-03-10] MEDS ORDERED: Ondansetron 4 MG/2 ML VIAL IVP PRN (17:06)
[2018-03-10] MEDS: OXYCODONE Oral CONC 10 MG/0.5 ML ORAL.SYG SL PRN (18:01)
[2018-03-10] MEDS: Insulin LISPRO 300 UNITS/3 ML VIAL SQ SCH (18:08)
[2018-03-10] MEDS ORDERED: Insulin LISPRO 300 UNITS/3 ML VIAL SQ SCH (21:00)
[2018-03-10] MEDS ORDERED: Temazepam 15 MG CAPSULE PO SCH (21:00)
[2018-03-10] MEDS ORDERED: traZODone 50 MG TABLET PO SCH (21:00)
[2018-03-10] MEDS: Metoprolol XL (24 HR) Succ 25 MG TAB.ER.24H PO SCH (21:27)
[2018-03-10] MEDS: Topiramate 25 MG TABLET PO SCH (21:27)
[2018-03-10] MEDS: *HR* Heparin 5,000 UNIT/ML VIAL SQ SCH (21:28)
[2018-03-11] MEDS: OXYCODONE Oral CONC 10 MG/0.5 ML ORAL.SYG SL PRN ×3 (00:17→13:14)
[2018-03-11 00:59] LABS: Basophils # 0.1 K/mcL (0.0-0.2); Basophils % 0.8 %; Eosinophils # 0.6 K/mcL (0.0-0.6); Hematocrit 41.6 % (35.3-44.9); Hemoglobin 14.6 g/dL (11.5-15.4); Immature Granulocytes % 0.3 % (0-4); Lymphocytes # 4.5 K/mcL (0.6-4.6); Lymphocytes % 35.8 %; Mean Corpuscular HGB Conc 35.1 g/dL (31.6-35.5); Mean Corpuscular Hemoglobin 32.1 pg (28.0-33.3); Mean Corpuscular Volume 91.4 fL (83.0-100.0); Mean Platelet Volume 9.5 fL (9.4-12.4); Monocytes # 0.7 K/mcL (0.0-1.3); Monocytes % 5.2 %; Neutrophils # 6.7 K/mcL (1.6-8.9); Platelet Count 291 K/mcL (140-400); Red Blood Count 4.55 M/mcL (3.82-4.97); Red Cell Distribution Width 13.4 % (11.5-14.5); Segmented Neutrophils % 52.9 %
[2018-03-11 01:20] LABS: Alanine Aminotransferase 18 Units/L (7-52); Albumin/Globulin Ratio 1.9 (1.1-2.2); Alkaline Phosphatase 80 Units/L (34-104); Aspartate Amino Transferase 14 Units/L (13-39); BUN/Creatinine Ratio 12 (6-26); Bilirubin,Total 0.6 mg/dL (0.3-1.0); Blood Urea Nitrogen 9 mg/dL (6-20); Calcium 9.5 mg/dL (8.6-10.3); Carbon Dioxide 22 mEq/L (23-29); Chloride 103 mEq/L (98-107); Chol/HDL Ratio 5.8 (0-4.9); Cholesterol 185 mg/dL (< 200); Globulin 2.1 g/dL (2.4-3.5); Glucose 251 mg/dL (70-105); HDL Cholesterol 32 mg/dL (40-59); LDL Cholesterol,Calculated 74 mg/dL (0-99); Magnesium 1.6 mg/dL (1.6-2.6); Osmolality,Calculated 283 (280-300); Potassium 3.8 mEq/L (3.5-5.1); Sodium 133 mEq/L (136-145); Total Protein 6.1 g/dL (6.4-8.9); Triglycerides 397 mg/dL (< 150); eGFR For Non-African Americans > 60 (> 60)
[2018-03-11] MEDS: *HR* Heparin 5,000 UNIT/ML VIAL SQ SCH ×2 (06:33→14:49)
[2018-03-11] MEDS ORDERED: Diltiazem CD (24hr) 300 MG CAPSULE PO SCH (09:00)
[2018-03-11] MEDS ORDERED: Nicotine 14 MG PATCH.TD24 TD SCH (09:00)
[2018-03-11] MEDS ORDERED: Multivit/Ca/Min/Fe/FA 1 TAB TABLET PO SCH (09:00)
[2018-03-11] MEDS ORDERED: Aspirin Enteric Coated 81 MG Tablet PO SCH (09:00)
[2018-03-11] MEDS: Topiramate 25 MG TABLET PO SCH (10:02)
[2018-03-11] MEDS: Metoprolol XL (24 HR) Succ 25 MG TAB.ER.24H PO SCH (10:03)
[2018-03-11] MEDS: Insulin LISPRO 300 UNITS/3 ML VIAL SQ SCH ×2 (10:04→12:01)
--- NOTE | 2018-03-11 10:17 | Cardiology Consult Note ---
Date of Encounter: 03/11/18 Time of Encounter: 09:30 Assessment and Plan (1) Chest pain Current Visit: No Status: Chronic Presents with 4 day history of intermittent chest discomfort. Symptoms described are atypical; however reports similar to prior SC presentation in the past. Known hx of premature CAD s/p PCI in 2014, 2015, and reportedly in 2017 at [facility] (records requested). Now follows with Dr. Kwong at [facility]. Troponin negative x3. No acute ECG changes noted. Chest pain free upon exam. Recent miscarriage (December 2017), several cardiac medications were stopped at discovery of . Check echocardiogram. Will continue asa, BB, and plavix. Will restart Ranexa ( cannot tolerate imdur d/t headaches). Statin re-started by primary service. Long discussion regarding possible teratogenic side effects of medications. Obtain recent LHC results/reports from [place]. Ideally continue to treat medically for now, if symptoms cannot be controlled with medications, may need to to consider LHC. Will continue to follow. Qualifiers: Chest pain type: chest pain due to myocardial ischemia Ischemic chest pain type: stable angina pectoris Qualified Code(s): I20.8 - Other forms of angina pectoris (2) Tobacco use Current Visit: Yes Status: Chronic Smoking cessation counseling advised. (3) CAD (coronary artery disease) Current Visit: Yes Status: Chronic Plan as above. Per records (Cardiology notes, OSH, last PCI 2016). Continue asa, plavix, BB. On statin. Will resume Ranexa. Qualifiers: Coronary Disease-Associated Artery/Lesion type: [place] artery [place] vs. transplanted heart: [place] heart Associated angina: with stable angina Qualified Code(s): I25.118 - Atherosclerotic heart disease of [place] coronary artery with other forms of angina pectoris Discussion w patient/family: The assessment and plan as outlined above was discussed with the patient and/or family members who expressed understanding and agreement. All questions were answered. Thank you for involving us in the care of your patient. Please call with any questions. The patient will be discussed and reviewed with Dr. Moya; changes to be made accordingly. History of Present Illness Consult date: 03/11/18 Requesting physician: Agus Negron Consult reason: Chest pain Chief complaint: Chest pain History of present illness: Ms. Mccoy is a 32 year old female with PMHx significant of premature CAD, SC s/ p PCI, DMII, HTN who presented to the ED with complaints of worsening chest discomfort over the past 4 days. Reports chest discomfort was first "light" and would come and go, described as midsternal sharp pain with radiation to right arm. Discomfort not related to exertion or activity. Reports discomfort worsened yesterday, occurred at rest and pain radiated down right arm, neck/jaw , and into back. She reports taking x3 baby ASA and x3 SL NTG which improved pain, however recurred 10 minutes later which prompted ED evaluation. Reports GI upset/diarrhea that has been persistent for 4 weeks, she reports resuming several medications (Latuda, Valium) which could have prompted symptoms. Reports miscarriage the end of December 2017, since then she has generally felt unwell. Multiple admissions at [facility] for chest pain/discomfort and has underwent multiple LHC, stress testing. She now follows with Dr. Kwong at [facility] --reportedly underwent LHC with PCI (2016) and additional LHC in 2017--no intervention warranted. Reports several cardiac medications were discontinued upon discovery of by high-risk OB at [facility], she reports she was continued on both asa and plavix. Prior CV testing: ([place]) Regadenoson nuclear stress 06/09/17: severe intensity perfusion defect which appears fixed involving the inferior and inferolateral britt consistent with prior infarct, negative for ischemia, gated EF =70% TTE 05/25/17: LVEF 55%, mild TR, normal RV structure and function, no PH, normal wall motion LHC 05/04/16: EF 45%; s/p successful PTCA/DELFNIO to the R PDA; otherwise non- obstructive CAD (20% mLAD, 20% mLCx). Exercise nuclear stress test 05/03/16: exercise ECG non-diagnostic for ischemia d/t non-specific ST and T wave changes (no significant changes from baseline), exercise capacity was good (10.1 METS), no chest pain; gated EF=70%, large sized, severe intensity mostly fixed perfusion defect throughout the inferior and inferolateral segments suggestive of prior infarct, small amount of reversibly in the inferolateral segments consistent with mild jacob-infarct ischemia TTE 04/02/16: LVEF 55%, no significant valvular dysfunction LHC 09/29/15: proximal RCA stent, improvement in PDA/PLB anatomy since STEMI, FFR of 80% PDA lesion was found not functionally significant, FFR measurement: 0.85, 0.84; otherwise non-obstructive CAD, 30% pLAD, 20% 1st OM, 80% dRCA, EF 35 % LHC 06/29/15: EF 45%, s/p successful DELFINO in the pRCA, otherwise no significant CAD Stress echo 04/28/15: exercise capacity was average, normal LVEF 60%, normal blood pressure response, appropriate hyperdynamic response of all myocardial segments with exercise Past Med Surg Social Fam HX - Past Medical History Attestation: Yes The following information was validated with the patient. Source: patient Medical history: cardiomyopathy ((resolved)), coronary artery disease, diabetes , GERD, hyperlipidemia, hypertension, kidney stones, migraine, myocardial infarction, other Additional medical history: PCOS Psychiatric history: anxiety, bipolar, depression - Past Surgical History Surgical History: angioplasty/stent (x2) Additional surgical history: cardiac stents x 2 - Social History Smoking Status: Current every day smoker Packs per day: 1 PPD Smokeless Tobacco Status: No Alcohol use: none Drug use: none - Family History Brother Race: Family Member Ethnicity: Non- Living Status: Still Living Hx Family Medical Disorders: No Father Race: Family Member Ethnicity: Non- Living Status: Still Living Hx Family Cardiac Disorders: Yes (HTN) Hx Family Respiratory Disorders: No Hx Family Cancer: No Hx Family GI Disorders: No Hx Family Endocrine Disorder: Yes (DM) Hx Family Neuromuscular Disorders: No Hx Family Neurologic Disorders: No Hx Family HEENT Disorders: No Hx Family Autoimmune Disorders: No Hx Family Medical Disorders: No Grandmother Adopted: No Race: Family Member Ethnicity: Non- Living Status: Hx Family Cardiac Disorders: Yes (CHF) Hx Family Respiratory Disorders: No Hx Family Cancer: No Hx Family GI Disorders: No Hx Family Endocrine Disorder: No Hx Family Neuromuscular Disorders: No Hx Family Neurologic Disorders: No Hx Family HEENT Disorders: No Hx Family Autoimmune Disorders: No Mother Race: Family Member Ethnicity: Non- Living Status: Still Living Hx Family Cardiac Disorders: No Hx Family Respiratory Disorders: No Hx Family Cancer: No Hx Family GI Disorders: No Hx Family Endocrine Disorder: No Hx Family Neuromuscular Disorders: No Hx Family Neurologic Disorders: No Hx Family HEENT Disorders: No Hx Family Autoimmune Disorders: No Hx Family Medical Disorders: No Medications and Allergies Temazepam [Restoril] 15 mg PO HS #0 06/29/15 [History] traZODone [TraZODone] 100 mg PO HS 09/27/15 [History] diazePAM [Valium] 5 mg PO TID PRN 04/01/16 [History] Liraglutide [Victoza 2-Bill] 1.2 mg SQ QAM 10/21/16 [History] Metoprolol XL (24 HR) Succ [Toprol Xl] 12.5 mg PO BID 10/21/16 [History] Aspirin Enteric Coated [Aspirin EC] 81 mg PO DAILY 05/24/17 [History] Lurasidone [Latuda] 40 mg PO QPM 05/24/17 [History] Ondansetron HCl [Zofran] 4 mg PO Q8H PRN 05/24/17 [History] metFORMIN [Glucophage] 1,000 mg PO BID 05/24/17 [History] Topiramate 50 mg PO BID 09/10/17 [History] Atorvastatin [Lipitor] 40 mg PO HS 03/10/18 [History] Clopidogrel [Plavix] 75 mg PO DAILY 03/10/18 [History] Diltiazem CD (24hr) [Cardizem CD] 300 mg PO DAILY 03/10/18 [History] Pnv with Ca,No.72/Iron/FA [Pnv Plus Multivit Tab] 1 tab PO DAILY [History] 3 Allergy/AdvReac Type Severity Reaction Status Date / Time naproxen AdvReac Gastrointestinal Verified 03/10/18 14:57 Upset All Systems Review: The remainder of the systems were reviewed and are negative - Cardiovascular Cardiovascular: as per HPI Physical Examination Vital Signs, Last 4 Hours Temp Pulse Resp BP Pulse Ox 03/11/18 06:46 97.9 F 74 17 122/83 94 General: Conversant, No Apparent Distress HEENT: Atraumatic, Normocephaly, Mucus Membranes Moist Neck: No JVD, Normal carotid pulses Cardiac: Reg Rate and Rhythm, Normal S1 and S2, No Murmur Lungs: Normal Breath Sounds, No Wheeze, Rales, Rhonchi Neuro: Alert and responsive, No focal deficits noted Abdomen: Soft, Non-Tender Skin: No rashes noted on visualized skin Musculoskeletal: No Chest Wall Tenderness Extremities: No Clubbing, No Cyanosis, No Edema, Normal Pulses Results 03/11/18 00:50 03/11/18 00:50 Lab Results 03/10/18 03/10/18 03/11/18 16:19 18:21 00:50 WBC Hgb Hct Plt Count D-Dimer 356 Sodium Potassium Chloride Carbon Dioxide BUN Creatinine Glucose Calcium Magnesium Total Bilirubin AST ALT Alkaline Phosphatase Troponin I < 0.03 < 0.03 03/11/18 03/11/18 00:50 00:50 WBC 12.6 H Hgb 14.6 Hct 41.6 Plt Count 291 D-Dimer Sodium 133 L Potassium 3.8 Chloride 103 Carbon Dioxide 22 L BUN 9 Creatinine 0.73 Glucose 251 H Calcium 9.5 Magnesium 1.6 Total Bilirubin 0.6 AST 14 ALT 18 Alkaline Phosphatase 80 Troponin I Active Medications Acetaminophen (Tylenol) 650 mg PO Q6HR PRN PRN Reason: Mild Pain/Fever Stop: 09/09/18 16:28 Hydrocodone Bitart/Acetaminophen ([place] 5-325 Mg) 1 tab PO Q6HR PRN PRN Reason: Moderate Pain Stop: 09/09/18 16:28 Aspirin (Aspirin Ec) 81 mg PO DAILY [facility] Stop: 09/10/18 09:01 Last Admin: 03/11/18 10:02 Dose: 81 mg Atorvastatin Calcium (Lipitor) 40 mg PO HS [facility] Stop: 09/10/18 21:01 Clopidogrel Bisulfate (Plavix) 75 mg PO DAILY [facility] Stop: 09/10/18 09:01 Last Admin: 03/11/18 10:02 Dose: 75 mg Dextrose/Water (Dextrose 50% (Syg)) 25 ml IVP AD PRN PRN Reason: Hypoglycemia Stop: 09/09/18 15:25 Diazepam (Valium) 5 mg PO TID PRN PRN Reason: Anxiety Stop: 09/09/18 15:21 Diltiazem HCl (Cardizem Cd) 300 mg PO DAILY [facility] Stop: 09/10/18 09:01 Last Admin: 03/11/18 10:02 Dose: 300 mg Glucagon (Glucagen) 1 mg IM ONCE PRN PRN Reason: Hypoglycemia Stop: 09/09/18 15:25 Glucose (Gluctose) 15 gm PO ONCE PRN PRN Reason: Hypoglycemia Stop: 09/09/18 15:25 Glucose (Gluctose) 30 gm PO ONCE PRN PRN Reason: Hypoglycemia Stop: 09/09/18 15:25 Heparin Sodium (Porcine) (Heparin) 5,000 unit SQ Q8HCO [facility] Stop: 09/09/18 22:01 Last Admin: 03/11/18 06:33 Dose: Not Given Dextrose (Dextrose 5%) 1,000 mls @ 100 mls/hr IVC .Q10H PRN PRN Reason: HYPOGLYCEMIA Stop: 09/09/18 15:25 Insulin Human Lispro (Humalog) 0 units SQ TIDAC [facility] PRN Reason: Protocol Stop: 09/09/18 16:31 Last Admin: 03/11/18 10:04 Dose: Not Given Insulin Human Lispro (Humalog) 0 units SQ HS [facility] PRN Reason: Protocol Stop: 09/09/18 21:01 Last Admin: 03/10/18 21:26 Dose: Not Given Lurasidone HCl (Latuda) 40 mg PO DAILY@1700 [facility] Stop: 09/09/18 17:01 Last Admin: 03/10/18 18:07 Dose: 40 mg Metoprolol Succinate (Toprol Xl) 12.5 mg PO BID [facility] Stop: 09/09/18 21:01 Last Admin: 03/11/18 10:03 Dose: 12.5 mg Multivitamins/Calcium (Thera M Plus) 1 tab PO DAILY [facility] Stop: 09/10/18 09:01 Last Admin: 03/11/18 10:03 Dose: 1 tab Naloxone HCl (Narcan) 0.4 mg IVP Q2MIN PRN PRN Reason: SEE COMMENTS Stop: 09/09/18 16:28 Nicotine (Nicoderm) 14 mg TD DAILY [facility] PRN Reason: Protocol Stop: 09/10/18 09:01 Last Admin: 03/11/18 10:04 Dose: 14 mg Nitroglycerin (Nitroglycerin) 0.4 mg SL Q5MIN PRN PRN Reason: Chest Pain Stop: 09/09/18 15:26 Ondansetron HCl (Zofran) 4 mg IVP Q6H PRN; Protocol PRN Reason: Nausea And Vomiting Stop: 09/09/18 17:07 Last Admin: 03/11/18 06:55 Dose: 4 mg Oxycodone HCl (Oxycodone Oral Conc) 10 mg SL Q6HR PRN; Protocol PRN Reason: Severe Chest Pain Stop: 09/09/18 16:34 Last Admin: 03/11/18 06:54 Dose: 10 mg Promethazine HCl (Phenergan) 12.5 mg IVP Q6H PRN PRN Reason: Nausea And Vomiting Stop: 09/09/18 17:07 Last Admin: 03/11/18 10:12 Dose: 12.5 mg Temazepam (Restoril) 15 mg PO HS GINGER PRN Reason: Protocol Stop: 09/09/18 21:01 Last Admin: 03/10/18 21:27 Dose: 15 mg Topiramate (Topamax) 50 mg PO BID [facility] Stop: 09/09/18 21:01 Last Admin: 03/11/18 10:02 Dose: 50 mg Trazodone HCl (Trazodone) 100 mg PO HS [facility] Stop: 09/09/18 21:01 Last Admin: 03/10/18 21:27 Dose: 100 mg - Imaging and Cardiology Stress Test: report reviewed Echo: report reviewed Cardiac cath: report reviewed Other Results: 12 hour tele: avg HR=72 SR. No events noted. - EKG Interpretation EKG results cardiology: personally reviewed Consult Discharge Plan - Plan Referrals: Glory Funes CNP [Primary Care Provider] - 03/20/18 10:00 am ()
[2018-03-11 10:49] LABS: Estimated Average Glucose 183 mg/dl
[2018-03-11 11:36] VITALS: BP 133/78
[2018-03-11] MEDS ORDERED: Ranolazine 500 MG TAB.ER.12H PO SCH (12:15)
--- NOTE | 2018-03-11 13:06 | Event Note ---
Date of Encounter: 03/11/18 Time of Encounter: 12:50 - Cardiology Event Note Records from [facility] reviewed with Dr. Moya. [facility] 09/14/17: Mild, non-obstructive CAD with luminal irregularities. EF 55% with normal wall motion. 15% pLAD, 15% pLCx, 25% pRCA, 10% mRCA Troponin negative x3. No acute ECG changes. Ranexa started. TTE pending. If no significant findings on TTE, anticipate sign-off. Recommend close outpatient follow-up with patient's primary Nut Processing Supervisor, Dr. Kwong at [facility].
--- NOTE | 2018-03-11 15:35 | Electrocardiograph Report ---
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
--- NOTE | 2018-03-11 15:52 | Discharge Summary ---
Orders not resulted at time of discharge: Pending orders 03/12/18 04:00 Complete Blood Count [HEME] AM 0400 Comprehensive Metabolic Panel AM 0400 03/13/18 04:00 Complete Blood Count [HEME] AM 0400 Comprehensive Metabolic Panel AM 0400 Date of Encounter: 03/11/18 Time of Encounter: 09:50 - Discharge Diagnosis (1) HTN (hypertension) Priority: Secondary Status: Chronic Assessment and Plan: Hx of chronic HTN. VS stable and WNL. Continue patient's Cardizem and metoprolol. Qualifiers: Hypertension type: essential hypertension Qualified Code(s): I10 - Essential (primary) hypertension (2) Tobacco use Priority: Secondary Status: Chronic Assessment and Plan: Hx of chronic tobacco abuse. Pt. reports smoking 1 PPD currently 14 mg. nicotine patch ordered. Pt denies need for nicotine replacement therapy for home (3) Anxiety and depression Priority: Secondary Status: Chronic Assessment and Plan: Chronic. Continue home medications. (4) CAD (coronary artery disease) Priority: Secondary Status: Chronic Assessment and Plan: Hx of chronic CAD w/previous MN and stent placement x2. Continue Lipitor, Plavix , Cardizem, and metoprolol. Qualifiers: Coronary Disease-Associated Artery/Lesion type: [place] artery [place] vs. transplanted heart: [place] heart Associated angina: with stable angina Qualified Code(s): I25.118 - Atherosclerotic heart disease of [place] coronary artery with other forms of angina pectoris (5) DVT prophylaxis Priority: Secondary Status: Acute Assessment and Plan: Heparin SQ TID Pt ambulatory in the room (6) Diabetes Priority: Secondary Status: Chronic Assessment and Plan: Chronic. Continue home medications. A1c 8.7, uncontrolled. Pt will need to follow closely with PCP for monitroing and medication changes. 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 Pt. reports sharp, stabbing pain in central chest to left breast and pressure under right breast w/radiation to right neck, right arm, and back. Associated sx: nausea, vomiting, chills, dizziness, and SOB. Reports nitro did not help pain. States morphine helped for approx. 30 minutes. Pain now 9/10 on exam. Echocardiogram on 05/25/17 showed LVEF of 55%, normal diastolic function of the left ventricle, normal right ventricular structure and function, mild tricuspid regurgitation, and no pulmonary hypertension. Nuclear stress test on 06/09/17 showed severe intensity perfusion defect which appeared fixed involving the inferior and inferolateral britt- findings consistent with prior infarct. No evidence of ischemia. Pharmacologic stress ECG negative for ischemia at level of heart rate achieved. Patient had chest pain/pressure prior to the stress today which persisted unchanged throughout testing. Gated EF equals 70%. Limited Echocardiogram ordered. 80 mg. Lipitor now. Aspirin. Nitro SL PRN. Limited echo with improved EF. Cardiology has seen pt and have signed off. Pt is stable for discharge home. Troponins negative, CXR negative. Pt will need to follow up with her glass cutter in [place] as scheduled. Qualifiers: Chest pain type: other chest pain Qualified Code(s): R07.89 - Other chest pain; R07.8 - Other chest pain (8) GERD (gastroesophageal reflux disease) Priority: Secondary Status: Chronic Assessment and Plan: Hx of chronic GERD. Pt. given GI cocktail in ED which did not help sx. Would suggest that pt start PPI, will give RX for Omeprazole. Qualifiers: Esophagitis presence: esophagitis presence not specified Qualified Code(s) : K21.9 - Gastro-esophageal reflux disease without esophagitis (9) HLD (hyperlipidemia) Priority: Secondary Status: Chronic Assessment and Plan: Hx of chronic HLD. Cholesterol WNL, triglycerides elevated, 397. Continue pts. Lipitor. 80 mg. Pt will need to add Fish Oil to medication regimen as well as add improved diet and exercise. Qualifiers: Hyperlipidemia type: pure hypercholesterolemia Qualified Code(s): E78.00 - Pure hypercholesterolemia, unspecified; E78.0 - Pure hypercholesterolemia (10) Nausea and vomiting Priority: Secondary Status: Acute Assessment and Plan: REsolved Qualifiers: Vomiting type: unspecified Vomiting Intractability: non-intractable Qualified Code(s): R11.2 - Nausea with vomiting, unspecified (11) SOB (shortness of breath) Priority: Secondary Status: Acute Assessment and Plan: Resolved. (12) Dizziness Priority: Secondary Status: Resolved Assessment and Plan: Resolved. Hospital course: Please see assessment and plan for hospital course. Discharge discussed with: patient, nurse - Time Spent with Patient Total time spent providing and/or coordinating discharge services: Less than 30 minutes - Discharge Medications Prescriptions: Nicotine Patch [Nicoderm] 14 mg TD DAILY #28 patch.td24 Ranolazine [Ranexa] 500 mg PO BID #60 tab.er.12h Home Medications: Temazepam [Restoril] 15 mg PO HS #0 06/29/15 [History] traZODone [TraZODone] 100 mg PO HS 09/27/15 [History] diazePAM [Valium] 5 mg PO TID PRN 04/01/16 [History] Liraglutide [Victoza 2-Bill] 1.2 mg SQ QAM 10/21/16 [History] Metoprolol XL (24 HR) Succ [Toprol Xl] 12.5 mg PO BID 10/21/16 [History] Aspirin Enteric Coated [Aspirin EC] 81 mg PO DAILY 05/24/17 [History] Lurasidone [Latuda] 40 mg PO QPM 05/24/17 [History] Ondansetron HCl [Zofran] 4 mg PO Q8H PRN 05/24/17 [History] metFORMIN [Glucophage] 1,000 mg PO BID 05/24/17 [History] Topiramate 50 mg PO BID 09/10/17 [History] Atorvastatin [Lipitor] 40 mg PO HS 03/10/18 [History] Clopidogrel [Plavix] 75 mg PO DAILY 03/10/18 [History] Diltiazem CD (24hr) [Cardizem CD] 300 mg PO DAILY 03/10/18 [History] Pnv with Ca,No.72/Iron/FA [Pnv Plus Multivit Tab] 1 tab PO DAILY [History] Nicotine Patch [Nicoderm] 14 mg TD DAILY #28 patch.td24 03/11/18 [Rx] Ranolazine [Ranexa] 500 mg PO BID #60 tab.er.12h 03/11/18 [Rx] Allergies/Adverse Reactions: 3 Allergy/AdvReac Type Severity Reaction Status Date / Time naproxen AdvReac Gastrointestinal Verified 03/10/18 14:57 Upset Date of admission: 03/10/18 14:55 Primary care physician: Glory Funes CNP Consults: 03/10/18 16:23 Consult to Cardiology [CONS] Routine Comment: Consulting Provider: Cardiology Janet Reason for Consult: Patient being admitted w/CP that began three days ago. Centralized sharp/stabbing pain under left breast w/pressure under right breast and radiation to right neck, right arm, and back. Hx of previous MN and stents x2. Initial troponin <0.03. Previous Echo and Stress test in 06/08. Limited Echo ordered. Associated sx: Nausea, vomiting, shortness of breath, dizziness. Nitro not helping sx. Call Completed: Yes Discharging clinician: Lynnette Cazares Anticipated date of discharge: 03/11/18 - Constitutional Vitals: Temp Pulse Resp BP Pulse Ox 97.6 F 67 15 133/78 94 03/11/18 11:35 03/11/18 11:35 03/11/18 11:35 03/11/18 11:35 03/11/18 11:35 General appearance: Present: cooperative, mild distress (CP ), A&O X 3, pleasant , obese, answers questions appropriately Exam: as above - Head Head exam: Present: atraumatic, normocephalic - Eye Eye exam: Present: PERRL, conjuntiva pink, sclera anicteric Pupils: Present: PERRL - Neck Neck exam general surgery: Present: supple, trachea midline. Absent: lymphadenopathy - Respiratory Respiratory exam: Present: CTAB. Absent: accessory muscle use, rales, rhonchi, wheezes - Cardiovascular Cardiovascular exam: Present: RRR, +S1, +S2. Absent: diastolic murmur, gallop, rubs, systolic murmur - GI/Abdominal GI/Abdominal exam: Present: normal bowel sounds, soft, no peritoneal signs. Absent: distended, tenderness - Extremities Exam Extremities exam: Present: warm, radial pulses palpable and symmetrical. Absent : calf tenderness, cyanotic, pedal edema - Neurological Exam Neurological exam: Present: CN II-XII intact, oriented X3, no focal deficits. Absent: pronater drift, facial droop, speech deficit - Skin Skin exam: Present: dry, intact - Patient Status Disposition: Home, Self-Care Condition: Good Functional capacity at discharge: independent ambulation Overall status at discharge: patient is progressing back to baseline - Discharge Instructions Follow Up With: Glory Funes CNP [Primary Care Provider] - 03/20/18 10:00 am () Additional Instructions: Follow up with your PCP in the next 3-5 days for a recheck. Take your medications as directed. Your new prescriptios are at your pharmacy. Start taking your Ranexa again today. Continue asa, plavix, BB, and statin. Return to the ER as needed for any other problems or concerns, or if your symptoms return or worsen. Resume your normal medications and return to your normal diet and activties as tolerated. - Diet and Activity Activity: increase activity as tolerated Diet: diabetic diet, low fat, low cholesterol
== END 2018-03-11 17:19 | disposition home or self-care (01) ==
LOC: EMEROOARM 12:10 → 3BNU 12:10
PROVIDERS: ADMIT Internal Medicine; ATTEND Internal Medicine

== ENCOUNTER 2018-03-16 17:21 | Observation (INO) ==
[2018-03-16] MEDS ORDERED: Nitroglycerin 0.4 MG TAB.SUBL SL PRN (17:30)
[2018-03-16] MEDS ORDERED: *HR* FentaNYL (PF) 100 MCG/2 ML VIAL IVP ONE (17:49)
--- NOTE | 2018-03-16 17:51 | Emergency Department Note ---
Disposition Clinical Impression: ACS (acute coronary syndrome) Disposition: Still a Patient Referrals: Glory Funes PROCEDURES RN [Primary Care Provider] - General Adult HPI - General Chief complaint: ED Chest Pain Stated complaint: chest pain/nausea Time Seen by Provider: 03/16/18 17:29 Source: patient, EMS Limitations: no limitations - History of Present Illness Pain Scale: 8 - Related Data Home Medications Medication Instructions Recorded Confirmed Temazepam [Restoril] 15 mg PO HS #0 06/29/15 03/10/18 traZODone [TraZODone] 100 mg PO HS 09/27/15 03/10/18 diazePAM [Valium] 5 mg PO TID PRN 04/01/16 03/10/18 Liraglutide [Victoza 2-Bill] 1.2 mg SQ QAM 10/21/16 03/10/18 Metoprolol XL (24 HR) Succ [Toprol 12.5 mg PO BID 10/21/16 03/10/18 Xl] Aspirin Enteric Coated [Aspirin EC] 81 mg PO DAILY 05/24/17 03/10/18 Lurasidone [Latuda] 40 mg PO QPM 05/24/17 03/10/18 Ondansetron HCl [Zofran] 4 mg PO Q8H PRN 05/24/17 03/10/18 metFORMIN [Glucophage] 1,000 mg PO BID 05/24/17 03/10/18 Topiramate 50 mg PO BID 09/10/17 03/10/18 Atorvastatin [Lipitor] 40 mg PO HS 03/10/18 03/10/18 Clopidogrel [Plavix] 75 mg PO DAILY 03/10/18 03/10/18 Diltiazem CD (24hr) [Cardizem CD] 300 mg PO DAILY 03/10/18 03/10/18 Pnv with Ca,No.72/Iron/FA [Pnv 1 tab PO DAILY 03/10/18 03/10/18 Plus Multivit Tab] Previous Rx's Medication Instructions Recorded Nicotine Patch [Nicoderm] 14 mg TD DAILY #28 patch.td24 03/11/18 Ranolazine [Ranexa] 500 mg PO BID #60 tab.er.12h 03/11/18 Allergies Allergy/AdvReac Type Severity Reaction Status Date / Time naproxen AdvReac Gastrointestinal Verified 03/16/18 17:28 Upset Past Medical History - Past Medical History Medical history: Reports: cardiomyopathy, coronary artery disease, diabetes, GERD, hyperlipidemia, hypertension, kidney stones, migraine, myocardial infarction, other Surgical history: Reports: angioplasty/stent (x2) Psychiatric history: Reports: anxiety, bipolar, depression PHD INTERN history: Reports: non-contributory - Social History Smoking Status: Current every day smoker Smokeless Tobacco Status: No Alcohol use: Reports: occasionally Drug use: Reports: none Physical Exam - General Limitations: no limitations General appearance: alert Course - Reevaluation(s) Reevaluation #1: ED ATTESTATION NOTE: I examined this patient and my medical decision-making was reviewed with the Resident Physician/CONSTRUCTION ASSISTANT/PA/Student. I have personally performed a face to face evaluation on this patient & I agree with the documented findings, disposition and treatment plan as described except to the extent set forth below. Patient was seen with emergency medicine resident Derrick Omalley please see copy of his note for details of this encounter Briefly: 32-year-old female history of 2 prior coronary artery stents by Dr. Polk presents with chest discomfort nonexertional EKG shows no acute ischemic changes afebrile with stable vital signs patient will of a chest x-ray screening labs including troponin. Disposition pending. Time: 17:50 Vital Signs Temperature 98.7 F 03/16/18 17:28 Pulse Rate 97 03/16/18 17:28 Respiratory Rate 20 03/16/18 17:28 Blood Pressure 138/99 03/16/18 17:28 O2 Sat by Pulse Oximetry 97 03/16/18 17:28 Temperature 98.7 F 03/16/18 17:28 Pulse Rate 97 03/16/18 17:46 Respiratory Rate 20 03/16/18 17:46 Blood Pressure 125/90 03/16/18 17:46 O2 Sat by Pulse Oximetry 97 03/16/18 17:46 Oxygen Delivery Oxygen Delivery Room Air
--- NOTE | 2018-03-16 17:55 | Emergency Department Note ---
Disposition Clinical Impression: Chest pain Qualifiers: Chest pain type: unspecified Qualified Code(s): R07.9 - Chest pain, unspecified Disposition: Admitted As Inpatient Condition: Fair Chest Pain HPI - General Chief Complaint: ED Chest Pain Stated Complaint: chest pain/nausea Time Seen by Provider: 03/16/18 17:29 Source: patient, EMS Limitations: no limitations Vital Signs Reviewed: Yes Nursing Notes Reviewed: Yes - History of Present Illness HPI Narrative: 32-year-old female presents emergency department with concern for chest pain. This pain started last night. Patient does report history of heart attack into stent placed at the age of 30. She does report a history of hypertension, type 2 diabetes mellitus, hyperlipidemia, smoking. She denies any history of heart disease in mom, dad, brother, sister. Patient received 3 nitros en route. She states that the chest pain has resolved for the most part. Reporting nausea. Severity scale (1-10): 8 - Related Data Home Medications Medication Instructions Recorded Confirmed Temazepam [Restoril] 15 mg PO HS #0 06/29/15 03/16/18 traZODone [TraZODone] 100 mg PO HS 09/27/15 03/16/18 diazePAM [Valium] 5 mg PO TID PRN 04/01/16 03/16/18 Liraglutide [Victoza 2-Bill] 1.2 mg SQ QAM 10/21/16 03/16/18 Metoprolol XL (24 HR) Succ [Toprol 12.5 mg PO BID 10/21/16 03/16/18 Xl] Aspirin Enteric Coated [Aspirin EC] 81 mg PO DAILY 05/24/17 03/16/18 Lurasidone [Latuda] 40 mg PO QPM 05/24/17 03/16/18 Ondansetron HCl [Zofran] 4 mg PO Q8H PRN 05/24/17 03/16/18 metFORMIN [Glucophage] 1,000 mg PO BID 05/24/17 03/16/18 Topiramate 50 mg PO BID 09/10/17 03/16/18 Atorvastatin [Lipitor] 40 mg PO HS 03/10/18 03/16/18 Clopidogrel [Plavix] 75 mg PO DAILY 03/10/18 03/16/18 Diltiazem CD (24hr) [Cardizem CD] 300 mg PO DAILY 03/10/18 03/16/18 Pnv with Ca,No.72/Iron/FA [Pnv 1 tab PO DAILY 03/10/18 03/16/18 Plus Multivit Tab] Previous Rx's Medication Instructions Recorded Nicotine Patch [Nicoderm] 14 mg TD DAILY #28 patch.td24 03/11/18 Ranolazine [Ranexa] 500 mg PO BID #60 tab.er.12h 03/11/18 Allergies Allergy/AdvReac Type Severity Reaction Status Date / Time naproxen AdvReac Gastrointestinal Verified 03/16/18 17:28 Upset All systems ED: reviewed and negative except as stated. Review of Systems: As Per HPI Constitutional: Denies: fever Cardiovascular: Reports: chest pain Respiratory: Denies: cough, dyspnea Gastrointestinal: Reports: nausea. 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 Absent: respiratory distress, accessory muscle use - Cardiovascular Cardiovascular exam: Present: regular rate, normal rhythm, normal heart sounds - Abdominal Exam Abdominal exam: Present: soft, Non-Tender. Absent: distention, guarding, rebound, rigidity - Extremities Exam Extremities exam: Present: normal capillary refill - Back Exam Back exam: Present: normal inspection - Neurological Exam Neurological exam: Present: alert, oriented X3, CN II-XII intact - Psychiatric Psychiatric exam: Present: normal affect, normal mood - Skin Skin exam: Present: warm, dry, intact, normal color Course Vital Signs Temperature 98.7 F 08/25/18 17:28 Pulse Rate 97 03/16/18 17:28 Respiratory Rate 20 03/16/18 17:28 Blood Pressure 138/99 03/16/18 17:28 O2 Sat by Pulse Oximetry 97 03/16/18 17:28 Temperature 97.9 F 03/16/18 20:51 Pulse Rate 71 03/16/18 20:51 Respiratory Rate 14 03/16/18 20:51 Blood Pressure 125/85 03/16/18 20:51 O2 Sat by Pulse Oximetry 95 03/16/18 20:51 Oxygen Delivery Oxygen Delivery Room Air Chest Pain - MDM Narrative Medical decision making narrative: 32-year-old female presents emergency department with concern for chest pain. Patient has extensive history of coronary artery disease with stent placement 2 years prior. Patient is currently chest pain-free. She received aspirin as well as 3 nitroglycerin in route. She reports nausea. EKG did not reveal any new ischemic ST changes. Troponin was within normal limits. Chest strain all reveal any cardiopulmonary abnormality. We did obtain a urinalysis. Patient was reporting some dysuria. There is trace discussed to raise with baccteria. We did give patient a gram of Rocephin IV here in the emergency department.Patient admitted to Dr. Whitehead as patient had HEART score of 5. Patient hemodynamic was stable not in any acute distress at the time. Chest X-Ray 03/16/18 17:29 IMPRESSION: No acute process. D/ / Surendra Adams MD / Surendra Adams MD Interpreting Provider: Surendra Adams MD Vital Signs Temperature 98.7 F 03/16/18 17:28 Pulse Rate 97 03/16/18 17:28 Respiratory Rate 20 03/16/18 17:28 Blood Pressure 138/99 03/16/18 17:28 O2 Sat by Pulse Oximetry 97 03/16/18 17:28 Temperature 97.9 F 03/16/18 20:51 Pulse Rate 71 03/16/18 20:51 Respiratory Rate 14 03/16/18 20:51 Blood Pressure 125/85 03/16/18 20:51 O2 Sat by Pulse Oximetry 95 03/16/18 20:51 Oxygen Delivery Oxygen Delivery Room Air - Lab Data Result diagrams: 03/16/18 18:08 03/16/18 18:08 Lab Results 03/16/18 03/16/18 03/16/18 Range/Units 17:57 17:57 18:08 WBC (4.3-11.1) K/mcL RBC (3.82-4.97) M/mcL Hgb (11.5-15.4) g/dL Hct (35.3-44.9) % MCV (83.0-100.0) fL MCH (28.0-33.3) pg MCHC (31.6-35.5) g/dL RDW (11.5-14.5) % Plt Count (140-400) K/mcL MPV (9.4-12.4) fL Immature Gran % (0-4) % Seg Neutrophils % % Lymphocytes % % Monocytes % % Eosinophils % % Basophils % % Neutrophils # (1.6-8.9) K/mcL Lymphocytes # (0.6-4.6) K/mcL Monocytes # (0.0-1.3) K/mcL Eosinophils # (0.0-0.6) K/mcL Basophils # (0.0-0.2) K/mcL PT 9.9 (9.4-12.1) Seconds INR 0.9 APTT 30.4 (26.0-36.0) Seconds Sodium (136-145) mEq/L Potassium (3.5-5.1) mEq/L Chloride (98-107) mEq/L Carbon Dioxide (23-29) mEq/L BUN (6-20) mg/dL Creatinine (0.60-1.20) mg/dL Est GFR ( Amer) (> 60) Est GFR (Non-Af Amer) (> 60) BUN/Creatinine Ratio (6-26) Glucose (70-105) mg/dL Calculated Osmolality (280-300) Calcium (8.6-10.3) mg/dL Troponin I (< 0.04) ng/mL Urine Color Yellow (Yellow) Urine Clarity Cloudy A (Clear) Urine pH 5.5 (5.0-8.0) pH Units Ur Specific [place] > 1.030 H (1.010-1.025) Urine Protein 30 H (Neg-Trace) mg/dL Urine Glucose (UA) 500 H (Normal) mg/dL Urine Ketones 15 H (Negative) mg/dL Urine Blood Negative (Negative) Urine Nitrite Negative (Negative) Urine Bilirubin Small H (Negative) Urine Urobilinogen Normal (Normal) mg/dL Ur Leukocyte Esterase Trace H (Negative) Urine Microscopic RBC 3-5 H (0-3) per hpf Urine Microscopic WBC 5-15 H (0-3) per hpf Ur Squamous Epith Cells Many H (None-Few) per lpf Urine Bacteria Many H (None-Few) per hpf Ur Culture Indicated? NO. A (NO) Urine Test Negative (Negative) 03/16/18 03/16/18 Range/Units 18:08 18:08 WBC 13.2 H (4.3-11.1) K/mcL RBC 4.46 (3.82-4.97) M/mcL Hgb 13.9 (11.5-15.4) g/dL Hct 39.8 (35.3-44.9) % MCV 89.2 (83.0-100.0) fL MCH 31.2 (28.0-33.3) pg MCHC 34.9 (31.6-35.5) g/dL RDW 13.2 (11.5-14.5) % Plt Count 295 (140-400) K/mcL MPV 9.7 (9.4-12.4) fL Immature Gran % 0.3 (0-4) % Seg Neutrophils % 61.7 % Lymphocytes % 28.0 % Monocytes % 5.1 % Eosinophils % 4.2 % Basophils % 0.7 % Neutrophils # 8.2 (1.6-8.9) K/mcL Lymphocytes # 3.7 (0.6-4.6) K/mcL Monocytes # 0.7 (0.0-1.3) K/mcL Eosinophils # 0.6 (0.0-0.6) K/mcL Basophils # 0.1 (0.0-0.2) K/mcL PT (9.4-12.1) Seconds INR APTT (26.0-36.0) Seconds Sodium 136 (136-145) mEq/L Potassium 3.4 L (3.5-5.1) mEq/L Chloride 104 (98-107) mEq/L Carbon Dioxide 21 L (23-29) mEq/L BUN 7 (6-20) mg/dL Creatinine 0.58 L (0.60-1.20) mg/dL Est GFR ( Amer) > 60 (> 60) Est GFR (Non-Af Amer) > 60 (> 60) BUN/Creatinine Ratio 12 (6-26) Glucose 164 H (70-105) mg/dL Calculated Osmolality 284 (280-300) Calcium 9.5 (8.6-10.3) mg/dL Troponin I < 0.03 (< 0.04) ng/mL Urine Color (Yellow) Urine Clarity (Clear) Urine pH (5.0-8.0) pH Units Ur Specific [place] (1.010-1.025) Urine Protein (Neg-Trace) mg/dL Urine Glucose (UA) (Normal) mg/dL Urine Ketones (Negative) mg/dL Urine Blood (Negative) Urine Nitrite (Negative) Urine Bilirubin (Negative) Urine Urobilinogen (Normal) mg/dL Ur Leukocyte Esterase (Negative) Urine Microscopic RBC (0-3) per hpf Urine Microscopic WBC (0-3) per hpf Ur Squamous Epith Cells (None-Few) per lpf Urine Bacteria (None-Few) per hpf Ur Culture Indicated? (NO) Urine Test (Negative) - EKG Data EKG attestation: Yes I reviewed and interpreted this EKG. EKG results narrative: 70:30 Heart rate 92, MI interval 149 ms, QRS duration 131 segs, QT 366 seconds, QTC 453 ms, normal axis. Sinus rhythm ventricular rate of 92 bpm. Keep Q waves noted in the inferior leads. No new ischemic ST changes. Compared with the previous EKG obtained on July 13, 2015. Heart Score - Score History: Highly Suspicious EKG: Non Specific repolarisation Disturbance Age: Less than 45 Risk Factors: Equal/Greater than 3 risk factor or history of atherosclerotic disease Troponin: Less than normal limit HEART Score Total: 5
[2018-03-16 18:10] LABS: Bilirubin,Urine Small (Negative); Blood,Urine Negative (Negative); Clarity,Urine Cloudy (Clear); Color,Urine Yellow (Yellow); Glucose,Urine (UA) 500 mg/dL (Normal); Ketones,Urine 15 mg/dL (Negative); Leukocyte Esterase,Urine Trace (Negative); Nitrite,Urine Negative (Negative); PH,Urine 5.5 pH Units (5.0-8.0); Protein,Urine 30 mg/dL (Neg-Trace); Specific Gravity,Urine > 1.030 (1.010-1.025); Urobilinogen,Urine Normal (Normal)
[2018-03-16 18:13] LABS: Bacteria,Urine Many per hpf (None-Few); Squamous Epithelial Cell,Urine Many per lpf (None-Few)
[2018-03-16 18:29] LABS: Basophils # 0.1 K/mcL (0.0-0.2); Basophils % 0.7 %; Eosinophils # 0.6 K/mcL (0.0-0.6); Eosinophils % 4.2 %; Hematocrit 39.8 % (35.3-44.9); Hemoglobin 13.9 g/dL (11.5-15.4); Immature Granulocytes % 0.3 % (0-4); Lymphocytes # 3.7 K/mcL (0.6-4.6); Mean Corpuscular HGB Conc 34.9 g/dL (31.6-35.5); Mean Corpuscular Hemoglobin 31.2 pg (28.0-33.3); Mean Corpuscular Volume 89.2 fL (83.0-100.0); Mean Platelet Volume 9.7 fL (9.4-12.4); Monocytes # 0.7 K/mcL (0.0-1.3); Monocytes % 5.1 %; Neutrophils # 8.2 K/mcL (1.6-8.9); Platelet Count 295 K/mcL (140-400); Red Blood Count 4.46 M/mcL (3.82-4.97); Red Cell Distribution Width 13.2 % (11.5-14.5); Segmented Neutrophils % 61.7 %
[2018-03-16 18:33] LABS: INR 0.9; Prothrombin Time 9.9 Seconds (9.4-12.1)
[2018-03-16 18:36] LABS: Activated Partial Thrombo Time 30.4 Seconds (26.0-36.0)
[2018-03-16 18:48] LABS: BUN/Creatinine Ratio 12 (6-26); Blood Urea Nitrogen 7 mg/dL (6-20); Calcium 9.5 mg/dL (8.6-10.3); Carbon Dioxide 21 mEq/L (23-29); Chloride 104 mEq/L (98-107); Glucose 164 mg/dL (70-105); Osmolality,Calculated 284 (280-300); Potassium 3.4 mEq/L (3.5-5.1); Sodium 136 mEq/L (136-145); Troponin I < 0.03 ng/mL (< 0.04); eGFR For Non-African Americans > 60 (> 60)
[2018-03-16] MEDS ORDERED: Ondansetron 4 MG/2 ML VIAL IVP ONE (19:48)
[2018-03-16] MEDS ORDERED: cefTRIAXone 1,000 MG in Water for inj. (sterile) 20 ML 10 ML IVP ONE (20:32)
[2018-03-17] MEDS ORDERED: Naloxone 0.4 MG/ML INJ IVP PRN (01:29)
[2018-03-17] MEDS ORDERED: D5% in Water 1,000 ML IVC PRN (01:29)
[2018-03-17] MEDS ORDERED: *HR* Dextrose 50 % in Water (Syg) 50 ML SYRINGE IVP PRN (01:29)
[2018-03-17] MEDS ORDERED: Dextrose Gel 15 GM/37.5 ML TUBE PO PRN ×2 (01:29)
[2018-03-17] MEDS ORDERED: diazePAM 5 MG TABLET PO PRN (01:34)
[2018-03-17] MEDS ORDERED: traZODone 50 MG TABLET PO SCH (01:45)
[2018-03-17 02:03] LABS: Basophils # 0.1 K/mcL (0.0-0.2); Basophils % 0.8 %; Eosinophils # 0.8 K/mcL (0.0-0.6); Eosinophils % 5.9 %; Hematocrit 38.3 % (35.3-44.9); Hemoglobin 13.2 g/dL (11.5-15.4); Immature Granulocytes % 0.3 % (0-4); Lymphocytes # 4.7 K/mcL (0.6-4.6); Lymphocytes % 35.8 %; Mean Corpuscular HGB Conc 34.5 g/dL (31.6-35.5); Mean Corpuscular Hemoglobin 30.9 pg (28.0-33.3); Mean Corpuscular Volume 89.7 fL (83.0-100.0); Mean Platelet Volume 9.7 fL (9.4-12.4); Monocytes # 0.6 K/mcL (0.0-1.3); Monocytes % 4.7 %; Neutrophils # 6.8 K/mcL (1.6-8.9); Platelet Count 286 K/mcL (140-400); Red Blood Count 4.27 M/mcL (3.82-4.97); Red Cell Distribution Width 13.4 % (11.5-14.5); Segmented Neutrophils % 52.5 %
[2018-03-17] MEDS: Ondansetron 4 MG/2 ML VIAL IVP PRN ×2 (02:03→12:07)
[2018-03-17] MEDS: 0.9 % Sodium Chloride w KCl 20 MEQ/1,000 ML MLS IVC SCH ×2 (02:03→15:38)
[2018-03-17] MEDS: OXYCODONE Oral CONC 10 MG/0.5 ML ORAL.SYG SL PRN ×3 (02:06→15:36)
[2018-03-17 02:22] LABS: Alanine Aminotransferase 20 Units/L (7-52); Albumin 3.8 g/dL (3.5-5.7); Albumin/Globulin Ratio 2.1 (1.1-2.2); Alkaline Phosphatase 78 Units/L (34-104); Aspartate Amino Transferase 17 Units/L (13-39); BUN/Creatinine Ratio 16 (6-26); Bilirubin,Total 0.5 mg/dL (0.3-1.0); Blood Urea Nitrogen 9 mg/dL (6-20); Carbon Dioxide 21 mEq/L (23-29); Chloride 106 mEq/L (98-107); Chol/HDL Ratio 4.2 (0-4.9); Cholesterol 105 mg/dL (< 200); Globulin 1.8 g/dL (2.4-3.5); Glucose 188 mg/dL (70-105); HDL Cholesterol 25 mg/dL (40-59); LDL Cholesterol,Calculated 33 mg/dL (0-99); Magnesium 1.5 mg/dL (1.6-2.6); Osmolality,Calculated 286 (280-300); Potassium 3.8 mEq/L (3.5-5.1); Sodium 136 mEq/L (136-145); Total Protein 5.6 g/dL (6.4-8.9); Triglycerides 233 mg/dL (< 150); eGFR For Non-African Americans > 60 (> 60)
--- NOTE | 2018-03-17 03:13 | Internal Med History&Physical ---
Date of Encounter: 03/17/18 Time of Encounter: 01:00 Internal Medicine - H&P: HPI Chief complaint: chest pain Admitted From: Emergency Dept Plans for Post Hospital Care: Home History of present illness: Ms. Mccoy is a 32 year old female who presents with substernal chest pain and pressure tonight associated with shortness of breath. She took nitroglycerin sublingually and came to ER. By the time she arrived at the ER, her chest pain had resolved. Workup in ER was negative. However, given her history of coronary artery disease and prior KS, she was admitted to hospitalist service for further workup and care. Upon my assessment of the patient, she is chest pain-free. She confirms the above history, stating that her chest pain was identical to her prior KS and angina. She had associated shortness of breath, diaphoresis, and some nausea. She was recently hospitalized last week with chest pain as well, and chronology was consulted at that time. She did not have cardiac workup then per cardiology , but her most recent cardiac workup records were reviewed from [facility] in [place]. She presents again now with chest pain, mimicking her prior symptoms of KS. She denies any fevers, cough, congestion, or vomiting. Past Med Surg Social Fam HX - Past Medical History Attestation: Yes The following information was validated with the patient. Source: patient, old records reviewed Medical history: cardiomyopathy, coronary artery disease, diabetes, GERD, hyperlipidemia, hypertension, kidney stones, migraine, myocardial infarction Additional medical history: PCOS Psychiatric history: anxiety, bipolar, depression - Past Surgical History Surgical History: angioplasty/stent (x2) Additional surgical history: cardiac stents x 2 - Social History Smoking Status: Current every day smoker Packs per day: 0.5 Smokeless Tobacco Status: No Alcohol use: occasionally Drug use: none Current living situation: Home Activity Level: Independent ambulation Recent Out of Country Travel Within the Last 8 Weeks: No - Family History Brother Family Member Ethnicity: Non- Living Status: Still Living Father Family Member Ethnicity: Non- Living Status: Still Living Hx Family Cardiac Disorders: Yes (HTN) Hx Family Respiratory Disorders: No Hx Family Cancer: No Hx Family GI Disorders: No Hx Family Endocrine Disorder: Yes (DM) Hx Family Neuromuscular Disorders: No Hx Family Neurologic Disorders: No Hx Family HEENT Disorders: No Hx Family Autoimmune Disorders: No Grandmother Adopted: No Family Member Ethnicity: Non- Living Status: Hx Family Cardiac Disorders: Yes (CHF) Hx Family Respiratory Disorders: No Hx Family Cancer: No Hx Family GI Disorders: No Hx Family Endocrine Disorder: No Hx Family Neuromuscular Disorders: No Hx Family Neurologic Disorders: No Hx Family HEENT Disorders: No Hx Family Autoimmune Disorders: No Mother Family Member Ethnicity: Non- Living Status: Still Living Hx Family Cardiac Disorders: No Hx Family Respiratory Disorders: No Hx Family Cancer: No Hx Family GI Disorders: No Hx Family Endocrine Disorder: No Hx Family Neuromuscular Disorders: No Hx Family Neurologic Disorders: No Hx Family HEENT Disorders: No Hx Family Autoimmune Disorders: No Internal Medicine - H&P: Meds Temazepam [Restoril] 15 mg PO HS #0 06/29/15 [History] traZODone [TraZODone] 100 mg PO HS 09/27/15 [History] diazePAM [Valium] 5 mg PO TID PRN 04/01/16 [History] Liraglutide [Victoza 2-Bill] 1.2 mg SQ QAM 10/21/16 [History] Metoprolol XL (24 HR) Succ [Toprol Xl] 12.5 mg PO BID 10/21/16 [History] Aspirin Enteric Coated [Aspirin EC] 81 mg PO DAILY 05/24/17 [History] Lurasidone [Latuda] 40 mg PO QPM 05/24/17 [History] Ondansetron HCl [Zofran] 4 mg PO Q8H PRN 05/24/17 [History] metFORMIN [Glucophage] 1,000 mg PO BID 05/24/17 [History] Topiramate 50 mg PO BID 09/10/17 [History] Atorvastatin [Lipitor] 40 mg PO HS 03/10/18 [History] Clopidogrel [Plavix] 75 mg PO DAILY 03/10/18 [History] Diltiazem CD (24hr) [Cardizem CD] 300 mg PO DAILY 03/10/18 [History] Pnv with Ca,No.72/Iron/FA [Pnv Plus Multivit Tab] 1 tab PO DAILY [History] Nicotine Patch [Nicoderm] 14 mg TD DAILY #28 patch.td24 03/11/18 [Rx] Ranolazine [Ranexa] 500 mg PO BID #60 tab.er.12h 03/11/18 [Rx] 3 Allergy/AdvReac Type Severity Reaction Status Date / Time naproxen AdvReac Gastrointestinal Verified 03/16/18 17:28 Upset - Constitutional Constitutional: no chills, no fever(s), no night sweats - EENT Eyes: no change in vision Ears: no ear pain, no tinnitus Nose, mouth and throat: no nasal congestion, no sinus pressure, no sore throat - Cardiovascular Cardiovascular ROS IM: chest pain, diaphoresis, dyspnea, dyspnea on exertion, no orthopnea, no syncope - Respiratory Respiratory: no cough, no hemoptysis, no chest congestion, no excessive phlegm production - Gastrointestinal Gastrointestinal: nausea, no abdominal pain, no diarrhea, no hematemesis, no hematochezia, no melena, no vomiting - Genitourinary Genitourinary: dysuria, no flank pain, no hematuria - Musculoskeletal Musculoskeletal ROS IM: no arthralgias, no back pain - Integumentary Integumentary IM: no rash - Neurological Neurological ROS: no dizziness, no focal weakness, no frequent falls, no headache(s) - Psychiatric Psychiatric: no anxiety, no depression - Endocrine Endocrine IM: no polydipsia, no polyuria - Allergic/Immunologic Allergic/Immunologic: no GI upset with certain foods - Constitutional Vitals: Temp Pulse Resp BP Pulse Ox 97.5 F L 63 14 101/66 93 03/16/18 23:26 03/16/18 23:26 03/16/18 23:26 03/16/18 23:26 03/16/18 23:26 General appearance: Present: cooperative, A&O X 3, no acute distress, answers questions appropriately Exam: see below - Head Head exam: Present: atraumatic, normal inspection - Eye Eye exam: Present: EOMI, PERRL. Absent: scleral icterus Pupils: Present: normal accommodation - ENT ENT exam: Present: mucous membranes dry, normal exam, normal oropharynx - Neck Neck exam general surgery: Present: full ROM, supple. Absent: tenderness, nuchal rigidity, thyromegaly - Respiratory Respiratory exam: Present: CTAB. Absent: chest wall tenderness, rales, rhonchi , wheezes - Cardiovascular Cardiovascular exam: Present: RRR, +S1, +S2. Absent: diastolic murmur, systolic murmur - GI/Abdominal GI/Abdominal exam: Present: normal bowel sounds, soft. Absent: guarding, hepatomegaly, rebound, splenomegaly, tenderness - Extremities Exam Extremities exam: Present: normal capillary refill, warm, radial pulses palpable and symmetrical. Absent: calf tenderness, joint swelling, tenderness - Back Exam Back exam: Absent: CVA tenderness (L), CVA tenderness (R) - Neurological Exam Neurological exam: Present: alert, CN II-XII intact, oriented X3, no focal deficits - Psychiatric Psychiatric exam: Present: normal affect, normal mood - Skin Skin exam: Present: dry, warm. Absent: rash Internal Med - H&P Results - Labs CBC & Chem 7: 03/17/18 01:50 03/17/18 01:50 Labs: Short CBC 03/17/18 Range/Units 01:50 WBC 13.0 H (4.3-11.1) K/mcL Hgb 13.2 (11.5-15.4) g/dL Hct 38.3 (35.3-44.9) % Plt Count 286 (140-400) K/mcL Neutrophils # 6.8 (1.6-8.9) K/mcL BMP 03/17/18 01:50 Sodium 136 Potassium 3.8 Chloride 106 Carbon Dioxide 21 L BUN 9 Creatinine 0.58 L Glucose 188 H Calcium 9.0 Cardiac Enzymes 03/17/18 Range/Units 01:50 Troponin I < 0.03 (< 0.04) ng/mL Liver Function 03/17/18 Range/Units 01:50 Total Bilirubin 0.5 (0.3-1.0) mg/dL AST 17 (13-39) Units/L ALT 20 (7-52) Units/L Alkaline Phosphatase 78 (34-104) Units/L Albumin 3.8 (3.5-5.7) g/dL - EKG Data -: EKG Interpreted by Myself - EKG Data Prior EKG available for review: yes EKG comments: 03/17/18 03:23 NSR; no acute ST changes; old inferior KS noted - Diagnostic Studies Chest x-ray Status: image reviewed by me (negative) - Assessment and plan (1) Chest pain Current Visit: Yes Status: Acute Assessment and plan: 1. Will trend troponins, EKG's. 2. Consult cardiology per patient request. She is requesting LHC. I'll defer to cardiology. 3. Continue home cardiac meds as appropriate. Qualifiers: Chest pain type: chest pain due to myocardial ischemia Ischemic chest pain type: stable angina pectoris Qualified Code(s): I20.8 - Other forms of angina pectoris (2) UTI (urinary tract infection) Current Visit: Yes Status: Acute Assessment and plan: 1. Urine cultures obtained in ER. 2. Continue Rocephin IV until cultures resulted. Qualifiers: Urinary tract infection type: acute cystitis Hematuria presence: without hematuria Qualified Code(s): N30.00 - Acute cystitis without hematuria (3) Diabetes mellitus Current Visit: Yes Status: Chronic Assessment and plan: 1. Hold oral meds. 2. Will place on SSI and follow glucose levels with adjustments as needed. . 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 Heparin SQ.
[2018-03-17] MEDS ORDERED: *HR* Heparin 5,000 UNIT/ML VIAL SQ SCH (06:00)
[2018-03-17] MEDS: Insulin LISPRO 300 UNITS/3 ML VIAL SQ SCH ×2 (06:12→12:07)
[2018-03-17] MEDS ORDERED: Topiramate 25 MG TABLET PO SCH (09:00)
[2018-03-17] MEDS ORDERED: Diltiazem CD (24hr) 300 MG CAPSULE PO SCH (09:00)
[2018-03-17] MEDS ORDERED: Ranolazine 500 MG TAB.ER.12H PO SCH (09:00)
[2018-03-17] MEDS ORDERED: Metoprolol XL (24 HR) Succ 25 MG TAB.ER.24H PO SCH (09:00)
[2018-03-17] MEDS ORDERED: Prenatal Vit/FA 1 EACH TABLET PO SCH (09:00)
[2018-03-17] MEDS ORDERED: Aspirin Enteric Coated 81 MG Tablet PO SCH (09:00)
--- NOTE | 2018-03-17 13:35 | Cardiology Consult Note ---
<Mariaa Henderson - Last Filed: 03/17/18 14:05> Date of Encounter: 03/17/18 Time of Encounter: 13:15 Assessment and Plan (1) Chest pain Current Visit: No Status: Chronic Per cardiology: -Admitted with chest pain, atypical, however states somewhat similar to previous angina. -Known history of premature CAD with DE and PCI. -MOst recent LHC 08/2017 [place] with luminal irregularities 15% proximal LAD, luminal irregularities 15% porximal circumflex, 25% proximal RCA, luminal irregularities 10 mid RCA. -Recent admission and attempted conservative medical management with patient, however now re-admitted. -On asa, statin, BB, plavix, ranexa. -Most recent TTE with LVEF normal, no wall motion abnormalities. -Troponins negative. -ECG with no acute ischemic changes noted. -Discussed potential medical management with patient, possible titration of medicines. AT this point, patient prefers LHC. Risks versus benefits of LHC explained to patient, states understanding and wishes to proceed. -Of note, recent and miscarriage noted. Urine test noted. Patient reports not currently on control. Educated patient on cardiology recommendations for control due to potential teratogenic effects on fetus with cardiac medication. Pateint states understanding. -Further recommendations pending LHC in am. Qualifiers: Chest pain type: chest pain due to myocardial ischemia Ischemic chest pain type: unspecified angina pectoris type Qualified Code(s): I25.9 - Chronic ischemic heart disease, unspecified (2) CAD (coronary artery disease) Current Visit: No Status: Chronic Per cardiology: -Known CAD -See above. Qualifiers: Coronary Disease-Associated Artery/Lesion type: sun'aq artery [place] vs. transplanted heart: sun'aq heart Associated angina: with unspecified angina Qualified Code(s): I25.119 - Atherosclerotic heart disease of sun'aq coronary artery with unspecified angina pectoris (3) Tobacco use Current Visit: No Status: Chronic Per cardiology: -Tobacco cessation education. Discussion w patient/family: The assessment and plan as outlined above was discussed with the patient who expressed understanding and agreement. All questions were answered. Thank you for involving us in the care of your patient. Please call with any questions. Discussed and reviewed with . History of Present Illness Consult date: 03/17/18 Requesting physician: Manjit Whitehead Consult reason: chest pain Chief complaint: chest pain History of present illness: Ms. Mccoy is a 32 year old female with PMHx significant of premature CAD, DE s/ p PCI, DMII, HTN who presented to [facility] with complaints of chest pain. Patient states pain started while laying in bed. States pain was sharp, stabbing, and then pressure. Reports radiated to right arm and back. Patient denies aggravating factors, does states that deep breaths lessen pain. Reports associated nausea and shortness of breath. States symptoms somewhat similar to previous angina. Patient also reports some intermittent palpitations. Past Med Surg Social Fam HX - Past Medical History Attestation: Yes The following information was validated with the patient. Source: patient, old records reviewed Medical history: cardiomyopathy, coronary artery disease, diabetes, GERD, hyperlipidemia, hypertension, kidney stones, migraine, myocardial infarction Additional medical history: PCOS Psychiatric history: anxiety, bipolar, depression - Past Surgical History Surgical History: angioplasty/stent (x2) Additional surgical history: cardiac stents x 2 - Social History Smoking Status: Current every day smoker Packs per day: 0.5 Smokeless Tobacco Status: No Alcohol use: occasionally Drug use: none - Family History Brother Family Member Ethnicity: Non- Living Status: Still Living Father Family Member Ethnicity: Non- Living Status: Still Living Hx Family Cardiac Disorders: Yes (HTN) Hx Family Respiratory Disorders: No Hx Family Cancer: No Hx Family GI Disorders: No Hx Family Endocrine Disorder: Yes (DM) Hx Family Neuromuscular Disorders: No Hx Family Neurologic Disorders: No Hx Family HEENT Disorders: No Hx Family Autoimmune Disorders: No Grandmother Adopted: No Family Member Ethnicity: Non- Living Status: Hx Family Cardiac Disorders: Yes (CHF) Hx Family Respiratory Disorders: No Hx Family Cancer: No Hx Family GI Disorders: No Hx Family Endocrine Disorder: No Hx Family Neuromuscular Disorders: No Hx Family Neurologic Disorders: No Hx Family HEENT Disorders: No Hx Family Autoimmune Disorders: No Mother Family Member Ethnicity: Non- Living Status: Still Living Hx Family Cardiac Disorders: No Hx Family Respiratory Disorders: No Hx Family Cancer: No Hx Family GI Disorders: No Hx Family Endocrine Disorder: No Hx Family Neuromuscular Disorders: No Hx Family Neurologic Disorders: No Hx Family HEENT Disorders: No Hx Family Autoimmune Disorders: No Medications and Allergies Temazepam [Restoril] 15 mg PO HS #0 06/29/15 [History] traZODone [TraZODone] 100 mg PO HS 09/27/15 [History] diazePAM [Valium] 5 mg PO TID PRN 04/01/16 [History] Liraglutide [Victoza 2-Bill] 1.2 mg SQ QAM 10/21/16 [History] Metoprolol XL (24 HR) Succ [Toprol Xl] 25 mg PO BID 10/21/16 [History] Aspirin Enteric Coated [Aspirin EC] 81 mg PO DAILY 05/24/17 [History] Lurasidone [Latuda] 40 mg PO QPM 05/24/17 [History] metFORMIN [Glucophage] 1,000 mg PO BID 05/24/17 [History] Topiramate 50 mg PO BID 09/10/17 [History] Atorvastatin [Lipitor] 40 mg PO HS 03/10/18 [History] Clopidogrel [Plavix] 75 mg PO DAILY 03/10/18 [History] Diltiazem CD (24hr) [Cardizem CD] 300 mg PO DAILY 03/10/18 [History] Pnv with Ca,No.72/Iron/FA [Pnv Plus Multivit Tab] 1 tab PO DAILY [History] Ranolazine [Ranexa] 500 mg PO BID #60 tab.er.12h 03/11/18 [Rx] 3 Allergy/AdvReac Type Severity Reaction Status Date / Time naproxen AdvReac Gastrointestinal Verified 03/16/18 17:28 Upset All Systems Review: The remainder of the systems were reviewed and are negative - Cardiovascular Cardiovascular: as per HPI, chest pain at rest, dyspnea at rest, dyspnea on exertion, radiating jaw, neck or arm pain, palpitations - Gastrointestinal Gastrointestinal: nausea Physical Examination Vital Signs, Last 4 Hours Temp Pulse Resp BP Pulse Ox 03/17/18 11:46 98.2 F 72 16 105/64 92 General: Conversant, No Apparent Distress HEENT: Atraumatic, Normocephaly, Mucus Membranes Moist Neck: No JVD, Normal carotid pulses Cardiac: Reg Rate and Rhythm, Normal S1 and S2, No Murmur Lungs: Normal Breath Sounds, No Wheeze, Rales, Rhonchi Neuro: Alert and responsive, No focal deficits noted Abdomen: Soft, Non-Tender Skin: No rashes noted on visualized skin Musculoskeletal: No Chest Wall Tenderness Extremities: No Clubbing, No Cyanosis, No Edema, Normal Pulses Results 03/17/18 01:50 03/17/18 01:50 Lab Results Impressions Chest X-Ray 03/16/18 17:29 IMPRESSION: No acute process. D/ / Surendra Adams MD / Surendra Adams MD Interpreting Provider: Surendra Adams MD Active Medications Aspirin (Aspirin Ec) 81 mg PO DAILY [facility] Stop: 09/16/18 09:01 Last Admin: 03/17/18 09:02 Dose: 81 mg Atorvastatin Calcium (Lipitor) 40 mg PO HS [facility] Stop: 09/16/18 21:01 Clopidogrel Bisulfate (Plavix) 75 mg PO DAILY [facility] Stop: 09/16/18 09:01 Last Admin: 03/17/18 09:02 Dose: 75 mg Dextrose/Water (Dextrose 50% (Syg)) 25 ml IVP AD PRN PRN Reason: Hypoglycemia Stop: 09/16/18 01:30 Diazepam (Valium) 5 mg PO TID PRN PRN Reason: Anxiety Stop: 09/16/18 01:35 Diltiazem HCl (Cardizem Cd) 300 mg PO DAILY [facility] Stop: 09/16/18 09:01 Last Admin: 03/17/18 09:02 Dose: 300 mg Glucagon (Glucagen) 1 mg IM ONCE PRN PRN Reason: Hypoglycemia Stop: 09/16/18 01:30 Glucose (Gluctose) 15 gm PO ONCE PRN PRN Reason: Hypoglycemia Stop: 09/16/18 01:30 Glucose (Gluctose) 30 gm PO ONCE PRN PRN Reason: Hypoglycemia Stop: 09/16/18 01:30 Heparin Sodium (Porcine) (Heparin) 5,000 unit SQ Q12HCO [facility] Stop: 09/16/18 06:01 Last Admin: 03/17/18 05:08 Dose: Not Given Potassium Chloride/Sodium Chloride (Kcl 20 Meq In 0.9% Sodium Chloride) 20 meq in 1,000 mls @ 75 mls/hr IVC .[id number] [facility] Stop: 03/18/18 04:09 Last Admin: 03/17/18 02:03 Dose: 75 mls/hr Dextrose (Dextrose 5%) 1,000 mls @ 100 mls/hr IVC .Q10H PRN PRN Reason: HYPOGLYCEMIA Stop: 09/16/18 01:30 Ceftriaxone Sodium 1,000 mg/ (Sterile Water) 10 mls @ 600 mls/hr IVP DAILY [facility] Stop: 09/17/18 09:01 Insulin Human Lispro (Humalog) 0 units SQ Q6HR [facility] PRN Reason: Protocol Stop: 09/16/18 06:01 Last Admin: 03/17/18 12:07 Dose: 6 units Lurasidone HCl (Latuda) 40 mg PO QPM [facility] Stop: 09/16/18 18:01 Metoprolol Succinate (Toprol Xl) 12.5 mg PO BID [facility] Stop: 09/16/18 09:01 Last Admin: 03/17/18 09:02 Dose: 12.5 mg Naloxone HCl (Narcan) 0.4 mg IVP Q2MIN PRN PRN Reason: SEE COMMENTS Stop: 09/16/18 01:30 Nitroglycerin (Nitroglycerin) 0.4 mg SL Q5MIN PRN PRN Reason: Chest Pain Stop: 09/15/18 17:31 Ondansetron HCl (Zofran) 4 mg IVP Q6HR PRN; Protocol PRN Reason: Nausea Stop: 09/16/18 01:30 Last Admin: 03/17/18 12:07 Dose: 4 mg Oxycodone HCl (Oxycodone Oral Conc) 5 mg SL Q6HR PRN; Protocol PRN Reason: Chest Pain Stop: 09/16/18 01:30 Last Admin: 03/17/18 09:12 Dose: 5 mg Prenat Multivit/Cable Repairer/Iron/Folic Ac ( Vit/Fa) 1 each PO DAILY [facility] Stop: 09/16/18 09:01 Last Admin: 03/17/18 09:02 Dose: 1 each Ranolazine (Ranexa) 500 mg PO BID [facility] Stop: 09/16/18 09:01 Last Admin: 03/17/18 09:02 Dose: 500 mg Topiramate (Topamax) 50 mg PO BID [facility] Stop: 09/16/18 09:01 Last Admin: 03/17/18 09:02 Dose: 50 mg Trazodone HCl (Trazodone) 100 mg PO HS [facility] Stop: 09/16/18 01:46 Last Admin: 03/17/18 02:03 Dose: Not Given Laboratory Tests 03/16/18 03/17/18 03/17/18 18:08 01:50 01:50 WBC 13.0 H Hgb 13.2 Creatinine Troponin I < 0.03 < 0.03 03/17/18 03/17/18 01:50 08:18 WBC Hgb Creatinine 0.58 L Troponin I < 0.03 - Imaging and Cardiology Chest Xray: report reviewed Stress Test: report reviewed Echo: report reviewed Cardiac cath: report reviewed - EKG Interpretation EKG results cardiology: personally reviewed (ECG with SR, HR 92. Inferior Q waves noted.), other (Telemetry reviewed with average HR previous 12 hours noted ot be 74, SR. Occasional PVCs and PACs noted.) Consult Discharge Plan - Plan Referrals: Glory Funes, [employer] [Primary Care Provider] - <Kristi Vela - Last Filed: 03/17/18 15:23> Date of Encounter: 03/17/18 - Attending Attestation I personally interviewed and examined this patient. I have reviewed all the pertinent clinical, radiologic and laboratory findings. I agree with the findings, assessment and plan as outlined by the nurse practitioner with the following additional comments: Ms. Mccoy presents with atypical chest pain but reports symptoms are similar to her anginal discomfort. Workup has excluded ACS. Most recent LHC at [place] demonstrated residual luminal irregularities. Discussed this with the patient. Gave her the option of medical management vs. LHC. The patient would like to pursue LHC. She understands the risks, benefits and alternatives. Keep NPO after midnight. Of note, patient recently conceived and then miscarried. While she is on cardiac medical therapy, it would not be advisable to get given risk to a fetus. Recommend using back up control methods such as condoms which was discussed with the patient. Given history of CAD and active smoking, would recommend avoiding OCPs. Assessment and Plan Discussion w patient/family: The assessment and plan as outlined above was discussed with the patient and/or family members who expressed understanding and agreement. All questions were answered. Thank you for involving us in the care of your patient. Please call with any questions. History of Present Illness History of present illness: Ms. Mccoy is a 32 year old female All Systems Review: The remainder of the systems were reviewed and are negative Physical Examination Vital Signs, Last 4 Hours Temp Pulse Resp BP Pulse Ox 03/17/18 11:46 98.2 F 72 16 105/64 92 Results 03/17/18 01:50 03/17/18 01:50 Lab Results 03/17/18 03/17/18 03/17/18 01:50 01:50 01:50 WBC 13.0 H Hgb 13.2 Hct 38.3 Plt Count 286 Sodium 136 Potassium 3.8 Chloride 106 Carbon Dioxide 21 L BUN 9 Creatinine 0.58 L Glucose 188 H Calcium 9.0 Magnesium 1.5 L Total Bilirubin 0.5 AST 17 ALT 20 Alkaline Phosphatase 78 Troponin I < 0.03 03/17/18 08:18 WBC Hgb Hct Plt Count Sodium Potassium Chloride Carbon Dioxide BUN Creatinine Glucose Calcium Magnesium Total Bilirubin AST ALT Alkaline Phosphatase Troponin I < 0.03
[2018-03-17 16:11] VITALS: BP 116/78
--- NOTE | 2018-03-17 17:58 | Event Note ---
Date of Encounter: 03/17/18 Time of Encounter: 17:58 Pt left the hospital against medical advices.
[2018-03-18 08:18] LABS: Amphetamine Screen,Urine Negative ng/mL (Cutoff=1000); Barbiturate Screen,Urine Negative ng/mL (Cutoff=200); Benzodiazepines Screen,Urine Positive ng/mL (Cutoff=200); Cannabinoid Screen,Urine Negative ng/mL (Cutoff = 50); Cocaine Screen,Urine Negative ng/mL (Cutoff= 300); Opiate Screen,Urine Negative ng/mL (Cutoff=300); Phencyclidine Screen,Urine Negative ng/mL (Cutoff=25)
[2018-03-18] MEDS ORDERED: cefTRIAXone 1,000 MG in Water for inj. (sterile) 20 ML 10 ML IVP SCH (09:00)
--- NOTE | 2018-03-18 18:13 | Electrocardiograph Report ---
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
== END 2018-03-17 17:16 | disposition left against medical advice (07) ==
LOC: EMEROOARM 17:21 → 3BNU 17:21
PROVIDERS: ADMIT Pediatrics; ATTEND Pediatrics

== ENCOUNTER 2018-03-19 18:14 | Observation (INO) ==
--- NOTE | 2018-03-19 18:32 | Emergency Department Note ---
Disposition Clinical Impression: Chest pain Qualifiers: Chest pain type: unspecified Qualified Code(s): R07.9 - Chest pain, unspecified Disposition: Admitted As Inpatient Condition: Good General Adult HPI - General Chief complaint: ED Chest Pain Stated complaint: chest pain Time Seen by Provider: 03/19/18 18:21 Source: patient, EMS Limitations: no limitations - History of Present Illness Pain Scale: 8 - Related Data Home Medications Medication Instructions Recorded Confirmed Temazepam [Restoril] 15 mg PO HS #0 06/29/15 03/19/18 traZODone [TraZODone] 100 mg PO HS 09/27/15 03/19/18 diazePAM [Valium] 5 mg PO TID PRN 04/01/16 03/19/18 Liraglutide [Victoza 2-Bill] 1.2 mg SQ QAM 10/21/16 03/19/18 Metoprolol XL (24 HR) Succ [Toprol 12.5 mg PO BID 10/21/16 03/19/18 Xl] Aspirin Enteric Coated [Aspirin EC] 81 mg PO DAILY 05/24/17 03/19/18 Lurasidone [Latuda] 40 mg PO QPM 05/24/17 03/19/18 metFORMIN [Glucophage] 1,000 mg PO BID 05/24/17 03/19/18 Atorvastatin [Lipitor] 40 mg PO HS 03/10/18 03/19/18 Clopidogrel [Plavix] 75 mg PO DAILY 03/10/18 03/19/18 Diltiazem CD (24hr) [Cardizem CD] 300 mg PO DAILY 03/10/18 03/19/18 Previous Rx's Medication Instructions Recorded Ranolazine [Ranexa] 500 mg PO BID #60 tab.er.12h 03/11/18 Nitrofurantoin (BID) [Macrobid] 100 mg PO BID #8 capsule 03/20/18 Allergies Allergy/AdvReac Type Severity Reaction Status Date / Time naproxen AdvReac Gastrointestinal Verified 03/19/18 20:46 Upset Past Medical History - Past Medical History Medical history: Reports: cardiomyopathy, coronary artery disease, diabetes, GERD, hyperlipidemia, hypertension, kidney stones, migraine, myocardial infarction Surgical history: Reports: angioplasty/stent (x2) Psychiatric history: Reports: anxiety, bipolar, depression 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 SPECIALIST history: 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: non-contributory - Social History Smoking Status: Current every day smoker Smokeless Tobacco Status: No Alcohol use: Reports: occasionally Drug use: Reports: none Physical Exam - General Limitations: no limitations General appearance: alert Course Vital Signs Temperature 98.6 F 03/19/18 18:17 Pulse Rate 90 03/19/18 18:17 Respiratory Rate 18 03/19/18 18:17 Blood Pressure 130/99 03/19/18 18:17 O2 Sat by Pulse Oximetry 96 03/19/18 18:17 Temperature 98.1 F 03/21/18 11:00 Pulse Rate 85 03/21/18 11:00 Respiratory Rate 15 03/21/18 11:00 Blood Pressure 114/77 03/21/18 11:00 O2 Sat by Pulse Oximetry 95 03/21/18 11:00 Oxygen Delivery Oxygen Delivery Room Air Medical Decision Making - Lab Data Result diagrams: 03/21/18 08:29 03/21/18 08:29 Lab Results 03/19/18 03/19/18 03/19/18 Range/Units 18:26 18:26 18:26 WBC 13.1 H (4.3-11.1) K/mcL RBC 4.96 (3.82-4.97) M/mcL Hgb 15.4 D (11.5-15.4) g/dL Hct 44.0 (35.3-44.9) % MCV 88.7 (83.0-100.0) fL MCH 31.0 (28.0-33.3) pg MCHC 35.0 (31.6-35.5) g/dL RDW 13.4 (11.5-14.5) % Plt Count 317 (140-400) K/mcL MPV 9.7 (9.4-12.4) fL Immature Gran % 0.4 (0-4) % Seg Neutrophils % 63.3 % Lymphocytes % 26.5 % Monocytes % 4.8 % Eosinophils % 4.4 % Basophils % 0.6 % Neutrophils # 8.3 (1.6-8.9) K/mcL Lymphocytes # 3.5 (0.6-4.6) K/mcL Monocytes # 0.6 (0.0-1.3) K/mcL Eosinophils # 0.6 (0.0-0.6) K/mcL Basophils # 0.1 (0.0-0.2) K/mcL PT 10.0 (9.4-12.1) Seconds INR 0.9 APTT 31.4 (26.0-36.0) Seconds Sodium (136-145) mEq/L Potassium (3.5-5.1) mEq/L Chloride (98-107) mEq/L Carbon Dioxide (23-29) mEq/L BUN (6-20) mg/dL Creatinine (0.60-1.20) mg/dL Est GFR ( Amer) (> 60) Est GFR (Non-Af Amer) (> 60) BUN/Creatinine Ratio (6-26) Glucose (70-105) mg/dL Calculated Osmolality (280-300) Calcium (8.6-10.3) mg/dL Troponin I (< 0.04) ng/mL B-Natriuretic Peptide 29 (Less than 100) pg/mL 03/19/18 Range/Units 18:26 WBC (4.3-11.1) K/mcL RBC (3.82-4.97) M/mcL Hgb (11.5-15.4) g/dL Hct (35.3-44.9) % MCV (83.0-100.0) fL MCH (28.0-33.3) pg MCHC (31.6-35.5) g/dL RDW (11.5-14.5) % Plt Count (140-400) K/mcL MPV (9.4-12.4) fL Immature Gran % (0-4) % Seg Neutrophils % % Lymphocytes % % Monocytes % % Eosinophils % % Basophils % % Neutrophils # (1.6-8.9) K/mcL Lymphocytes # (0.6-4.6) K/mcL Monocytes # (0.0-1.3) K/mcL Eosinophils # (0.0-0.6) K/mcL Basophils # (0.0-0.2) K/mcL PT (9.4-12.1) Seconds INR APTT (26.0-36.0) Seconds Sodium 137 (136-145) mEq/L Potassium 3.9 (3.5-5.1) mEq/L Chloride 107 (98-107) mEq/L Carbon Dioxide 18 L (23-29) mEq/L BUN 8 (6-20) mg/dL Creatinine 0.61 (0.60-1.20) mg/dL Est GFR ( Amer) > 60 (> 60) Est GFR (Non-Af Amer) > 60 (> 60) BUN/Creatinine Ratio 13 (6-26) Glucose 169 H (70-105) mg/dL Calculated Osmolality 286 (280-300) Calcium 9.6 (8.6-10.3) mg/dL Troponin I < 0.03 (< 0.04) ng/mL B-Natriuretic Peptide (Less than 100) pg/mL Attestation Statement - Attestation Attestation: I examined this patient and my medical decision-making was reviewed with the Resident Physician. I agree with the documented findings, disposition and treatment plan as described except to the extent set forth below. Findings consistent with chronic chest pain. Patient has been evaluated by cardiology recently. She has not notified her vinegar maker that she is ongoingly having chest pain. She will be brought back into the hospital for repeat cardiac consultation due to significant cardiac risk factors and frequent emergency department visits resulting in chronic chest pain.
[2018-03-19] MEDS ORDERED: *HR* FentaNYL (PF) 100 MCG/2 ML VIAL IVP ONE (18:34)
--- NOTE | 2018-03-19 18:34 | Emergency Department Note ---
Disposition Clinical Impression: Chest pain Qualifiers: Chest pain type: unspecified Qualified Code(s): R07.9 - Chest pain, unspecified Disposition: Admitted As Inpatient Condition: Good Referrals: Glory Funes CNP [Primary Care Provider] - Forms: ED Satisfaction Letter Chest Pain HPI - General Chief Complaint: ED Chest Pain Stated Complaint: chest pain Time Seen by Provider: 03/19/18 18:21 Source: patient, EMS Mode of arrival: EMS Limitations: no limitations Vital Signs Reviewed: Yes Nursing Notes Reviewed: Yes - History of Present Illness HPI Narrative: 32-year-old female history of premature CAD with 2 stents previously, diabetes, hypertension, hyperlipidemia who presents to the ER via EMS with a complaint of chest pain. The patient was just admitted to the hospital and was seen by cardiology on the of this month. She reports that they were going to do a left heart catheterization however she was afraid of the handbag parts cutter that she saw and left AGAINST MEDICAL ADVICE. She reports her pain really has not changed since leaving the hospital. States that her neighbor was over today and she had a syncopal episode which prompted them to call 911. She took aspirin and 3 nitroglycerin prior to arrival without resolution of her symptoms. States it somewhat similar to her previous episodes. Reports pain that goes into her back. Reports she has been nauseous without vomiting. No history of DVT or PE. No other complaints. Pt complaint: chest pain Onset (ago): day(s) Duration: constant Pain Location: substernal Severity: moderate Severity scale (1-10): 8 Pain Radiation: back Improves with: nothing Worsens with: nothing Associated symptoms: Reports: nausea, dyspnea, syncope. Denies: vomiting, diaphoresis Treatments prior to arrival chest pain: none - Related Data On Oral Contraceptives: No Home Medications Medication Instructions Recorded Confirmed Temazepam [Restoril] 15 mg PO HS #0 06/29/15 03/17/18 traZODone [TraZODone] 100 mg PO HS 09/27/15 03/17/18 diazePAM [Valium] 5 mg PO TID PRN 04/01/16 03/17/18 Liraglutide [Victoza 2-Bill] 1.2 mg SQ QAM 10/21/16 03/17/18 Metoprolol XL (24 HR) Succ [Toprol 25 mg PO BID 10/21/16 03/17/18 Xl] Aspirin Enteric Coated [Aspirin EC] 81 mg PO DAILY 05/24/17 03/17/18 Lurasidone [Latuda] 40 mg PO QPM 05/24/17 03/17/18 metFORMIN [Glucophage] 1,000 mg PO BID 05/24/17 03/17/18 Topiramate 50 mg PO BID 09/10/17 03/17/18 Atorvastatin [Lipitor] 40 mg PO HS 03/10/18 03/17/18 Clopidogrel [Plavix] 75 mg PO DAILY 03/10/18 03/17/18 Diltiazem CD (24hr) [Cardizem CD] 300 mg PO DAILY 03/10/18 03/17/18 Pnv with Ca,No.72/Iron/FA [Pnv 1 tab PO DAILY 03/10/18 03/17/18 Plus Multivit Tab] Previous Rx's Medication Instructions Recorded Ranolazine [Ranexa] 500 mg PO BID #60 tab.er.12h 03/11/18 Allergies Allergy/AdvReac Type Severity Reaction Status Date / Time naproxen AdvReac Gastrointestinal Verified 03/16/18 17:28 Upset All systems ED: reviewed and negative except as stated. Constitutional: Denies: fever Cardiovascular: Reports: chest pain Respiratory: Reports: dyspnea. Denies: cough Gastrointestinal: Reports: nausea. Denies: abdominal pain, vomiting Musculoskeletal: Reports: back pain Chest Pain PMH - Past Medical History Medical history: Reports: cardiomyopathy, coronary artery disease, diabetes, GERD, hyperlipidemia, hypertension, kidney stones, migraine, myocardial infarction Surgical history: Reports: angioplasty/stent (x2) Psychiatric history: Reports: anxiety, bipolar, depression Prior Cardiac Testing/Procedures: Echocardiogram, Stenting PATIENT ASSESSMENT COORDINATOR history: Reports: non-contributory - Social History Smoking Status: Current every day smoker Alcohol use: Reports: occasionally Drug use: Reports: none Physical Exam - General Limitations: no limitations General appearance: alert, in no apparent distress - Head Head exam: atraumatic, normocephalic - Eye Eye exam: Present: normal appearance - ENT ENT exam: normal exam - Neck Neck exam: Present: normal inspection - Chest Chest inspection: Present: normal inspection, symmetric chest wall rise. Absent : tenderness - Respiratory Respiratory exam: Present: normal lung sounds bilaterally - Cardiovascular Cardiovascular exam: Present: regular rate, normal rhythm, normal heart sounds - Abdominal Exam Abdominal exam: Present: soft, Non-Tender. Absent: tenderness, distention, rigidity - Extremities Exam Extremities exam: Present: normal inspection, full ROM - Expanded Upper Extremity Exam Shoulder exam: Present: normal inspection, full ROM Arm exam: Present: normal inspection, full ROM Elbow exam: Present: normal inspection, full ROM Forearm/Wrist exam: Present: normal inspection, full ROM Hand exam: Present: normal inspection, full ROM - Expanded Lower Extremity Exam Hip/Pelvis exam: Present: normal inspection, full ROM Upper leg exam: Present: normal inspection, full ROM Knee exam: Present: normal inspection, full ROM Lower leg exam: Present: normal inspection, full ROM Ankle exam: Present: normal inspection, full ROM Foot/toe exam: Present: normal inspection, full ROM - Skin Skin exam: Present: warm, dry Course Course Narrative: Patient seen and examined. Vital signs reviewed. Plan for EKG, chest x-ray, labs including troponin. Patient is agreeable with admission at this time. - Reevaluation(s) Reevaluation #1: Patient's pain is improved at this time after fentanyl. Agreeable with admission. - Consultations Consultation #1: I discussed this case with the on-call handbag parts cutter Dr. Mittal. Discussed the patient's history as well as EKG and labs as well as interventions. Agrees and recommends not to start heparin at this time given the fact that her troponin remains normal despite days of symptoms. They will see the patient in consultation. Vital Signs Temperature 98.6 F 03/19/18 18:17 Pulse Rate 90 03/19/18 18:17 Respiratory Rate 18 03/19/18 18:17 Blood Pressure 130/99 03/19/18 18:17 O2 Sat by Pulse Oximetry 96 03/19/18 18:17 Temperature 98.6 F 03/19/18 18:17 Pulse Rate 90 03/19/18 18:17 Respiratory Rate 18 03/19/18 18:17 Blood Pressure 130/99 03/19/18 18:17 O2 Sat by Pulse Oximetry 96 03/19/18 18:17 Oxygen Delivery Oxygen Delivery Room Air Chest Pain - MDM Narrative Medical decision making narrative: 32-year-old female with numerous risk factors presenting with chest pain. Recently left AGAINST MEDICAL ADVICE. Her EKG is unchanged from her previous. Hemodynamically stable. Troponin is normal. Pain is improved all here. Case discussed with cardiology. Admitted to the hospitalist service with Cardiologic consultation. - Lab Data Lab results reviewed: Yes I reviewed the patient's lab results. Result diagrams: 03/19/18 18:26 03/19/18 18:26 Lab Results 03/19/18 03/19/18 03/19/18 Range/Units 18:26 18:26 18:26 WBC 13.1 H (4.3-11.1) K/mcL RBC 4.96 (3.82-4.97) M/mcL Hgb 15.4 D (11.5-15.4) g/dL Hct 44.0 (35.3-44.9) % MCV 88.7 (83.0-100.0) fL MCH 31.0 (28.0-33.3) pg MCHC 35.0 (31.6-35.5) g/dL RDW 13.4 (11.5-14.5) % Plt Count 317 (140-400) K/mcL MPV 9.7 (9.4-12.4) fL Immature Gran % 0.4 (0-4) % Seg Neutrophils % 63.3 % Lymphocytes % 26.5 % Monocytes % 4.8 % Eosinophils % 4.4 % Basophils % 0.6 % Neutrophils # 8.3 (1.6-8.9) K/mcL Lymphocytes # 3.5 (0.6-4.6) K/mcL Monocytes # 0.6 (0.0-1.3) K/mcL Eosinophils # 0.6 (0.0-0.6) K/mcL Basophils # 0.1 (0.0-0.2) K/mcL PT 10.0 (9.4-12.1) Seconds INR 0.9 APTT 31.4 (26.0-36.0) Seconds Sodium (136-145) mEq/L Potassium (3.5-5.1) mEq/L Chloride (98-107) mEq/L Carbon Dioxide (23-29) mEq/L BUN (6-20) mg/dL Creatinine (0.60-1.20) mg/dL Est GFR ( Amer) (> 60) Est GFR (Non-Af Amer) (> 60) BUN/Creatinine Ratio (6-26) Glucose (70-105) mg/dL Calculated Osmolality (280-300) Calcium (8.6-10.3) mg/dL Troponin I (< 0.04) ng/mL B-Natriuretic Peptide 29 (Less than 100) pg/mL 03/19/18 Range/Units 18:26 WBC (4.3-11.1) K/mcL RBC (3.82-4.97) M/mcL Hgb (11.5-15.4) g/dL Hct (35.3-44.9) % MCV (83.0-100.0) fL MCH (28.0-33.3) pg MCHC (31.6-35.5) g/dL RDW (11.5-14.5) % Plt Count (140-400) K/mcL MPV (9.4-12.4) fL Immature Gran % (0-4) % Seg Neutrophils % % Lymphocytes % % Monocytes % % Eosinophils % % Basophils % % Neutrophils # (1.6-8.9) K/mcL Lymphocytes # (0.6-4.6) K/mcL Monocytes # (0.0-1.3) K/mcL Eosinophils # (0.0-0.6) K/mcL Basophils # (0.0-0.2) K/mcL PT (9.4-12.1) Seconds INR APTT (26.0-36.0) Seconds Sodium 137 (136-145) mEq/L Potassium 3.9 (3.5-5.1) mEq/L Chloride 107 (98-107) mEq/L Carbon Dioxide 18 L (23-29) mEq/L BUN 8 (6-20) mg/dL Creatinine 0.61 (0.60-1.20) mg/dL Est GFR ( Amer) > 60 (> 60) Est GFR (Non-Af Amer) > 60 (> 60) BUN/Creatinine Ratio 13 (6-26) Glucose 169 H (70-105) mg/dL Calculated Osmolality 286 (280-300) Calcium 9.6 (8.6-10.3) mg/dL Troponin I < 0.03 (< 0.04) ng/mL B-Natriuretic Peptide (Less than 100) pg/mL - Radiology Data Radiology results reviewed: Yes I reviewed the patient's radiology results. Chest X-Ray 03/19/18 18:21 IMPRESSION: No acute process. D/ / Surendra Adams MD / Surendra Adams MD Interpreting Provider: Surendra Adams MD - EKG Data EKG attestation: Yes I reviewed and interpreted this EKG. EKG results narrative: EKG demonstrates sinus rhythm with a rate of 86 bpm. Normal axis. Normal intervals. Normal R-wave progression. T-wave inversions in lead 3, aVF unchanged from prior EKG. No gross ST elevations or depressions. No acute ischemic findings. No significant changes from previous EKG dated 03/16/18. Heart Score - Score History: Moderately Suspicious EKG: Non Specific repolarisation Disturbance Age: Less than 45 Risk Factors: Equal/Greater than 3 risk factor or history of atherosclerotic disease Troponin: Less than normal limit HEART Score Total: 4 S.B.A.R. - S.B.A.R. Situation: Demographics, MOA Background: Presenting Complaint, Relevant PMH, Meds, & Allergies Assessment: Vital Signs, Course and respsone to treatment, Exam Concerns, Patient/Family Expectation, Pertinant Lab Results Recommendation: Barrier(s) to disposition, Recommendation based on pending studies, treatments, or consults S.B.A.R. Report Given to: Dr. Arias S.B.A.REmma Repor Time: 20:22 (Requests to place serial troponin q6h and cardiac monitoring)
[2018-03-19 18:46] LABS: Basophils # 0.1 K/mcL (0.0-0.2); Basophils % 0.6 %; Eosinophils # 0.6 K/mcL (0.0-0.6); Eosinophils % 4.4 %; Immature Granulocytes % 0.4 % (0-4); Lymphocytes # 3.5 K/mcL (0.6-4.6); Lymphocytes % 26.5 %; Mean Corpuscular Volume 88.7 fL (83.0-100.0); Mean Platelet Volume 9.7 fL (9.4-12.4); Monocytes # 0.6 K/mcL (0.0-1.3); Monocytes % 4.8 %; Neutrophils # 8.3 K/mcL (1.6-8.9); Platelet Count 317 K/mcL (140-400); Red Blood Count 4.96 M/mcL (3.82-4.97); Red Cell Distribution Width 13.4 % (11.5-14.5); Segmented Neutrophils % 63.3 %
[2018-03-19 18:50] LABS: Hemoglobin 15.4 g/dL (11.5-15.4)
[2018-03-19 18:57] LABS: INR 0.9
[2018-03-19 19:00] LABS: Activated Partial Thrombo Time 31.4 Seconds (26.0-36.0)
[2018-03-19 19:07] LABS: Troponin I < 0.03 ng/mL (< 0.04)
[2018-03-19 19:09] LABS: BUN/Creatinine Ratio 13 (6-26); Blood Urea Nitrogen 8 mg/dL (6-20); Calcium 9.6 mg/dL (8.6-10.3); Carbon Dioxide 18 mEq/L (23-29); Chloride 107 mEq/L (98-107); Glucose 169 mg/dL (70-105); Osmolality,Calculated 286 (280-300); Potassium 3.9 mEq/L (3.5-5.1); Sodium 137 mEq/L (136-145); eGFR For Non-African Americans > 60 (> 60)
[2018-03-19] MEDS ORDERED: Naloxone 0.4 MG/ML INJ IVP PRN (23:04)
[2018-03-19] MEDS: *HR* HYDROcodone/Acet 5/325 mg TABLET PO PRN (23:31)
[2018-03-20] MEDS ORDERED: Acetaminophen 325 MG TABLET PO PRN (00:43)
[2018-03-20 01:08] LABS: Troponin I < 0.03 ng/mL (< 0.04)
--- NOTE | 2018-03-20 01:14 | Internal Med History&Physical ---
Date of Encounter: 03/20/18 Time of Encounter: 00:49 Internal Medicine - H&P: HPI Chief complaint: chest pain History of present illness: Ms. Mccoy is a 32 year old female history of DE with 2 stents placed presented to ED with chest pain. She describes pressure and sharp pain left sides that radiates to right ribs below bra line to her back and down right arm. . Pain is worse with deep breaths and tender to touch. It is same pain was last week but is increased in severity. Associated symptoms of diaphoresis , headache but denies radiating left arm pain. Her right hand is numb. Neither nitrogen or norco 5 helped her pain. She recently left AMA after admitted on 03-10 for same chest pain. Cardiology was consulted and marcela ford 03-10-18 EF 55%. At that time patient requested another left heat cath - her last was in at [place]. Today she was short of breath with out exertion while sitting down when she had loss consciousness - her neighbor witnessed it and said she slumped over for a few seconds. She awoke dizzy and confused but felt like her self again within 10 minutes and no incontinence. Denies changes in vision or difficulty with balance. She has had a cough and shortness of breath onset one week with sneezing. Denies chest or head congestion. On last admit she was told positive urine culture and only received one dose of antibiotic. She smokes half a pack for 17 years. In Chest x-ray normal and o2 saturation ... She reports diarrhea for last three weeks watery and brown with BM 2-3 times per day - did not improve with lamodal. Admits to mild abdominal pain and nausea. Denies vomiting, blood in stool or dark tarry stools. Past Med Surg Social Fam HX - Past Medical History Medical history: cardiomyopathy, coronary artery disease, diabetes, GERD, hyperlipidemia, hypertension, kidney stones, migraine, myocardial infarction Additional medical history: PCOS Psychiatric history: anxiety, bipolar, depression - Past Surgical History Surgical History: angioplasty/stent Additional surgical history: cardiac stents x 2 - Social History Smoking Status: Current every day smoker Smokeless Tobacco Status: No Alcohol use: occasionally Drug use: none - Family History Brother Family Member Ethnicity: Non- Living Status: Still Living Father Family Member Ethnicity: Non- Living Status: Still Living Hx Family Cardiac Disorders: Yes (HTN) Hx Family Respiratory Disorders: No Hx Family Cancer: No Hx Family GI Disorders: No Hx Family Endocrine Disorder: Yes (DM) Hx Family Neuromuscular Disorders: No Hx Family Neurologic Disorders: No Hx Family HEENT Disorders: No Hx Family Autoimmune Disorders: No Grandmother Adopted: No Family Member Ethnicity: Non- Living Status: Hx Family Cardiac Disorders: Yes (CHF) Hx Family Respiratory Disorders: No Hx Family Cancer: No Hx Family GI Disorders: No Hx Family Endocrine Disorder: No Hx Family Neuromuscular Disorders: No Hx Family Neurologic Disorders: No Hx Family HEENT Disorders: No Hx Family Autoimmune Disorders: No Mother Family Member Ethnicity: Non- Living Status: Still Living Hx Family Cardiac Disorders: No Hx Family Respiratory Disorders: No Hx Family Cancer: No Hx Family GI Disorders: No Hx Family Endocrine Disorder: No Hx Family Neuromuscular Disorders: No Hx Family Neurologic Disorders: No Hx Family HEENT Disorders: No Hx Family Autoimmune Disorders: No Internal Medicine - H&P: Meds Temazepam [Restoril] 15 mg PO HS #0 06/29/15 [History] traZODone [TraZODone] 100 mg PO HS 09/27/15 [History] diazePAM [Valium] 5 mg PO TID PRN 04/01/16 [History] Liraglutide [Victoza 2-Bill] 1.2 mg SQ QAM 10/21/16 [History] Metoprolol XL (24 HR) Succ [Toprol Xl] 12.5 mg PO BID 10/21/16 [History] Aspirin Enteric Coated [Aspirin EC] 81 mg PO DAILY 05/24/17 [History] Lurasidone [Latuda] 40 mg PO QPM 05/24/17 [History] metFORMIN [Glucophage] 1,000 mg PO BID 05/24/17 [History] Atorvastatin [Lipitor] 40 mg PO HS 03/10/18 [History] Clopidogrel [Plavix] 75 mg PO DAILY 03/10/18 [History] Diltiazem CD (24hr) [Cardizem CD] 300 mg PO DAILY 03/10/18 [History] Ranolazine [Ranexa] 500 mg PO BID #60 tab.er.12h 03/11/18 [Rx] 3 Allergy/AdvReac Type Severity Reaction Status Date / Time naproxen AdvReac Gastrointestinal Verified 03/19/18 20:46 Upset All Systems PM: A 10-system review of systems was performed and is negative for pertinent findings except as documented above in the HPI. - Constitutional Constitutional: no fever(s), no weakness - EENT Eyes: no blurry vision - Cardiovascular Cardiovascular ROS IM: as per HPI, chest pain, diaphoresis, dyspnea, palpitations - Respiratory Respiratory: cough, dyspnea on exertion, pain on inspiration, no wheezing, no chest congestion - Gastrointestinal Gastrointestinal: abdominal pain, diarrhea, nausea, no constipation, no vomiting - Genitourinary Genitourinary: no dysuria, no urinary frequency, no urinary incontinence - Musculoskeletal Musculoskeletal ROS IM: arthralgias, tingling - Neurological Neurological ROS: confusion, headache(s), numbness - Constitutional Vitals: Temp Pulse Resp BP Pulse Ox 97.9 F 80 18 118/80 94 03/19/18 22:19 03/19/18 22:19 03/19/18 22:19 03/19/18 22:19 03/19/18 22:19 General appearance: Present: A&O X 3, morbidly obese, no acute distress Exam: calmly laying in bed in no apparent pain - Head Head exam: Present: atraumatic, normocephalic - ENT ENT exam: Present: mucous membranes moist, normal oropharynx - Expanded ENT Exam Throat exam: Present: post pharyngeal erythema - Respiratory Respiratory exam: Present: chest wall tenderness, wheezes. Absent: accessory muscle use, decreased breath sounds, rales Additional comments: mild wheeze - Cardiovascular Cardiovascular exam: Present: RRR. Absent: gallop, rubs - GI/Abdominal GI/Abdominal exam: Present: distended, normal bowel sounds, soft, tenderness. Absent: guarding, mass, splenomegaly Additional comments: mild epigastric tenderness - Extremities Exam Extremities exam: Present: full ROM, warm, radial pulses palpable and symmetrical. Absent: pedal edema - Psychiatric Psychiatric exam: Present: flat affect, normal mood. Absent: anxious Internal Med - H&P Results - Labs CBC & Chem 7: 03/19/18 18:26 03/19/18 18:26 - Assessment and plan (1) Chest pain Current Visit: No Status: Acute Assessment and plan: Atypical chest pain with history of DE with stents. 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 Diabetes mellitus complication status: with circulatory complication Diabetes mellitus complication detail: with other circulatory complications Qualified Code(s): E11.59 - Type 2 diabetes mellitus with other circulatory complications (3) UTI (urinary tract infection) Current Visit: No Status: Acute Assessment and plan: From last week urine culture with final strep agalactie; WBC 13.1 - aborted therapy of rocephin after one dose - start nitrofurantoin per sensitivities Qualifiers: Urinary tract infection type: acute cystitis Hematuria presence: without hematuria Qualified Code(s): N30.00 - Acute cystitis without hematuria (4) Cough Current Visit: Yes Status: Acute Assessment and plan: unlikely to be PNA with chest X-ray normal with afebrile and history of sneezing but WBC 13.1 better explained by UTI - supportive with tesselon (5) Diarrhea Current Visit: Yes Status: Acute Assessment and plan: with recent hospitalizations considered c dif antigen but history is not consistent Qualifiers: Diarrhea type: unspecified type Qualified Code(s): R19.7 - Diarrhea, unspecified (6) DVT prophylaxis Current Visit: No Status: Acute Assessment and plan: continue plavix - Time Spent With Patient Total time spent is greater than 50% in coordination of care (as documented) at patient's floor/unit and/or counseling patient: Greater than 35 minutes
[2018-03-20] MEDS ORDERED: diazePAM 5 MG TABLET PO PRN (02:09)
[2018-03-20] MEDS ORDERED: *HR* Dextrose 50 % in Water (Syg) 50 ML SYRINGE IVP PRN (02:12)
[2018-03-20] MEDS ORDERED: Dextrose Gel 15 GM/37.5 ML TUBE PO PRN ×2 (02:12)
[2018-03-20] MEDS ORDERED: D5% in Water 1,000 ML IVC PRN (02:12)
[2018-03-20 02:43] LABS: Basophils # 0.1 K/mcL (0.0-0.2); Basophils % 0.5 %; Eosinophils # 0.6 K/mcL (0.0-0.6); Eosinophils % 4.9 %; Hematocrit 41.3 % (35.3-44.9); Hemoglobin 14.5 g/dL (11.5-15.4); Immature Granulocytes % 0.3 % (0-4); Lymphocytes # 4.3 K/mcL (0.6-4.6); Lymphocytes % 33.1 %; Mean Corpuscular HGB Conc 35.1 g/dL (31.6-35.5); Mean Corpuscular Hemoglobin 32.1 pg (28.0-33.3); Mean Corpuscular Volume 91.4 fL (83.0-100.0); Mean Platelet Volume 10.3 fL (9.4-12.4); Monocytes # 0.6 K/mcL (0.0-1.3); Monocytes % 4.8 %; Neutrophils # 7.3 K/mcL (1.6-8.9); Platelet Count 298 K/mcL (140-400); Red Blood Count 4.52 M/mcL (3.82-4.97); Red Cell Distribution Width 13.2 % (11.5-14.5); Segmented Neutrophils % 56.4 %
[2018-03-20 02:50] LABS: BUN/Creatinine Ratio 16 (6-26); Blood Urea Nitrogen 9 mg/dL (6-20); Calcium 8.8 mg/dL (8.6-10.3); Carbon Dioxide 17 mEq/L (23-29); Chloride 106 mEq/L (98-107); Glucose 267 mg/dL (70-105); Osmolality,Calculated 290 (280-300); Potassium 3.6 mEq/L (3.5-5.1); Sodium 136 mEq/L (136-145); eGFR For Non-African Americans > 60 (> 60)
[2018-03-20] MEDS: Ranolazine 500 MG TAB.ER.12H PO SCH ×2 (07:59→20:01)
[2018-03-20] MEDS: *HR* HYDROcodone/Acet 5/325 mg TABLET PO PRN ×2 (07:59→14:23)
[2018-03-20] MEDS: Diltiazem CD (24hr) 300 MG CAPSULE PO SCH (07:59)
[2018-03-20] MEDS: Metoprolol XL (24 HR) Succ 25 MG TAB.ER.24H PO SCH ×2 (08:01→19:59)
[2018-03-20] MEDS: Aspirin Enteric Coated 81 MG Tablet PO SCH (08:01)
[2018-03-20] MEDS: Insulin LISPRO 300 UNITS/3 ML VIAL SQ SCH ×3 (08:04→19:23)
--- NOTE | 2018-03-20 10:49 | Internal Med Progress Note ---
Hospitalist Progress Note - Encounter Date of Encounter: 03/20/18 Time of Encounter: 10:49 - Exam Vitals: Temp Pulse Resp BP Pulse Ox 97.8 F 67 16 108/72 95 03/20/18 10:23 03/20/18 10:23 03/20/18 10:23 03/20/18 10:23 03/20/18 10:23 - Time Spent with Patient Total time spent is greater than 50% in coordination of care (as documented) at patient's floor/unit and/or counseling patient: Internal Medicine: Result - Labs CBC & Chem 7: 03/20/18 00:15 03/20/18 00:15 Labs: Short CBC 03/20/18 Range/Units 00:15 WBC 13.0 H (4.3-11.1) K/mcL Hgb 14.5 (11.5-15.4) g/dL Hct 41.3 (35.3-44.9) % Plt Count 298 (140-400) K/mcL Neutrophils # 7.3 (1.6-8.9) K/mcL BMP 03/20/18 00:15 Sodium 136 Potassium 3.6 Chloride 106 Carbon Dioxide 17 L BUN 9 Creatinine 0.56 L Glucose 267 H Calcium 8.8 Cardiac Enzymes 03/20/18 03/20/18 Range/Units 00:15 06:41 Troponin I < 0.03 < 0.03 (< 0.04) ng/mL - ABG Interpretation ABG results: PT/INR, D-dimer PT 10.0 Seconds (9.4-12.1) 03/19/18 18:26 Consult Discharge Plan - Plan Referrals: Glory Funes CNP [Primary Care Provider] - 03/22/18 10:00 am
--- NOTE | 2018-03-20 11:39 | Cardiology Consult Note ---
Date of Encounter: 03/20/18 Time of Encounter: 08:30 Assessment and Plan (1) Chest pain Current Visit: Yes Status: Acute Per cardiology: -Admitted with chest pain, atypical, however states somewhat similar to previous angina. -Known history of premature CAD with [place] and PCI. -MOst recent LHC 08/2017 Ayo with luminal irregularities 15% proximal LAD, luminal irregularities 15% porximal circumflex, 25% proximal RCA, luminal irregularities 10 mid RCA. -Recent admission and attempted conservative medical management with patient, however now re-admitted x2. -On asa, statin, BB, plavix, ranexa. -Most recent TTE with LVEF normal, no wall motion abnormalities. -Troponins negative x3. -ECG with no acute ischemic changes noted, similar to previous ECG. -With recent LHC at outside facility, Discussed potential medical management with patient, possible uptitration of ranexa. AT this point, patient prefers [facility]. Will discuss further with . -Of note, recent and miscarriage noted. Urine test noted. Patient reports not currently on control. Educated patient on cardiology recommendations for control due to potential teratogenic effects on fetus with cardiac medications. Pateint states understanding. Qualifiers: Chest pain type: unspecified Qualified Code(s): R07.9 - Chest pain, unspecified (2) CAD (coronary artery disease) Current Visit: No Status: Chronic Per cardiology: -See above. Qualifiers: Coronary Disease-Associated Artery/Lesion type: [place] artery [place] vs. transplanted heart: [place] heart Associated angina: with unspecified angina Qualified Code(s): I25.119 - Atherosclerotic heart disease of [place] coronary artery with unspecified angina pectoris (3) Tobacco use Current Visit: No Status: Chronic Per cardiology: -Known tobacco abuse. -Smoking cessation education provided to patient. Discussion w patient/family: The assessment and plan as outlined above was discussed with the patient who expressed understanding and agreement. All questions were answered. Thank you for involving us in the care of your patient. Please call with any questions. Discussed and reviewed with . History of Present Illness Consult date: 03/19/18 Requesting physician: Meir Topete Consult reason: chest pain Chief complaint: chest pain History of present illness: Ms. Mccoy is a 32 year old female with PMHx significant of premature CAD, [place] s/ p PCI, DMII, HTN, tobacco abuse who presented to [facility] with complaints of chest pain. Patient states chest pain feels like "pressure" and radiates to right arm and back. Patient states pain lessens with deepp breathing. Reports associated nausea and shortness of breath. Patient reports symptoms similar to previous pain with [place]. Past Med Surg Social Fam HX - Past Medical History Attestation: Yes The following information was validated with the patient. Source: patient, old records reviewed Medical history: cardiomyopathy, coronary artery disease, diabetes, GERD, hyperlipidemia, hypertension, kidney stones, migraine, myocardial infarction Additional medical history: PCOS Psychiatric history: anxiety, bipolar, depression - Past Surgical History Surgical History: angioplasty/stent Additional surgical history: cardiac stents x 2 - Social History Smoking Status: Current every day smoker Smokeless Tobacco Status: No Alcohol use: occasionally Drug use: none - Family History Brother Family Member Ethnicity: Non- Living Status: Still Living Father Family Member Ethnicity: Non- Living Status: Still Living Hx Family Cardiac Disorders: Yes (HTN) Hx Family Respiratory Disorders: No Hx Family Cancer: No Hx Family GI Disorders: No Hx Family Endocrine Disorder: Yes (DM) Hx Family Neuromuscular Disorders: No Hx Family Neurologic Disorders: No Hx Family HEENT Disorders: No Hx Family Autoimmune Disorders: No Grandmother Adopted: No Family Member Ethnicity: Non- Living Status: Hx Family Cardiac Disorders: Yes (CHF) Hx Family Respiratory Disorders: No Hx Family Cancer: No Hx Family GI Disorders: No Hx Family Endocrine Disorder: No Hx Family Neuromuscular Disorders: No Hx Family Neurologic Disorders: No Hx Family HEENT Disorders: No Hx Family Autoimmune Disorders: No Mother Family Member Ethnicity: Non- Living Status: Still Living Hx Family Cardiac Disorders: No Hx Family Respiratory Disorders: No Hx Family Cancer: No Hx Family GI Disorders: No Hx Family Endocrine Disorder: No Hx Family Neuromuscular Disorders: No Hx Family Neurologic Disorders: No Hx Family HEENT Disorders: No Hx Family Autoimmune Disorders: No Medications and Allergies Temazepam [Restoril] 15 mg PO HS #0 06/29/15 [History] traZODone [TraZODone] 100 mg PO HS 09/27/15 [History] diazePAM [Valium] 5 mg PO TID PRN 04/01/16 [History] Liraglutide [Victoza 2-Bill] 1.2 mg SQ QAM 10/21/16 [History] Metoprolol XL (24 HR) Succ [Toprol Xl] 12.5 mg PO BID 10/21/16 [History] Aspirin Enteric Coated [Aspirin EC] 81 mg PO DAILY 05/24/17 [History] Lurasidone [Latuda] 40 mg PO QPM 05/24/17 [History] metFORMIN [Glucophage] 1,000 mg PO BID 05/24/17 [History] Atorvastatin [Lipitor] 40 mg PO HS 03/10/18 [History] Clopidogrel [Plavix] 75 mg PO DAILY 03/10/18 [History] Diltiazem CD (24hr) [Cardizem CD] 300 mg PO DAILY 03/10/18 [History] Ranolazine [Ranexa] 500 mg PO BID #60 tab.er.12h 03/11/18 [Rx] 3 Allergy/AdvReac Type Severity Reaction Status Date / Time naproxen AdvReac Gastrointestinal Verified 03/19/18 20:46 Upset All Systems Review: The remainder of the systems were reviewed and are negative - Cardiovascular Cardiovascular: as per HPI, chest pain at rest, dyspnea at rest - Gastrointestinal Gastrointestinal: nausea Physical Examination Vital Signs, Last 4 Hours Temp Pulse Resp BP Pulse Ox 03/20/18 10:23 97.8 F 67 16 108/72 95 General: Conversant, No Apparent Distress HEENT: Atraumatic, Normocephaly, Mucus Membranes Moist Neck: No JVD, Normal carotid pulses Cardiac: Reg Rate and Rhythm, Normal S1 and S2, No Murmur Lungs: Normal Breath Sounds, No Wheeze, Rales, Rhonchi Neuro: Alert and responsive, No focal deficits noted Abdomen: Soft, Non-Tender Skin: No rashes noted on visualized skin Musculoskeletal: No Chest Wall Tenderness Extremities: No Clubbing, No Cyanosis, No Edema, Normal Pulses Results 03/20/18 00:15 03/20/18 00:15 Lab Results Impressions Chest X-Ray 03/19/18 18:21 IMPRESSION: No acute process. D/ / Surendra Adams MD / Surendra Adams MD Interpreting Provider: Surendra Adams MD Active Medications Acetaminophen (Tylenol) 650 mg PO Q6HR PRN PRN Reason: Mild Pain/Fever Stop: 09/19/18 00:44 Hydrocodone Bitart/Acetaminophen ([place] 5-325 Mg) 1 tab PO Q6HR PRN PRN Reason: Moderate Pain Stop: 09/18/18 23:05 Last Admin: 03/20/18 07:59 Dose: 1 tab Aspirin (Aspirin Ec) 81 mg PO DAILY [facility] Stop: 09/19/18 09:01 Last Admin: 03/20/18 08:01 Dose: 81 mg Clopidogrel Bisulfate (Plavix) 75 mg PO DAILY [facility] Stop: 09/19/18 09:01 Last Admin: 03/20/18 08:01 Dose: 75 mg Dextrose/Water (Dextrose 50% (Syg)) 25 ml IVP AD PRN PRN Reason: Hypoglycemia Stop: 09/19/18 02:13 Diazepam (Valium) 5 mg PO TID PRN PRN Reason: Anxiety Stop: 09/19/18 02:10 Diltiazem HCl (Cardizem Cd) 300 mg PO DAILY [facility] Stop: 09/19/18 09:01 Last Admin: 03/20/18 07:59 Dose: 300 mg Glucagon (Glucagen) 1 mg IM ONCE PRN PRN Reason: Hypoglycemia Stop: 09/19/18 02:13 Glucose (Gluctose) 15 gm PO ONCE PRN PRN Reason: Hypoglycemia Stop: 09/19/18 02:13 Glucose (Gluctose) 30 gm PO ONCE PRN PRN Reason: Hypoglycemia Stop: 09/19/18 02:13 Dextrose (Dextrose 5%) 1,000 mls @ 100 mls/hr IVC .Q10H PRN PRN Reason: HYPOGLYCEMIA Stop: 09/19/18 02:13 Insulin Human Lispro (Humalog) 4 units 0.05 units/kg (4 units) SQ TIDWM [facility] Stop: 09/19/18 08:01 Last Admin: 03/20/18 08:04 Dose: Not Given Lurasidone HCl (Latuda) 40 mg PO QPM [facility] Stop: 09/19/18 18:01 Metoprolol Succinate (Toprol Xl) 12.5 mg PO BID [facility] Stop: 09/19/18 09:01 Last Admin: 03/20/18 08:01 Dose: 12.5 mg Naloxone HCl (Narcan) 0.4 mg IVP Q2MIN PRN PRN Reason: SEE COMMENTS Stop: 09/18/18 23:05 Nitrofurantoin Macrocrystals (Macrodantin) 50 mg PO QID [facility] Stop: 09/19/18 09:01 Ranolazine (Ranexa) 500 mg PO BID [facility] Stop: 09/19/18 09:01 Last Admin: 03/20/18 07:59 Dose: 500 mg Trazodone HCl (Trazodone) 100 mg PO HS [facility] Stop: 09/19/18 21:01 Laboratory Tests 03/19/18 03/20/18 03/20/18 18:26 00:15 00:15 WBC 13.0 H Hgb 14.5 Creatinine 0.56 L Troponin I < 0.03 < 0.03 03/20/18 06:41 WBC Hgb Creatinine Troponin I < 0.03 - Imaging and Cardiology Chest Xray: report reviewed Stress Test: report reviewed Echo: report reviewed Cardiac cath: report reviewed - EKG Interpretation EKG results cardiology: personally reviewed (ECG with SR, HR 86. Inferior Q waves noted.), other (Telelemtry reviewed with average HR previous 12 hours noted to be 66, SR. PVCs and PACs noted.) Consult Discharge Plan - Plan Referrals: Glory Funes CNP [Primary Care Provider] - 03/22/18 10:00 am
--- NOTE | 2018-03-20 15:14 | Discharge Summary ---
- NOTES TO OUTPATIENT PROVIDER Notes to Outpatient Provider: Presented with CP- seen by cardiology- cont with home medication Date of Encounter: 03/21/18 Time of Encounter: 11:45 - Discharge Diagnosis (1) Chest pain Priority: Primary Status: Acute Qualifiers: Chest pain type: unspecified Qualified Code(s): R07.9 - Chest pain, unspecified (2) UTI (urinary tract infection) Priority: Secondary Status: Acute Qualifiers: Urinary tract infection type: acute cystitis Hematuria presence: without hematuria Qualified Code(s): N30.00 - Acute cystitis without hematuria (3) Diabetes Priority: Secondary Status: Chronic Qualifiers: Diabetes mellitus type: type 2 Diabetes mellitus intermodal customer service insulin use: without intermodal customer service use Diabetes mellitus complication status: with circulatory complication Diabetes mellitus complication detail: with other circulatory complications Qualified Code(s): E11.59 - Type 2 diabetes mellitus with other circulatory complications (4) Cough Priority: Secondary Status: Acute (5) Diarrhea Priority: Secondary Status: Acute Qualifiers: Diarrhea type: unspecified type Qualified Code(s): R19.7 - Diarrhea, unspecified Hospital course: Ms. Mccoy is a 32 year old female past medical hx of [place] with 2 stents cardiomyopathy DM GERD HLD HTN migraine Presented to [facility] with CP describing the pain as pressure and sharp pain that radiates to R rib- worse when breathing in and tender to touch- assiciated s x of diaphoresis ZAPATA cough and SOB onset one week ago with sneezing no fevers. She states that she was sitting with her neighbor and she had a syncopal episode denies any palpitations CP ZAPATA lightheadedness prior to episode. SHe reports diarrhea 2-3 times a day did not improve with lomotil - She was admitted 03/10/2018 for CP but left AMA requested LHC- her last LHC was 08/2017 at [facility] . Lab work did show elevated WBC as well as metabolic acidosis Troponin negative x3 EKG with no ST T wave abnormalities. CXR with no acute abnomalities Urinalysis was positive from last admit 03/10/2018 but she did not complete ATB. She was seen by cardiology - who felt CP non cardiac- which cold be rt coughing or anxiety- She did not have any more diarrhea during admission- orthostatic VS WNL- Her bicarb and white count did improve with fluid - I suspect her syncopal episode was rt dehydration and UTI. I advised the patent to stay well hydrated , I will give her a prescription for Macrobid .Advised her to follow up with PCP as well as cardiology. She is hemodynamically stable and ready for discharge Discharge discussed with: patient - Time Spent with Patient Total time spent providing and/or coordinating discharge services: - Discharge Medications Prescriptions: Nitrofurantoin (BID) [Macrobid] 100 mg PO BID #8 capsule Home Medications: Temazepam [Restoril] 15 mg PO HS #0 06/29/15 [History] traZODone [TraZODone] 100 mg PO HS 09/27/15 [History] diazePAM [Valium] 5 mg PO TID PRN 04/01/16 [History] Liraglutide [Victoza 2-Bill] 1.2 mg SQ QAM 10/21/16 [History] Metoprolol XL (24 HR) Succ [Toprol Xl] 12.5 mg PO BID 10/21/16 [History] Aspirin Enteric Coated [Aspirin EC] 81 mg PO DAILY 05/24/17 [History] Lurasidone [Latuda] 40 mg PO QPM 05/24/17 [History] metFORMIN [Glucophage] 1,000 mg PO BID 05/24/17 [History] Atorvastatin [Lipitor] 40 mg PO HS 03/10/18 [History] Clopidogrel [Plavix] 75 mg PO DAILY 03/10/18 [History] Diltiazem CD (24hr) [Cardizem CD] 300 mg PO DAILY 03/10/18 [History] Ranolazine [Ranexa] 500 mg PO BID #60 tab.er.12h 03/11/18 [Rx] Nitrofurantoin (BID) [Macrobid] 100 mg PO BID #8 capsule 03/20/18 [Rx] Allergies/Adverse Reactions: 3 Allergy/AdvReac Type Severity Reaction Status Date / Time naproxen AdvReac Gastrointestinal Verified 03/19/18 20:46 Upset Date of admission: 03/19/18 20:28 Primary care physician: Glory Funes CNP Discharging clinician: Yanna Nash Anticipated date of discharge: 03/21/18 - Constitutional Vitals: Temp Pulse Resp BP Pulse Ox 97.8 F 67 16 108/72 95 03/20/18 10:23 08/29/18 10:23 03/20/18 10:23 03/20/18 10:23 03/20/18 10:23 General appearance: Present: A&O X 3, morbidly obese, no acute distress Exam: - Constitutional Constitutional: no fever(s), no weakness - EENT Eyes: no blurry vision - Cardiovascular Cardiovascular ROS IM: as per HPI, chest pain, diaphoresis, dyspnea, palpitations - Respiratory Respiratory: cough, dyspnea on exertion, pain on inspiration, no wheezing, no chest congestion - Gastrointestinal Gastrointestinal: no abdominal pain, diarrhea, nausea, no constipation, no vomiting - Genitourinary Genitourinary: no dysuria, no urinary frequency, no urinary incontinence - Musculoskeletal Musculoskeletal ROS IM: arthralgias, tingling - Neurological Neurological ROS: no confusion, headache(s), numbness - Patient Status Disposition: Home, Self-Care Condition: Good Functional capacity at discharge: independent ambulation Overall status at discharge: patient is back to baseline - Discharge Instructions Instructions: Chest Pain (DC) Follow Up With: Glory Funes CNP [Primary Care Provider] - 03/22/18 10:00 am - Diet and Activity Activity: increase activity as tolerated Diet: advance to your usual diet
--- NOTE | 2018-03-20 16:44 | Internal Med Progress Note ---
Hospitalist Progress Note - Encounter Date of Encounter: 03/20/18 Time of Encounter: 11:00 - Subjective Interval History: Patient seen and examined at bedside earlier this am - currently denies any CP or SOB- no N/Vat this time - Exam Vitals: Temp Pulse Resp BP Pulse Ox 98.6 F 63 15 121/79 96 03/20/18 15:34 03/20/18 16:15 03/20/18 15:34 03/20/18 16:15 03/20/18 15:34 Exam: - Constitutional Constitutional: no fever(s), no weakness - EENT Eyes: no blurry vision - Cardiovascular Cardiovascular ROS IM: as per HPI, chest pain, diaphoresis, dyspnea, palpitations - Respiratory Respiratory: cough, dyspnea on exertion, pain on inspiration, no wheezing, no chest congestion - Gastrointestinal Gastrointestinal: no abdominal pain, diarrhea, nausea, no constipation, no vomiting - Genitourinary Genitourinary: no dysuria, no urinary frequency, no urinary incontinence - Musculoskeletal Musculoskeletal ROS IM: arthralgias, tingling - Neurological Neurological ROS: no confusion, headache(s), numbness - Assessment and Plan (1) Chest pain Current Visit: Yes Status: Acute Assessment and Plan: 1 Atypical cp hx of PR with stent placement Was admitted last week for CP- was seen by cardiology at that time and was cleared - 2 EKG no changes from previous 3Troponin negative x 3 4 on ASA statn BB plavix and BB 5 consult to cardiology (2) UTI (urinary tract infection) Current Visit: No Status: Acute Assessment and Plan: 1 last week UA did show UTI with culture growing strep agalactie WBC 13.1 only received one dose of rocephine last week will start on nitrofurantoin per sensitivities (3) Diabetes Current Visit: No Status: Chronic Assessment and Plan: hold metformin and vitosa for now accucheck AC/HS with SSI (4) Cough Current Visit: Yes Status: Acute Assessment and Plan: Afebrile CXR ok - most likely URI cont supportive treatment with tesselon (5) Diarrhea Current Visit: Yes Status: Acute Assessment and Plan: 1 patient reports loose stools at home - was recently hospitalized- No stool at this time - we will check GI panel if diarrhea persist (6) Metabolic acidemia Current Visit: Yes Status: Acute Assessment and Plan: 1 Bicarb was 17 - most likely rt dehydration secondary to diarrhea - anion gap 13 - suggestive hyperchloremic anion gap acidosis we will give IV fluids and recheck in am DVT Prophylaxis: lovenox - Time Spent with Patient Total time spent is greater than 50% in coordination of care (as documented) at patient's floor/unit and/or counseling patient: Internal Medicine: Result - Labs CBC & Chem 7: 03/20/18 00:15 03/20/18 00:15 Labs: Short CBC 03/20/18 Range/Units 00:15 WBC 13.0 H (4.3-11.1) K/mcL Hgb 14.5 (11.5-15.4) g/dL Hct 41.3 (35.3-44.9) % Plt Count 298 (140-400) K/mcL Neutrophils # 7.3 (1.6-8.9) K/mcL BMP 03/20/18 00:15 Sodium 136 Potassium 3.6 Chloride 106 Carbon Dioxide 17 L BUN 9 Creatinine 0.56 L Glucose 267 H Calcium 8.8 Cardiac Enzymes 03/20/18 03/20/18 Range/Units 00:15 06:41 Troponin I < 0.03 < 0.03 (< 0.04) ng/mL - ABG Interpretation ABG results: PT/INR, D-dimer PT 10.0 Seconds (9.4-12.1) 03/19/18 18:26 Consult Discharge Plan - Plan Referrals: Glory Funes CNP [Primary Care Provider] - 03/22/18 10:00 am Prescriptions: Nitrofurantoin (BID) [Macrobid] 100 mg PO BID #8 capsule (1) Chest pain Qualifiers: Chest pain type: unspecified Qualified Code(s): R07.9 - Chest pain, unspecified (2) UTI (urinary tract infection) Qualifiers: Urinary tract infection type: acute cystitis Hematuria presence: without hematuria Qualified Code(s): N30.00 - Acute cystitis without hematuria (3) Diabetes Qualifiers: Diabetes mellitus type: type 2 Diabetes mellitus rodent exterminator insulin use: without rodent exterminator use Diabetes mellitus complication status: with circulatory complication Diabetes mellitus complication detail: with other circulatory complications Qualified Code(s): E11.59 - Type 2 diabetes mellitus with other circulatory complications (5) Diarrhea Qualifiers: Diarrhea type: unspecified type Qualified Code(s): R19.7 - Diarrhea, unspecified
[2018-03-20] MEDS ORDERED: 0.9 % Sodium Chloride 1,000 ML IVC SCH (16:45)
[2018-03-20] MEDS: Nicotine 14 MG PATCH.TD24 TD SCH (20:00)
[2018-03-20] MEDS ORDERED: traZODone 50 MG TABLET PO SCH (21:00)
[2018-03-20] MEDS: *HR* OxyCODONE Immed Rel 5 MG TABLET PO PRN (21:05)
[2018-03-21] MEDS: *HR* OxyCODONE Immed Rel 5 MG TABLET PO PRN ×2 (03:47→10:11)
[2018-03-21] MEDS ORDERED: *HR* Enoxaparin 40 MG/0.4 ML SYRINGE SQ SCH (07:00)
[2018-03-21 09:12] LABS: Basophils # 0.1 K/mcL (0.0-0.2); Basophils % 0.8 %; Eosinophils # 0.5 K/mcL (0.0-0.6); Eosinophils % 6.1 %; Hematocrit 40.9 % (35.3-44.9); Hemoglobin 13.9 g/dL (11.5-15.4); Immature Granulocytes % 0.3 % (0-4); Lymphocytes # 3.4 K/mcL (0.6-4.6); Lymphocytes % 38.5 %; Mean Corpuscular Hemoglobin 31.4 pg (28.0-33.3); Mean Corpuscular Volume 92.3 fL (83.0-100.0); Mean Platelet Volume 10.1 fL (9.4-12.4); Monocytes # 0.5 K/mcL (0.0-1.3); Monocytes % 5.4 %; Neutrophils # 4.3 K/mcL (1.6-8.9); Platelet Count 246 K/mcL (140-400); Red Blood Count 4.43 M/mcL (3.82-4.97); Red Cell Distribution Width 13.3 % (11.5-14.5); Segmented Neutrophils % 48.9 %
[2018-03-21 09:31] LABS: BUN/Creatinine Ratio 10 (6-26); Blood Urea Nitrogen 6 mg/dL (6-20); Calcium 8.8 mg/dL (8.6-10.3); Carbon Dioxide 22 mEq/L (23-29); Chloride 108 mEq/L (98-107); Glucose 173 mg/dL (70-105); Osmolality,Calculated 286 (280-300); Potassium 3.5 mEq/L (3.5-5.1); Sodium 137 mEq/L (136-145); eGFR For Non-African Americans > 60 (> 60)
[2018-03-21] MEDS: Ranolazine 500 MG TAB.ER.12H PO SCH (10:11)
[2018-03-21] MEDS: Aspirin Enteric Coated 81 MG Tablet PO SCH (10:11)
[2018-03-21] MEDS: Nicotine 14 MG PATCH.TD24 TD SCH (10:11)
[2018-03-21] MEDS: Diltiazem CD (24hr) 300 MG CAPSULE PO SCH (10:11)
[2018-03-21] MEDS: Metoprolol XL (24 HR) Succ 25 MG TAB.ER.24H PO SCH (10:12)
[2018-03-21] MEDS: Insulin LISPRO 300 UNITS/3 ML VIAL SQ SCH (10:53)
[2018-03-21 11:06] VITALS: BP 114/77
--- NOTE | 2018-03-25 13:59 | Electrocardiograph Report ---
[address] [place], [place] [address] Test Date: 2018-03-19 [facility] Department: EXAM5 Room: 3B24 Gender: F It Engineer: : 1985 Requested By: Meir Topete Order Number: [id number] Reading MD: Xavi Moya Measurements Intervals [place] Rate: 86 P: 25 IN: 147 QRS: 41 QRSD: 101 T: -31 QT: 372 QTc: 445 Interpretive Statements Sinus rhythm Inferior infarct, age indeterminate Electronically Signed On 03-25-2018 13:57:37 EDT by Xavi Moya
== END 2018-03-21 13:02 | disposition home or self-care (01) ==
LOC: EMEROOARM 18:14 → 3BNU 18:14
PROVIDERS: ADMIT Family Medicine; ATTEND Family Medicine

== ENCOUNTER 2018-04-23 16:05 | Observation (INO) ==
[2018-04-23] MEDS ORDERED: *HR* FentaNYL (PF) 100 MCG/2 ML VIAL IVP ONE (16:13)
--- NOTE | 2018-04-23 16:16 | Emergency Department Note ---
Disposition Clinical Impression: Chest pain Qualifiers: Chest pain type: precordial pain Qualified Code(s): R07.2 - Precordial pain Disposition: Admitted As Inpatient Condition: Good Referrals: Glory Funes CNP [Primary Care Provider] - Time of Disposition: 17:59 General Adult HPI - General Stated complaint: Chest Pain Time Seen by Provider: 04/23/18 16:12 Source: patient, EMS Mode of arrival: EMS Limitations: no limitations - History of Present Illness HPI Narrative: This is a 32-year-old female reporting a sudden onset of chest pain and shortness of breath about 1 hour prior to arrival. She has a history of coronary artery disease and has had a prior myocardial infarction. She takes aspirin and Plavix, and took 3 nitroglycerin and 381 mg aspirins after symptoms started. She states that the nitroglycerin helped a little bit. She still feels quite short of breath. - Related Data Home Medications Medication Instructions Recorded Confirmed Temazepam [Restoril] 15 mg PO HS #0 06/29/15 03/19/18 traZODone [TraZODone] 100 mg PO HS 09/27/15 03/19/18 diazePAM [Valium] 5 mg PO TID PRN 04/01/16 03/19/18 Liraglutide [Victoza 2-Bill] 1.2 mg SQ QAM 10/21/16 03/19/18 Metoprolol XL (24 HR) Succ [Toprol 12.5 mg PO BID 10/21/16 03/19/18 Xl] Aspirin Enteric Coated [Aspirin EC] 81 mg PO DAILY 05/24/17 03/19/18 Lurasidone [Latuda] 40 mg PO QPM 05/24/17 03/19/18 metFORMIN [Glucophage] 1,000 mg PO BID 05/24/17 03/19/18 Atorvastatin [Lipitor] 40 mg PO HS 03/10/18 03/19/18 Clopidogrel [Plavix] 75 mg PO DAILY 03/10/18 03/19/18 Diltiazem CD (24hr) [Cardizem CD] 300 mg PO DAILY 03/10/18 03/19/18 Previous Rx's Medication Instructions Recorded Ranolazine [Ranexa] 500 mg PO BID #60 tab.er.12h 03/11/18 Nitrofurantoin (BID) [Macrobid] 100 mg PO BID #8 capsule 03/20/18 Allergies Allergy/AdvReac Type Severity Reaction Status Date / Time naproxen AdvReac Gastrointestinal Verified 03/19/18 20:46 Upset All systems ED: reviewed and negative except as stated. 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 [employer]OR history: Reports: non-contributory - Social History Smoking Status: Current every day smoker Smokeless Tobacco Status: No Alcohol use: Reports: occasionally Drug use: Reports: none Physical Exam - General Limitations: no limitations General appearance: alert, in distress (In moderate respiratory distress) - Head Head exam: atraumatic, normocephalic, normal inspection - Eye Eye exam: Present: normal appearance, PERRL, EOMI - Chest Chest inspection: Present: normal inspection, symmetric chest wall rise - Respiratory Respiratory exam: Present: normal lung sounds bilaterally - Cardiovascular Cardiovascular exam: Present: regular rate, tachycardia, normal heart sounds - Abdominal Exam Abdominal exam: Present: soft, Non-Tender. Absent: tenderness, distention, guarding, rebound, rigidity - Extremities Exam Extremities exam: Present: normal inspection, full ROM. Absent: tenderness, pedal edema - Neurological Exam Neurological exam: Present: alert, oriented X3 - Psychiatric Psychiatric exam: Present: normal affect, normal mood - Skin Skin exam: Present: warm, dry, intact, normal color Course Course Narrative: This is a 32-year-old female with symptoms concerning for acute coronary syndrome or pulmonary embolism. Vital Signs Temperature 98.0 F 04/23/18 16:09 Pulse Rate 92 04/23/18 16:09 Respiratory Rate 18 04/23/18 16:09 Blood Pressure 130/92 04/23/18 16:09 O2 Sat by Pulse Oximetry 99 04/23/18 16:09 Temperature 98.0 F 04/23/18 16:09 Pulse Rate 92 04/23/18 16:09 Respiratory Rate 18 04/23/18 16:09 Blood Pressure 130/92 04/23/18 16:09 O2 Sat by Pulse Oximetry 2 04/23/18 16:15 Oxygen Delivery Oxygen Delivery Room Air Medical Decision Making - MDM Narrative Medical decision making narrative: This is a 32-year-old female with reported history of acute coronary syndrome and coronary artery disease with a sudden onset of chest pain or shortness of breath. Her initial evaluation is negative, but I discussed her case with the on-call hospitalist and he accepted her for observation for an ACS rule out. - Lab Data Lab results reviewed: Yes I reviewed the patient's lab results. Lab results narrative: CBC shows leukocytosis at 13.2, hemoconcentration at 15.6 and 45 BMP was unremarkable D-dimer was low Troponin was low Result diagrams: 04/23/18 16:17 04/23/18 16:17 Lab Results 04/23/18 04/23/18 04/23/18 Range/Units 16:17 16:17 16:17 WBC 13.2 H (4.3-11.1) K/mcL RBC 4.94 (3.82-4.97) M/mcL Hgb 15.6 H (11.5-15.4) g/dL Hct 45.0 H (35.3-44.9) % MCV 91.1 (83.0-100.0) fL MCH 31.6 (28.0-33.3) pg MCHC 34.7 (31.6-35.5) g/dL RDW 13.2 (11.5-14.5) % Plt Count 305 (140-400) K/mcL MPV 9.8 (9.4-12.4) fL Immature Gran % 0.2 (0-4) % Seg Neutrophils % 63.0 % Lymphocytes % 27.8 % Monocytes % 4.7 % Eosinophils % 3.6 % Basophils % 0.7 % Neutrophils # 8.3 (1.6-8.9) K/mcL Lymphocytes # 3.7 (0.6-4.6) K/mcL Monocytes # 0.6 (0.0-1.3) K/mcL Eosinophils # 0.5 (0.0-0.6) K/mcL Basophils # 0.1 (0.0-0.2) K/mcL D-Dimer < 215 (0-500) ng/mLFEU Sodium 137 (136-145) mEq/L Potassium 3.9 (3.5-5.1) mEq/L Chloride 105 (98-107) mEq/L Carbon Dioxide 20 L (23-29) mEq/L BUN 8 (6-20) mg/dL Creatinine 0.61 (0.60-1.20) mg/dL Est GFR ( Amer) > 60 (> 60) Est GFR (Non-Af Amer) > 60 (> 60) BUN/Creatinine Ratio 13 (6-26) Glucose 157 H (70-105) mg/dL Calculated Osmolality 286 (280-300) Calcium 9.9 (8.6-10.3) mg/dL Troponin I < 0.03 (< 0.04) ng/mL - Radiology Data Radiology results reviewed: Yes I reviewed the patient's radiology results. Chest x-ray showed no acute process - EKG Data EKG #1 EKG attestation: Yes I reviewed and interpreted this EKG. EKG results narrative: ECG showed sinus rhythm, 91 bpm, large Q-wave in lead 3, moderate Q-wave in aVF , T-wave inversion in lead 3 , normal intervals, normal axis, no ST abnormalities Critical Care Time Critical Care Time: No
[2018-04-23 16:29] LABS: Basophils # 0.1 K/mcL (0.0-0.2); Basophils % 0.7 %; Eosinophils # 0.5 K/mcL (0.0-0.6); Eosinophils % 3.6 %; Hemoglobin 15.6 g/dL (11.5-15.4); Immature Granulocytes % 0.2 % (0-4); Lymphocytes # 3.7 K/mcL (0.6-4.6); Lymphocytes % 27.8 %; Mean Corpuscular HGB Conc 34.7 g/dL (31.6-35.5); Mean Corpuscular Hemoglobin 31.6 pg (28.0-33.3); Mean Corpuscular Volume 91.1 fL (83.0-100.0); Mean Platelet Volume 9.8 fL (9.4-12.4); Monocytes # 0.6 K/mcL (0.0-1.3); Monocytes % 4.7 %; Neutrophils # 8.3 K/mcL (1.6-8.9); Platelet Count 305 K/mcL (140-400); Red Blood Count 4.94 M/mcL (3.82-4.97); Red Cell Distribution Width 13.2 % (11.5-14.5)
[2018-04-23 16:50] LABS: BUN/Creatinine Ratio 13 (6-26); Blood Urea Nitrogen 8 mg/dL (6-20); Calcium 9.9 mg/dL (8.6-10.3); Carbon Dioxide 20 mEq/L (23-29); Chloride 105 mEq/L (98-107); Glucose 157 mg/dL (70-105); Osmolality,Calculated 286 (280-300); Potassium 3.9 mEq/L (3.5-5.1); Sodium 137 mEq/L (136-145); Troponin I < 0.03 ng/mL (< 0.04); eGFR For Non-African Americans > 60 (> 60)
[2018-04-23] MEDS: Nitroglycerin 0.4 MG TAB.SUBL SL ONE ×3 (17:52→18:04)
--- NOTE | 2018-04-23 18:13 | Internal Med History&Physical ---
Date of Encounter: 04/23/18 Time of Encounter: 18:10 Internal Medicine - H&P: HPI Chief complaint: chest pain Admitted From: Home History of present illness: Ms. Mccoy is a 32 year old female with pmhx cad and repeat admissions for chest painin recent months Chest pain onset at rest 3 hrs prior to presentation to ED. Has been feeling fatigued but otherwise no remarkable preceding symptoms. Left chest pain with radiation across to right chest and down right arm, no pressure or heaviness as she had in previous MS, + nausea and cold sweat with mild sob. Took one nitro SL and pain alleviated but returned 15 min later. Then took 3 nitro and 4 baby asa without effect. Currently pain now substernal. No radiation to arms/neck/ back. No presyncope or syncope, no palpitations. No recent moeller or orthopnea. No le edema or weight gain. No alleviating factors currently, no exacerbating factors. No recent cough, cold, indigestion, heart burn abd pain or anxiety from baseline. No recent immobilization, calf pain or swelling. ROS GI- no other nausea, emesis, abd pain, diarrhea, constipation Resp- no cough, cold, congestion, rhinorrhea, wheezing, sputum, sob other than above General- no recent fevers, chills, weight changes, night sweats Past Med Surg Social Fam HX - Past Medical History Medical history: cardiomyopathy, coronary artery disease, diabetes, GERD, hyperlipidemia, hypertension, kidney stones, migraine, myocardial infarction Additional medical history: PCOS Psychiatric history: anxiety, bipolar, depression - Past Surgical History Surgical History: angioplasty/stent (x2) Additional surgical history: cardiac stents x 2 - Social History Smoking Status: Current every day smoker Smokeless Tobacco Status: No Alcohol use: occasionally Drug use: none - Family History Brother Family Member Ethnicity: Non- Living Status: Still Living Father Family Member Ethnicity: Non- Living Status: Still Living Hx Family Cardiac Disorders: Yes (HTN) Hx Family Respiratory Disorders: No Hx Family Cancer: No Hx Family GI Disorders: No Hx Family Endocrine Disorder: Yes (DM) Hx Family Neuromuscular Disorders: No Hx Family Neurologic Disorders: No Hx Family HEENT Disorders: No Hx Family Autoimmune Disorders: No Grandmother Adopted: No Family Member Ethnicity: Non- Living Status: Hx Family Cardiac Disorders: Yes (CHF) Hx Family Respiratory Disorders: No Hx Family Cancer: No Hx Family GI Disorders: No Hx Family Endocrine Disorder: No Hx Family Neuromuscular Disorders: No Hx Family Neurologic Disorders: No Hx Family HEENT Disorders: No Hx Family Autoimmune Disorders: No Mother Family Member Ethnicity: Non- Living Status: Still Living Hx Family Cardiac Disorders: No Hx Family Respiratory Disorders: No Hx Family Cancer: No Hx Family GI Disorders: No Hx Family Endocrine Disorder: No Hx Family Neuromuscular Disorders: No Hx Family Neurologic Disorders: No Hx Family HEENT Disorders: No Hx Family Autoimmune Disorders: No Internal Medicine - H&P: Meds Temazepam [Restoril] 15 mg PO HS #0 06/29/15 [History] traZODone [TraZODone] 100 mg PO HS 09/27/15 [History] diazePAM [Valium] 5 mg PO TID PRN 04/01/16 [History] Liraglutide [Victoza 2-Bill] 1.2 mg SQ QAM 10/21/16 [History] Metoprolol XL (24 HR) Succ [Toprol Xl] 12.5 mg PO BID 10/21/16 [History] Aspirin Enteric Coated [Aspirin EC] 81 mg PO DAILY 05/24/17 [History] Lurasidone [Latuda] 40 mg PO QPM 05/24/17 [History] metFORMIN [Glucophage] 1,000 mg PO BID 05/24/17 [History] Atorvastatin [Lipitor] 40 mg PO HS 03/10/18 [History] Clopidogrel [Plavix] 75 mg PO DAILY 03/10/18 [History] Nitrofurantoin (BID) [Macrobid] 100 mg PO BID #8 capsule 03/20/18 [Rx] Diltiazem CD (24hr) [Cardizem CD] 180 mg PO DAILY 04/23/18 [History] Ranolazine [Ranexa] 1,000 mg PO BID 04/23/18 [History] 3 Allergy/AdvReac Type Severity Reaction Status Date / Time naproxen AdvReac Gastrointestinal Verified 03/19/18 20:46 Upset All Systems PM: A 10-system review of systems was performed and is negative for pertinent findings except as documented above in the HPI. - Constitutional Vitals: Temp Pulse Resp BP Pulse Ox 98.0 F 100 18 104/73 92 04/23/18 16:09 04/23/18 18:02 04/23/18 18:02 10/02/18 18:02 04/23/18 18:02 Exam: General: awake, alert, appears stated age, obese HEENT:EOM intact, pupils equal, round, moist mucus membranes, clear oropharynx Neck: supple, trachea midline Cardiovascular:regular rate and rhythm, normal S1 & S2, no rubs, murmurs or gallops. No JVD. radial pulses 2+, no lower extremity edema Lungs:Normal breath sounds, no wheezes, or crackles. Normal respiratory effort on ra Abdomen:Soft, non-tender, non-distended, no rigidity, + bowel sounds Extremities:No deformity, no edema or tenderness, no joint swelling or clubbing. Neurological: AAOx3, CN grossly intact Skin:Normal color, no rash, no pallor, no jaundice Internal Med - H&P Results - Labs CBC & Chem 7: 04/23/18 16:17 04/23/18 16:17 Labs: Short CBC 04/23/18 Range/Units 16:17 WBC 13.2 H (4.3-11.1) K/mcL Hgb 15.6 H (11.5-15.4) g/dL Hct 45.0 H (35.3-44.9) % Plt Count 305 (140-400) K/mcL Neutrophils # 8.3 (1.6-8.9) K/mcL BMP 04/23/18 16:17 Sodium 137 Potassium 3.9 Chloride 105 Carbon Dioxide 20 L BUN 8 Creatinine 0.61 Glucose 157 H Calcium 9.9 Cardiac Enzymes 04/23/18 Range/Units 16:17 Troponin I < 0.03 (< 0.04) ng/mL - Impressions ITS Impressions Chest X-Ray 04/23/18 16:12 IMPRESSION: No focal airspace consolidation or pulmonary vascular congestion. D/ / Tenzin Campos / Tenzin Campos Interpreting Provider: Tenzin Campos - Assessment and plan (1) Chest pain Current Visit: Yes Status: Acute Assessment and plan: Unstable Angina with CAD hx as below, vs ACS, vs stable chronic chest pain, dimer negative and hx not consistent with PE, hx not consistent with dissection , CXR without pulm etiology -see details of CAD history below -CXR no acute findings -dimer 250 -trop neg, EKG with sinus rhythm twi III and aVF unchanged form prior ekg as personally reviewed -tele -trend trops, sx onset 3 hrs prior to presentation -serial ekgs -prn nitro, O2 NC, morphine not available -consult cards as below, keep npo pmn -given repeated admits for same will hold on further imaging/studies until receive cards recs tomorrow Qualifiers: Chest pain type: precordial pain Qualified Code(s): R07.2 - Precordial pain (2) CAD (coronary artery disease) Current Visit: No Status: Chronic Assessment and plan: Known history of premature CAD with MS and PCI. -recurrent admits for same, now x3 in recent months, last visit saw Dr Polk and no rece for LHC given negative work up for ACS, recent LHC with minimal disease -MOst recent LHC 08/2017 Ayo with luminal irregularities 15% proximal LAD, luminal irregularities 15% porximal circumflex, 25% proximal RCA, luminal irregularities 10 mid RCA. -On asa, statin, BB, plavix, ranexa. Not on acei/arb, undocumented as to why -Most recent TTE with LVEF normal, no wall motion abnormalities as per most recent cards consultation 03/20/18 -chest pain work up as above -will consult cards for additional recs and work up as above for chest pain Qualifiers: Coronary Disease-Associated Artery/Lesion type: unspecified vessel or lesion type [place] vs. 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 Diabetes mellitus complication status: with unspecified complications Qualified Code(s): E11.8 - Type 2 diabetes mellitus with unspecified complications (4) Bipolar disorder Current Visit: Yes Status: Acute Assessment and plan: cont latuda Qualifiers: Active/Remission status: remission status unspecified Qualified Code(s): F31.9 - Bipolar disorder, unspecified (5) Anxiety Current Visit: Yes Status: Acute Assessment and plan: cont home valium (6) Insomnia Current Visit: Yes Status: Acute Assessment and plan: cont home restoril and trazadone Qualifiers: Insomnia type: unspecified Qualified Code(s): G47.00 - Insomnia, unspecified (7) Leukocytosis Current Visit: No Status: Chronic Assessment and plan: mild leukocytosis, ros negative for s/s of infection cxr unremarkable check ua cont to monitor Qualifiers: Leukocytosis type: unspecified Qualified Code(s): D72.829 - Elevated white blood cell count, unspecified (8) Obesity (BMI 30-39.9) Current Visit: No Status: Chronic Assessment and plan: education re lifestyle modifications (9) Tobacco abuse Current Visit: No Status: Chronic Assessment and plan: education on cessation nicotine patch currently smoking 1ppd - Time Spent With Patient Total time spent is greater than 50% in coordination of care (as documented) at patient's floor/unit and/or counseling patient: Greater than 35 minutes
[2018-04-23] MEDS ORDERED: diazePAM 5 MG TABLET PO PRN (18:19)
[2018-04-23] MEDS ORDERED: Acetaminophen 325 MG TABLET PO PRN (18:23)
[2018-04-23] MEDS ORDERED: Naloxone 0.4 MG/ML INJ IVP PRN (18:23)
[2018-04-23] MEDS ORDERED: Nitroglycerin 0.4 MG TAB.SUBL SL PRN (18:26)
[2018-04-23] MEDS: Nicotine 21 MG PATCH.TD24 TD SCH (20:07)
[2018-04-23] MEDS: traMADol 50 MG TABLET PO PRN (20:08)
[2018-04-23] MEDS: Ranolazine 500 MG TAB.ER.12H PO SCH (20:08)
[2018-04-23] MEDS: Metoprolol XL (24 HR) Succ 25 MG TAB.ER.24H PO SCH (20:09)
[2018-04-23] MEDS ORDERED: traZODone 50 MG TABLET PO SCH (21:00)
[2018-04-23] MEDS ORDERED: Ranolazine 500 MG TAB.ER.12H PO SCH (21:00)
[2018-04-23] MEDS ORDERED: Temazepam 15 MG CAPSULE PO SCH (21:00)
[2018-04-24 06:34] LABS: Basophils # 0.1 K/mcL (0.0-0.2); Basophils % 0.6 %; Eosinophils # 0.6 K/mcL (0.0-0.6); Eosinophils % 4.8 %; Hematocrit 42.3 % (35.3-44.9); Hemoglobin 14.4 g/dL (11.5-15.4); Immature Granulocytes % 0.3 % (0-4); Lymphocytes # 4.3 K/mcL (0.6-4.6); Lymphocytes % 37.7 %; Mean Corpuscular Hemoglobin 31.9 pg (28.0-33.3); Mean Corpuscular Volume 93.8 fL (83.0-100.0); Mean Platelet Volume 10.1 fL (9.4-12.4); Monocytes # 0.6 K/mcL (0.0-1.3); Monocytes % 5.6 %; Neutrophils # 5.8 K/mcL (1.6-8.9); Platelet Count 279 K/mcL (140-400); Red Blood Count 4.51 M/mcL (3.82-4.97); Red Cell Distribution Width 13.2 % (11.5-14.5)
[2018-04-24 06:42] LABS: BUN/Creatinine Ratio 20 (6-26); Blood Urea Nitrogen 13 mg/dL (6-20); Calcium 9.6 mg/dL (8.6-10.3); Carbon Dioxide 21 mEq/L (23-29); Chloride 105 mEq/L (98-107); Chol/HDL Ratio 6.1 (0-4.9); Cholesterol 177 mg/dL (< 200); Glucose 254 mg/dL (70-105); HDL Cholesterol 29 mg/dL (40-59); Magnesium 1.6 mg/dL (1.6-2.6); Osmolality,Calculated 291 (280-300); Potassium 3.6 mEq/L (3.5-5.1); Sodium 136 mEq/L (136-145); Triglycerides 556 mg/dL (< 150); eGFR For Non-African Americans > 60 (> 60)
[2018-04-24] MEDS: Metoprolol XL (24 HR) Succ 25 MG TAB.ER.24H PO SCH (07:55)
[2018-04-24] MEDS: Nicotine 21 MG PATCH.TD24 TD SCH (07:56)
[2018-04-24] MEDS: Ranolazine 500 MG TAB.ER.12H PO SCH (07:56)
[2018-04-24] MEDS ORDERED: Diltiazem CD (24hr) 300 MG CAPSULE PO SCH (09:00)
[2018-04-24] MEDS ORDERED: Diltiazem CD (24hr) 180 MG CAPSULE PO SCH (09:00)
[2018-04-24] MEDS ORDERED: Aspirin Enteric Coated 81 MG Tablet PO SCH (09:00)
--- NOTE | 2018-04-24 09:39 | Internal Med Progress Note ---
<Zan Parker R - Last Filed: 04/24/18 11:31> Hospitalist Progress Note - Encounter Date of Encounter: 04/24/18 Time of Encounter: 09:30 - Subjective Interval History: Patient examined at bedside while lying down. She states that her chest pain is still there. It is substernal 6/10 "squeezing pressure" that is not radiating. It comes on at rest and lasts 1-2 hours at a time. She is now complaining of back pain that she states is different than her chest pain. It is a sharp 8/10 stabbing pain that is constant and located in the middle of her back. It is tender to palpation. She states that when she gets her chest pain, she has associated nausea, diaphoresis, and abdominal pain. Patient also endorses diarrhea and fatigue that she has had for the past 2 weeks. She states that she has 5-6 soft/loose bowel movements per day. They are not bloody, black, or tarry. She has no recent travel, sick contact exposure, eaten different foods, antibiotic exposure. She says that she sometimes gets diarrhea with her metformin. She denies shortness of breath, palpitations, emesis. - Exam Vitals: Temp Pulse Resp BP Pulse Ox 98.1 F 78 18 111/74 94 04/24/18 07:26 04/24/18 07:26 04/24/18 07:26 04/24/18 07:26 04/24/18 07:26 Exam: Gen.: female lying in bed. Pleasant. Not in acute distress HEENT: MMM, no conjunctival pallor Cardiac: RRR, no murmur, +S1/S2 Pulmonary: CTA bilaterally, no wheezes, rales or rhonchi, equal chest expansion Abdomen: soft, nontender, BS noted, no guarding, no rebound. MSK: Hypertonicity of back musculature at T7 Extremities: no BLE edema, nontender calf, no cyanosis or clubbing. Distal pulses intact Neuro: A&Ox3, moves all extremities, no focal deficits Psych: Appropriate mood and behavior. Answers questions appropriately - Assessment and Plan (1) Chest pain Current Visit: Yes Status: Acute Assessment and Plan: -Patient has history of CAD s/p stent placement in 06/2015 and 04/2016 in [facility] -ECHO 03/11/2018 shows EF 55% with no wall motion abnormalities, normal LV and RV function -Nuclear stress 05/2017 showed findings consistent with prior infarct and no evidence for ischemia -Chest x-ray does not show pulmonary pathology -Serial trops negative. EKG has no acute changes -Has a 2 week history of diarrhea. Patient does not appear dry on physical exam -Likely 2/2 unstable angina vs unlikely demand ischemia Plan: -Continue tele -Continue ASA, plavix, atorvastatin, metoprolol succinate -Continue nitro prn -Continue tylenol prn, norco prn , and tramadol prn for pain -Cardiology consulted. Appreciate recommendations as to medical management vs left heart cath (2) CAD (coronary artery disease) Current Visit: No Status: Chronic Assessment and Plan: -Patient has history of CAD s/p stent placement in 06/2015 and 04/2016 in [facility] -ECHO 03/11/2018 shows EF 55% with no wall motion abnormalities, normal LV and RV function -Nuclear stress 05/2017 showed findings consistent with prior infarct and no evidence for ischemia -Chest x-ray does not show pulmonary pathology -Serial trops negative. EKG has no acute changes Plan: -Continue on ASA, Plavix, metoprolol succinate, ranexa -Not currently on acei/arb. Undocumented as to why. Appreciate cardiology recommendations -Chest pain workup as above (3) Diabetes mellitus Current Visit: No Status: Chronic Assessment and Plan: -Patient has poorly controlled diabetes. Uses metformin and victoza at home -Fasting blood sugars regularly above 250 Plan: -Hold home meds -Continue with SSI (4) Leukocytosis Current Visit: No Status: Chronic Assessment and Plan: -Patient had WBC of 13.2 at admission. It is now 11.4. Has .3% band neutrophils -Patient remains afebrile -Has a 2 week history of diarrhea, but no abdominal pain. Patient has frequent diarrhea 2/2 metformin use -Possibly 2/2 reactive vs gastroenteritis vs idiopathic -Continue to monitor (5) HTN (hypertension) Current Visit: No Status: Chronic Assessment and Plan: -Patient's blood pressure controlled inpatient -Continue with home medication cardizem (6) Bipolar disorder Current Visit: Yes Status: Acute Assessment and Plan: -continue home medication Larasidone (7) Anxiety Current Visit: Yes Status: Acute Assessment and Plan: -Continue home valium prn (8) Insomnia Current Visit: Yes Status: Acute Assessment and Plan: -Continue home trazadone and restoril (9) Tobacco use Current Visit: No Status: Chronic Assessment and Plan: -Counciled tobacco cessation -Nicotine patch while inpatient DVT Prophylaxis: SCD - Time Spent with Patient Total time spent is greater than 50% in coordination of care (as documented) at patient's floor/unit and/or counseling patient: Internal Medicine: Result - Labs CBC & Chem 7: 04/24/18 05:38 04/24/18 05:38 Labs: Short CBC 04/24/18 Range/Units 05:38 WBC 11.4 H (4.3-11.1) K/mcL Hgb 14.4 (11.5-15.4) g/dL Hct 42.3 (35.3-44.9) % Plt Count 279 (140-400) K/mcL Neutrophils # 5.8 (1.6-8.9) K/mcL BMP 04/24/18 05:38 Sodium 136 Potassium 3.6 Chloride 105 Carbon Dioxide 21 L BUN 13 Creatinine 0.65 Glucose 254 H Calcium 9.6 Cardiac Enzymes 04/23/18 04/24/18 Range/Units 22:12 05:38 Troponin I < 0.03 < 0.03 (< 0.04) ng/mL - ABG Interpretation ABG results: PT/INR, D-dimer D-Dimer < 215 ng/mLFEU (0-500) 04/23/18 16:17 Consult Discharge Plan - Plan Referrals: Glory Funes, [employer] PLANT INSTALLER [Primary Care Provider] - <Kathleen Campos - Last Filed: 04/24/18 14:17> Hospitalist Progress Note - Encounter Date of Encounter: 04/24/18 - Exam Vitals: Temp Pulse Resp BP Pulse Ox 98.0 F 68 18 115/78 94 04/24/18 11:38 04/24/18 11:38 04/24/18 11:38 04/24/18 11:38 04/24/18 11:38 - Assessment and Plan (1) Chest pain Current Visit: Yes Status: Acute (2) CAD (coronary artery disease) Current Visit: No Status: Chronic (3) Diabetes mellitus Current Visit: No Status: Chronic (4) Bipolar disorder Current Visit: Yes Status: Acute (5) Anxiety Current Visit: Yes Status: Acute (6) Insomnia Current Visit: Yes Status: Acute (7) Leukocytosis Current Visit: No Status: Chronic (8) Obesity (BMI 30-39.9) Current Visit: No Status: Chronic (9) Tobacco abuse Current Visit: No Status: Chronic - Time Spent with Patient Total time spent is greater than 50% in coordination of care (as documented) at patient's floor/unit and/or counseling patient: Internal Medicine: Result - Labs CBC & Chem 7: 04/24/18 05:38 04/24/18 05:38 Labs: Short CBC 04/24/18 Range/Units 05:38 WBC 11.4 H (4.3-11.1) K/mcL Hgb 14.4 (11.5-15.4) g/dL Hct 42.3 (35.3-44.9) % Plt Count 279 (140-400) K/mcL Neutrophils # 5.8 (1.6-8.9) K/mcL BMP 04/24/18 05:38 Sodium 136 Potassium 3.6 Chloride 105 Carbon Dioxide 21 L BUN 13 Creatinine 0.65 Glucose 254 H Calcium 9.6 Cardiac Enzymes 04/23/18 04/24/18 04/24/18 Range/Units 22:12 05:38 09:52 Troponin I < 0.03 < 0.03 < 0.03 (< 0.04) ng/mL - ABG Interpretation ABG results: PT/INR, D-dimer D-Dimer < 215 ng/mLFEU (0-500) 04/23/18 16:17 - Attending Attestation The history, physical exam, and medical decision making was performed by medical student Keith either while I was physically present and actively involved or I personally re-performed the exam and medical decision making. I have verified the accuracy of the medical student's documentation with regards to the history, physical exam findings, and medical decision making. Ms Mccoy has a significatn hx CAD s/p PCI and presented again with recurrent chest pain as has happened multiple times in the past months. She is awake, chest pain remains present. No current sob, nausea, emesis, sweats. No orthopnea or pnd. Cardiology at bedside and are considering [facility] this admission. Pt agreeable if cards recommends. gen- alert, awake,appears stated age eyes- pupils equal round cv- reg rate and rhythm, normal s1,s2, no murmurs appreciated, no le edema, no jvd lungs- ctabl, no wheezing, rhonchi or crackles, norm resp effort on room air abd- soft, non tender, non distended, + bs neuro- AAOx3 Chest Pain, may be unstable angina, ACS ruled out CAD hx stent placement in 06/2015 and 04/2016 in [facility] -CXR no acute findings -dimer <215 (correction to h7p which noted 250) -EKG with sinus rhythm twi III and aVF unchanged form prior ekg 03/19/18 as personally reviewed -trops neg, ekg without acute ischemic changes, cont on home med regimen asa, statin, BB, plavix, ranexa, not on acei/arb at home unclear why, cards following , possible lhc today vs continued medical management DM, Type II -hold home oral agent and SSI while here, accu chekcs Bipolar DO/Anxiety?insomnia- cont home meds Leukocytosis, improved without intervention -no report of s/s of infection on admission, today noting loose bms daily with metformin, no abd pain, afbrile -CXR unremarkable, UA ordered on admit and not collected Hyperlipidemia cont home statin <Zan Pakrer R - Last Filed: 04/24/18 11:31> (1) Chest pain Qualifiers: Chest pain type: other chest pain Qualified Code(s): R07.89 - Other chest pain; R07.8 - Other chest pain (2) CAD (coronary artery disease) Qualifiers: Coronary Disease-Associated Artery/Lesion type: unspecified vessel or lesion type [place] vs. transplanted heart: [place] heart Associated angina: with unspecified angina Qualified Code(s): I25.119 - Atherosclerotic heart disease of [place] coronary artery with unspecified angina pectoris (3) Diabetes mellitus Qualifiers: Diabetes mellitus type: type 2 Diabetes mellitus retirement insulin use: without retirement use Diabetes mellitus complication status: with unspecified complications Qualified Code(s): E11.8 - Type 2 diabetes mellitus with unspecified complications (4) Leukocytosis Qualifiers: Leukocytosis type: unspecified Qualified Code(s): D72.829 - Elevated white blood cell count, unspecified (5) HTN (hypertension) Qualifiers: Hypertension type: essential hypertension Qualified Code(s): I10 - Essential (primary) hypertension (6) Bipolar disorder Qualifiers: Active/Remission status: remission status unspecified Qualified Code(s): F31.9 - Bipolar disorder, unspecified (8) Insomnia Qualifiers: Insomnia type: unspecified Qualified Code(s): G47.00 - Insomnia, unspecified <Kathleen Campos - Last Filed: 04/24/18 14:17> (1) Chest pain Qualifiers: Chest pain type: precordial pain Qualified Code(s): R07.2 - Precordial pain (2) CAD (coronary artery disease) Qualifiers: Coronary Disease-Associated Artery/Lesion type: [place] artery [place] vs. transplanted heart: [place] heart Associated angina: with unspecified angina Qualified Code(s): I25.119 - Atherosclerotic heart disease of [place] coronary artery with unspecified angina pectoris (3) Diabetes mellitus Qualifiers: Diabetes mellitus type: type 2 Diabetes mellitus retirement insulin use: without termite technician use Diabetes mellitus complication status: with unspecified complications Qualified Code(s): E11.8 - Type 2 diabetes mellitus with unspecified complications (4) Bipolar disorder Qualifiers: Active/Remission status: remission status unspecified Qualified Code(s): F31.9 - Bipolar disorder, unspecified (6) Insomnia Qualifiers: Insomnia type: unspecified Qualified Code(s): G47.00 - Insomnia, unspecified (7) Leukocytosis Qualifiers: Leukocytosis type: unspecified Qualified Code(s): D72.829 - Elevated white blood cell count, unspecified
[2018-04-24] MEDS ORDERED: *HR* HYDROcodone/Acet 5/325 mg TABLET PO PRN (10:27)
[2018-04-24] MEDS ORDERED: Ondansetron 4 MG/2 ML VIAL IVP PRN (10:27)
--- NOTE | 2018-04-24 11:42 | Cardiology Consult Note ---
Date of Encounter: 04/24/18 Time of Encounter: 09:45 Assessment and Plan (1) Chest pain Current Visit: Yes Status: Acute Per cardiology: -Admitted with chest pain, atypical, however states somewhat similar to previous angina. -Known history of premature CAD with ME and PCI. -MOst recent [facility] 08/2017 [place] with luminal irregularities 15% proximal LAD, luminal irregularities 15% porximal circumflex, 25% proximal RCA, luminal irregularities 10 mid RCA. -Recent admission x3 and attempted conservative medical management with patient , however now re-admitted. -On asa, statin, BB, plavix, ranexa. -Most recent TTE with LVEF normal, no wall motion abnormalities. -Troponins negative x3. -ECG with no acute ischemic changes noted, similar to previous ECG. -Discussed and reviewed with patient, patient would like to proceed with LHC due to recurrent chest pain despite medical management. Risks versus benefits of LHC explained to patient, states understanding and agreeable to proceed. - test negative. Discussed again with patient regarding use of some form of control while on current cardiac medications due to risk to fetus while on current medications. Patient states understanding. -Further recommendations pending C. Qualifiers: Chest pain type: other chest pain Qualified Code(s): R07.89 - Other chest pain; R07.8 - Other chest pain (2) CAD (coronary artery disease) Current Visit: No Status: Chronic Per cardiology: -Known CAD, last LHC as above. Qualifiers: Coronary Disease-Associated Artery/Lesion type: [place] artery [place] vs. transplanted heart: [place] heart Associated angina: with unspecified angina Qualified Code(s): I25.119 - Atherosclerotic heart disease of [place] coronary artery with unspecified angina pectoris (3) Tobacco abuse Current Visit: No Status: Chronic Per cardiology: -Known tobacco abuse. -Smoking cessation eductaion reviewed with patient. Discussion w patient/family: The assessment and plan as outlined above was discussed with the patient who expressed understanding and agreement. All questions were answered. Thank you for involving us in the care of your patient. Please call with any questions. Discussed and reviewed with . History of Present Illness Consult date: 04/23/18 Requesting physician: Kathleen Campos Consult reason: recurrent chest pain Chief complaint: chest pain History of present illness: Ms. Mccoy is a 32 year old female with PMHx significant of premature CAD, ME s/ p PCI, DMII, HTN, HLD, tobacco abuse who presented to [facility] with complaints of chest pain. Patient states pain occured while sitting yesterday afternoon. Patient denies aggravating or alleviating factors. Patient states pain similar to previous ME symptoms. Reports chest pain has been constant since yesterday afternoon. Past Med Surg Social Fam HX - Past Medical History Attestation: Yes The following information was validated with the patient. Source: patient, old records reviewed Medical history: coronary artery disease, diabetes, GERD, hyperlipidemia, hypertension, kidney stones, migraine, myocardial infarction Additional medical history: PCOS Psychiatric history: anxiety, bipolar, depression - Past Surgical History Surgical History: angioplasty/stent Additional surgical history: cardiac stents x 2 - Social History Smoking Status: Current every day smoker Packs per day: 1 Smokeless Tobacco Status: No Alcohol use: occasionally Drug use: none - Family History Brother Family Member Ethnicity: Non- Living Status: Still Living Father Family Member Ethnicity: Non- Living Status: Still Living Hx Family Cardiac Disorders: Yes (HTN) Hx Family Respiratory Disorders: No Hx Family Cancer: No Hx Family GI Disorders: No Hx Family Endocrine Disorder: Yes (DM) Hx Family Neuromuscular Disorders: No Hx Family Neurologic Disorders: No Hx Family HEENT Disorders: No Hx Family Autoimmune Disorders: No Grandmother Adopted: No Family Member Ethnicity: Non- Living Status: Hx Family Cardiac Disorders: Yes (CHF) Hx Family Respiratory Disorders: No Hx Family Cancer: No Hx Family GI Disorders: No Hx Family Endocrine Disorder: No Hx Family Neuromuscular Disorders: No Hx Family Neurologic Disorders: No Hx Family HEENT Disorders: No Hx Family Autoimmune Disorders: No Mother Family Member Ethnicity: Non- Living Status: Still Living Hx Family Cardiac Disorders: No Hx Family Respiratory Disorders: No Hx Family Cancer: No Hx Family GI Disorders: No Hx Family Endocrine Disorder: No Hx Family Neuromuscular Disorders: No Hx Family Neurologic Disorders: No Hx Family HEENT Disorders: No Hx Family Autoimmune Disorders: No Medications and Allergies Temazepam [Restoril] 15 mg PO HS #0 06/29/15 [History] traZODone [TraZODone] 100 mg PO HS 09/27/15 [History] diazePAM [Valium] 5 mg PO TID PRN 04/01/16 [History] Liraglutide [Victoza 2-Bill] 1.2 mg SQ QAM 10/21/16 [History] Metoprolol XL (24 HR) Succ [Toprol Xl] 12.5 mg PO BID 10/21/16 [History] Aspirin Enteric Coated [Aspirin EC] 81 mg PO DAILY 05/24/17 [History] Lurasidone [Latuda] 40 mg PO QPM 05/24/17 [History] metFORMIN [Glucophage] 1,000 mg PO BID 05/24/17 [History] Atorvastatin [Lipitor] 40 mg PO HS 03/10/18 [History] Clopidogrel [Plavix] 75 mg PO DAILY 03/10/18 [History] Nitrofurantoin (BID) [Macrobid] 100 mg PO BID #8 capsule 03/20/18 [Rx] Diltiazem CD (24hr) [Cardizem CD] 180 mg PO DAILY 04/23/18 [History] Ranolazine [Ranexa] 1,000 mg PO BID 04/23/18 [History] 3 Allergy/AdvReac Type Severity Reaction Status Date / Time naproxen AdvReac Gastrointestinal Verified 03/19/18 20:46 Upset All Systems Review: The remainder of the systems were reviewed and are negative - Cardiovascular Cardiovascular: as per HPI, chest pain at rest Physical Examination Vital Signs Temperature 98.0 F 04/23/18 16:09 Pulse Rate 92 04/23/18 16:09 Respiratory Rate 18 04/23/18 16:09 Blood Pressure 130/92 04/23/18 16:09 O2 Sat by Pulse Oximetry 99 04/23/18 16:09 Temperature 98.0 F 04/24/18 11:38 Pulse Rate 68 04/24/18 11:38 Respiratory Rate 18 04/24/18 11:38 Blood Pressure 115/78 04/24/18 11:38 O2 Sat by Pulse Oximetry 94 04/24/18 11:38 Oxygen Delivery Oxygen Delivery Room Air General: Conversant, No Apparent Distress HEENT: Atraumatic, Normocephaly, Mucus Membranes Moist Neck: No JVD, Normal carotid pulses Cardiac: Reg Rate and Rhythm, Normal S1 and S2, No Murmur Lungs: Normal Breath Sounds, No Wheeze, Rales, Rhonchi Neuro: Alert and responsive, No focal deficits noted Abdomen: Soft, Non-Tender Skin: No rashes noted on visualized skin Musculoskeletal: No Chest Wall Tenderness Extremities: No Clubbing, No Cyanosis, No Edema, Normal Pulses Results 04/24/18 05:38 04/24/18 05:38 Lab Results Impressions Chest X-Ray 04/23/18 16:12 IMPRESSION: No focal airspace consolidation or pulmonary vascular congestion. D/ / Tenzin Campos / Tenzin Campos Interpreting Provider: Tenzin Campos Active Medications Acetaminophen (Tylenol) 650 mg PO Q6HR PRN PRN Reason: Mild Pain/Fever Stop: 10/23/18 18:24 Hydrocodone Bitart/Acetaminophen (Stanley 5-325 Mg) 1 tab PO Q6HR PRN PRN Reason: Severe Pain Stop: 10/24/18 10:28 Aspirin (Aspirin Ec) 81 mg PO DAILY GINGER Stop: 10/24/18 09:01 Last Admin: 04/24/18 07:55 Dose: 81 mg Atorvastatin Calcium (Lipitor) 40 mg PO HS GINGER Stop: 10/23/18 21:01 Last Admin: 04/23/18 20:08 Dose: 40 mg Clopidogrel Bisulfate (Plavix) 75 mg PO DAILY GINGER Stop: 10/24/18 09:01 Last Admin: 04/24/18 07:56 Dose: 75 mg Diazepam (Valium) 5 mg PO TID PRN PRN Reason: Anxiety Stop: 10/23/18 18:20 Diltiazem HCl (Cardizem Cd) 180 mg PO DAILY GINGER Stop: 10/24/18 09:01 Last Admin: 04/24/18 07:56 Dose: 180 mg Lurasidone HCl (Latuda) 40 mg PO QPM GINGER Stop: 10/24/18 18:21 Metoprolol Succinate (Toprol Xl) 12.5 mg PO BID GINGER Stop: 10/23/18 21:01 Last Admin: 04/24/18 07:55 Dose: 12.5 mg Naloxone HCl (Narcan) 0.4 mg IVP Q2MIN PRN PRN Reason: SEE COMMENTS Stop: 10/23/18 18:24 Nicotine (Nicoderm) 21 mg TD DAILY GINGER PRN Reason: Protocol Stop: 10/23/18 18:46 Last Admin: 04/24/18 07:56 Dose: 21 mg Nitroglycerin (Nitroglycerin) 0.4 mg SL Q5MIN PRN PRN Reason: Chest Pain Stop: 10/23/18 18:27 Ondansetron HCl (Zofran) 4 mg IVP Q6HR PRN; Protocol PRN Reason: nausea Stop: 10/24/18 10:28 Ranolazine (Ranexa) 1,000 mg PO BID GINGER Stop: 10/23/18 21:01 Last Admin: 04/24/18 07:56 Dose: 1,000 mg Temazepam (Restoril) 15 mg PO HS GINGER PRN Reason: Protocol Stop: 10/23/18 21:01 Last Admin: 04/23/18 20:08 Dose: 15 mg Tramadol HCl (Ultram) 50 mg PO Q6HR PRN PRN Reason: Moderate Pain Stop: 10/23/18 18:24 Last Admin: 04/23/18 20:08 Dose: 50 mg Trazodone HCl (Trazodone) 100 mg PO HS GINGER Stop: 10/23/18 21:01 Last Admin: 04/23/18 20:08 Dose: 100 mg Laboratory Tests 04/23/18 04/23/18 04/24/18 16:17 22:12 05:38 WBC Hgb Creatinine Troponin I < 0.03 < 0.03 < 0.03 Triglycerides LDL Cholesterol, Calc 04/24/18 04/24/18 04/24/18 05:38 05:38 09:52 WBC 11.4 H Hgb 14.4 Creatinine 0.65 Troponin I < 0.03 Triglycerides 556 H LDL Cholesterol, Calc TNP - Imaging and Cardiology Chest Xray: report reviewed Echo: report reviewed Cardiac cath: pending, report reviewed - EKG Interpretation EKG results cardiology: personally reviewed (ECG with SR.), other (Telemetry reviewed with average HR previous 12 hours noted to be 84, SR. PVCS and PACs noted.) Consult Discharge Plan - Plan Referrals: Glory Funes, [employer] OPERATOR [Primary Care Provider] -
[2018-04-24] MEDS ORDERED: *HR* Heparin 10,000 UNIT/10 ML VIAL ONE (13:18)
[2018-04-24] MEDS ORDERED: ISOVUE-370 200 ML INFUS..BTL IV ONE (13:18)
[2018-04-24] MEDS ORDERED: Heparin 1,000 UNITS/500 mL 500 ML ONE (13:18)
[2018-04-24] MEDS ORDERED: Nitroglycerin 1,000 MCG/10 ML VIAL IV ONE (13:18)
[2018-04-24] MEDS ORDERED: 0.9 % Sodium Chloride 1,000 ML ONE ×2 (13:18→13:48)
[2018-04-24] MEDS ORDERED: *HR* FentaNYL (PF) 100 MCG/2 ML VIAL ONE (13:37)
[2018-04-24] MEDS ORDERED: *HR* Midazolam HCl 2 MG/2 ML VIAL ONE (13:37)
--- NOTE | 2018-04-24 13:57 | Pre-Sedation Evaluation ---
Pre-sedation evaluation - Pre-sedation checklist Date of procedure: 04/24/18 Procedure: C Recent Vitals: Last Vital Signs Temp 98.0 F 04/24/18 11:38 Pulse 68 04/24/18 11:38 Resp 18 04/24/18 11:38 BP 115/78 04/24/18 11:38 Pulse Ox 94 04/24/18 11:38 H&P (including ROS) documented in medical record: Yes Previous reaction to sedatives/anesthetics: No Dietary Status: NPO after Midnight Dentition: No loose teeth or bridges ASA Classification *see protocol: CLASS II-Mild systemic disease Cardiac Registry (Cardio Only) - Functional Capacity Functional Capacity: >=4 METS with symptoms - Clincal Frailty Scale Clinical Frailty Scale: Managing Well
--- NOTE | 2018-04-24 14:26 | Event Note ---
Date of Encounter: 04/24/18 Time of Encounter: 14:24 - Cardiology Event Note Mild CAD on [facility] per Dr. Cobos. No intervention needed. Out patient cardiology f /u will be made. Cardiology will sign off. Call with questions.
--- NOTE | 2018-04-24 14:40 | Invasive Diagnostic Lab Proc ---
Name: Deb Mccoy Date of Study: 04/24/2018 Date: 1985 Ht: 66.9in Medical Record#: [id number] Age: 32 Wt: 211.64lb Gender: Female BSA: 2.07 Order #: [id number] BMI: 33.22 Physicians Procedure Physician: Cindi Cobos MD Referring MD: Referring MD: Staff Name Position Time In Meerdith Weiner RT (R) Monitor 01:51 PM CherieMonique RT (R) Scrub 01:52 PM Nabil Infante RN Diesel Mechanic 01:52 PM Indications Indication Unstable Angina Procedures Performed Procedure L HRT ARTERY/VENTRICLE ANGIO Pre-Procedure Checklist Informed consent is complete signed and on chart. H&P is on chart. ID band is on and ID verified with patient. Patient NPO for procedure The procedure was described for the patient and questions were answered. ECG is on chart. Plan of Care Patient will tolerate the procedure without complications. Adequate level of comfort will be maintained. Hemodynamics will remain stable Patient will recover from procedure without complications. Respiratory function will be maintained. Cardiac rhythm will remain stable. Patient temperature will be maintained. Patient and/or family have verbalized understanding of the procedure. Patient Education Chief Complaint/Reason for Test: Cardiac Cath Developmental Category: Adult (18-64 years) Developmentally Appropriate for Age: Yes Learning Barriers: None Education Needs: Procedure Education Method: Verbal Information Taught: Cardiac Cath Educational Evaluation: Able to repeat information Intravenous Access Time IV Size Location DC'd Fluid/Drip Rate Units RN 20g 1 /" Patent On Arrival Lt Antecubital 0.9NaCl ml/hr Allergies naproxen Oxycodone acetaminophen Vital Signs Time BP (mmHg) HR (bpm) O2 Sat. RR (bpm) LOC 02:30 PM 115 / 73 74 95 % 16 4 = Oriented but drowsy 02:15 PM 127 / 72 76 96 % 02:00 PM 122 / 79 65 95 % 18 01:50 PM 122 / 80 71 97 % 5 = Fully awake and oriented or at pre-proc level Procedural Medications Time Medication Dose Units Method Given By 01:52 PM Oxygen 2 L/min nasal cannula Nabil Infante RN 01:53 PM Versed 1 mg Intravenous Nabil Infante RN 01:53 PM Fentanyl 50 mcg Intravenous Nabil Infante RN 02:01 PM Lidocaine 2% 10 ml Subcutaneous Cindi Cobos MD 02:04 PM Fentanyl 25 mcg Intravenous Nabil Infante RN ASA Classification: CLASS II- Mild systemic disease (i.e. well-controlled diabetes, hypertension, asthma, cigarette smoking) Lida Score Preprocedure Postprocedure Activity 2- Moves 4 extremities sustained head lift Activity 2- Moves 4 extremities sustained head lift Circulation 2- SBP +/= 20 points of pre-anesthetic level Circulation 2- SBP +/= 20 points of pre-anesthetic level Consciousness 2- Awake and alert oriented x 3 Consciousness 2- Awake and alert oriented x 3 O2 Saturation 2- Able to maintain O2 satruation of 92% on room air O2 Saturation 2- Able to maintain O2 satruation of 92% on room air Respiratory 2- Able to deep breathe and cough well Respiratory 2- Able to deep breathe and cough well Total Score 10 Total Score 10 Contrast Agent: Isovue Diagnostic Contrast: 67 ml Total Contrast: 67 ml Fluoro Dose: 6520 mGy Procedure Log Time Note Enter By 01:51 PM Pt arrived to lab intern 2 at 13:51 tsites 01:52 PM Meredith Weiner RT (R) Position: Monitor Time in: 13:51 tsites 01:52 PM Monique Crespo RT (R) Position: Scrub Time in: 13:52 tsites 01:52 PM Nabil Infante RN Position: Diesel Mechanic Time in: 13:52 tsites 01:52 PM Patient charges- Angio tray pack, Navilyst 3mm J, Pulse Oximetry and ACIST tubing and transducer tsites 01:52 PM Case Delayed No tsites :52 PM Hair removed from procedure site in holding area using clippers. Bilateral groin prepped with Chloraprep by Meredith Weiner RT (R), then patient was draped. Skin intact. tsites 01:52 PM Physician arrived 13:52 tsites 01:52 PM ASA Class CLASS II- Mild systemic disease (i.e. well-controlled diabetes, hypertension, asthma, cigarette smoking) tsites 01:52 PM Meet and greet completed tsites 01:52 PM Sign in performed according to hospital policy. Informed consent was obtained. tsites 01:52 PM Procedure start 13:52 tsites 01:53 PM Time: 13:52 Oxygen on at 2 L/min per nasal cannula by Nabil Infante RN tsites 01:53 PM Time: 13:53 Versed 1 mg Intravenous Given by Nabil Infante RN tsites :53 PM Time: 13:53 Fentanyl 50 mcg Intravenous Given by Nabil Infante RN ites :53 PM Time: 13:53 Patient comfortable and pain free: Yes tsites 01:53 PM Time: 13:53LOC: 4 = Oriented but drowsy tsites 02:01 PM Time out was performed according to hospital policy. Conscious sedation and anesthesia was achieved (see medication log with in this report above) [email or web address] 02:01 PM Time: 14:01 10 ml Lidocaine 2% to right groin Subcutaneous Given by Cindi Cobos MD [email or web address] 02:01 PM Micro-Introducer Kit utilized for sheath placement [email or web address] 02:02 PM Unsuccessful access attempt # 1 into the right Femoral artery. Manual pressure applied to achieve hemostasis.. [email or web address] 02:02 PM 3mls contrast injected into Rt groin. [email or web address] 02:03 PM Access obtained by percutaneous puncture. 6Fr 10cm Terumo O'Neals sheath placed in right Femoral artery. [id number] [email or web address] 02:03 PM 0.035 145cm Navilyst 3mmJ wire [id number] [email or web address] 02:03 PM 5Fr FR 4 catheter inserted over the wire DNC [email or web address] 02:04 PM Time: 14:04 Fentanyl 25 mcg Intravenous Given by Nabil Infante RN [email or web address] 02:05 PM Catheter removed [email or web address] 02:06 PM 5Fr FL 4 catheter inserted over the wire DNC [email or web address] 02:08 PM Catheter removed [email or web address] 02:08 PM 5Fr SRC catheter inserted over the wire [id number] [email or web address] 02:09 PM RCA angiography performed in multiple views. [email or web address] 02:09 PM Coronary Dominance: right [email or web address] 02:09 PM Catheter removed [email or web address] 02:09 PM 5Fr FL 3.5 catheter inserted over the wire [id number] [email or web address] 02:10 PM LCA angiography performed in multiple views. [email or web address] 02:13 PM Lesion found in Proximal LAD. Pre Stenosis: 35 Pre DALTON Flow: 3: Complete and Brisk Flow/Perfusion [email or web address] 02:13 PM Lesion found in Mid LAD. Pre Stenosis: 40 Pre DALTON Flow: 3: Complete and Brisk Flow/Perfusion [email or web address] 02:14 PM Catheter removed [email or web address] 02:14 PM 5Fr Pigtail catheter inserted over the wire [facility] [email or web address] 02:14 PM Catheter crossed the aortic valve and was selectively placed in the left ventricle. Pressures recorded on pullback for left heart catheterization. [email or web address] 02:17 PM Bolus angiogram of left Ventricle complete: 10 ml/sec for a total of 20 mls [email or web address] 02:17 PM Catheter removed [email or web address] 02:20 PM Procedure completed at 14:20 04/24/2018 [email or web address] 02:20 PM Did you address DALTON flow and Dominance? Yes [email or web address] 02:20 PM Sign out completed: Radiation Dose 605.92 mGy, 6520.18 cGy/cm2 Fluoro Time: Isovue 370 - 200ml contrast 67 ml given by Cindi Cobos MD. Complications: None. 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 Cardiac Rehab Consult needed: NoConfirmed administered medications: Yes [email or web address] 02:20 PM Isovue 370 - 200ml,1 Bottle(s) used. [email or web address] 02:28 PM Site status No bleeding/hematoma - Rt Groin as reported by Sites, Monique RT (R) at 14:27 [email or web address] 02:28 PM Opsite applied [email or web address] 02:28 PM Opsite applied [email or web address] 02:28 PM Family placed in Not available. [email or web address] 02:28 PM Report given to Ludmila CASTILLO Pt taken to Room #55. 14:28 [email or web address] 02:28 PM Patient out of room: 14:28 [email or web address] Complications Complication None Hemodynamics Pressures Site Systolic/A Wave Diastolic/V Wave Mean AO 99 76 88 AO 115 67 89 AO 101 75 87 LV 116 2 21 LV 114 15 29 Post Procedure Information Post procedural instructions were given Closure Device Time Device Success/Fail 04/24/2018 2:27:00 PM MynxGrip Successful Site Checks Time Location Status Staff Sheath In? Note 11:00 PM 02:27 PM Rt Groin No bleeding/hematoma Sites, Monique RT (R) Pulses Time Site Pre-Procedure Post-Procedure Note 04/24/2018 2:30:00 PM Bilateral DP & PT 1+ 1+ Updated by RT Naa(R) on 04/24/2018 2:31:40 PM electronically signed on 04/24/2018 2:32:26 PM with status of Final
--- NOTE | 2018-04-24 16:36 | Discharge Summary ---
- NOTES TO OUTPATIENT PROVIDER Notes to Outpatient Provider: she reuires outpt fu with cardiology, no change to meds, no new stents, s/p [facility] 04/24, hold metformin post cath as isntructed then may resume Orders not resulted at time of discharge: Pending orders 04/23/18 18:23 Urinalysis reflex Microscopic [URIN] Routine 04/23/18 18:30 Drug Screen, Urine [UCHEM] Stat 04/24/18 06:00 ECG 12 lead ECG [ECG] AM 0600 04/24/18 14:14 UA w. reflex microscopic [Urinalysis reflex Microscopic] [URIN] Routine 04/25/18 04:00 BMP [Basic Metabolic Panel] AM 0400 Complete Blood Count w/o Diff [HEME] AM 0400 Date of Encounter: 04/24/18 Time of Encounter: 09:30 - Discharge Diagnosis (1) Chest pain Priority: Primary Status: Acute Assessment and Plan: stable chronic chest pain, ruled out ACS, ruled out ischemic chest pain, dimer negative and hx not consistent with PE, hx not consistent with dissection, CXR without pulm etiology -see details of CAD history below -CXR no acute findings -dimer 215 -trops neg, EKG with sinus rhythm twi III and aVF unchanged form prior ekg -cards consulted and did [facility] 04/24 with mild CAD, no intervention -cards has signed off, stable for dc to home after routine post cath care Qualifiers: Chest pain type: precordial pain Qualified Code(s): R07.2 - Precordial pain (2) CAD (coronary artery disease) Priority: Secondary Status: Chronic Assessment and Plan: Known history of premature CAD with MD and PCI. -Patient has history of CAD s/p stent placement in 06/2015 and 04/2016 in RCA -ECHO 03/11/2018 shows EF 55% with no wall motion abnormalities, normal LV and RV function -Nuclear stress 05/2017 showed findings consistent with prior infarct and no evidence for ischemia -Most recent [facility] 08/2017 Ayo with luminal irregularities 15% proximal LAD, luminal irregularities 15% porximal circumflex, 25% proximal RCA, luminal irregularities 10 mid RCA. -Chest x-ray does not show pulmonary pathology -Serial trops negative. EKG has no acute changes -On asa, statin, BB, plavix, ranexa. Not on acei/arb, undocumented as to why, cont home meds -fu with cards outpt Qualifiers: Coronary Disease-Associated Artery/Lesion type: [place] artery [place] vs. transplanted heart: [place] heart Associated angina: with unspecified angina Qualified Code(s): I25.119 - Atherosclerotic heart disease of [place] coronary artery with unspecified angina pectoris (3) Diabetes mellitus Priority: Secondary Status: Chronic Assessment and Plan: Held home metformin while inpt, may resume in three days after discharge -fu with PCP regarding loose stools while on metformin Qualifiers: Diabetes mellitus type: type 2 Diabetes mellitus terminal worker insulin use: without terminal worker use Diabetes mellitus complication status: with unspecified complications Qualified Code(s): E11.8 - Type 2 diabetes mellitus with unspecified complications (4) Bipolar disorder Priority: Secondary Status: Acute Assessment and Plan: cont latuda Qualifiers: Active/Remission status: remission status unspecified Qualified Code(s): F31.9 - Bipolar disorder, unspecified (5) Anxiety Priority: Secondary Status: Acute Assessment and Plan: cont home valium (6) Insomnia Priority: Secondary Status: Acute Assessment and Plan: cont home restoril and trazadone Qualifiers: Insomnia type: unspecified Qualified Code(s): G47.00 - Insomnia, unspecified (7) Leukocytosis Priority: Secondary Status: Acute Assessment and Plan: mild leukocytosis, ros negative for s/s of infection, possibly reactive cxr unremarkable no UA checked as pt denied any symptoms of uti afebrile throughout admission Qualifiers: Leukocytosis type: unspecified Qualified Code(s): D72.829 - Elevated white blood cell count, unspecified (8) Obesity (BMI 30-39.9) Priority: Secondary Status: Chronic Assessment and Plan: education re lifestyle modifications (9) Tobacco abuse Priority: Secondary Status: Chronic Assessment and Plan: education on cessation nicotine patch currently smoking 1ppd Hospital course: Ms. Mccoy is a 32 year old female with CAD hx, HLD, DM, obesity, tobacco dependence with repeated admission for chest pain. This admission work up was negative including, cxr, tele, ekgs (no acute changes), d dimer, LHC by cards. She is recommended continued medical management and cardiology follow up. She should cont to follow with PCP. Full details of admission are documented in assessment/plan as above. DC to home in stable condition after routine post cath care without any events. - Time Spent with Patient Total time spent providing and/or coordinating discharge services: - Discharge Medications Prescriptions: Nicotine Patch [Nicoderm] 21 mg TD DAILY 30 Days #30 patch.td24 Home Medications: Temazepam [Restoril] 15 mg PO HS #0 06/29/15 [History] traZODone [TraZODone] 100 mg PO HS 09/27/15 [History] diazePAM [Valium] 5 mg PO TID PRN 04/01/16 [History] Liraglutide [Victoza 2-Bill] 1.2 mg SQ QAM 10/21/16 [History] Metoprolol XL (24 HR) Succ [Toprol Xl] 12.5 mg PO BID 10/21/16 [History] Aspirin Enteric Coated [Aspirin EC] 81 mg PO DAILY 05/24/17 [History] Lurasidone [Latuda] 40 mg PO QPM 05/24/17 [History] Atorvastatin [Lipitor] 40 mg PO HS 03/10/18 [History] Clopidogrel [Plavix] 75 mg PO DAILY 03/10/18 [History] Diltiazem CD (24hr) [Cardizem CD] 180 mg PO DAILY 04/23/18 [History] Ranolazine [Ranexa] 1,000 mg PO BID 04/23/18 [History] Nicotine Patch [Nicoderm] 21 mg TD DAILY 30 Days #30 patch.td24 04/24/18 [Rx] Allergies/Adverse Reactions: 3 Allergy/AdvReac Type Severity Reaction Status Date / Time naproxen AdvReac Gastrointestinal Verified 03/19/18 20:46 Upset Date of admission: 04/23/18 18:20 Primary care physician: Glory Funes CNP Consults: 04/23/18 18:26 Consult to Cardiology [CONS] Routine Comment: Consulting Provider: Cardiology Janet Reason for Consult: re admission for chest pain, known cad, please eval for need for inpt testing vs cont med management Call Completed: No Discharging clinician: Kathleen Campos - Constitutional Vitals: Temp Pulse Resp BP Pulse Ox 98.0 F 71 16 111/76 93 04/24/18 11:38 04/24/18 16:00 04/24/18 16:00 04/24/18 16:00 04/24/18 16:00 Exam: gen- alert, awake,appears stated age eyes- pupils equal round cv- reg rate and rhythm, normal s1,s2, no murmurs appreciated, no le edema, no jvd lungs- ctabl, no wheezing, rhonchi or crackles, norm resp effort on room air abd- soft, non tender, non distended, + bs neuro- AAOx3 - Patient Status Disposition: Home, Self-Care Condition: Good Functional capacity at discharge: independent ambulation - Discharge Instructions Follow Up With: Glory Funes CNP [Primary Care Provider] - Barrie Polk MD [Partnered Physician] - Forms: ED Satisfaction Letter
[2018-04-24] MEDS: traMADol 50 MG TABLET PO PRN (17:24)
[2018-04-24 18:29] VITALS: BP 123/80
--- NOTE | 2018-04-25 12:32 | Electrocardiograph Report ---
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
--- NOTE | 2018-04-25 12:36 | Electrocardiograph Report ---
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
== END 2018-04-24 18:58 | disposition home or self-care (01) ==
LOC: EMEROOARM 16:05 → 3BNU 16:05 → SUATTDRO 18:20 → 3BNU 18:33
PROVIDERS: ADMIT Internal Medicine; ATTEND Internal Medicine

== ENCOUNTER 2019-07-05 21:02 | Observation (INO) ==
[2019-07-05] MEDS ORDERED: 0.9 % Sodium Chloride 500 ML IVC ONE (21:35)
[2019-07-05 21:43] LABS: Basophils # 0.1 K/mcL (0.0-0.2); Basophils % 0.5 %; Eosinophils # 0.7 K/mcL (0.0-0.6); Eosinophils % 4.2 %; Hemoglobin 14.7 g/dL (11.5-15.4); Immature Granulocytes % 0.4 % (0-4); Lymphocytes # 6.3 K/mcL (0.6-4.6); Lymphocytes % 35.6 %; Mean Corpuscular Hemoglobin 32.7 pg (28.0-33.3); Mean Corpuscular Volume 93.3 fL (83.0-100.0); Mean Platelet Volume 9.9 fL (9.4-12.4); Monocytes # 0.9 K/mcL (0.0-1.3); Monocytes % 4.9 %; Neutrophils # 9.6 K/mcL (1.6-8.9); Platelet Count 339 K/mcL (140-400); Segmented Neutrophils % 54.4 %; White Blood Count 17.7 K/mcL (4.3-11.1)
[2019-07-05 21:47] LABS: INR 0.9; Prothrombin Time 10.1 Seconds (9.4-12.1)
[2019-07-05] MEDS ORDERED: Ondansetron 4 MG/2 ML VIAL IVP ONE (22:01)
[2019-07-05] MEDS ORDERED: *HR* FentaNYL (PF) 100 MCG/2 ML VIAL IVP ONE (22:01)
[2019-07-05 22:05] LABS: BUN/Creatinine Ratio 14 (6-26); Blood Urea Nitrogen 9 mg/dL (6-20); Calcium 9.4 mg/dL (8.6-10.3); Carbon Dioxide 22 mEq/L (23-29); Chloride 104 mEq/L (98-107); Glucose 194 mg/dL (70-105); Osmolality,Calculated 286 (280-300); Potassium 3.7 mEq/L (3.5-5.1); Sodium 136 mEq/L (136-145); eGFR For African Americans > 60 (> 60); eGFR For Non-African Americans > 60 (> 60)
[2019-07-05 22:06] LABS: Troponin I < 0.03 ng/mL (< 0.04)
[2019-07-05 22:28] LABS: Bilirubin,Urine Negative (Negative); Blood,Urine Negative (Negative); Clarity,Urine Clear (Clear); Color,Urine Yellow (Yellow); Glucose,Urine (UA) 250 mg/dL (Normal); Ketones,Urine Negative (Negative); Leukocyte Esterase,Urine Negative (Negative); Nitrite,Urine Negative (Negative); PH,Urine 6.5 pH Units (5.0-8.0); Protein,Urine Negative (Neg-Trace); Specific Gravity,Urine 1.013 (1.010-1.025); Urobilinogen,Urine Normal (Normal)
[2019-07-06] MEDS ORDERED: Naloxone 0.4 MG/ML INJ IVP PRN ×2 (01:27→01:36)
[2019-07-06] MEDS ORDERED: 0.9 % Sodium Chloride 1,000 ML IVC SCH (01:30)
[2019-07-06] MEDS ORDERED: Nicotine 2 MG GUM BC PRN (01:30)
[2019-07-06] MEDS ORDERED: Aspirin Enteric Coated 325 MG Tablet PO ONE (01:31)
[2019-07-06] MEDS ORDERED: Dextrose Gel 15 GM/37.5 ML TUBE PO PRN ×4 (01:35→01:37)
[2019-07-06] MEDS ORDERED: *HR* Dextrose 50 % in Water (Syg) 50 ML SYRINGE IVP PRN ×2 (01:35→01:37)
[2019-07-06] MEDS ORDERED: D5% in Water 1,000 ML IVC PRN ×2 (01:35→01:37)
[2019-07-06] MEDS ORDERED: Acetaminophen/Butalbital/CaffeineTABLET PO ONE (02:37)
[2019-07-06 02:56] LABS: Basophils # 0.1 K/mcL (0.0-0.2); Basophils % 0.5 %; Eosinophils # 0.6 K/mcL (0.0-0.6); Eosinophils % 3.8 %; Hematocrit 39.3 % (35.3-44.9); Hemoglobin 13.4 g/dL (11.5-15.4); Immature Granulocytes % 0.3 % (0-4); Lymphocytes # 6.1 K/mcL (0.6-4.6); Lymphocytes % 39.5 %; Mean Corpuscular HGB Conc 34.1 g/dL (31.6-35.5); Mean Corpuscular Hemoglobin 32.7 pg (28.0-33.3); Mean Corpuscular Volume 95.9 fL (83.0-100.0); Mean Platelet Volume 9.9 fL (9.4-12.4); Monocytes # 0.7 K/mcL (0.0-1.3); Monocytes % 4.5 %; Neutrophils # 7.9 K/mcL (1.6-8.9); Platelet Count 292 K/mcL (140-400); Red Cell Distribution Width 12.9 % (11.5-14.5); Segmented Neutrophils % 51.4 %; White Blood Count 15.4 K/mcL (4.3-11.1)
[2019-07-06 03:12] LABS: INR 0.9; Prothrombin Time 10.6 Seconds (9.4-12.1)
[2019-07-06 03:16] LABS: Alanine Aminotransferase 22 Units/L (7-52); Albumin 4.1 g/dL (3.5-5.7); Albumin/Globulin Ratio 2.1 (1.1-2.2); Alkaline Phosphatase 78 Units/L (34-104); Aspartate Amino Transferase 12 Units/L (13-39); BUN/Creatinine Ratio 15 (6-26); Bilirubin,Total 0.4 mg/dL (0.3-1.0); Blood Urea Nitrogen 8 mg/dL (6-20); Calcium 8.9 mg/dL (8.6-10.3); Carbon Dioxide 22 mEq/L (23-29); Chloride 106 mEq/L (98-107); Chol/HDL Ratio 2.8 (0-4.9); Cholesterol 89 mg/dL (< 200); Glucose 131 mg/dL (70-105); HDL Cholesterol 32 mg/dL (40-59); LDL Cholesterol,Calculated 28 mg/dL (0-99); Magnesium 1.6 mg/dL (1.6-2.6); Osmolality,Calculated 282 (280-300); Phosphorous 3.6 mg/dL (2.7-4.5); Potassium 3.7 mEq/L (3.5-5.1); Sodium 136 mEq/L (136-145); Total Protein 6.1 g/dL (6.4-8.9); Triglycerides 146 mg/dL (< 150); eGFR For African Americans > 60 (> 60); eGFR For Non-African Americans > 60 (> 60)
[2019-07-06] MEDS: *HR* Heparin 5,000 UNIT/ML VIAL SQ SCH ×2 (04:13→17:21)
[2019-07-06] MEDS ORDERED: Insulin LISPRO 300 UNITS/3 ML VIAL SQ SCH ×2 (06:00→21:00)
[2019-07-06] MEDS ORDERED: Nicotine 14 MG PATCH.TD24 TD SCH (09:00)
[2019-07-06] MEDS ORDERED: Acetaminophen 325 MG TABLET PO PRN (10:18)
[2019-07-06] MEDS: diazePAM 10 MG TABLET PO SCH ×2 (10:22→20:46)
[2019-07-06] MEDS: Diltiazem CD (24hr) 180 MG CAPSULE PO SCH (10:22)
[2019-07-06] MEDS: Ranolazine 500 MG TAB.ER.12H PO SCH ×2 (10:22→20:46)
[2019-07-06] MEDS: Insulin LISPRO 300 UNITS/3 ML VIAL SQ SCH ×2 (12:03→17:20)
[2019-07-06] MEDS: Morphine Sulfate 2 MG/ML SYRINGE IVP PRN ×2 (12:23→20:52)
[2019-07-06] MEDS: *HR* Promethazine 25 MG/ML VIAL IVP PRN ×2 (12:24→20:52)
[2019-07-06] MEDS: Metoprolol XL (24 HR) Succ 50 MG TAB.ER.24H PO SCH (20:46)
[2019-07-07] MEDS ORDERED: Regadenoson 0.4 MG/5 ML SYRINGE IVP ONE (06:11)
[2019-07-07] MEDS: *HR* Heparin 5,000 UNIT/ML VIAL SQ SCH (06:45)
[2019-07-07] MEDS ORDERED: Aspirin Enteric Coated 81 MG Tablet PO SCH (09:00)
[2019-07-07 09:38] LABS: Estimated Average Glucose 151 mg/dl
[2019-07-07] MEDS: Ranolazine 500 MG TAB.ER.12H PO SCH (09:40)
[2019-07-07] MEDS: Diltiazem CD (24hr) 180 MG CAPSULE PO SCH (09:40)
[2019-07-07] MEDS: Insulin LISPRO 300 UNITS/3 ML VIAL SQ SCH ×2 (09:41→12:13)
[2019-07-07] MEDS: diazePAM 10 MG TABLET PO SCH (09:41)
[2019-07-07] MEDS: Metoprolol XL (24 HR) Succ 50 MG TAB.ER.24H PO SCH (09:41)
[2019-07-07 11:57] VITALS: BP 104/69
[2019-07-07] MEDS ORDERED: Isosorbide MONOnitrate (24 HR) 30 MG TAB.ER.24H PO SCH (16:01)
== END 2019-07-07 16:53 | disposition home or self-care (01) ==
LOC: 3BNU 21:02 → EMEROOARM 21:02 → SUATTDRO 23:47 → 2NNU 07-06 00:20
PROVIDERS: ADMIT Family Medicine; ATTEND Internal Medicine

== ENCOUNTER → 2020-11-08 20:51 | Observation (INO) ==
[2020-11-08 20:25] LABS: Bilirubin,Urine Negative (Negative); Blood,Urine Negative (Negative); Clarity,Urine Turbid (Clear); Color,Urine Light-Yellow (Yellow); Glucose,Urine (UA) 150 mg/dL (Normal); Ketones,Urine 80 mg/dL (Negative); Leukocyte Esterase,Urine Moderate (Negative); Nitrite,Urine Negative (Negative); Protein,Urine Trace mg/dL (Neg-Trace); Specific Gravity,Urine 1.021 (1.010-1.025); Urobilinogen,Urine Normal (Normal)
[2020-11-08 20:33] LABS: Calcium Oxalate Crystals,Urine Present; Squamous Epithelial Cell,Urine Many per hpf (None-Few)
[2020-11-08 20:34] LABS: Bacteria,Urine Few per hpf (None-Few); WBC,Urine 0-3 per hpf (0-3)
== END | disposition home or self-care (01) ==
LOC: 1NENULAB
PROVIDERS: ADMIT Obstetrics & Gynecology; ATTEND Obstetrics & Gynecology

== ENCOUNTER 2020-12-08 15:01 | Observation (INO) ==
[2020-12-08 16:19] LABS: Basophils % 0.2 %; Eosinophils # 0.2 K/mcL (0.0-0.6); Eosinophils % 2.1 %; Hematocrit 36.9 % (35.3-44.9); Hemoglobin 12.5 g/dL (11.5-15.4); Immature Granulocytes % 0.2 % (0-4); Lymphocytes # 1.8 K/mcL (0.6-4.6); Lymphocytes % 19.2 %; Mean Corpuscular HGB Conc 33.9 g/dL (31.6-35.5); Mean Corpuscular Hemoglobin 31.6 pg (28.0-33.3); Mean Corpuscular Volume 93.2 fL (83.0-100.0); Mean Platelet Volume 10.9 fL (9.4-12.4); Monocytes # 0.6 K/mcL (0.0-1.3); Monocytes % 6.8 %; Neutrophils # 6.7 K/mcL (1.6-8.9); Platelet Count 182 K/mcL (140-400); Red Blood Count 3.96 M/mcL (3.82-4.97); Red Cell Distribution Width 13.1 % (11.5-14.5); Segmented Neutrophils % 71.5 %; White Blood Count 9.4 K/mcL (4.3-11.1)
[2020-12-08 16:27] LABS: Protein/Creatinine Ratio,Urine 0.27 mg/mg (0.00-0.20)
[2020-12-08] MEDS ORDERED: Acetaminophen/Butalbital/CaffeineTABLET PO PRN (16:30)
[2020-12-08 16:37] LABS: Alanine Aminotransferase 22 Units/L (7-52); Aspartate Amino Transferase 19 Units/L (13-39); BUN/Creatinine Ratio 17 (6-26); Blood Urea Nitrogen 8 mg/dL (6-20); Lactate Dehydrogenase 103 Units/L (140-271); Uric Acid 4.6 mg/dL (2.3-7.6); eGFR For African Americans > 60 (> 60); eGFR For Non-African Americans > 60 (> 60)
[2020-12-08 17:21] LABS: Bacteria,Urine Few per hpf (None-Few); Bilirubin,Urine Negative (Negative); Blood,Urine Negative (Negative); Clarity,Urine Clear (Clear); Color,Urine Light-Yellow (Yellow); Glucose,Urine (UA) >=1000 mg/dL (Normal); Ketones,Urine 20 mg/dL (Negative); Leukocyte Esterase,Urine Negative (Negative); Mucus,Urine Few per lpf (None-Few); Nitrite,Urine Negative (Negative); PH,Urine 6.5 pH Units (5.0-8.0); Protein,Urine Negative (Neg-Trace); RBC,Urine 0-3 per hpf (0-3); Specific Gravity,Urine 1.021 (1.010-1.025); Squamous Epithelial Cell,Urine Moderate per hpf (None-Few); Urobilinogen,Urine Normal (Normal); WBC,Urine 0-3 per hpf (0-3)
== END 2020-12-08 18:11 | disposition home or self-care (01) ==
LOC: 1NENULAB
PROVIDERS: ADMIT Registered Nurse; ATTEND Registered Nurse